=== PATIENT | male | born 1945 | race Caucasian/White ===

== ENCOUNTER → 2016-12-09 | Outpatient (CLI) | payer MEDICARE, OTHER ==
--- NOTE | 2016-12-09 13:25 | CT ---
EXAMINATION TYPE: CT chest w con DATE OF EXAM: 12/09/2016 12:51 PM COMPARISON: NONE HISTORY: Cough CT DLP: 1340.6 mGycm Automated exposure control for dose reduction was used. CONTRAST: CT scan of the chest is performed with IV Contrast, patient injected with 100 mL of Omnipaque 300. FINDINGS: There is a 2.2 cm bulla in the apical posterior segment of the left upper lobe. There is a 1.2 x 1.1 cm nodule along the major fissure in the right upper lobe, best seen on image 24. There is an 8 mm nodule in the lateral aspect of the left lung best seen on image 30. There is dependent atele ctasis at the lung bases. There is no significant axillary or mediastinal adenopathy. There are small hilar nodes. The lymph no de on the right measures 1.1 cm and the lymph node on the left measures 1.1 cm. There is no pleural o r pericardial fluid. The heart is not enlarged. There is coronary artery calcification. There are bilateral adrenal masses. The lumen the right measures 2.8 cm. On the left measures 1.9 cm. These were present on the previous CT scan of the abdomen and pelvis dated 06/05/2014 and has not camilo nged significantly. The remaining upper abdomen is unremarkable. There is mild hypertrophic spondylosis within the spine. IMPRESSION: 1. BILATERAL PULMONARY NODULES. 2. BILATERAL, STABLE ADRENAL MASSES. 3. NONSPECIFIC HILAR ADENOPATHY. 4. DEGENERATIVE CHANGES WITHIN THE SPINE.
== END ==
LOC: RADCTMAIN 12:13
PROVIDERS: ATTEND Family Medicine
DX: R91.8 Other nonspecific abnormal finding of lung field (principal)
CPT/HCPCS: 71260; Q9967

== ENCOUNTER → 2016-12-19 | Outpatient (CLI) | payer MEDICARE, OTHER ==
--- NOTE | 2016-12-20 08:29 | PE ---
EXAMINATION TYPE: PET CT fusion skull to thigh DATE OF EXAM: 12/19/2016 11:20 AM CLINICAL HISTORY: 71-year-old male solitary pulmonary nodule TECHNIQUE: Following the intravenous administration of 15.0 mCi of F-18 FDG, whole body images are performed from the skull base to the midthigh. Images are reviewed on the computer in the coronal, a xial, and sagittal planes. Reconstructed rotating images are created on independent workstation and reviewed on the computer. A localization and attenuation correction CT is performed in conjunction with the PET scan. Glucose level: 164 mg/dL COMPARISON: 12/09/2016 chest and 06/05/2014, 04/03/[address] FINDINGS: PET: Physiologic FDG uptake within the neck. 8mm pulmonary nodule posterior right midlung axial image 89. 5 mm pulmonary nodule posterior right lower lobe axial image 108. 5 mm pulmonary nodule peripheral left mid lung axial image 97. None of these show appreciable FDG uptake with the largest 8 mm nodule being just at the threshold fo r adequate PET characterization. Redemonstrated 2.5 cm right adrenal gland nodule and this is unchanged from 04/03/2014 with density ch aracteristics on prior exams compatible with lipid rich adrenal adenoma. There is mild FDG uptake, ma ximal SUV 2.7. 1.5 cm left adrenal gland nodule is also unchanged from 04/03/2014. No appreciable FDG uptake. Stabili ty for just about 3 years compatible with a benign etiology. Scattered variable mild to moderate bowel activity is demonstrated, likely physiologic muscular activ ity. Otherwise, physiologic FDG uptake seen within the abdomen and pelvis. Some degenerative tracer activity noted at the right shoulder. Variable mild to moderate degenerative tracer activity within the spine. ATTENUATION CORRECTION CT: Large patient body habitus causing extensive artifacts on the CT portion of the exam. Visualized intracranial structures, orbits and globes, and mastoid air cells are clear. There is comp lete opacification of the left maxillary sinus. Calcification in the region of the right palatine to nsil suggests sequela of prior infection. Retropharyngeal course of the ICAs. No cervical lymphadenop athy. Heart is upper limits of normal in size without pericardial effusion. Coronary vessel calcifications are present. Marker for coronary artery disease. Ascending aorta is ectatic at 3.7 cm. Borderline to mildly enlarged caliber to the main right and left pulmonary arteries and 2.5 and 2.8 cm, respective ly, suggesting underlying pulmonary arterial hypertension. No thoracic lymphadenopathy seen. Mild shara trilobular emphysema is noted. Some patchy bibasilar areas of atelectasis are present without ct consolidation or pleural effusion. Tiny hiatal hernia. There are extensive artifacts degrading the exam on the body portion. Prostate gland is enlarged measuring 5.5 cm wide. Circumferential bladder wall thickening probably re lates to bladder wall hypertrophy. There is a fat-containing right inguinal hernia. No abnormal fluid collection in the pelvis or pelvic lymphadenopathy seen. Bones: Degenerative changes at the hips, SI joints, mid and lower lumbar spine, endplate spondylosis mid to lower thoracic spine. Additional degenerative changes cervical spine. No osseous destructive p rocess. IMPRESSION: 1. Three pulmonary nodules, largest measuring 8 mm. These show no appreciable FDG uptake with the lar gest 8mm nodule being just at the threshold for adequate PET characterization. 6, 12, and 24 month fo llow-up exams recommended to ensure stability of these nodules. 2. Stable bilateral adrenal gland nodules measuring 2.5 cm on the right and 1.5 cm on the left compat ible with benign adrenal adenomas. 3. COPD with mild emphysema, CAD, suspected pulmonary arterial hypertension, suspected BPH, and a fat -containing right inguinal hernia.
== END | disposition home or self-care (01) ==
LOC: RADPETMAIN 07:30
PROVIDERS: ATTEND Family Medicine
DX: R91.8 Other nonspecific abnormal finding of lung field (principal); E27.8 Other specified disorders of adrenal gland; J44.9 Chronic obstructive pulmonary disease, unspecified; I25.10 Atherosclerotic heart disease of native coronary artery without angina pectoris; K40.90 Unilateral inguinal hernia, without obstruction or gangrene, not specified as recurrent
CPT/HCPCS: 78815; A9552

== ENCOUNTER → 2017-05-19 | Outpatient (CLI) | payer MEDICARE, OTHER ==
[~2017-05-19] MED LIST: SODIUM CHLORIDE 0.9% 500 ML in EMPTY BAG 1 BAG IV PRN
[2017-05-19 13:19] VITALS: BP 137/72; PULSE 81; RESP 16; TEMP 97.6
[2017-05-19 13:27] LABS: Anisocytosis Slight; CH 25.9; CHCM 28.9; HDW 2.92; HGB 13.3 gm/dL (13.0-17.5); Hypochromasia Marked; MCH 27.2 pg (25.0-35.0); MCHC 30.2 g/dL (31.0-37.0); Mean Platelet Volume 7.6; RBC 4.89 m/uL (4.30-5.90); RDW 16.3 % (11.5-15.5); WBC 7.7 k/uL (3.8-10.6)
== END ==
LOC: PROCWHC3 12:45 → EDSTATUS 13:00
PROVIDERS: ATTEND Family Medicine
DX: D75.0 Familial erythrocytosis (principal)
CPT/HCPCS: 36415; 85027

== ENCOUNTER → 2017-09-08 | Outpatient (CLI) | payer MEDICARE, OTHER ==
[2017-09-08 14:30] VITALS: BP 124/78; PULSE 78; RESP 26; TEMP 97.6
[2017-09-08 15:06] LABS: CH 27.9; CHCM 29.9; HCT 46.3 % (39.0-53.0); HDW 2.76; HGB 14.2 gm/dL (13.0-17.5); Hypochromasia Marked; MCH 28.6 pg (25.0-35.0); MCHC 30.6 g/dL (31.0-37.0); MCV 93.7 fL (80.0-100.0); RBC 4.95 m/uL (4.30-5.90); RDW 14.9 % (11.5-15.5)
== END | disposition home or self-care (01) ==
LOC: PROCWHC3 13:51
PROVIDERS: ATTEND Family Medicine
DX: D75.0 Familial erythrocytosis (principal)
CPT/HCPCS: 36415; 85027; 99195

== ENCOUNTER 2017-10-07 14:52 | Emergency (ER) | payer MEDICARE, OTHER ==
[2017-10-07 15:12] VITALS: BP 161/70; PULSE 94; RESP 18; TEMP 97.5
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
== END 2017-10-07 15:47 | disposition home or self-care (01) ==
LOC: EC 14:52
DX: H61.22 Impacted cerumen, left ear (principal); J44.9 Chronic obstructive pulmonary disease, unspecified; I48.91 Unspecified atrial fibrillation; E11.9 Type 2 diabetes mellitus without complications; K21.9 Gastro-esophageal reflux disease without esophagitis; G47.30 Sleep apnea, unspecified; F17.200 Nicotine dependence, unspecified, uncomplicated; Z99.89 Dependence on other enabling machines and devices; Z79.4 Long term (current) use of insulin; Z79.01 Long term (current) use of anticoagulants; Z79.899 Other long term (current) drug therapy; Z88.5 Allergy status to narcotic agent
CPT/HCPCS: 99282

== ENCOUNTER → 2017-12-08 | Outpatient (CLI) | payer MEDICARE, OTHER ==
[2017-12-08 15:01] VITALS: RESP 16; TEMP 97.8
[2017-12-08 15:09] LABS: HCT 48.9 % (39.0-53.0); HGB 15.1 gm/dL (13.0-17.5); Hypochromasia Moderate; MCH 28.4 pg (25.0-35.0); MCHC 30.9 g/dL (31.0-37.0); MCV 92.1 fL (80.0-100.0); Mean Platelet Volume 7.2; Platelet Count 275 k/uL (150-450); RBC 5.31 m/uL (4.30-5.90); RDW 14.9 % (11.5-15.5); WBC 8.2 k/uL (3.8-10.6)
[2017-12-08 15:33] VITALS: BP 137/68; PULSE 96
== END | disposition home or self-care (01) ==
LOC: PROCWHC3 14:41
PROVIDERS: ATTEND Family Medicine
DX: D75.0 Familial erythrocytosis (principal)
CPT/HCPCS: 36415; 85027; 99195

== ENCOUNTER → 2018-02-17 | Outpatient (CLI) | payer MEDICARE, OTHER ==
[2018-02-17 12:46] VITALS: TEMP 98.1
[2018-02-17 12:59] LABS: HCT 48.6 % (39.0-53.0); HGB 15.1 gm/dL (13.0-17.5); Hypochromasia Marked; MCH 28.5 pg (25.0-35.0); MCHC 31.1 g/dL (31.0-37.0); MCV 91.8 fL (80.0-100.0); Mean Platelet Volume 7.4; Platelet Count 293 k/uL (150-450); RDW 15.5 % (11.5-15.5); WBC 8.2 k/uL (3.8-10.6)
[2018-02-17 13:40] VITALS: BP 119/63; PULSE 92; RESP 16
== END | disposition home or self-care (01) ==
LOC: PROCWHC3 12:35
PROVIDERS: ATTEND Family Medicine
DX: D75.0 Familial erythrocytosis (principal)
CPT/HCPCS: 85027

== ENCOUNTER → 2018-04-21 | Outpatient (CLI) | payer MEDICARE, OTHER ==
[2018-04-21 13:00] VITALS: TEMP 98.4
[2018-04-21 13:13] LABS: HCT 47.4 % (39.0-53.0); HGB 14.5 gm/dL (13.0-17.5); Hypochromasia Marked; MCH 28.1 pg (25.0-35.0); MCHC 30.5 g/dL (31.0-37.0); MCV 92.4 fL (80.0-100.0); Platelet Count 311 k/uL (150-450); RBC 5.14 m/uL (4.30-5.90)
[2018-04-21 13:48] VITALS: BP 115/58; PULSE 98; RESP 18
== END | disposition home or self-care (01) ==
LOC: PROCWHC3 12:37
PROVIDERS: ATTEND Family Medicine
DX: D75.0 Familial erythrocytosis (principal)
CPT/HCPCS: 85027; 99195

== ENCOUNTER → 2018-06-16 | Outpatient (CLI) | payer MEDICARE, OTHER ==
[2018-06-16 13:30] VITALS: RESP 16; TEMP 98.1
[2018-06-16 13:42] LABS: HCT 48.7 % (39.0-53.0); HGB 14.4 gm/dL (13.0-17.5); Hypochromasia Marked; MCH 27.6 pg (25.0-35.0); MCHC 29.6 g/dL (31.0-37.0); MCV 93.4 fL (80.0-100.0); Mean Platelet Volume 7.2; Platelet Count 305 k/uL (150-450); RBC 5.21 m/uL (4.30-5.90); RDW 15.3 % (11.5-15.5); WBC 10.1 k/uL (3.8-10.6)
[2018-06-16 14:31] VITALS: BP 154/80; PULSE 93
== END ==
LOC: PROCWHC3 12:51
PROVIDERS: ATTEND Family Medicine
DX: D75.0 Familial erythrocytosis (principal)
CPT/HCPCS: 36415; 85027; 99195

== ENCOUNTER 2018-09-28 17:27 | Emergency (ER) | payer OTHER, MEDICARE ==
[2018-09-28 17:37] VITALS: TEMP 98.4
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
[2018-09-28 19:48] VITALS: BP 169/76; PULSE 97; RESP 24
== END 2018-09-28 19:52 | disposition home or self-care (01) ==
LOC: EC 17:27
DX: S01.81XA Laceration without foreign body of other part of head, initial encounter (principal); I48.91 Unspecified atrial fibrillation; J44.9 Chronic obstructive pulmonary disease, unspecified; E11.9 Type 2 diabetes mellitus without complications; F17.200 Nicotine dependence, unspecified, uncomplicated; G47.30 Sleep apnea, unspecified; Z99.89 Dependence on other enabling machines and devices; Z79.01 Long term (current) use of anticoagulants; Z79.4 Long term (current) use of insulin; Z79.899 Other long term (current) drug therapy; Z88.5 Allergy status to narcotic agent; V67.5XXA Driver of heavy transport vehicle injured in collision with fixed or stationary object in traffic accident, initial encounter; Y92.481 Parking lot as the place of occurrence of the external cause
CPT/HCPCS: 70450; 72125; 99284

== ENCOUNTER 2018-10-24 11:17 | Inpatient (IN) | payer MEDICARE, OTHER ==
[2018-10-24] MEDS ORDERED: IPRATROPIUM-ALBUTEROL 3 ML NEB INHALATION STA (11:38)
[2018-10-24] MEDS ORDERED: methylPREDNISolone SOD SUCCI 125 MG/2 ML VIAL IV STA (11:38)
--- NOTE | 2018-10-24 12:00 | ED ---
General Adult HPI - General Chief complaint: Shortness of Breath Stated complaint: SOB Time Seen by Provider: 10/24/18 11:25 Source: patient Mode of arrival: ambulatory Limitations: no limitations - History of Present Illness Initial comments: This 73-year-old white male presents with a complaint of shortness of breath. He states that this started last evening. He states that it is fairly severe. It is worse with exertion. 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 He still actively utilizes tobacco. He states that he has had a cough for the last several months with a greenish production. He denies any known fever but does state that he has had some chills. He does utilize home nebulized breathing treatments. He also utilizes oxygen at night only. He denies any chest pain. He states that he has chronic left leg swelling this is unchanged. He denies any leg pain or history of DVT or PE. He denies any known cardiac disease. No other complaints or modifying factors. 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 - Related Data Home Medications Medication Instructions Recorded Confirmed Ezetimibe [Zetia] 10 mg PO DAILY 01/22/14 10/24/18 Glimepiride [Amaryl] 4 mg PO BID 01/22/14 10/24/18 Metoprolol Tartrate [Lopressor] 50 mg PO BID 07/09/14 10/24/18 Albuterol Inhaler [Ventolin Hfa 1 - 2 puff INHALATION RT-Q4H 06/02/16 10/24/18 Inhaler] Atorvastatin [Lipitor] 80 mg PO DAILY 06/02/16 10/24/18 HYDROcodone/APAP 7.5-325MG [[place] 1 tab PO BID PRN 06/02/16 10/24/18 7.5-325] metFORMIN HCL 1,000 mg PO BID 06/02/16 10/24/18 Dutasteride 0.5 mg PO DAILY 10/24/18 10/24/18 Exenatide Microspheres [Bydureon 2 mg SQ Q7D 10/24/18 10/24/18 Pen] Insulin Degludec [Tresiba] 60 unit SQ DAILY 10/24/18 10/24/18 Lisinopril [Zestril] 5 mg PO BID 10/24/18 10/24/18 Tamsulosin [Flomax] 0.4 mg PO DAILY 10/24/18 10/24/18 Warfarin [Coumadin] 7.5 mg PO DAILY 10/24/18 10/24/18 Allergies Allergy/AdvReac Type Severity Reaction Status Date / Time morphine Allergy Rash/Hives Verified 10/24/18 11:55 Review of Systems ROS Statement: Those systems with pertinent positive or pertinent negative responses have been documented in the HPI. ROS Other: All systems not noted in ROS Statement are negative. Past Medical History Past Medical History: Atrial Fibrillation, Blood Disorder, COPD, Diabetes Mellitus, GERD/Reflux, Sleep Apnea/CPAP/BIPAP Additional Past Medical History / Comment(s): CELLULITIS RT LEG/FOOT, familial erythrocytosis History of Any Multi-Drug Resistant Organisms: None Reported Additional Past Surgical History / Comment(s): LT LEG SX D/T POOR CIRCULATION, LT CAOTID ENDARTRECTOMY, LASER EYE SX, Past Anesthesia/Blood Transfusion Reactions: No Reported Reaction Past Psychological History: No Psychological Hx Reported Smoking Status: Current every day smoker Past Alcohol Use History: None Reported Past Drug Use History: None Reported - Past Family History Father Additional Family Medical History / Comment(s): DAD AGE 55 OF BRAIN HEMORRAGE. HAD HX TB. Mother Additional Family Medical History / Comment(s): HEART TROUBLE IN HER 70'S General Exam - General Exam Comments Initial Comments: GENERAL: The patient is well nourished and well hydrated. VITAL SIGNS: Heart rate, blood pressure, respiratory rate reviewed as recorded in nurse's notes. EYES: Pupils are round and reactive. Extraocular movements are intact. No conjunctival / lid redness or swelling. ENT: No external evidence of injury, swelling, or ecchymosis. Airway is patent. Throat is clear. NECK: Nontender. No swelling or evidence of injury. No subcutaneous emphysema. Trachea is midline. No thyroid mass. HEART: Irregular tachycardic rhythm. Good peripheral pulses. LUNGS/CHEST: Diminished breath sounds bilaterally with slight wheezes. No ecchymosis, subcutaneous emphysema, or tenderness. ABDOMEN: Abdomen soft without tenderness. No palpable masses or organomegaly. No peritoneal signs. No abdominal wall swelling or ecchymosis. EXTREMITIES: No extremity tenderness. Normal muscle tone and function. No thoracolumbar tenderness. There is mild left lower extremity swelling which apparently is chronic. NEUROLOGIC: Sensation is grossly intact. Cranial nerve exam reveals face is symmetrical, tongue is midline, speech is clear. SKIN: No abrasions or ecchymosis is noted. No induration or masses noted. PSYCHIATRIC: Alert and oriented. Appropriate behavior and judgment. Limitations: no limitations Course Vital Signs 10/24/18 10/24/18 10/24/18 11:21 12:08 12:18 Temperature 98.4 F Pulse Rate 121 H 92 94 Respiratory 24 Rate Blood Pressure 147/63 O2 Sat by Pulse 82 L Oximetry 10/24/18 10/24/18 10/24/18 12:26 13:49 14:13 Temperature Pulse Rate 109 H 108 H 109 H Respiratory 24 24 Rate Blood Pressure 125/97 168/86 O2 Sat by Pulse 92 L 93 L Oximetry 10/24/18 14:26 Temperature Pulse Rate 110 H Respiratory Rate Blood Pressure O2 Sat by Pulse Oximetry Medical Decision Making - Medical Decision Making The patient is seen and examined. All diagnostics are reviewed. An IV is established and he is placed on a shelter monitor. This does show sinus tachycardia. The patient also was placed on oxygen as his initial pulse ox is 82%. He does receive 2 DuoNeb breathing treatments as well as IV Solu-Medrol. The EKG does show atrial fibrillation with rapid ventricular response at a heart rate of 124. The patient also does have an incomplete right bundle- branch block. There is some inferior T-wave inversions. The QRS duration is 118, QTC intervals 488. He receives an additional albuterol treatment. The laboratory does show some hyperglycemia and hypokalemia. The computed tomography scan of the thorax does not show any evidence of pulmonary embolism or pneumonia or acute processes. Is felt that he likely does have a degree of COPD exacerbation with significant hypoxia. He may have a bronchitis as well. He does have atrial fibrillation with mild rapid ventricular response. It is felt as though he would require admission to the hospital for further treatment. Case will be discussed with internal medicine shortly. - Lab Data Result diagrams: 10/24/18 11:59 10/24/18 11:59 Lab Results 10/24/18 10/24/18 10/24/18 Range/Units 11:59 11:59 11:59 WBC 10.4 (3.8-10.6) k/uL RBC 4.87 (4.30-5.90) m/uL Hgb 13.6 (13.0-17.5) gm/dL Hct 45.1 (39.0-53.0) % MCV 92.6 (80.0-100.0) fL MCH 28.0 (25.0-35.0) pg MCHC 30.2 L (31.0-37.0) g/dL RDW 15.5 (11.5-15.5) % Plt Count 276 (150-450) k/uL Neutrophils % 83 % Lymphocytes % 7 % Monocytes % 8 % Eosinophils % 1 % Basophils % 0 % Neutrophils # 8.6 H (1.3-7.7) k/uL Lymphocytes # 0.7 L (1.0-4.8) k/uL Monocytes # 0.8 (0-1.0) k/uL Eosinophils # 0.1 (0-0.7) k/uL Basophils # 0.0 (0-0.2) k/uL Hypochromasia Marked PT (9.0-12.0) sec INR (<1.2) APTT (22.0-30.0) sec D-Dimer (<0.60) mg/L FEU Sodium 139 (137-145) mmol/L Potassium 5.3 H (3.5-5.1) mmol/L Chloride 101 (98-107) mmol/L Carbon Dioxide 29 (22-30) mmol/L Anion Gap 9 mmol/L BUN 12 (9-20) mg/dL Creatinine 0.74 (0.66-1.25) mg/dL Est GFR (CKD-EPI)AfAm >90 (>60 ml/min/1.73 sqM) Est GFR (CKD-EPI)NonAf >90 (>60 ml/min/1.73 sqM) Glucose 283 H (74-99) mg/dL Calcium 9.0 (8.4-10.2) mg/dL Phosphorus 4.0 (2.5-4.5) mg/dL Magnesium 1.5 L (1.6-2.3) mg/dL Total Bilirubin 0.7 (0.2-1.3) mg/dL AST 15 L (17-59) U/L ALT 36 (21-72) U/L Alkaline Phosphatase 81 (38-126) U/L Total Creatine Kinase 59 (55-170) U/L CK-MB (CK-2) 0.9 (0.0-2.4) ng/mL CK-MB (CK-2) Rel Index 1.5 Troponin I 0.013 (0.000-0.034) ng/mL NT-Pro-B Natriuret Pep pg/mL Total Protein 7.2 (6.3-8.2) g/dL Albumin 3.5 (3.5-5.0) g/dL 10/24/18 10/24/18 Range/Units 11:59 11:59 WBC (3.8-10.6) k/uL RBC (4.30-5.90) m/uL Hgb (13.0-17.5) gm/dL Hct (39.0-53.0) % MCV (80.0-100.0) fL MCH (25.0-35.0) pg MCHC (31.0-37.0) g/dL RDW (11.5-15.5) % Plt Count (150-450) k/uL Neutrophils % % Lymphocytes % % Monocytes % % Eosinophils % % Basophils % % Neutrophils # (1.3-7.7) k/uL Lymphocytes # (1.0-4.8) k/uL Monocytes # (0-1.0) k/uL Eosinophils # (0-0.7) k/uL Basophils # (0-0.2) k/uL Hypochromasia PT 24.5 H (9.0-12.0) sec INR 2.5 H (<1.2) APTT 38.5 H (22.0-30.0) sec D-Dimer 0.25 (<0.60) mg/L FEU Sodium (137-145) mmol/L Potassium (3.5-5.1) mmol/L Chloride (98-107) mmol/L Carbon Dioxide (22-30) mmol/L Anion Gap mmol/L BUN (9-20) mg/dL Creatinine (0.66-1.25) mg/dL Est GFR (CKD-EPI)AfAm (>60 ml/min/1.73 sqM) Est GFR (CKD-EPI)NonAf (>60 ml/min/1.73 sqM) Glucose (74-99) mg/dL Calcium (8.4-10.2) mg/dL Phosphorus (2.5-4.5) mg/dL Magnesium (1.6-2.3) mg/dL Total Bilirubin (0.2-1.3) mg/dL AST (17-59) U/L ALT (21-72) U/L Alkaline Phosphatase (38-126) U/L Total Creatine Kinase (55-170) U/L CK-MB (CK-2) (0.0-2.4) ng/mL CK-MB (CK-2) Rel Index Troponin I (0.000-0.034) ng/mL NT-Pro-B Natriuret Pep 1010 pg/mL Total Protein (6.3-8.2) g/dL Albumin (3.5-5.0) g/dL Disposition Clinical Impression: Acute respiratory failure, COPD exacerbation, Dyspnea, Sinus tachycardia, Morbid obesity, Atrial fibrillation with rapid ventricular response, Hyperglycemia, Diabetes mellitus, Hyperkalemia Disposition: ADMITTED IP TO THIS HOSP Condition: Fair Is patient prescribed a controlled substance at d/c from ED?: No Referrals: Freddy Viveros MD [Primary Care Provider] - 1-2 days Time of Disposition: 14:52 Decision Date: 10/24/18 Decision Time: 14:52
[2018-10-24 12:28] LABS: Basophils % (A) 0 %; Eosinophils # (A) 0.1 k/uL (0-0.7); Eosinophils % (A) 1 %; HCT 45.1 % (39.0-53.0); HGB 13.6 gm/dL (13.0-17.5); Hypochromasia Marked; Lymphocytes # (A) 0.7 k/uL (1.0-4.8); Lymphocytes % (A) 7 %; MCHC 30.2 g/dL (31.0-37.0); MCV 92.6 fL (80.0-100.0); Mean Platelet Volume 7.1; Monocytes # (A) 0.8 k/uL (0-1.0); Monocytes % (A) 8 %; Neutrophils # (A) 8.6 k/uL (1.3-7.7); Neutrophils % (A) 83 %; Platelet Count 276 k/uL (150-450); RBC 4.87 m/uL (4.30-5.90); RDW 15.5 % (11.5-15.5); WBC 10.4 k/uL (3.8-10.6)
[2018-10-24 12:34] LABS: ALT 36 U/L (21-72); AST 15 U/L (17-59); Albumin 3.5 g/dL (3.5-5.0); Alkaline Phosphatase 81 U/L (38-126); Anion Gap 9 mmol/L; Blood Urea Nitrogen 12 mg/dL (9-20); Carbon Dioxide 29 mmol/L (22-30); Chloride 101 mmol/L (98-107); Glucose 283 mg/dL (74-99); Magnesium 1.5 mg/dL (1.6-2.3); Potassium 5.3 mmol/L (3.5-5.1); Sodium 139 mmol/L (137-145); Total Bilirubin 0.7 mg/dL (0.2-1.3); Total Protein 7.2 g/dL (6.3-8.2)
[2018-10-24 12:39] LABS: D-Dimer 0.25 mg/L FEU (<0.60); INR 2.5 (<1.2); Partial Thromboplastin Time 38.5 sec (22.0-30.0); Prothrombin Time 24.5 sec (9.0-12.0)
[2018-10-24] MEDS ORDERED: ALBUTEROL NEBULIZED 2.5 MG/3 ML INHALATION STA (12:43)
[2018-10-24 12:56] LABS: Creatine Kinase MB 0.9 ng/mL (0.0-2.4); Troponin I 0.013 ng/mL (0.000-0.034)
--- NOTE | 2018-10-24 13:55 | CT ---
EXAMINATION TYPE: CT angio chest DATE OF EXAM: 10/24/2018 COMPARISON: None HISTORY: SOB CT DLP: 1021.3 mGycm CONTRAST: CT chest with contrast and 3D reconstruction with MIP imaging is performed with IV Contrast, patient injected with 100 mL of Isovue 370. Contrast-enhanced CT of the chest was performed through the course of the pulmonary arteries with denise g and mediastinal window settings submitted. 3D reconstruction with MIP imaging was also performed. PULMONARY ARTERIES: The pulmonary arteries and their major tributaries are patent. I do not see christine dence for sizable filling defect to suggest pulmonary embolic process. LUNGS: Basilar pleural effusions right greater than left as well as associated compressive atelectasi s. MEDIASTINUM: Thoracic aorta is of normal caliber,however, evaluation is limited given timing of the contrast bolus. If there is concern for thoracic aortic pathology consider EMANUEL. Correlate clinicall y . The heart is not enlarged. No evidence for mediastinal mass. No mediastinal lymph nodes greater than 1cm. HILAR STRUCTURES: No evidence for mass. No hilar lymph nodes greater than 1 cm. UPPER ABDOMEN: Probable right adrenal adenoma. IMPRESSION: 1. No evidence for Pulmonary embolism at this time.
[2018-10-24] MEDS ORDERED: INSULIN REGULAR 100 UNIT/ML VIAL SQ STA (14:50)
[2018-10-24] MEDS ORDERED: LEVOFLOXACIN 750MG-D5W PMX 750 MG in DEXTROSE/WATER 1 150ML.BAG IVPB STA (14:53)
[2018-10-24] MEDS ORDERED: HYDROcodone/APAP 7.5-325MG 1 EACH TAB PO PRN (15:00)
[2018-10-24 15:52] LABS: Glucose,Whole Blood 285 mg/dL (75-99)
--- NOTE | 2018-10-24 16:45 | P.HPIM ---
History of Present Illness H&P Date: 10/24/18 Chief Complaint: shortness of breath This is a 73-year-old male who presented emergency department complaining of shortness of breath. He states it began last night suddenly. He denies fevers and chills. He states he does have a cough productive of wood phlegm. He does have a history of COPD and wears oxygen at home at 3 L nasal cannula. He has a Ventolin inhaler that he uses on occasion. He also has known obstructive sleep apnea and states he wears his CPAP nightly. He is complaining of wheezing and chest tightness. The patient does continue to smoke. The patient does have a history of atrial fibrillation. In the emergency department the patient was found to have an O2 saturation of 82%. He was also found to be in atrial fibrillation with rapid ventricular response at a rate of 124. The patient did undergo a CT angiogram. No evidence of pulmonary embolism, however the patient was found to have basilar pleural effusions right greater than left as well as associated compressive atelectasis. Review of Systems All systems: negative Past Medical History Past Medical History: Atrial Fibrillation, Blood Disorder, COPD, Diabetes Mellitus, GERD/Reflux, Sleep Apnea/CPAP/BIPAP Additional Past Medical History / Comment(s): CELLULITIS RT LEG/FOOT, familial erythrocytosis History of Any Multi-Drug Resistant Organisms: None Reported Additional Past Surgical History / Comment(s): LT LEG SX D/T POOR CIRCULATION, LT CAOTID ENDARTRECTOMY, LASER EYE SX, Past Anesthesia/Blood Transfusion Reactions: No Reported Reaction Past Psychological History: No Psychological Hx Reported Smoking Status: Current every day smoker Past Alcohol Use History: None Reported Past Drug Use History: None Reported - Past Family History Father Additional Family Medical History / Comment(s): DAD AGE 55 OF BRAIN HEMORRAGE. HAD HX TB. Mother Additional Family Medical History / Comment(s): HEART TROUBLE IN HER 70'S Medications and Allergies Home Medications Medication Instructions Recorded Confirmed Type Ezetimibe [Zetia] 10 mg PO DAILY 01/22/14 10/24/18 History Glimepiride [Amaryl] 4 mg PO BID 01/22/14 10/24/18 History Metoprolol Tartrate [Lopressor] 50 mg PO BID 07/09/14 10/24/18 History Albuterol Inhaler [Ventolin Hfa 1 - 2 puff INHALATION RT-Q4H 06/02/16 10/24/18 History Inhaler] Atorvastatin [Lipitor] 80 mg PO DAILY 06/02/16 10/24/18 History HYDROcodone/APAP 7.5-325MG [[place] 1 tab PO BID PRN 06/02/16 10/24/18 History 7.5-325] metFORMIN HCL 1,000 mg PO BID 06/02/16 10/24/18 History Dutasteride 0.5 mg PO DAILY 10/24/18 10/24/18 History Exenatide Microspheres [Bydureon 2 mg SQ Q7D 10/24/18 10/24/18 History Pen] Insulin Degludec [Tresiba] 60 unit SQ DAILY 10/24/18 10/24/18 History Lisinopril [Zestril] 5 mg PO BID 10/24/18 10/24/18 History Tamsulosin [Flomax] 0.4 mg PO DAILY 10/24/18 10/24/18 History Warfarin [Coumadin] 7.5 mg PO DAILY 10/24/18 10/24/18 History Allergies Allergy/AdvReac Type Severity Reaction Status Date / Time morphine Allergy Rash/Hives Verified 10/24/18 11:55 Physical Exam Osteopathic Statement: *. No significant issues noted on an osteopathic structural exam other than those noted in the History and Physical/Consult. Vitals: Vital Signs Temp Pulse Resp BP Pulse Ox 10/24/18 16:25 98.1 F 107 H 20 148/72 91 L 10/24/18 15:20 98.0 F 105 H 18 146/76 93 L 10/24/18 14:26 110 H 10/24/18 14:13 109 H 10/24/18 13:49 108 H 24 168/86 93 L 10/24/18 12:26 109 H 24 125/97 92 L 10/24/18 12:18 94 10/24/18 12:08 92 10/24/18 11:21 98.4 F 121 H 24 147/63 82 L Intake and Output 10/24/18 10/24/18 10/24/18 06:59 14:59 22:59 Other: Weight 136.078 kg Gen.: Patient is alert and oriented 3, no acute distress, morbidly obese Cardiovascular: Irregular rate and rhythm, S1/S2, tachycardia Lungs: Coarse breath sounds bilaterally, diminished at the bases Abdomen: Soft nontender nondistended positive bowel sounds Extremities: Trace edema Results CBC & Chem 7: 10/24/18 11:59 02 11:59 Labs: Abnormal Lab Results - Last 24 Hours (Table) 10/24/18 10/24/18 10/24/18 Range/Units 11:59 11:59 11:59 MCHC 30.2 L (31.0-37.0) g/dL Neutrophils # 8.6 H (1.3-7.7) k/uL Lymphocytes # 0.7 L (1.0-4.8) k/uL PT 24.5 H (9.0-12.0) sec INR 2.5 H (<1.2) APTT 38.5 H (22.0-30.0) sec Potassium 5.3 H (3.5-5.1) mmol/L Glucose 283 H (74-99) mg/dL POC Glucose (mg/dL) (75-99) mg/dL Magnesium 1.5 L (1.6-2.3) mg/dL AST 15 L (17-59) U/L 10/24/18 Range/Units 15:13 MCHC (31.0-37.0) g/dL Neutrophils # (1.3-7.7) k/uL Lymphocytes # (1.0-4.8) k/uL PT (9.0-12.0) sec INR (<1.2) APTT (22.0-30.0) sec Potassium (3.5-5.1) mmol/L Glucose (74-99) mg/dL POC Glucose (mg/dL) 285 H (75-99) mg/dL Magnesium (1.6-2.3) mg/dL AST (17-59) U/L CT scan - chest: report reviewed, image reviewed Thrombosis Risk Factor Assmnt - DVT/VTE Prophylaxis DVT/VTE Prophylaxis: Pharmacologic Prophylaxis ordered - Choose All That Apply Each Factor Represents 1 point: Serious lung disease incl. pneumonia (< 1month) Each Risk Factor Represents 2 Points: Age 61-74 years Each Risk Factor Represents 3 Points: History of DVT/PE Thrombosis Risk Factor Assessment Total Risk Factor Score: 6 Thrombosis Risk Factor Assessment Level: High Risk Assessment and Plan Assessment: Acute on chronic hypoxic respiratory failure Acute exacerbation of COPD Tracheobronchitis Bilateral pleural effusions Acute exacerbation of congestive heart failure, unknown type Atrial fibrillation with rapid ventricular response Active tobacco abuse Dyslipidemia Diabetes mellitus type 2 BPH Obstructive sleep apnea, compliant with CPAP Morbid obesity Coumadin coagulopathy Mild hyperkalemia Hypomagnesemia O2 to maintain saturation greater than equal to 90% Sputum culture Antibiotics: Levaquin Pulmicort Duo nebs Solu-Medrol Insulin sliding scale Smoking cessation is highly recommended Continue patient's home medications Coumadin dosing per INR 2-3 Replace magnesium Echocardiogram Nicotine TD GI and DVT prophylaxis Cardiology consult for atrial fibrillation Diuresis and monitor pleural effusions Patient seen and examined covering for Dr. Viveros
[2018-10-24] MEDS ORDERED: MAGNESIUM SULFATE-D5W PMX 1 GM in DEXTROSE/WATER 1 100ML.BAG IVPB ONE (17:00)
[2018-10-24 17:19] LABS: Glucose,Whole Blood 298 mg/dL (75-99)
[2018-10-24] MEDS: metFORMIN 500 MG TAB PO SCH (17:41)
[2018-10-24] MEDS: FUROSEMIDE 40 MG TAB PO SCH (17:41)
[2018-10-24] MEDS: methylPREDNISolone SOD SUCCI 125 MG/2 ML VIAL IV SCH ×2 (17:42→22:43)
[2018-10-24] MEDS: INSULIN ASPART (NovoLOG) 100 UNIT/ML VIAL SQ SCH ×2 (17:42→21:11)
[2018-10-24 20:55] LABS: Glucose,Whole Blood 327 mg/dL (75-99)
[2018-10-24] MEDS: LISINOPRIL 5 MG TAB PO SCH (20:56)
[2018-10-24] MEDS: METOPROLOL TARTRATE 50 MG TAB PO SCH (20:56)
[2018-10-24] MEDS: GLIMEPIRIDE 4 MG TAB PO SCH (20:56)
[2018-10-24] MEDS ORDERED: INSULIN ASPART (NovoLOG) 100 UNIT/ML VIAL SQ ONE (21:03)
[2018-10-24] MEDS: INSULIN DETEMIR (LEVEMIR) 100 UNIT/ML SYR SQ SCH (21:36)
[2018-10-24] MEDS: IPRATROPIUM-ALBUTEROL 3 ML NEB INHALATION PRN (21:41)
[2018-10-24] MEDS: BUDESONIDE 0.5 MG/2 ML NEBU INHALATION SCH (21:41)
[2018-10-25 01:55] LABS: Glucose,Whole Blood 210 mg/dL (75-99)
[2018-10-25 05:36] LABS: Glucose,Whole Blood 236 mg/dL (75-99)
[2018-10-25 05:59] LABS: Basophils % (A) 0 %; Eosinophils % (A) 0 %; HCT 46.4 % (39.0-53.0); HGB 13.6 gm/dL (13.0-17.5); Hypochromasia Marked; Lymphocytes # (A) 0.6 k/uL (1.0-4.8); Lymphocytes % (A) 8 %; MCH 27.1 pg (25.0-35.0); MCHC 29.2 g/dL (31.0-37.0); MCV 92.7 fL (80.0-100.0); Mean Platelet Volume 6.7; Monocytes # (A) 0.2 k/uL (0-1.0); Monocytes % (A) 3 %; Neutrophils # (A) 6.7 k/uL (1.3-7.7); Neutrophils % (A) 88 %; Platelet Count 319 k/uL (150-450); RDW 15.4 % (11.5-15.5); WBC 7.6 k/uL (3.8-10.6)
[2018-10-25 06:18] LABS: ALT 30 U/L (21-72); AST 15 U/L (17-59); Albumin 3.3 g/dL (3.5-5.0); Alkaline Phosphatase 79 U/L (38-126); Anion Gap 9 mmol/L; Blood Urea Nitrogen 21 mg/dL (9-20); Calcium 9.1 mg/dL (8.4-10.2); Carbon Dioxide 28 mmol/L (22-30); Chloride 98 mmol/L (98-107); Glucose 239 mg/dL (74-99); Magnesium 1.8 mg/dL (1.6-2.3); Potassium 5.2 mmol/L (3.5-5.1); Sodium 135 mmol/L (137-145); Total Bilirubin 0.6 mg/dL (0.2-1.3); Total Protein 6.9 g/dL (6.3-8.2)
[2018-10-25] MEDS: INSULIN ASPART (NovoLOG) 100 UNIT/ML VIAL SQ SCH ×4 (06:35→21:39)
[2018-10-25] MEDS: methylPREDNISolone SOD SUCCI 125 MG/2 ML VIAL IV SCH ×4 (06:35→22:33)
[2018-10-25] MEDS: PANTOPRAZOLE 40 MG TABLET PO SCH (06:36)
[2018-10-25] MEDS: metFORMIN 500 MG TAB PO SCH ×2 (06:36→17:06)
[2018-10-25 07:32] LABS: INR 2.2 (<1.2); Prothrombin Time 21.4 sec (9.0-12.0)
[2018-10-25] MEDS ORDERED: NON-FORMULARY DRUG (Exenatide Microspheres [Bydureon Pen] 2 MG) SQ SCH (09:00)
[2018-10-25] MEDS: NICOTINE 21MG/24HR PATCH TRANSDERM SCH (09:19)
[2018-10-25] MEDS: TAMSULOSIN 0.4 MG CAP.ER.24H PO SCH (09:19)
[2018-10-25] MEDS: METOPROLOL TARTRATE 50 MG TAB PO SCH ×4 (09:19→21:38)
[2018-10-25] MEDS: LISINOPRIL 5 MG TAB PO SCH ×2 (09:19→21:38)
[2018-10-25] MEDS: FINASTERIDE 5 MG TAB PO SCH (09:19)
[2018-10-25] MEDS: ATORVASTATIN 80 MG TAB PO SCH (09:19)
[2018-10-25] MEDS: FUROSEMIDE 40 MG TAB PO SCH ×2 (09:19→17:06)
[2018-10-25] MEDS: GLIMEPIRIDE 4 MG TAB PO SCH ×2 (09:20→21:38)
[2018-10-25] MEDS: INSULIN DETEMIR (LEVEMIR) 100 UNIT/ML SYR SQ SCH ×2 (09:20→22:05)
[2018-10-25] MEDS: EZETIMIBE 10 MG TAB PO SCH (09:20)
--- NOTE | 2018-10-25 10:02 | P.CRDCN ---
History of Present Illness Consult date: 10/25/18 Requesting physician: Cheri Yeung Consult reason: shortness of breath Chief complaint: Worsening shortness of breath and productive cough History of present illness: This is a 73-year-old gentleman with known history of COPD with home O2 use, nicotine dependence, PAD with prior carotid endarterectomy, obstructive sleep apnea for which he wears CPAP, chronic persistent atrial fibrillation on Coumadin for anticoagulation. Diabetes, GERD, hyperlipidemia, presents to the hospital on this occasion with symptoms of progressively worsening shortness of breath , or into the patient he is always somewhat short of breath about of over the past couple of days progressively worse. He states that he's been coughing up significant amount of wood sputum at home and also has been running intermittent fevers at home. A CTA of the chest was performed on arrival here which was negative for pulmonary embolism. It did also show basilar pleural effusions right greater than the left. No chest x-ray performed. EKG on arrival here showed atrial fibrillation with rapid ventricular response. Blood pressure 146/60, heart rate 120 on arrival, O2 saturation on arrival 82%. Blood pressure this morning 136/60 with a heart rate in the 110, 97% on 5 L of oxygen. White blood cell count 10.4 on admission, 7.6 this morning, hemoglobin 13.6, platelet count 319. INR 2.2, sodium 135, potassium 5.2, BUN 20 and creatinine 0.8. Magnesium 1.5 on admission, 1.8 this morning. Troponin 0.013. BNP level 1010. Past Medical History Past Medical History: Atrial Fibrillation, Blood Disorder, COPD, CVA/TIA, Diabetes Mellitus, GERD/Reflux, Sleep Apnea/CPAP/BIPAP Additional Past Medical History / Comment(s): CELLULITIS RT LEG/FOOT, familial erythrocytosis, tia History of Any Multi-Drug Resistant Organisms: None Reported Additional Past Surgical History / Comment(s): LT LEG SX D/T POOR CIRCULATION, LT CAOTID ENDARTRECTOMY, LASER EYE SX, Past Anesthesia/Blood Transfusion Reactions: No Reported Reaction Smoking Status: Current some day smoker - Past Family History Father Additional Family Medical History / Comment(s): DAD AGE 55 OF BRAIN HEMORRAGE. HAD HX TB. Mother Additional Family Medical History / Comment(s): HEART TROUBLE IN HER 70'S Medications and Allergies Home Medications Medication Instructions Recorded Confirmed Type Ezetimibe [Zetia] 10 mg PO DAILY 01/22/14 10/24/18 History Glimepiride [Amaryl] 4 mg PO BID 01/22/14 10/24/18 History Metoprolol Tartrate [Lopressor] 50 mg PO BID 07/09/14 10/24/18 History Albuterol Inhaler [Ventolin Hfa 1 - 2 puff INHALATION RT-Q4H 06/02/16 10/24/18 History Inhaler] Atorvastatin [Lipitor] 80 mg PO DAILY 06/02/16 10/24/18 History HYDROcodone/APAP 7.5-325MG [Edwall 1 tab PO BID PRN 06/02/16 10/24/18 History 7.5-325] metFORMIN HCL 1,000 mg PO BID 06/02/16 10/24/18 History Dutasteride 0.5 mg PO DAILY 10/24/18 10/24/18 History Exenatide Microspheres [Bydureon 2 mg SQ Q7D 10/24/18 10/24/18 History Pen] Insulin Degludec [Tresiba] 60 unit SQ DAILY 10/24/18 10/24/18 History Lisinopril [Zestril] 5 mg PO BID 10/24/18 10/24/18 History Tamsulosin [Flomax] 0.4 mg PO DAILY 10/24/18 10/24/18 History Warfarin [Coumadin] 7.5 mg PO DAILY 10/24/18 10/24/18 History Allergies Allergy/AdvReac Type Severity Reaction Status Date / Time morphine Allergy Rash/Hives Verified 10/24/18 11:55 Physical Exam Vitals: Vital Signs Temp Pulse Pulse Resp BP BP Pulse Ox 10/25/18 08:00 109 H 16 136/66 97 10/25/18 03:23 97.5 F L 97 20 161/74 91 L 10/25/18 00:00 98 F 92 18 154/69 96 10/24/18 21:55 104 H 10/24/18 21:41 112 H 97 10/24/18 20:00 97 F L 125 H 20 177/74 91 L 10/24/18 16:25 98.1 F 107 H 20 148/72 91 L 10/24/18 16:00 97.9 F 128 H 16 151/100 93 L 10/24/18 15:20 98.0 F 105 H 18 146/76 93 L 10/24/18 14:26 110 H 10/24/18 14:13 109 H 10/24/18 13:49 108 H 24 168/86 93 L 10/24/18 12:26 109 H 24 125/97 92 L 10/24/18 12:18 94 10/24/18 12:08 92 10/24/18 11:21 98.4 F 121 H 24 147/63 82 L Intake and Output 10/24/18 10/25/18 10/25/18 22:59 06:59 14:59 Intake Total 490 10 480 Balance 490 10 480 Intake: IV 10 10 0.9 10 10 Oral 480 480 Other: Weight 142.4 kg PHYSICAL EXAMINATION: GENERAL: 73-year-old gentleman in no acute distress at the time of my examination HEENT: Head is atraumatic, normocephalic. Pupils equal, round. Sclera anicteric. Conjunctiva are clear. Mucous membranes of the mouth are moist. Neck is supple. There is no elevated jugular venous pressure. No carotid bruit is heard. HEART EXAMINATION: Heart S1 and S2 irregularly irregular CHEST EXAMINATION: Lungs reveal scattered coarse rhonchi with diminished air entry to bilateral bases. ABDOMEN: Soft, nontender. Bowel sounds are heard. No organomegaly noted. EXTREMITIES: 2+ peripheral pulses with 1-2+ edema to the left lower extremity, 1 + edema to the right lower extremity. . NEUROLOGIC patient is awake, alert and oriented 3 . . Results 10/25/18 05:05 10/25/18 05:05 Cardiac Enzymes 10/24/18 10/24/18 10/25/18 Range/Units 11:59 11:59 05:05 AST 15 L 15 L (17-59) U/L CK-MB (CK-2) 0.9 (0.0-2.4) ng/mL Troponin I 0.013 (0.000-0.034) ng/mL Coagulation 10/24/18 10/25/18 Range/Units 11:59 05:05 PT 24.5 H 21.4 H (9.0-12.0) sec APTT 38.5 H (22.0-30.0) sec CBC 10/24/18 10/25/18 Range/Units 11:59 05:05 WBC 10.4 7.6 (3.8-10.6) k/uL RBC 4.87 5.00 (4.30-5.90) m/uL Hgb 13.6 13.6 (13.0-17.5) gm/dL Hct 45.1 46.4 (39.0-53.0) % Plt Count 276 319 (150-450) k/uL Comprehensive Metabolic Panel 10/24/18 10/25/18 Range/Units 11:59 05:05 Sodium 139 135 L (137-145) mmol/L Potassium 5.3 H 5.2 H (3.5-5.1) mmol/L Chloride 101 98 (98-107) mmol/L Carbon Dioxide 29 28 (22-30) mmol/L BUN 12 21 H (9-20) mg/dL Creatinine 0.74 0.80 (0.66-1.25) mg/dL Glucose 283 H 239 H (74-99) mg/dL Calcium 9.0 9.1 (8.4-10.2) mg/dL AST 15 L 15 L (17-59) U/L ALT 36 30 (21-72) U/L Alkaline Phosphatase 81 79 (38-126) U/L Total Protein 7.2 6.9 (6.3-8.2) g/dL Albumin 3.5 3.3 L (3.5-5.0) g/dL Current Medications Generic Name Dose Route Start Last Admin Trade Name Freq PRN Reason Stop Dose Admin Hydrocodone Bitart/Acetaminophen 1 each 10/24/18 15:00 Edwall 7.5-325 PO BID PRN Pain Albuterol/Ipratropium 3 ml 10/24/18 14:53 10/24/18 21:41 Duoneb 0.5 Mg-3 Mg/3 Ml Soln INHALATION 3 ml RT-Q4H PRN Administration Shortness Of Breath Or Wheezing Atorvastatin Calcium 80 mg 10/25/18 09:00 10/25/18 09:19 Lipitor PO 80 mg DAILY TERE Administration Budesonide 0.5 mg 10/24/18 20:00 10/24/18 21:41 Pulmicort INHALATION 0.5 mg RT-BID TERE Administration Ezetimibe 10 mg 10/25/18 09:00 10/25/18 09:20 Zetia PO 10 mg DAILY [facility] Administration Finasteride 5 mg 10/25/18 09:00 10/25/18 09:19 Proscar PO 5 mg DAILY [facility] Administration Furosemide 40 mg 10/24/18 16:45 10/25/18 09:19 Lasix PO 40 mg BID@0900,1600 [facility] Administration Glimepiride 4 mg 10/24/18 21:00 10/25/18 09:20 Amaryl PO 4 mg BID [facility] Administration Insulin Aspart 0 unit 10/24/18 17:30 10/25/18 06:35 Novolog SQ 8 unit ACHS [facility] Administration Protocol Insulin Detemir 60 unit 10/25/18 09:00 10/25/18 09:20 Levemir SQ 60 unit DAILY [facility] Administration Insulin Detemir 15 unit 10/24/18 21:30 10/24/18 21:36 Levemir SQ 15 unit HS [facility] Administration Lisinopril 5 mg 10/24/18 21:00 10/25/18 09:19 Zestril PO 5 mg BID [facility] Administration Metformin HCl 1,000 mg 10/24/18 17:30 10/25/18 06:36 Glucophage PO 1,000 mg BID-W/MEALS [facility] Administration Methylprednisolone Sodium Succinate 60 mg 10/24/18 18:00 10/25/18 06:35 Solu-Medrol IV 60 mg Q6HR [facility] Administration Metoprolol Tartrate 50 mg 10/24/18 21:00 10/25/18 09:19 Lopressor PO 50 mg BID [facility] Administration Nicotine 1 patch 10/25/18 09:00 10/25/18 09:19 Habitrol 21mg/24hr Patch TRANSDERM 1 patch DAILY [facility] Administration Non-Formulary Medication 2 mg 10/25/18 09:00 10/25/18 09:25 Exenatide Microspheres [Bydureon Pen] SQ Not Given Q7D [facility] Pantoprazole Sodium 40 mg 10/25/18 07:30 10/25/18 06:36 Protonix PO 40 mg AC-[id number] [facility] Administration Tamsulosin HCl 0.4 mg 10/25/18 09:00 10/25/18 09:19 Flomax PO 0.4 mg DAILY [facility] Administration Warfarin Sodium 7.5 mg 10/25/18 18:00 Coumadin PO DAILY@1800 [facility] Intake and Output 10/24/18 10/25/18 10/25/18 22:59 06:59 14:59 Intake Total 490 10 480 Balance 490 10 480 Intake: IV 10 10 0.9 10 10 Oral 480 480 Other: Weight 142.4 kg 10/25/18 05:05 10/25/18 05:05 EKG Interpretations (text) EKG shows atrial fibrillation with a rapid ventricular response. Assessment and Plan Plan: Assessment and plan #1 symptoms of moderate to severe shortness of breath again hypoxia and respiratory failure on admission. Likely secondary to acute exacerbation of COPD and possible tracheobronchitis. #2 atrial fibrillation with rapid ventricular response #3 nicotine dependence #4 COPD #5 hyperlipidemia #6 diabetes #7 obstructive sleep apnea #8 morbid obesity #9 hypomagnesemia Plan We will obtain an echocardiogram with Doppler study, we will also obtain the patient is in progress note. Replace magnesium. Obtain chest x-ray. CTA of the chest negative for pulmonary embolism, it did reveal evidence of bilateral effusions. BNP mildly elevated. Patient is currently on by mouth Lasix, we will give a one-time dose of IV Lasix. Continue Lipitor, Zetia, lisinopril, and increase metoprolol for more optimal heart rate and blood pressure control. DNP note has been reviewed, I agree with a documented findings and plan of care. Patient was seen and examined.
--- NOTE | 2018-10-25 10:20 | ECHOF ---
Referral Reason:sob MEASUREMENTS -------- HEIGHT: 172.7 cm WEIGHT: 140.6 kg BP: IVSd: 1.5 cm (0.6 - 1.1) LVIDd: 3.6 cm (3.9 - 5.3) LVPWd: 1.4 cm (0.6 - 1.1) IVSs: 1.9 cm LVIDs: 3.9 cm LVPWs: 1.2 cm Ao Diam: 2.9 cm (2.0 - 3.7) LA Diam: 3.7 cm (2.7 - 3.8) MV EXCURSION: 19.371 mm (> 18.000) MV EF SLOPE: 56 mm/s (70 - 150) EPSS: 0.4 cm RAP: 5.00 mmHg RVSP: 13.19 mmHg FINDINGS -------- Sinus rhythm. Morbid Obesity This was a techncally difficult study with suboptimal views, , Definity utilized for enhancement of images. The left ventricular size is normal. There is moderate concentric left ventricular hypertrophy. O verall left ventricular systolic function is low-normal with, an EF between 50 - 55 %. The right ventricle is normal in size. The left atrial size is normal. The right atrial size is normal. The aortic valve was not well visualized. Mild mitral regurgitation is present. The tricuspid valve was not well visualized. The pulmonic valve was not well visualized. The aortic root size is normal. Echo free space indicative of a pericardial fat pad. CONCLUSIONS -------- 1. Morbid Obesity 2. This was a techncally difficult study with suboptimal views, , Definity utilized for enhancement o f images. 3. The left ventricular size is normal. 4. There is moderate concentric left ventricular hypertrophy. 5. Overall left ventricular systolic function is low-normal with, an EF between 50 - 55 %. 6. The right ventricle is normal in size. 7. The left atrial size is normal. 8. The right atrial size is normal. 9. The aortic valve was not well visualized. 10. Mild mitral regurgitation is present. 11. The tricuspid valve was not well visualized. 12. The pulmonic valve was not well visualized. 13. The aortic root size is normal. 14. Echo free space indicative of a pericardial fat pad. FI[employer]PPRESSION CAPTAIN: Cecile Sloan RDCS
--- NOTE | 2018-10-25 11:08 | XR ---
EXAMINATION TYPE: XR chest 2V DATE OF EXAM: 10/25/2018 COMPARISON: CTA chest from yesterday and older CTs. PET CT December 19, 2016. Chest x-ray May 21. HISTORY: Shortness of breath. TECHNIQUE: Frontal and lateral views of the chest are obtained. FINDINGS: The osseous structures are intact. Cardiomegaly is redemonstrated. There is persistent bib asilar opacities. Central vascular congestion is identified. No pneumothorax is seen bilaterally. IMPRESSION: Possible CHF exacerbation as there is cardiomegaly with small right greater than left pl eural effusions and central vascular congestion redemonstrated. There is background chronic emphysema tous change noted. There is associated bibasilar compressive atelectasis redemonstrated. No significa nt change from one day earlier.
[2018-10-25 11:40] LABS: Glucose,Whole Blood 248 mg/dL (75-99)
--- NOTE | 2018-10-25 11:53 | P.PN ---
Subjective Progress Note Date: 10/25/18 This is a 73-year-old male who presented emergency department complaining of shortness of breath. He states it began last night suddenly. He denies fevers and chills. He states he does have a cough productive of wood phlegm. He does have a history of COPD and wears oxygen at home at 3 L nasal cannula. He has a Ventolin inhaler that he uses on occasion. He also has known obstructive sleep apnea and states he wears his CPAP nightly. He is complaining of wheezing and chest tightness. The patient does continue to smoke. The patient does have a history of atrial fibrillation. In the emergency department the patient was found to have an O2 saturation of 82%. He was also found to be in atrial fibrillation with rapid ventricular response at a rate of 124. The patient did undergo a CT angiogram. No evidence of pulmonary embolism, however the patient was found to have basilar pleural effusions right greater than left as well as associated compressive atelectasis. 10/25/2018: Patient seen and examined. Patient states his breathing might be slightly better today. He is complaining of cough. He did ambulate to the bathroom today and states that he did not get more short of breath than usual. He did have an echocardiogram which showed an ejection fraction of 50-55% Objective - Vital Signs Vital signs: Vital Signs Temp 97.5 F L 10/25/18 03:23 Pulse 109 H 10/25/18 08:00 Resp 16 10/25/18 11:17 BP 136/66 10/25/18 08:00 Pulse Ox 97 10/25/18 08:00 Intake & Output 10/24/18 10/25/18 10/25/18 18:59 06:59 18:59 Intake Total 480 20 480 Balance 480 20 480 Weight 136.078 kg 142.4 kg Intake: IV 20 0.9 20 Oral 480 480 - Exam Gen.: Patient is alert and oriented 3, no acute distress, morbidly obese Cardiovascular: Irregular rate and rhythm, S1/S2, tachycardia Lungs: Coarse breath sounds bilaterally, diminished at the bases Abdomen: Soft nontender nondistended positive bowel sounds Extremities: Trace edema - Labs CBC & Chem 7: 10/25/18 05:05 10/25/18 05:05 Labs: Abnormal Lab Results - Last 24 Hours (Table) 0210/24/18 10/24/18 Range/Units 11:59 11:59 11:59 MCHC 30.2 L (31.0-37.0) g/dL Neutrophils # 8.6 H (1.3-7.7) k/uL Lymphocytes # 0.7 L (1.0-4.8) k/uL PT 24.5 H (9.0-12.0) sec INR 2.5 H (<1.2) APTT 38.5 H (22.0-30.0) sec Sodium (137-145) mmol/L Potassium 5.3 H (3.5-5.1) mmol/L BUN (9-20) mg/dL Glucose 283 H (74-99) mg/dL POC Glucose (mg/dL) (75-99) mg/dL Magnesium 1.5 L (1.6-2.3) mg/dL AST 15 L (17-59) U/L Albumin (3.5-5.0) g/dL 10/24/18 10/24/18 10/24/18 Range/Units 15:13 17:11 20:52 MCHC (31.0-37.0) g/dL Neutrophils # (1.3-7.7) k/uL Lymphocytes # (1.0-4.8) k/uL PT (9.0-12.0) sec INR (<1.2) APTT (22.0-30.0) sec Sodium (137-145) mmol/L Potassium (3.5-5.1) mmol/L BUN (9-20) mg/dL Glucose (74-99) mg/dL POC Glucose (mg/dL) 285 H 298 H 327 H (75-99) mg/dL Magnesium (1.6-2.3) mg/dL AST (17-59) U/L Albumin (3.5-5.0) g/dL 10/25/18 10/25/18 10/25/18 Range/Units 01:54 05:05 05:05 MCHC 29.2 L (31.0-37.0) g/dL Neutrophils # (1.3-7.7) k/uL Lymphocytes # 0.6 L (1.0-4.8) k/uL PT 21.4 H (9.0-12.0) sec INR 2.2 H (<1.2) APTT (22.0-30.0) sec Sodium (137-145) mmol/L Potassium (3.5-5.1) mmol/L BUN (9-20) mg/dL Glucose (74-99) mg/dL POC Glucose (mg/dL) 210 H (75-99) mg/dL Magnesium (1.6-2.3) mg/dL AST (17-59) U/L Albumin (3.5-5.0) g/dL 10/25/18 10/25/18 10/25/18 Range/Units 05:05 05:35 11:33 MCHC (31.0-37.0) g/dL Neutrophils # (1.3-7.7) k/uL Lymphocytes # (1.0-4.8) k/uL PT (9.0-12.0) sec INR (<1.2) APTT (22.0-30.0) sec Sodium 135 L (137-145) mmol/L Potassium 5.2 H (3.5-5.1) mmol/L BUN 21 H (9-20) mg/dL Glucose 239 H (74-99) mg/dL POC Glucose (mg/dL) 236 H 248 H (75-99) mg/dL Magnesium (1.6-2.3) mg/dL AST 15 L (17-59) U/L Albumin 3.3 L (3.5-5.0) g/dL Assessment and Plan Assessment: Acute on chronic hypoxic respiratory failure Acute exacerbation of COPD Tracheobronchitis Bilateral pleural effusions Acute exacerbation of congestive heart failure, diastolic Atrial fibrillation with rapid ventricular response Active tobacco abuse Dyslipidemia Diabetes mellitus type 2 BPH Obstructive sleep apnea, compliant with CPAP Morbid obesity Coumadin coagulopathy Mild hyperkalemia Hypomagnesemia O2 to maintain saturation greater than equal to 90% Sputum culture Antibiotics: Levaquin Pulmicort Duo nebs Solu-Medrol Insulin sliding scale Smoking cessation is highly recommended Continue patient's home medications Coumadin dosing per INR 2-3 Replace magnesium Echocardiogram reviewed, appreciate cardiology recommendations Nicotine TD GI and DVT prophylaxis Cardiology consult for atrial fibrillation Diuresis and monitor pleural effusions, repeat CXR in AM Patient seen and examined covering for Dr. Viveros
[2018-10-25] MEDS: IPRATROPIUM-ALBUTEROL 3 ML NEB INHALATION PRN (12:50)
[2018-10-25] MEDS: BUDESONIDE 0.5 MG/2 ML NEBU INHALATION SCH ×2 (12:55→20:27)
[2018-10-25 16:40] LABS: Glucose,Whole Blood 284 mg/dL (75-99)
[2018-10-25] MEDS: WARFARIN 7.5 MG TAB PO SCH (17:06)
[2018-10-25 21:25] LABS: Glucose,Whole Blood 252 mg/dL (75-99)
[2018-10-26 02:04] LABS: Glucose,Whole Blood 140 mg/dL (75-99)
[2018-10-26 06:01] LABS: Basophils % (A) 0 %; Eosinophils % (A) 0 %; HCT 45.7 % (39.0-53.0); HGB 13.4 gm/dL (13.0-17.5); Hypochromasia Marked; Lymphocytes # (A) 0.8 k/uL (1.0-4.8); Lymphocytes % (A) 6 %; MCH 26.8 pg (25.0-35.0); MCHC 29.3 g/dL (31.0-37.0); MCV 91.6 fL (80.0-100.0); Mean Platelet Volume 6.6; Monocytes # (A) 0.8 k/uL (0-1.0); Monocytes % (A) 6 %; Neutrophils # (A) 11.5 k/uL (1.3-7.7); Neutrophils % (A) 87 %; Platelet Count 345 k/uL (150-450); RBC 4.99 m/uL (4.30-5.90); RDW 15.5 % (11.5-15.5); WBC 13.2 k/uL (3.8-10.6)
[2018-10-26 06:04] LABS: Prothrombin Time 19.6 sec (9.0-12.0)
[2018-10-26 06:08] LABS: Glucose,Whole Blood 119 mg/dL (75-99)
[2018-10-26] MEDS: INSULIN ASPART (NovoLOG) 100 UNIT/ML VIAL SQ SCH ×4 (06:09→21:46)
[2018-10-26] MEDS: PANTOPRAZOLE 40 MG TABLET PO SCH (06:15)
[2018-10-26] MEDS: metFORMIN 500 MG TAB PO SCH ×2 (06:15→17:58)
[2018-10-26] MEDS: methylPREDNISolone SOD SUCCI 125 MG/2 ML VIAL IV SCH ×4 (06:15→23:20)
[2018-10-26 06:22] LABS: ALT 35 U/L (21-72); AST 17 U/L (17-59); Albumin 3.1 g/dL (3.5-5.0); Alkaline Phosphatase 62 U/L (38-126); Anion Gap 6 mmol/L; Blood Urea Nitrogen 33 mg/dL (9-20); Calcium 9.2 mg/dL (8.4-10.2); Carbon Dioxide 31 mmol/L (22-30); Chloride 100 mmol/L (98-107); Glucose 111 mg/dL (74-99); Potassium 5.1 mmol/L (3.5-5.1); Sodium 137 mmol/L (137-145); Total Bilirubin 0.5 mg/dL (0.2-1.3); Total Protein 6.5 g/dL (6.3-8.2)
--- NOTE | 2018-10-26 07:43 | XR ---
EXAMINATION TYPE: XR chest 2V DATE OF EXAM: 10/26/2018 COMPARISON: Prior chest x-ray 10/25/2018 HISTORY: Pleural effusions, congestive heart failure TECHNIQUE: Frontal and lateral views of the chest are obtained. FINDINGS: The heart is enlarged. No evident pneumothorax. There is blunting the right costophrenic a ngle. Interstitium is increased. There are prominent lung volumes with flattening the hemidiaphragms. There are cardiac leads. IMPRESSION: Correlate to exclude pulmonary venous hypertension and interstitial edema in a patient w ith pre-existing COPD. Difficult to exclude small effusion.
[2018-10-26] MEDS: IPRATROPIUM-ALBUTEROL 3 ML NEB INHALATION PRN (07:50)
[2018-10-26] MEDS: BUDESONIDE 0.5 MG/2 ML NEBU INHALATION SCH ×2 (07:50→19:15)
[2018-10-26] MEDS: LISINOPRIL 5 MG TAB PO SCH ×2 (08:38→21:44)
[2018-10-26] MEDS: TAMSULOSIN 0.4 MG CAP.ER.24H PO SCH (08:38)
[2018-10-26] MEDS: FUROSEMIDE 40 MG TAB PO SCH ×2 (08:38→15:30)
[2018-10-26] MEDS: METOPROLOL TARTRATE 50 MG TAB PO SCH ×3 (08:38→21:44)
[2018-10-26] MEDS: FINASTERIDE 5 MG TAB PO SCH (08:38)
[2018-10-26] MEDS: EZETIMIBE 10 MG TAB PO SCH (08:38)
[2018-10-26] MEDS: ATORVASTATIN 80 MG TAB PO SCH (08:38)
[2018-10-26] MEDS: GLIMEPIRIDE 4 MG TAB PO SCH ×2 (08:38→21:44)
[2018-10-26] MEDS: NICOTINE 21MG/24HR PATCH TRANSDERM SCH (09:01)
[2018-10-26] MEDS ORDERED: METOPROLOL TARTRATE 25 MG TAB PO STA (09:18)
[2018-10-26] MEDS: INSULIN DETEMIR (LEVEMIR) 100 UNIT/ML SYR SQ SCH ×2 (09:51→21:44)
[2018-10-26 11:31] LABS: Glucose,Whole Blood 222 mg/dL (75-99)
--- NOTE | 2018-10-26 15:28 | P.PN ---
Subjective Progress Note Date: 10/26/18 his is a 73-year-old gentleman with known history of COPD with home O2 use, nicotine dependence, PAD with prior carotid endarterectomy, obstructive sleep apnea for which he wears CPAP, chronic persistent atrial fibrillation on Coumadin for anticoagulation. Diabetes, GERD, hyperlipidemia, presents to the hospital on this occasion with symptoms of progressively worsening shortness of breath , or into the patient he is always somewhat short of breath about of over the past couple of days progressively worse. He states that he's been coughing up significant amount of wood sputum at home and also has been running intermittent fevers at home. A CTA of the chest was performed on arrival here which was negative for pulmonary embolism. It did also show basilar pleural effusions right greater than the left. No chest x-ray performed. EKG on arrival here showed atrial fibrillation with rapid ventricular response. Blood pressure 146/60, heart rate 120 on arrival, O2 saturation on arrival 82%. Blood pressure this morning 136/60 with a heart rate in the 110, 97% on 5 L of oxygen. White blood cell count 10.4 on admission, 7.6 this morning, hemoglobin 13.6, platelet count 319. INR 2.2, sodium 135, potassium 5.2, BUN 20 and creatinine 0.8. Magnesium 1.5 on admission, 1.8 this morning. Troponin 0.013. BNP level 1010. 10/26/2018 was seen and examined this morning, continues to cough up significant amounts of tea and sputum, heart rate remaining in the 90s today. Echo cardiac gram with Doppler study was performed which revealed an ejection fraction of 50- 55%. Objective - Vital Signs Vital signs: Vital Signs Temp 97.9 F 10/26/18 11:50 Pulse 90 10/26/18 11:50 Resp 12 10/26/18 11:50 BP 105/70 10/26/18 11:50 Pulse Ox 95 10/26/18 11:50 Intake & Output 10/25/18 10/26/18 10/26/18 18:59 06:59 18:59 Intake Total 4804 493 7743 Balance 7390 180 6669 Weight 141.1 kg Intake: Oral 6817 024 2599 Other: # Voids 1 1 # Bowel Movements 1 - Exam GENERAL: 73-year-old gentleman in no acute distress at the time of my examination HEENT: Head is atraumatic, normocephalic. Pupils equal, round. Sclera anicteric. Conjunctiva are clear. Mucous membranes of the mouth are moist. Neck is supple. There is no elevated jugular venous pressure. No carotid bruit is heard. HEART EXAMINATION: Heart S1 and S2 irregularly irregular CHEST EXAMINATION: Lungs reveal scattered coarse rhonchi with diminished air entry to bilateral bases. ABDOMEN: Soft, nontender. Bowel sounds are heard. No organomegaly noted. EXTREMITIES: 2+ peripheral pulses with 1-2+ edema to the left lower extremity, 1 + edema to the right lower extremity. . NEUROLOGIC patient is awake, alert and oriented 3 . . - Labs CBC & Chem 7: 10/26/18 05:31 10/26/18 05:31 Labs: Abnormal Lab Results - Last 24 Hours (Table) 10/25/18 10/25/18 10/26/18 Range/Units 16:24 21:16 02:00 WBC (3.8-10.6) k/uL MCHC (31.0-37.0) g/dL Neutrophils # (1.3-7.7) k/uL Lymphocytes # (1.0-4.8) k/uL PT (9.0-12.0) sec INR (<1.2) Carbon Dioxide (22-30) mmol/L BUN (9-20) mg/dL Glucose (74-99) mg/dL POC Glucose (mg/dL) 284 H 252 H 140 H (75-99) mg/dL Albumin (3.5-5.0) g/dL 10/26/18 10/26/18 10/26/18 Range/Units 05:31 05:31 05:31 WBC 13.2 H (3.8-10.6) k/uL MCHC 29.3 L (31.0-37.0) g/dL Neutrophils # 11.5 H (1.3-7.7) k/uL Lymphocytes # 0.8 L (1.0-4.8) k/uL PT 19.6 H (9.0-12.0) sec INR 2.0 H (<1.2) Carbon Dioxide 31 H (22-30) mmol/L BUN 33 H (9-20) mg/dL Glucose 111 H (74-99) mg/dL POC Glucose (mg/dL) (75-99) mg/dL Albumin 3.1 L (3.5-5.0) g/dL 10/26/18 10/26/18 Range/Units 06:04 11:18 WBC (3.8-10.6) k/uL MCHC (31.0-37.0) g/dL Neutrophils # (1.3-7.7) k/uL Lymphocytes # (1.0-4.8) k/uL PT (9.0-12.0) sec INR (<1.2) Carbon Dioxide (22-30) mmol/L BUN (9-20) mg/dL Glucose (74-99) mg/dL POC Glucose (mg/dL) 119 H 222 H (75-99) mg/dL Albumin (3.5-5.0) g/dL Microbiology - Last 24 Hours (Table) 10/24/18 11:59 Blood Culture - Preliminary Blood No Growth after 48 hours Assessment and Plan Plan: Assessment and plan #1 symptoms of moderate to severe shortness of breath again hypoxia and respiratory failure on admission. Likely secondary to acute exacerbation of COPD and possible tracheobronchitis. #2 atrial fibrillation with rapid ventricular response #3 nicotine dependence #4 COPD #5 hyperlipidemia #6 diabetes #7 obstructive sleep apnea #8 morbid obesity #9 hypomagnesemia Plan From cardiology's perspective, we'll recommend to continue the patient on his current medications. DNP note has been reviewed, I agree with a documented findings and plan of care. Patient was seen and examined.
[2018-10-26 16:40] LABS: Glucose,Whole Blood 385 mg/dL (75-99)
[2018-10-26 17:41] LABS: Glucose,Whole Blood 355 mg/dL (75-99)
[2018-10-26] MEDS: WARFARIN 7.5 MG TAB PO SCH (17:58)
[2018-10-26] MEDS ORDERED: INSULIN ASPART (NovoLOG) 100 UNIT/ML VIAL SQ ONE (18:00)
[2018-10-26 20:44] LABS: Glucose,Whole Blood 437 mg/dL (75-99)
[2018-10-26 23:41] LABS: Hemoglobin A1C 11.1 % (4.0-6.0)
[2018-10-27 05:39] LABS: Glucose,Whole Blood 150 mg/dL (75-99)
[2018-10-27] MEDS: methylPREDNISolone SOD SUCCI 125 MG/2 ML VIAL IV SCH ×3 (05:51→17:44)
[2018-10-27] MEDS: PANTOPRAZOLE 40 MG TABLET PO SCH (05:51)
[2018-10-27] MEDS: INSULIN ASPART (NovoLOG) 100 UNIT/ML VIAL SQ SCH ×3 (05:58→17:44)
--- NOTE | 2018-10-27 06:38 | PN ---
PROGRESS NOTE SUBJECTIVE: A 73-year-old white male admitted with acute respiratory distress. Feels better since he has been admitted. Cardiology has seen him. CT of the chest showed no pulmonary embolism. He had bilateral pleural effusions. EKG showed atrial fibrillation with rapid ventricular response. He has chronic history of A fib. Hemoglobin is . BNP is a 1000. Ejection fraction is 55%, has probably right-sided heart failure. Lungs are clear. CARDIOVASCULAR: S1, S2. Temp 97.9, pulse 90, respiratory rate 12 to 18, blood pressure 105/70. White count 13.2. BUN 33, creatinine 0.93. ASSESSMENT: 1. Shortness of breath secondary to acute chronic obstructive pulmonary disease and tracheobronchitis. 2. Atrial fibrillation, rapid ventricular response. 3. Nicotine addiction. 4. Chronic obstructive pulmonary disease. 5. Hyperlipidemia. 6. Diabetes. 7. Sleep apnea. 8. Morbid obesity. 9. Hypomagnesemia. Continue current treatment. Follow up in the next 24 to 48 hours. Wean steroids. MMODL / IJN: [id number] /
[2018-10-27 06:45] LABS: Anion Gap 6 mmol/L; Blood Urea Nitrogen 36 mg/dL (9-20); Calcium 9.4 mg/dL (8.4-10.2); Carbon Dioxide 35 mmol/L (22-30); Chloride 97 mmol/L (98-107); Glucose 144 mg/dL (74-99); Potassium 5.1 mmol/L (3.5-5.1); Sodium 138 mmol/L (137-145)
[2018-10-27 06:52] LABS: INR 2.2 (<1.2); Prothrombin Time 21.7 sec (9.0-12.0)
[2018-10-27] MEDS: metFORMIN 500 MG TAB PO SCH ×2 (08:37→17:44)
[2018-10-27] MEDS: GLIMEPIRIDE 4 MG TAB PO SCH ×2 (08:37→21:53)
[2018-10-27] MEDS: TAMSULOSIN 0.4 MG CAP.ER.24H PO SCH (08:37)
[2018-10-27] MEDS: LISINOPRIL 5 MG TAB PO SCH ×2 (08:37→21:53)
[2018-10-27] MEDS: ATORVASTATIN 80 MG TAB PO SCH (08:37)
[2018-10-27] MEDS: EZETIMIBE 10 MG TAB PO SCH (08:37)
[2018-10-27] MEDS: FUROSEMIDE 40 MG TAB PO SCH ×2 (08:38→17:44)
[2018-10-27] MEDS: NICOTINE 21MG/24HR PATCH TRANSDERM SCH (08:38)
[2018-10-27] MEDS: METOPROLOL TARTRATE 50 MG TAB PO SCH ×3 (08:38→21:53)
[2018-10-27] MEDS: INSULIN DETEMIR (LEVEMIR) 100 UNIT/ML SYR SQ SCH ×2 (08:38→21:53)
[2018-10-27] MEDS: FINASTERIDE 5 MG TAB PO SCH (08:38)
[2018-10-27] MEDS: BUDESONIDE 0.5 MG/2 ML NEBU INHALATION SCH (08:56)
--- NOTE | 2018-10-27 10:35 | PN ---
PROGRESS NOTE Mr. Meza is a 73-year-old male with a known history of chronic persistent atrial fibrillation, history of chronic obstructive lung disease and chronic tobacco use, who presented with symptoms of progressive dyspnea. He is feeling better this morning. He is still coughing, but better overall. He is denying any symptoms of chest pain. He denies any dizziness or palpitation. He denies any nausea. He is ambulating in the room. His echocardiogram revealed a preserved systolic function with mild mitral regurgitation. He continues to be at this time on Lipitor 80 mg daily, Zetia 10 mg daily, furosemide 40 mg twice a day, glimepiride, insulin, lisinopril 5 mg twice a day, metoprolol tartrate 50 mg 3 times a day and Coumadin. PHYSICAL EXAMINATION: Blood pressure running in the 140s with the heart rate in 90s. LUNGS: With decreased air exchange, no wheezes. HEART: Irregular, irregular. S1, S2. No S3. No rub with a systolic murmur. ABDOMEN: Soft, obese, nontender. EXTREMITIES: Trace to 1+ edema. LAB DATA: Lab data revealed BUN and creatinine 36 and 0.96. Potassium 5.1. IMPRESSION: 1. Dyspnea with evidence of exacerbation of chronic obstructive pulmonary disease. 2. Atrial fibrillation, chronic and persistent, anticoagulated, rate controlled. 3. Hypertension. 4. Hyperlipidemia. 5. Diabetes mellitus. 6. Obesity. RECOMMENDATION: From the cardiac standpoint, we will continue present therapy. I would expect he should be able to be discharged home soon and followed as an outpatient. We will see him on as needed basis. Please feel free to call us for any question. MMODL / IJN: [id number] /
[2018-10-27 11:25] LABS: Glucose,Whole Blood 158 mg/dL (75-99)
[2018-10-27 13:42] VITALS: BMI 47.2
[2018-10-27 17:04] LABS: Glucose,Whole Blood 188 mg/dL (75-99)
[2018-10-27] MEDS: WARFARIN 7.5 MG TAB PO SCH (17:44)
[2018-10-27 20:28] LABS: Glucose,Whole Blood 262 mg/dL (75-99)
[2018-10-27] MEDS: IPRATROPIUM-ALBUTEROL 3 ML NEB INHALATION SCH (21:10)
[2018-10-27] MEDS: methylPREDNISolone SOD SUCCI 40 MG/ML 1 ML VIAL IV SCH (22:51)
[2018-10-28 05:52] LABS: Glucose,Whole Blood 208 mg/dL (75-99)
[2018-10-28] MEDS: INSULIN ASPART (NovoLOG) 100 UNIT/ML VIAL SQ SCH ×4 (06:13→21:12)
[2018-10-28] MEDS: metFORMIN 500 MG TAB PO SCH ×2 (06:13→17:31)
[2018-10-28] MEDS: PANTOPRAZOLE 40 MG TABLET PO SCH (06:13)
[2018-10-28 06:54] LABS: HCT 47.7 % (39.0-53.0); HGB 14.5 gm/dL (13.0-17.5); Hypochromasia Marked; MCH 27.9 pg (25.0-35.0); MCHC 30.3 g/dL (31.0-37.0); MCV 92.1 fL (80.0-100.0); Mean Platelet Volume 6.4; Platelet Count 338 k/uL (150-450); RBC 5.18 m/uL (4.30-5.90); RDW 15.2 % (11.5-15.5); WBC 9.8 k/uL (3.8-10.6)
[2018-10-28 07:02] LABS: Calcium 9.2 mg/dL (8.4-10.2); Potassium 5.2 mmol/L (3.5-5.1)
[2018-10-28] MEDS: IPRATROPIUM-ALBUTEROL 3 ML NEB INHALATION SCH ×4 (07:06→20:40)
[2018-10-28 07:12] LABS: INR 2.6 (<1.2); Prothrombin Time 25.3 sec (9.0-12.0)
--- NOTE | 2018-10-28 07:21 | PN ---
PROGRESS NOTE SUBJECTIVE: A 73-year-old white male with COPD exacerbation. Cardiology cleared him from cardiac standpoint. His steroids are being weaned down from 60 q.8 to 40 q.8. His IV is switched to oral prednisone. In the morning, he will be discharged. Vital signs stable. Afebrile. LUNGS: Scattered wheeze. ASSESSMENT: 1. Diastolic congestive heart failure. 2. Chronic obstructive pulmonary disease exacerbation. 3. Nicotine addiction. 4. Diabetes mellitus. 5. Morbid obesity. Continue current treatment. Follow up as an outpatient. Discharge home on steroid taper. MMODL / IJN: [id number] /
[2018-10-28] MEDS: METOPROLOL TARTRATE 50 MG TAB PO SCH ×3 (09:42→21:12)
[2018-10-28] MEDS: TAMSULOSIN 0.4 MG CAP.ER.24H PO SCH (09:42)
[2018-10-28] MEDS: LISINOPRIL 5 MG TAB PO SCH ×2 (09:42→21:12)
[2018-10-28] MEDS: FUROSEMIDE 40 MG TAB PO SCH ×2 (09:42→16:16)
[2018-10-28] MEDS: FINASTERIDE 5 MG TAB PO SCH (09:42)
[2018-10-28] MEDS: ATORVASTATIN 80 MG TAB PO SCH (09:42)
[2018-10-28] MEDS: GLIMEPIRIDE 4 MG TAB PO SCH ×2 (09:43→21:56)
[2018-10-28] MEDS: methylPREDNISolone SOD SUCCI 40 MG/ML 1 ML VIAL IV SCH ×2 (09:43→16:16)
[2018-10-28] MEDS: EZETIMIBE 10 MG TAB PO SCH (09:43)
[2018-10-28] MEDS: INSULIN DETEMIR (LEVEMIR) 100 UNIT/ML SYR SQ SCH ×2 (09:46→21:12)
[2018-10-28 11:09] LABS: Glucose,Whole Blood 217 mg/dL (75-99)
--- NOTE | 2018-10-28 14:39 | PN ---
PROGRESS NOTE Mr. Meza is a 73-year-old male who has a history of chronic obstructive lung disease, history of chronic atrial fibrillation, who presented with exacerbation of chronic obstructive pulmonary disease. He is feeling better overall. His breathing is better, but his atrial fibrillation is rapid ventricular response during the night. He feels that his cough is better and his wheezing has improved. He denies any dizziness or palpitation. He continues to be at this time on Zetia 10 mg daily, furosemide 40 mg twice a day, lisinopril 5 mg twice a day, metformin 1 gram twice a day, metoprolol tartrate 50 mg 3 times a day in addition to Coumadin. PHYSICAL EXAMINATION: Blood pressure 130/80 with a heart rate in the 130s to 140s. Lungs with decreased air exchange with a few scattered wheezes. Heart irregularly irregular S1, S2. No S3. No rub. ABDOMEN: Soft, obese, nontender. EXTREMITIES: +1 edema. LAB DATA: BUN and creatinine 45 and 1.03. INR of 2.6. Hemoglobin of 14.5. IMPRESSION: 1. Atrial fibrillation with rapid ventricular response. 2. Exacerbation of chronic obstructive pulmonary disease. 3. Hypertension. 4. Diabetes mellitus. 5. Chronic tobacco use. 6. Hyperlipidemia. RECOMMENDATION: I will add to his regimen Cardizem orally to optimize his ventricular response, increase his level of activity and depending on his rate, further recommendation will be made. MMODL / IJN: [id number] /
[2018-10-28] MEDS: DILTIAZEM ORAL 30 MG TAB PO SCH ×2 (16:16→21:12)
[2018-10-28 17:07] LABS: Glucose,Whole Blood 265 mg/dL (75-99)
[2018-10-28] MEDS: WARFARIN 7.5 MG TAB PO SCH (17:31)
[2018-10-28 20:35] LABS: Glucose,Whole Blood 307 mg/dL (75-99)
[2018-10-29 06:01] LABS: Glucose,Whole Blood 143 mg/dL (75-99)
[2018-10-29 06:28] LABS: INR 3.4 (<1.2); Prothrombin Time 32.4 sec (9.0-12.0)
[2018-10-29] MEDS: PANTOPRAZOLE 40 MG TABLET PO SCH (06:42)
[2018-10-29] MEDS: metFORMIN 500 MG TAB PO SCH ×2 (06:43→17:42)
[2018-10-29] MEDS: INSULIN ASPART (NovoLOG) 100 UNIT/ML VIAL SQ SCH ×4 (06:43→21:21)
[2018-10-29 06:47] LABS: Calcium 9.2 mg/dL (8.4-10.2)
[2018-10-29] MEDS: METOPROLOL TARTRATE 50 MG TAB PO SCH ×2 (07:53→17:42)
[2018-10-29] MEDS: TAMSULOSIN 0.4 MG CAP.ER.24H PO SCH (07:53)
[2018-10-29] MEDS: DILTIAZEM ORAL 30 MG TAB PO SCH (07:53)
[2018-10-29] MEDS: FUROSEMIDE 40 MG TAB PO SCH ×2 (07:53→17:43)
[2018-10-29] MEDS: ATORVASTATIN 80 MG TAB PO SCH (07:53)
[2018-10-29] MEDS: FINASTERIDE 5 MG TAB PO SCH (07:53)
[2018-10-29] MEDS: predniSONE 20 MG TAB PO SCH (07:53)
[2018-10-29] MEDS: LISINOPRIL 5 MG TAB PO SCH ×2 (07:53→20:51)
[2018-10-29] MEDS: GLIMEPIRIDE 4 MG TAB PO SCH ×2 (07:54→20:51)
[2018-10-29] MEDS: EZETIMIBE 10 MG TAB PO SCH (07:54)
[2018-10-29] MEDS: IPRATROPIUM-ALBUTEROL 3 ML NEB INHALATION SCH ×4 (08:46→19:52)
[2018-10-29] MEDS: INSULIN DETEMIR (LEVEMIR) 100 UNIT/ML SYR SQ SCH ×2 (08:50→20:51)
--- NOTE | 2018-10-29 08:52 | PN ---
PROGRESS NOTE He has been weaned down to Solu-Medrol 40 mg q.8 hours. His sugars still remain high. Extra insulin has been given. He has been started on Levemir 20 units at night. We will switch him to oral prednisone 60 mg a day. He was going to be discharged home then he developed sinus tachycardia/SVT to 140s 160s. He has been started on oral Cardizem. We will watch him for another 24 hours prior to discharge. Cardiovascular S1-S2. Lungs clear. GI is obese. Hematology 3+ pedal edema. ASSESSMENT: 1. Chronic obstructive pulmonary disease exacerbation. 2. Congestive heart failure, diastolic. 3. Supraventricular tachycardia. 4. Atrial fibrillation with rapid ventricular response. I will start oral Cardizem. Remain on anticoagulants. Possible discharge home in the morning. MMODL / IJN: [id number] /
[2018-10-29] MEDS: VERAPAMIL 80 MG TAB PO SCH ×2 (09:46→17:45)
[2018-10-29 12:29] LABS: Glucose,Whole Blood 192 mg/dL (75-99)
--- NOTE | 2018-10-29 13:33 | P.PN ---
Subjective Progress Note Date: 10/29/18 his is a 73-year-old gentleman with known history of COPD with home O2 use, nicotine dependence, PAD with prior carotid endarterectomy, obstructive sleep apnea for which he wears CPAP, chronic persistent atrial fibrillation on Coumadin for anticoagulation. Diabetes, GERD, hyperlipidemia, presents to the hospital on this occasion with symptoms of progressively worsening shortness of breath , or into the patient he is always somewhat short of breath about of over the past couple of days progressively worse. He states that he's been coughing up significant amount of wood sputum at home and also has been running intermittent fevers at home. A CTA of the chest was performed on arrival here which was negative for pulmonary embolism. It did also show basilar pleural effusions right greater than the left. No chest x-ray performed. EKG on arrival here showed atrial fibrillation with rapid ventricular response. Blood pressure 146/60, heart rate 120 on arrival, O2 saturation on arrival 82%. Blood pressure this morning 136/60 with a heart rate in the 110, 97% on 5 L of oxygen. White blood cell count 10.4 on admission, 7.6 this morning, hemoglobin 13.6, platelet count 319. INR 2.2, sodium 135, potassium 5.2, BUN 20 and creatinine 0.8. Magnesium 1.5 on admission, 1.8 this morning. Troponin 0.013. BNP level 1010. 10/26/2018 Patient was seen and examined this morning, continues to cough up significant amounts of everett sputum, heart rate remaining in the 90s today. Echocardiac gram with Doppler study was performed which revealed an ejection fraction of 50-55%. 10/29/2018 Patient seen and examined this morning, heart rate up in the 130 range earlier this morning. Isoptin increased to 80 mg 1 tablet by mouth 3 times a day. INR is 3.4 today, sodium 138, potassium 5.0, BUN 45 and creatinine 1.0. Objective - Vital Signs Vital signs: Vital Signs Temp 98.2 F 10/29/18 12:00 Pulse 130 H 10/29/18 12:00 Resp 17 10/29/18 12:00 BP 109/62 10/29/18 12:00 Pulse Ox 93 L 10/29/18 12:00 Intake & Output 10/28/18 10/29/18 10/29/18 18:59 06:59 18:59 Intake Total 1180 296 260 Output Total 1100 Balance 80 296 260 Weight 140.5 kg Intake: IV 60 Invasive Line 2 60 Oral 1120 296 260 Output: Urine 1100 Other: Voiding Method Toilet Toilet Toilet # Voids 2 1 - Exam GENERAL: 73-year-old gentleman in no acute distress at the time of my examination HEENT: Head is atraumatic, normocephalic. Pupils equal, round. Sclera anicteric. Conjunctiva are clear. Mucous membranes of the mouth are moist. Neck is supple. There is no elevated jugular venous pressure. No carotid bruit is heard. HEART EXAMINATION: Heart S1 and S2 irregularly irregular CHEST EXAMINATION: Lungs reveal scattered coarse rhonchi with diminished air entry to bilateral bases. ABDOMEN: Soft, nontender. Bowel sounds are heard. No organomegaly noted. EXTREMITIES: 2+ peripheral pulses with 1-2+ edema to the left lower extremity, 1 + edema to the right lower extremity. . NEUROLOGIC patient is awake, alert and oriented 3 . . - Labs CBC & Chem 7: 10/28/18 06:23 10/29/18 05:56 Labs: Abnormal Lab Results - Last 24 Hours (Table) 10/28/18 10/28/18 10/29/18 Range/Units 17:06 20:34 05:56 PT 32.4 H (9.0-12.0) sec INR 3.4 H (<1.2) Chloride (98-107) mmol/L Carbon Dioxide (22-30) mmol/L BUN (9-20) mg/dL Glucose (74-99) mg/dL POC Glucose (mg/dL) 265 H 307 H (75-99) mg/dL 10/29/18 10/29/18 10/29/18 Range/Units 05:56 06:00 12:27 PT (9.0-12.0) sec INR (<1.2) Chloride 96 L (98-107) mmol/L Carbon Dioxide 37 H (22-30) mmol/L BUN 45 H (9-20) mg/dL Glucose 155 H (74-99) mg/dL POC Glucose (mg/dL) 143 H 192 H (75-99) mg/dL Microbiology - Last 24 Hours (Table) 10/28/18 20:40 Gram Stain - Preliminary Sputum Sputum Culture - Preliminary 10/24/18 11:59 Blood Culture - Preliminary Blood No Growth after 96 hours Assessment and Plan Plan: Assessment and plan #1 symptoms of moderate to severe shortness of breath again hypoxia and respiratory failure on admission. Likely secondary to acute exacerbation of COPD and possible tracheobronchitis. #2 atrial fibrillation with rapid ventricular response #3 nicotine dependence #4 COPD #5 hyperlipidemia #6 diabetes #7 obstructive sleep apnea #8 morbid obesity #9 hypomagnesemia Plan From cardiology's perspective, we'll recommend to continue the patient on his current medications. Isoptin was increased today to 80 3 times a day. DNP note has been reviewed, I agree with a documented findings and plan of care. Patient was seen and examined.
[2018-10-29 16:49] LABS: Glucose,Whole Blood 301 mg/dL (75-99)
[2018-10-29] MEDS ORDERED: INSULIN ASPART (NovoLOG) 100 UNIT/ML VIAL SQ ONE (18:07)
[2018-10-29] MEDS ORDERED: WARFARIN 2 MG TAB PO ONE (18:15)
[2018-10-29] MEDS: WARFARIN 7.5 MG TAB PO SCH (18:27)
[2018-10-29 20:51] LABS: Glucose,Whole Blood 258 mg/dL (75-99)
[2018-10-30] MEDS: METOPROLOL TARTRATE 50 MG TAB PO SCH ×2 (00:02→09:16)
[2018-10-30] MEDS: VERAPAMIL 80 MG TAB PO SCH ×2 (00:03→09:16)
[2018-10-30] MEDS: INSULIN ASPART (NovoLOG) 100 UNIT/ML VIAL SQ SCH ×2 (05:58→11:56)
[2018-10-30] MEDS: metFORMIN 500 MG TAB PO SCH (06:01)
[2018-10-30] MEDS: PANTOPRAZOLE 40 MG TABLET PO SCH (06:01)
[2018-10-30 06:09] LABS: Glucose,Whole Blood 101 mg/dL (75-99)
[2018-10-30 06:55] LABS: Basophils % (A) 0 %; Eosinophils # (A) 0.1 k/uL (0-0.7); Eosinophils % (A) 1 %; HCT 49.2 % (39.0-53.0); HGB 14.8 gm/dL (13.0-17.5); Hypochromasia Marked; Lymphocytes # (A) 1.3 k/uL (1.0-4.8); Lymphocytes % (A) 12 %; MCH 27.5 pg (25.0-35.0); MCV 91.6 fL (80.0-100.0); Mean Platelet Volume 6.8; Monocytes # (A) 0.9 k/uL (0-1.0); Monocytes % (A) 8 %; Neutrophils # (A) 8.3 k/uL (1.3-7.7); Neutrophils % (A) 78 %; Platelet Count 343 k/uL (150-450); RBC 5.37 m/uL (4.30-5.90); RDW 15.2 % (11.5-15.5); WBC 10.6 k/uL (3.8-10.6)
[2018-10-30 06:57] LABS: INR 3.1 (<1.2)
[2018-10-30 07:07] LABS: Calcium 9.1 mg/dL (8.4-10.2); Potassium 4.9 mmol/L (3.5-5.1)
[2018-10-30] MEDS: IPRATROPIUM-ALBUTEROL 3 ML NEB INHALATION SCH ×2 (07:58→11:01)
--- NOTE | 2018-10-30 08:17 | PN ---
PROGRESS NOTE SUBJECTIVE: A 73-year-old white male with COPD exacerbation, atrial fibrillation, rapid ventricular response, tachycardia. Cardizem has been ordered 60 mg q.8h. Continue with current treatment. If his heart rate maintains low EF and is consistent with his oxygen, ambulating. We can send him home in the morning. Sugars have been remaining high. He is on Accu-Chek protocol. CARDIOVASCULAR: S1, S2. LUNGS: Transmitted wheeze x4. HEMATOLOGY: Negative Homans. PSYCH: Fair mood and affect. ASSESSMENT: 1. Atrial fibrillation, rapid ventricular response. 2. Chronic obstructive pulmonary disease exacerbation. 3. Tracheobronchitis. Please see further orders on Cardizem. Possible discharge home tomorrow on prednisone taper. MMODL / IJN: [id number] /
[2018-10-30] MEDS: ATORVASTATIN 80 MG TAB PO SCH (09:16)
[2018-10-30] MEDS: GLIMEPIRIDE 4 MG TAB PO SCH (09:17)
[2018-10-30] MEDS: EZETIMIBE 10 MG TAB PO SCH (09:17)
[2018-10-30] MEDS: LISINOPRIL 5 MG TAB PO SCH (09:17)
[2018-10-30] MEDS: FUROSEMIDE 40 MG TAB PO SCH (09:17)
[2018-10-30] MEDS: TAMSULOSIN 0.4 MG CAP.ER.24H PO SCH (09:17)
[2018-10-30] MEDS: FINASTERIDE 5 MG TAB PO SCH (09:17)
[2018-10-30] MEDS: predniSONE 20 MG TAB PO SCH (09:17)
[2018-10-30 10:44] VITALS: BP 127/65; PULSE 101; RESP 16; TEMP 96.8
[2018-10-30 11:51] LABS: Glucose,Whole Blood 82 mg/dL (75-99)
[2018-10-30] MEDS: INSULIN DETEMIR (LEVEMIR) 100 UNIT/ML SYR SQ SCH (11:57)
--- NOTE | 2018-10-30 15:06 | P.PN ---
Subjective Progress Note Date: 10/30/18 his is a 73-year-old gentleman with known history of COPD with home O2 use, nicotine dependence, PAD with prior carotid endarterectomy, obstructive sleep apnea for which he wears CPAP, chronic persistent atrial fibrillation on Coumadin for anticoagulation. Diabetes, GERD, hyperlipidemia, presents to the hospital on this occasion with symptoms of progressively worsening shortness of breath , or into the patient he is always somewhat short of breath about of over the past couple of days progressively worse. He states that he's been coughing up significant amount of wood sputum at home and also has been running intermittent fevers at home. A CTA of the chest was performed on arrival here which was negative for pulmonary embolism. It did also show basilar pleural effusions right greater than the left. No chest x-ray performed. EKG on arrival here showed atrial fibrillation with rapid ventricular response. Blood pressure 146/60, heart rate 120 on arrival, O2 saturation on arrival 82%. Blood pressure this morning 136/60 with a heart rate in the 110, 97% on 5 L of oxygen. White blood cell count 10.4 on admission, 7.6 this morning, hemoglobin 13.6, platelet count 319. INR 2.2, sodium 135, potassium 5.2, BUN 20 and creatinine 0.8. Magnesium 1.5 on admission, 1.8 this morning. Troponin 0.013. BNP level 1010. 10/26/2018 Patient was seen and examined this morning, continues to cough up significant amounts of everett sputum, heart rate remaining in the 90s today. Echocardiac gram with Doppler study was performed which revealed an ejection fraction of 50-55%. 10/29/2018 Patient seen and examined this morning, heart rate up in the 130 range earlier this morning. Isoptin increased to 80 mg 1 tablet by mouth 3 times a day. INR is 3.4 today, sodium 138, potassium 5.0, BUN 45 and creatinine 1.0. 10/30/2018 Patient seen and examined this morning, heart rate appears to be staying in the 90s, however according to the nurse at times when the patient is up and about the heart rate is noted to be up in the 120 range. If it is documented that the patient does go up every time he ambulates we will make adjustments as for now we will continue with current medications. Objective - Vital Signs Vital signs: Vital Signs Temp 96.8 F L 10/30/18 08:00 Pulse 92 10/30/18 08:12 Resp 16 10/30/18 10:59 BP 127/65 10/30/18 08:00 Pulse Ox 95 10/30/18 08:00 Intake & Output 10/29/18 10/30/18 10/30/18 18:59 06:59 18:59 Intake Total 910 460 620 Output Total 600 Balance 310 460 620 Weight 140.9 kg Intake: IV 10 10 Invasive Line 2 10 10 Oral 900 450 620 Output: Urine 600 Other: Voiding Method Toilet Toilet Toilet # Voids 0 2 2 - Exam GENERAL: 73-year-old gentleman in no acute distress at the time of my examination HEENT: Head is atraumatic, normocephalic. Pupils equal, round. Sclera anicteric. Conjunctiva are clear. Mucous membranes of the mouth are moist. Neck is supple. There is no elevated jugular venous pressure. No carotid bruit is heard. HEART EXAMINATION: Heart S1 and S2 irregularly irregular CHEST EXAMINATION: Lungs reveal scattered coarse rhonchi with diminished air entry to bilateral bases. ABDOMEN: Soft, nontender. Bowel sounds are heard. No organomegaly noted. EXTREMITIES: 2+ peripheral pulses with 1-2+ edema to the left lower extremity, 1 + edema to the right lower extremity. . NEUROLOGIC patient is awake, alert and oriented 3 . . - Labs CBC & Chem 7: 10/30/18 06:10 10/30/18 06:10 Labs: Abnormal Lab Results - Last 24 Hours (Table) 10/29/18 10/29/18 10/30/18 Range/Units 16:48 20:49 05:57 MCHC (31.0-37.0) g/dL Neutrophils # (1.3-7.7) k/uL PT (9.0-12.0) sec INR (<1.2) Chloride (98-107) mmol/L Carbon Dioxide (22-30) mmol/L BUN (9-20) mg/dL Glucose (74-99) mg/dL POC Glucose (mg/dL) 301 H 258 H 101 H (75-99) mg/dL 10/30/18 10/30/18 10/30/18 Range/Units 06:10 06:10 06:10 MCHC 30.0 L (31.0-37.0) g/dL Neutrophils # 8.3 H (1.3-7.7) k/uL PT 30.0 H (9.0-12.0) sec INR 3.1 H (<1.2) Chloride 95 L (98-107) mmol/L Carbon Dioxide 39 H (22-30) mmol/L BUN 41 H (9-20) mg/dL Glucose 103 H (74-99) mg/dL POC Glucose (mg/dL) (75-99) mg/dL Microbiology - Last 24 Hours (Table) 10/24/18 11:59 Blood Culture - Final Blood No Growth after 144 hours Assessment and Plan Plan: Assessment and plan #1 symptoms of moderate to severe shortness of breath again hypoxia and respiratory failure on admission. Likely secondary to acute exacerbation of COPD and possible tracheobronchitis. #2 atrial fibrillation with rapid ventricular response #3 nicotine dependence #4 COPD #5 hyperlipidemia #6 diabetes #7 obstructive sleep apnea #8 morbid obesity #9 hypomagnesemia Plan From cardiology's perspective, we'll recommend to continue the patient on his current medications. DNP note has been reviewed, I agree with a documented findings and plan of care. Patient was seen and examined.
== END 2018-10-30 14:38 | disposition home health service (06) | DRG 190 ==
LOC: EC 11:17 → 3SCARD 14:57
PROVIDERS: ADMIT Family Medicine; ATTEND Family Medicine
DX: J44.1 Chronic obstructive pulmonary disease with (acute) exacerbation (principal); I50.33 Acute on chronic diastolic (congestive) heart failure; J96.21 Acute and chronic respiratory failure with hypoxia; I47.1 Supraventricular tachycardia; I48.1 Persistent atrial fibrillation; J98.11 Atelectasis; Z68.42 Body mass index [BMI] 45.0-49.9, adult; E11.65 Type 2 diabetes mellitus with hyperglycemia; I11.0 Hypertensive heart disease with heart failure; E87.5 Hyperkalemia; E66.01 Morbid (severe) obesity due to excess calories; E83.42 Hypomagnesemia; E78.5 Hyperlipidemia, unspecified; F17.210 Nicotine dependence, cigarettes, uncomplicated; G47.33 Obstructive sleep apnea (adult) (pediatric); K21.9 Gastro-esophageal reflux disease without esophagitis; N40.0 Benign prostatic hyperplasia without lower urinary tract symptoms; R79.1 Abnormal coagulation profile; Z79.01 Long term (current) use of anticoagulants; Z79.4 Long term (current) use of insulin; Z79.899 Other long term (current) drug therapy; Z88.5 Allergy status to narcotic agent; Z99.81 Dependence on supplemental oxygen; Z86.73 Personal history of transient ischemic attack (TIA), and cerebral infarction without residual deficits
CPT/HCPCS: 36415; 71046; 71275; 80048; 80053; 82550; 82553; 83036; 83735; 83880; 84100; 84484; 85025; 85027; 85379; 85610; 85730; 87040; 87070; 87205; 93306; 94640; 94760; 96365; 96375; 99285

== ENCOUNTER 2018-11-29 17:42 | Emergency (ER) | payer MEDICARE, OTHER ==
--- NOTE | 2018-11-29 20:02 | ED ---
General Adult HPI - General Chief complaint: Recheck/Abnormal Lab/Rx Stated complaint: Legs are red Time Seen by Provider: 11/29/18 18:50 Source: patient, RN notes reviewed Mode of arrival: wheelchair Limitations: no limitations - History of Present Illness Initial comments: This is a 73-year-old male who presents emergency Department complaining that he was on his feet a lot today and his shins are little more red than normal. Patient states he's had chronic redness and edema but after being in his feet all day they were little more red. Patient denies any pain patient denies any calf pain. Patient denies any difficulty breathing shortness of breath. Patient denies any recent fever chills or cough. Patient denies any abdominal pain patient denies nausea vomiting diarrhea. Patient states he just wanted a doctor to look at the redness on his legs. Recent denies any drainage from the leg patient denies any warmth to the legs. - Related Data Home Medications Medication Instructions Recorded Confirmed Ezetimibe [Zetia] 10 mg PO DAILY 01/22/14 10/24/18 Glimepiride [Amaryl] 4 mg PO BID 01/22/14 10/24/18 Albuterol Inhaler [Ventolin Hfa 1 - 2 puff INHALATION RT-Q4H 06/02/16 10/24/18 Inhaler] Atorvastatin [Lipitor] 80 mg PO DAILY 06/02/16 10/24/18 HYDROcodone/APAP 7.5-325MG [[place] 1 tab PO BID PRN 06/02/16 10/24/18 7.5-325] metFORMIN HCL 1,000 mg PO BID 06/02/16 10/24/18 Dutasteride 0.5 mg PO DAILY 10/24/18 10/24/18 Exenatide Microspheres [Bydureon 2 mg SQ Q7D 10/24/18 10/24/18 Pen] Insulin Degludec [Tresiba] 60 unit SQ DAILY 10/24/18 10/24/18 Lisinopril [Zestril] 5 mg PO BID 10/24/18 10/24/18 Tamsulosin [Flomax] 0.4 mg PO DAILY 10/24/18 10/24/18 Warfarin [Coumadin] 7.5 mg PO DAILY 10/24/18 10/24/18 Previous Rx's Medication Instructions Recorded Furosemide [Lasix] 40 mg PO BID@0900,1600 tab 10/28/18 Insulin Detemir (Levemir) [Levemir] 15 unit SQ HS syr 10/28/18 Ipratropium-Albuterol Nebulize 3 ml INHALATION RT-QID ampul.neb 10/28/18 [Duoneb 0.5 mg-3 mg/3 ml Soln] Metoprolol Tartrate [Lopressor] 50 mg PO TID tab 10/28/18 Pantoprazole [Protonix] 40 mg PO AC-BRKFST tablet. 10/28/18 Furosemide [Lasix] 20 mg PO DAILY #5 tab 11/29/18 Allergies Allergy/AdvReac Type Severity Reaction Status Date / Time morphine Allergy Rash/Hives Verified 11/29/18 18:52 Review of Systems ROS Statement: Those systems with pertinent positive or pertinent negative responses have been documented in the HPI. ROS Other: All systems not noted in ROS Statement are negative. Past Medical History Past Medical History: Atrial Fibrillation, Blood Disorder, COPD, CVA/TIA, Diabetes Mellitus, GERD/Reflux, Sleep Apnea/CPAP/BIPAP Additional Past Medical History / Comment(s): CELLULITIS RT LEG/FOOT, familial erythrocytosis, tia History of Any Multi-Drug Resistant Organisms: None Reported Additional Past Surgical History / Comment(s): LT LEG SX D/T POOR CIRCULATION, LT CAOTID ENDARTRECTOMY, LASER EYE SX, Past Anesthesia/Blood Transfusion Reactions: No Reported Reaction Past Psychological History: No Psychological Hx Reported Smoking Status: Current some day smoker Past Alcohol Use History: None Reported Past Drug Use History: None Reported - Past Family History Father Additional Family Medical History / Comment(s): DAD AGE 55 OF BRAIN HEMORRAGE. HAD HX TB. Mother Additional Family Medical History / Comment(s): HEART TROUBLE IN HER 70'S General Exam - General Exam Comments Initial Comments: GENERAL: Patient is well-developed and well-nourished. Patient is nontoxic and well- hydrated and is in no acute distress. ENT: Neck is soft and supple. No significant lymphadenopathy is noted. Oropharynx is clear. Moist mucous membranes. Neck has full range of motion without eliciting any pain. EYES: The sclera were anicteric and conjunctiva were pink and moist. Extraocular movements were intact and pupils were equal round and reactive to light. Eyelids were unremarkable. PULMONARY: Unlabored respirations. Good breath sounds bilaterally. No audible rales rhonchi or wheezing was noted. CARDIOVASCULAR: There is a regular rate and rhythm without any murmurs gallops or rubs. ABDOMEN: Soft and nontender with normal bowel sounds. SKIN: Skin is clear with no lesions or rashes and otherwise unremarkable. NEUROLOGIC: Patient is alert and oriented x3. Cranial nerves II through XII are grossly intact. Motor and sensory are also intact. Normal speech, volume and content. Symmetrical smile. MUSCULOSKELETAL: Normal extremities with adequate strength and full range of motion. Patient has 2+ edema bilaterally with some chronic cellulitis. There is no warmth to the leg there is no signs of acute cellulitis. Legs look similar bilaterally LYMPHATICS: No significant lymphadenopathy is noted PSYCHIATRIC: Normal psychiatric evaluation. Limitations: no limitations Course Vital Signs 11/29/18 18:49 Temperature 98.4 F Pulse Rate 105 H Respiratory 20 Rate Blood Pressure 142/73 O2 Sat by Pulse 95 Oximetry Medical Decision Making - Medical Decision Making Patient did not want any workup he just wanted some 1 to take a peek at his legs. He was willing to take Lasix to keep decrease some of the edema. Disposition Clinical Impression: Edema extremities Disposition: HOME SELF-CARE Condition: Good Instructions (If sedation given, give patient instructions): Leg Edema (ED) Prescriptions: Furosemide [Lasix] 20 mg PO DAILY #5 tab Is patient prescribed a controlled substance at d/c from ED?: No Referrals: Freddy Viveros MD [Primary Care Provider] - 1-2 days Time of Disposition: 20:00
[2018-11-29 20:25] VITALS: BP 133/74; PULSE 102; RESP 19; TEMP 98.3
== END 2018-11-29 20:27 | disposition home or self-care (01) ==
LOC: EC 17:42
DX: R60.0 Localized edema (principal); I48.91 Unspecified atrial fibrillation; E11.9 Type 2 diabetes mellitus without complications; J44.9 Chronic obstructive pulmonary disease, unspecified; G47.30 Sleep apnea, unspecified; F17.200 Nicotine dependence, unspecified, uncomplicated; Z79.01 Long term (current) use of anticoagulants; Z79.4 Long term (current) use of insulin; Z79.899 Other long term (current) drug therapy; Z88.5 Allergy status to narcotic agent; Z86.73 Personal history of transient ischemic attack (TIA), and cerebral infarction without residual deficits
CPT/HCPCS: 99283

== ENCOUNTER 2018-12-15 14:33 | Inpatient (IN) | payer MEDICARE, OTHER ==
[2018-12-15 18:09] VITALS: BMI 46.2
[2018-12-15] MEDS ORDERED: HYDROcodone/APAP 7.5-325MG 1 EACH TAB PO PRN (20:16)
--- NOTE | 2018-12-15 21:12 | XR ---
EXAMINATION: XR chest 2V DATE AND TIME: 12/15/2018 8:43 PM CLINICAL INDICATION: PHH; shortness of breath TECHNIQUE: Frontal and lateral views COMPARISON: 10/26/2018 FINDINGS: There is moderate-marked silhouetting of the pulmonary vessels are bilaterally, by a fine reticular p attern of increased density bilaterally - associated with pulmonary congestion and septal lines bilat erally. There is associated moderate enlargement of the cardiac silhouette and a moderate right pleur al effusion, having increased since the prior study. There is at least partial airlessness within the right lower lobe, likely passive atelectasis from the right pleural effusion. There are no abnormal gas collections. No acute skeletal or soft tissue findings. IMPRESSION: MODERATE-MARKED PULMONARY EDEMA, PRESUMABLY CARDIOGENIC ETIOLOGY, WITH RIGHT PLEURAL EFFUSION.
[2018-12-15 21:15] LABS: D-Dimer 0.42 mg/L FEU (<0.60); INR 4.2 (<1.2); Prothrombin Time 40.6 sec (9.0-12.0)
[2018-12-15 21:19] LABS: ALT 22 U/L (21-72); AST 18 U/L (17-59); Albumin 3.2 g/dL (3.5-5.0); Alkaline Phosphatase 79 U/L (38-126); Anion Gap 7 mmol/L; Blood Urea Nitrogen 15 mg/dL (9-20); Calcium 9.1 mg/dL (8.4-10.2); Carbon Dioxide 29 mmol/L (22-30); Chloride 101 mmol/L (98-107); Glucose 94 mg/dL (74-99); Potassium 5.3 mmol/L (3.5-5.1); Sodium 137 mmol/L (137-145); Total Bilirubin 0.6 mg/dL (0.2-1.3); Total Protein 6.7 g/dL (6.3-8.2)
[2018-12-15 21:20] LABS: Glucose,Whole Blood 125 mg/dL (75-99)
[2018-12-15 21:31] LABS: Basophils # (A) 0.1 k/uL (0-0.2); Basophils % (A) 1 %; Eosinophils # (A) 0.1 k/uL (0-0.7); Eosinophils % (A) 1 %; HCT 45.9 % (39.0-53.0); HGB 13.4 gm/dL (13.0-17.5); Hypochromasia Marked; Lymphocytes % (A) 12 %; MCH 26.3 pg (25.0-35.0); MCHC 29.1 g/dL (31.0-37.0); MCV 90.4 fL (80.0-100.0); Mean Platelet Volume 8.1; Monocytes # (A) 0.7 k/uL (0-1.0); Monocytes % (A) 8 %; Neutrophils # (A) 6.9 k/uL (1.3-7.7); Neutrophils % (A) 77 %; Platelet Count 353 k/uL (150-450); RBC 5.08 m/uL (4.30-5.90); RDW 15.8 % (11.5-15.5); WBC 8.9 k/uL (3.8-10.6)
[2018-12-15] MEDS: INSULIN ASPART (NovoLOG) 100 UNIT/ML VIAL SQ SCH (22:37)
[2018-12-15] MEDS: IPRATROPIUM-ALBUTEROL 3 ML NEB INHALATION SCH (22:54)
[2018-12-15] MEDS: SODIUM CHLORIDE 0.9% 1,000 ML IV SCH (23:34)
[2018-12-15] MEDS: methylPREDNISolone SOD SUCCI 125 MG/2 ML VIAL IV SCH (23:35)
[2018-12-15] MEDS: GLIMEPIRIDE 4 MG TAB PO SCH (23:35)
[2018-12-15] MEDS: LISINOPRIL 5 MG TAB PO SCH (23:35)
[2018-12-15] MEDS: METOPROLOL TARTRATE 50 MG TAB PO SCH (23:35)
[2018-12-15] MEDS: VERAPAMIL 80 MG TAB PO SCH (23:35)
[2018-12-16] MEDS: IPRATROPIUM-ALBUTEROL 3 ML NEB INHALATION SCH ×6 (03:16→23:04)
[2018-12-16] MEDS: methylPREDNISolone SOD SUCCI 125 MG/2 ML VIAL IV SCH ×3 (05:54→17:31)
[2018-12-16] MEDS: BUDESONIDE 0.5 MG/2 ML NEBU INHALATION SCH ×2 (07:24→20:48)
[2018-12-16] MEDS ORDERED: metFORMIN 500 MG TAB PO SCH (07:30)
[2018-12-16 07:41] LABS: Glucose,Whole Blood 184 mg/dL (75-99)
[2018-12-16] MEDS: INSULIN ASPART (NovoLOG) 100 UNIT/ML VIAL SQ SCH ×4 (08:06→21:01)
[2018-12-16] MEDS: ATORVASTATIN 80 MG TAB PO SCH (08:06)
[2018-12-16] MEDS: EZETIMIBE 10 MG TAB PO SCH (08:07)
[2018-12-16] MEDS: FINASTERIDE 5 MG TAB PO SCH (08:07)
[2018-12-16] MEDS: REPAGLINIDE 1 MG TAB PO SCH ×3 (08:07→17:32)
[2018-12-16] MEDS: TAMSULOSIN 0.4 MG CAP.ER.24H PO SCH (08:07)
[2018-12-16] MEDS: GLIMEPIRIDE 4 MG TAB PO SCH ×2 (08:07→21:08)
[2018-12-16] MEDS: ASPIRIN 81 MG PO SCH (08:07)
[2018-12-16] MEDS: FUROSEMIDE 20 MG TAB PO SCH (08:07)
[2018-12-16] MEDS: VERAPAMIL 80 MG TAB PO SCH ×3 (08:07→21:08)
[2018-12-16] MEDS: METOPROLOL TARTRATE 50 MG TAB PO SCH ×2 (08:07→21:08)
[2018-12-16] MEDS: LISINOPRIL 5 MG TAB PO SCH ×2 (08:07→21:08)
[2018-12-16] MEDS ORDERED: AZITHROMYCIN 500 MG in SODIUM CHLORIDE 0.9% 250 ML IVPB SCH (09:00)
[2018-12-16] MEDS ORDERED: WARFARIN 7.5 MG TAB PO SCH (09:00)
[2018-12-16] MEDS: SODIUM CHLORIDE 0.9% 1,000 ML IV SCH (09:09)
[2018-12-16 09:18] LABS: INR 4.3 (<1.2); Prothrombin Time 41.4 sec (9.0-12.0)
[2018-12-16 11:52] LABS: Glucose,Whole Blood 246 mg/dL (75-99)
[2018-12-16] MEDS ORDERED: Exenatide Microspheres [Bydureon Pen] 2 MG SQ SCH (12:00)
[2018-12-16] MEDS ORDERED: RX INFO: IV CONTRAST WAS GIVEN 1 EACH MISC MISCELLANE PRN (12:49)
--- NOTE | 2018-12-16 13:34 | HP ---
HISTORY AND PHYSICAL CHIEF COMPLAINT: A 73-year-old white male with lightheaded, dizziness, shortness of breath, COPD exacerbation at rest or with any exertion. He is unable to lie down flat due to severe dyspnea. He is wearing 2 to 3 L of oxygen all day long. It has got severe weakness and shortness of breath. He has had cough, congestion and unable to ambulate without dizziness, lightheadedness. PAST MEDICAL HISTORY: Congestive heart failure, diastolic, COPD, BPH, diabetes mellitus. He is insulin- dependent diabetic, hypertension. MEDICATIONS: His medications at home includes: 1. Flomax for BPH. 2. Verapamil for atrial fibrillation. 3. Coumadin for atrial fibrillation, rapid ventricular response. 4. Metoprolol for hypertension. 5. Methylprednisolone IV for steroids at this time. 6. Metformin 500 b.i.d. 7. Zestril 5 mg b.i.d. 8. Amaryl 4 mg b.i.d. 9. Lasix 20 mg daily. 10.Proscar 5 mg daily. 11.Zetia 10 mg daily. 12.Rocephin 1 gram IV daily. 13.Azithromycin 500 mg daily. 14.Atorvastatin 80 mg daily. PHYSICAL EXAM: He is obese, white male, appears in respiratory distress on 2 L. Sitting in a chair. LUNGS: Wheezes and rhonchi x4, O2 sats are high 80s on 2 L. In my office, respiratory rate 25 to 35. CARDIOVASCULAR: S1, S2. LUNGS: Scattered rhonchi and wheeze x4. ENDOCRINE: BMI is over 40. HEMATOLOGIC: 2 to 3+ stasis changes with redness in the anterior tibia, bilateral legs. PSYCH: Poor mood and affect. NEUROLOGIC: Alert and orient x3. ASSESSMENT: 1. Acute chronic obstructive pulmonary disease exacerbation, tracheobronchitis, rule out pneumonia. 2. Obstructive sleep apnea. 3. Right-sided heart failure, diastolic heart failure. 4. Hypertension with . 5. Uncontrolled diabetes mellitus. Failed outpatient treatment due to severe COPD, obstructive sleep apnea, and heart failure. Please see further orders. MMODL / IJN: [id number] /
[2018-12-16] MEDS ORDERED: FUROSEMIDE 10 MG/ML 4 ML VIAL IV STA (13:58)
--- NOTE | 2018-12-16 15:40 | CONS ---
CONSULTATION DATE OF SERVICE: 12/16/2018 HISTORY OF PRESENT ILLNESS: Patient is a 73-year-old male who is a patient of Dr. Freddy Viveros. He said he saw Dr. Viveros in the office yesterday for a checkup and was told to go to the hospital. Patient states that he went home to get some clothes and then came to [facility]'s ER and was admitted. There are no ER notes so it is assumed that the patient came in through the ER as a direct admit for worsening shortness of breath. Patient does have a history of COPD and obstructive sleep apnea for which he does wear CPAP and we have been consulted for further pulmonary evaluation and treatment. PAST MEDICAL HISTORY: Significant for AFib, blood disorder, COPD, diabetes mellitus, GERD, sleep apnea, does wear CPAP and chronic cellulitis of the lower extremities. PAST SURGICAL HISTORY: Significant for surgery on his left leg due to poor circulation, left carotid endarterectomy, and laser eye surgery. ALLERGIES: Include MORPHINE. MEDICATIONS: Patient takes at home includes metformin 1000 mg p.o. b.i.d., Coumadin 7.5 mg p.o. daily, Verapamil 80 mg p.o. t.i.d., Flomax 0.4 mg p.o. daily. Prandin 0.5 mg p.o. a.c. breakfast, lunch and dinner, Lopressor 50 mg p.o. b.i.d., Zestril 5 mg p.o. b.i.d., DuoNeb via nebulizer q.i.d. p.r.n., Tresiba 60 units subcu daily, [place] 7.5 one tab p.o. b.i.d. p.r.n., Amaryl 4 mg p.o. b.i.d., Lasix 20 mg p.o. daily. Zetia 10 mg p.o. daily, Bydureon 2 mg subcu weekly, Avodart 0.5 mg p.o. daily. Keflex 500 mg p.o. t.i.d., Lipitor 80 mg p.o. daily, baby aspirin 81 mg p.o. daily, Ventolin HFA inhaler 1 to 2 puffs q.6 hours p.r.n. SOCIAL HISTORY: Patient is a smoker, smokes approximately a pack a week and has been smoking for over 50 years. Alcohol, patient drinks rarely. Drugs, denies any illicit drug use. 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 FAMILY HISTORY: Father at the age of 55 from a brain hemorrhage and had a history of TB. Mother in her 70s from heart trouble. REVIEW OF SYSTEMS: General is positive for patient feeling hot while at home, did not actually take his temperature or have any chills. HEENT is positive for intermittent headaches which are chronic in nature. Patient denies any acute visual changes. Denies difficulty hearing. Denies history of seasonal allergies. Denies any nosebleeds. Denies sore throat or difficulty swallowing. Respiratory is positive for shortness of breath. Denies any cough. Cardiovascular is negative for any chest pain. Denies any palpitations. GI is negative for abdominal pain, nausea, or vomiting. Patient does complain of loose stools this morning. is negative for any dysuria, hematuria. Endocrine is positive for diabetes mellitus. Negative for any thyroid disease. Musculoskeletal is positive for chronic back pain. Neurologic is negative for any history of seizures. Patient denies neuropathy. Psychiatric is negative for anxiety or depression. PHYSICAL EXAM: General is a pleasant, obese male who is seen sitting up in a chair, awake, alert, just getting ready to have lunch. VITAL SIGNS: Temp is 96.3, heart rate is 68, respiratory rate is 22, blood pressure is 125/75, O2 SATs 93% on 3 L, O2 via nasal cannula. HEENT: Head is normocephalic, atraumatic. Pupils equal, round, react to light. Ears and nose, no discharge is noted. Mouth with moist mucous membranes. Mallampati is class 4. Neck is short, thick, supple. Trachea is midline. Lungs with decreased breath sounds and prolonged expiratory phase. HEART: S1, S2 are heard. Irregular not tachycardic. ABDOMEN: Soft, obese. Bowel sounds are heard. EXTREMITIES: With isrrael discoloration from chronic venous insufficiency. Positive edema, 2+ on the left and 1+ on the right. NEUROLOGIC: Patient is awake and alert, oriented. LABS: Sodium is 137, potassium 5.3, chloride is 101, CO2 is 29, anion gap is 7, BUN is 15, creatinine 0.86, glucose is 94, calcium 9.1, total bilirubin 0.6, AST 18, ALT 22, alkaline phosphatase 79. Troponin less than 0.012. Total protein 6.7, albumin is 3.2. BNP is 528. White count 8.9, hemoglobin 13.4, hematocrit 45.9 with 353,000 platelets. IMAGING: Chest x-ray shows moderate marked pulmonary edema presumably cardiogenic etiology with right pleural effusion. IMPRESSION: 1. Acute on chronic hypoxic respiratory failure. 2. Acute exacerbation of congestive heart failure with right pleural effusion. 3. Chronic obstructive pulmonary disease with acute exacerbation. 4. Obstructive sleep apnea. 5. Hyperkalemia. 6. History of atrial fibrillation. 7. Active tobacco abuse. 8. Diabetes mellitus type 2. 9. Morbid obesity. 10.Coumadin coagulopathy. PLAN: Oxygen to maintain O2 saturations greater than or equal to 90%. Will give additional Lasix 40 mg IV x1 now. Bronchodilators to include DuoNeb, recommend p.r.n. only, Pulmicort 0.5 mg via nebulizer b.i.d., Solu-Medrol IV with quick steroid taper, insulin sliding scale. Smoking cessation is highly recommended. Hold Coumadin today. GI and DVT prophylaxis. Patient is going to request family bring CPAP in from home and will wear CPAP nightly. Repeat a BMP today. Thank you for the consultation. Will follow patient closely with you, making further changes if necessary. MMODL / IJN: [id number] /
[2018-12-16 15:54] LABS: Potassium 5.9 mmol/L (3.5-5.1)
--- NOTE | 2018-12-16 16:02 | CT ---
EXAMINATION TYPE: CT chest w con DATE OF EXAM: 12/16/2018 COMPARISON: 10/24/2018 HISTORY: COPD. CT DLP: 632.7 mGycm, Automated exposure control for dose reduction was used. CONTRAST: Performed injected with 100ml mL of Isovue 300. TECHNIQUE: Axial images were obtained at 5 mm thick sections. Reconstructed images are reviewed on [employer] computer in the coronal plane. FINDINGS: Portion of the thyroid visualized is normal. There is a small right pleural effusion. Some compressive atelectasis is adjacent. Within the left midlung there is a 0.5 cm nodule. This appears to been present in retrospect in stabl e. Follow-up exam in 6 months is recommended to confirm stability of this nodule. This should be conf irmed as stable over the course of 2 years. No enlarged mediastinal or hilar adenopathy is evident. There are scattered small lymph nodes in th e mediastinum. The ascending aorta diameter at the level of the main pulmonary artery is 3.8 cm. The main pulmonary artery diameter at the bifurcation is 3.[address] sections are obtained through the upper abdomen. There is thickening of the right adrenal gland measuring 2.2 cm. IMPRESSIONS: 1. Small right pleural effusion with adjacent compressive atelectasis. 2. Enlarged 2.2 cm right adrenal gland. 3. There is a 0.5 cm nodule within the left midlung. Follow-up CT chest in 6 months is recommended
[2018-12-16 17:03] LABS: Glucose,Whole Blood 253 mg/dL (75-99)
[2018-12-16 17:55] LABS: Hemoglobin A1C 9.4 % (4.0-6.0)
[2018-12-16] MEDS ORDERED: WARFARIN 0.5 MG TAB PO ONE (18:00)
[2018-12-16 20:56] LABS: Glucose,Whole Blood 368 mg/dL (75-99)
[2018-12-17] MEDS: methylPREDNISolone SOD SUCCI 125 MG/2 ML VIAL IV SCH ×3 (00:01→12:35)
[2018-12-17] MEDS: SODIUM CHLORIDE 0.9% 1,000 ML IV SCH ×2 (00:02→13:06)
[2018-12-17] MEDS: IPRATROPIUM-ALBUTEROL 3 ML NEB INHALATION SCH ×5 (03:06→21:31)
[2018-12-17 07:38] LABS: Glucose,Whole Blood 321 mg/dL (75-99)
[2018-12-17] MEDS: BUDESONIDE 0.5 MG/2 ML NEBU INHALATION SCH ×2 (07:43→21:30)
[2018-12-17] MEDS: TAMSULOSIN 0.4 MG CAP.ER.24H PO SCH (07:51)
[2018-12-17] MEDS: METOPROLOL TARTRATE 50 MG TAB PO SCH ×2 (07:51→20:21)
[2018-12-17] MEDS: FUROSEMIDE 20 MG TAB PO SCH (07:51)
[2018-12-17] MEDS: VERAPAMIL 80 MG TAB PO SCH ×3 (07:51→20:21)
[2018-12-17] MEDS: LISINOPRIL 5 MG TAB PO SCH ×2 (07:51→20:21)
[2018-12-17] MEDS: FINASTERIDE 5 MG TAB PO SCH (07:52)
[2018-12-17] MEDS: ATORVASTATIN 80 MG TAB PO SCH (07:52)
[2018-12-17] MEDS: AZITHROMYCIN 500 MG TAB PO SCH (07:52)
[2018-12-17] MEDS: ASPIRIN 81 MG PO SCH (07:52)
[2018-12-17] MEDS: PANTOPRAZOLE 40 MG TABLET PO SCH (07:52)
[2018-12-17] MEDS: REPAGLINIDE 1 MG TAB PO SCH ×3 (07:56→17:17)
[2018-12-17] MEDS: GLIMEPIRIDE 4 MG TAB PO SCH ×2 (07:57→20:21)
[2018-12-17] MEDS: EZETIMIBE 10 MG TAB PO SCH (07:57)
[2018-12-17] MEDS: INSULIN ASPART (NovoLOG) 100 UNIT/ML VIAL SQ SCH ×7 (07:57→20:22)
[2018-12-17 12:14] LABS: Glucose,Whole Blood 427 mg/dL (75-99)
[2018-12-17 12:19] LABS: INR 3.2 (<1.2); Prothrombin Time 30.7 sec (9.0-12.0)
[2018-12-17 17:05] LABS: Glucose,Whole Blood 309 mg/dL (75-99)
[2018-12-17] MEDS ORDERED: WARFARIN 2 MG TAB PO ONE (18:00)
[2018-12-17 20:15] LABS: Glucose,Whole Blood 472 mg/dL (75-99)
[2018-12-17] MEDS: methylPREDNISolone SOD SUCCI 40 MG/ML 1 ML VIAL IV SCH (20:21)
[2018-12-17 23:54] LABS: Glucose,Whole Blood 236 mg/dL (75-99)
[2018-12-18] MEDS: IPRATROPIUM-ALBUTEROL 3 ML NEB INHALATION SCH ×6 (00:05→20:05)
[2018-12-18] MEDS: SODIUM CHLORIDE 0.9% 1,000 ML IV SCH ×2 (04:44→16:08)
[2018-12-18] MEDS: BUDESONIDE 0.5 MG/2 ML NEBU INHALATION SCH ×2 (07:21→20:05)
[2018-12-18 07:29] LABS: Glucose,Whole Blood 264 mg/dL (75-99)
[2018-12-18] MEDS: METOPROLOL TARTRATE 50 MG TAB PO SCH ×2 (08:00→21:16)
[2018-12-18] MEDS: TAMSULOSIN 0.4 MG CAP.ER.24H PO SCH (08:00)
[2018-12-18] MEDS: AZITHROMYCIN 500 MG TAB PO SCH (08:00)
[2018-12-18] MEDS: FUROSEMIDE 20 MG TAB PO SCH (08:01)
[2018-12-18] MEDS: REPAGLINIDE 1 MG TAB PO SCH ×3 (08:01→18:18)
[2018-12-18] MEDS: PANTOPRAZOLE 40 MG TABLET PO SCH (08:01)
[2018-12-18] MEDS: ASPIRIN 81 MG PO SCH (08:01)
[2018-12-18] MEDS: LISINOPRIL 5 MG TAB PO SCH (08:01)
[2018-12-18] MEDS: GLIMEPIRIDE 4 MG TAB PO SCH ×2 (08:01→21:16)
[2018-12-18] MEDS: ATORVASTATIN 80 MG TAB PO SCH (08:01)
[2018-12-18] MEDS: VERAPAMIL 80 MG TAB PO SCH ×3 (08:01→21:16)
[2018-12-18] MEDS: FINASTERIDE 5 MG TAB PO SCH (08:01)
[2018-12-18] MEDS: INSULIN ASPART (NovoLOG) 100 UNIT/ML VIAL SQ SCH ×8 (08:02→21:17)
[2018-12-18] MEDS: methylPREDNISolone SOD SUCCI 40 MG/ML 1 ML VIAL IV SCH ×2 (08:02→21:16)
[2018-12-18] MEDS: EZETIMIBE 10 MG TAB PO SCH (08:03)
--- NOTE | 2018-12-18 08:27 | PN ---
PROGRESS NOTE DATE OF SERVICE: 12/17/2018. SUBJECTIVE: 73-year-old white male with COPD exacerbation, bilateral lower extremity cellulitis. This patient is slowly improving. His steroids will be weaned due to severe hyperglycemia and he is improving. His Solu Medrol will be decreased to 40 mg q.12 and his insulin will be increased. He has steroid induced hyperglycemia on top of his insulin-dependent diabetes mellitus. His breathing is slowly improving. Cardiovascular S1, S2. Lungs transmitted upper air sounds. Hematology negative Homans. 2+ stasis changes. ASSESSMENT: 1. Chronic obstructive pulmonary disease. 2. Asthma exacerbation. 3. Tracheobronchitis. 4. Chronic atrial fibrillation. 5. Obesity. 6. Insulin-dependent diabetes mellitus. 7. Obstructive sleep apnea. 8. Morbid obesity. Continue to wean steroids. Continue with IV antibiotics. Possible discharge home in the next 24 to 48 hours. MMSOBEIDAL / JAVI: [id number] /
[2018-12-18 11:38] LABS: Anion Gap 9 mmol/L; Blood Urea Nitrogen 30 mg/dL (9-20); Calcium 9.3 mg/dL (8.4-10.2); Carbon Dioxide 29 mmol/L (22-30); Chloride 97 mmol/L (98-107); Glucose 322 mg/dL (74-99); Potassium 5.4 mmol/L (3.5-5.1); Sodium 135 mmol/L (137-145)
[2018-12-18 11:42] LABS: INR 2.1 (<1.2); Prothrombin Time 20.2 sec (9.0-12.0)
[2018-12-18 12:16] LABS: Glucose,Whole Blood 339 mg/dL (75-99)
--- NOTE | 2018-12-18 12:21 | PN ---
PROGRESS NOTE DATE OF SERVICE: 12/18/2018 Patient is a 73-year-old male who is seen sitting up in a chair, eating breakfast, feeling a bit better today. No new complaints. Patient is hemodynamically stable. Afebrile, in no acute distress. PHYSICAL EXAM: Vital signs, temperature 98.0, heart rate 88, respiratory rate 20, blood pressure 147/71, O2 sats 92% documented on room air. HEENT: Head is normocephalic, atraumatic. Neck is supple. Trachea is midline. Lungs with decreased breath sounds. HEART: S1, S2 are heard. Irregular not tachycardic. ABDOMEN: Soft, obese. Bowel sounds are heard. EXTREMITIES: With 1+ edema on the left, trace edema on the right and moderate erythema bilaterally. Neurologic: Patient is awake and alert. LABS: No new labs to review. IMAGING: No new imaging to review. IMPRESSION: 1. Acute on chronic hypoxic respiratory failure. 2. Acute exacerbation of congestive heart failure with right pleural effusion. 3. Chronic obstructive pulmonary disease with acute exacerbation. 4. Obstructive sleep apnea. 5. History of atrial fibrillation. 6. Active tobacco abuse. 7. Diabetes mellitus type 2. 8. Morbid obesity. PLAN: Continue current medications which have been reviewed. Continue bronchodilators and aerosol steroids. Agree with weaning of the IV steroids. Continue insulin sliding scale. Continue GI and DVT prophylaxis. We will continue to follow patient closely with you making further changes as necessary. Patient was seen by Dr. Farhan Jefferson covering for Dr. Roberto Carlos Queen. I performed a History & Physical Examination of the patient and discussed their management with nurse practitioner. I reviewed the nurse practitioner's note and agree with the documented findings and plan of care. MMODL / IJN: [id number] / THAO
[2018-12-18 17:36] LABS: Glucose,Whole Blood 283 mg/dL (75-99)
[2018-12-18] MEDS ORDERED: WARFARIN 5 MG TAB PO ONE (18:00)
[2018-12-18] MEDS: metFORMIN 500 MG TAB PO SCH (18:18)
[2018-12-18 20:31] LABS: Glucose,Whole Blood 238 mg/dL (75-99)
[2018-12-18 21:31] VITALS: RESP 20; TEMP 97.9
--- NOTE | 2018-12-18 23:20 | PN ---
PROGRESS NOTE SUBJECTIVE: A 73-year-old white male with COPD, bilateral lower extremity cellulitis, diabetes mellitus and hyperglycemia secondary to steroids. Steroids have been reduced. He has got home oxygen. Will continue with PT/OT. Possibly discharge home next 24 to 48 hours as he is improving. His INR is 2.1. Sodium is 135, potassium is 5.4 little bit high. We cut his Zestril down from 5 mg b.i.d. to just daily. Sugars are improved with weaning steroids. Continue with 10 units regular insulin sale. Cardiovascular S1-S2. Lungs mild wheeze. Hematology negative Homans. Stasis changes 2 to 3+ pedal edema. Continue current antibiotics and steroids. Discharge home in the morning on potassium and . MMODL / IJN: [id number] /
[2018-12-19] MEDS: IPRATROPIUM-ALBUTEROL 3 ML NEB INHALATION SCH ×3 (00:32→07:10)
[2018-12-19 05:28] VITALS: BP 144/72; PULSE 86
[2018-12-19] MEDS: SODIUM CHLORIDE 0.9% 1,000 ML IV SCH (06:21)
[2018-12-19 07:07] LABS: Glucose,Whole Blood 306 mg/dL (75-99)
[2018-12-19] MEDS: BUDESONIDE 0.5 MG/2 ML NEBU INHALATION SCH (07:10)
[2018-12-19] MEDS: AZITHROMYCIN 500 MG TAB PO SCH (08:48)
[2018-12-19] MEDS: ASPIRIN 81 MG PO SCH (08:48)
[2018-12-19] MEDS: ATORVASTATIN 80 MG TAB PO SCH (08:48)
[2018-12-19] MEDS: PANTOPRAZOLE 40 MG TABLET PO SCH (08:48)
[2018-12-19] MEDS: VERAPAMIL 80 MG TAB PO SCH (08:48)
[2018-12-19] MEDS: metFORMIN 500 MG TAB PO SCH (08:48)
[2018-12-19] MEDS: METOPROLOL TARTRATE 50 MG TAB PO SCH (08:48)
[2018-12-19] MEDS: EZETIMIBE 10 MG TAB PO SCH (08:49)
[2018-12-19] MEDS: REPAGLINIDE 1 MG TAB PO SCH (08:49)
[2018-12-19] MEDS: TAMSULOSIN 0.4 MG CAP.ER.24H PO SCH (08:49)
[2018-12-19] MEDS: GLIMEPIRIDE 4 MG TAB PO SCH (08:49)
[2018-12-19] MEDS: INSULIN ASPART (NovoLOG) 100 UNIT/ML VIAL SQ SCH ×2 (08:50)
[2018-12-19] MEDS: FINASTERIDE 5 MG TAB PO SCH (08:50)
[2018-12-19] MEDS: methylPREDNISolone SOD SUCCI 40 MG/ML 1 ML VIAL IV SCH (08:51)
[2018-12-19] MEDS: FUROSEMIDE 20 MG TAB PO SCH (08:56)
[2018-12-19] MEDS ORDERED: LISINOPRIL 5 MG TAB PO SCH (09:00)
== END 2018-12-19 10:05 | disposition home or self-care (01) | DRG 190 ==
LOC: 4MS4W 16:55
PROVIDERS: ADMIT Family Medicine; ATTEND Family Medicine
DX: J44.0 Chronic obstructive pulmonary disease with (acute) lower respiratory infection (principal); J96.21 Acute and chronic respiratory failure with hypoxia; I50.33 Acute on chronic diastolic (congestive) heart failure; Z68.42 Body mass index [BMI] 45.0-49.9, adult; L03.115 Cellulitis of right lower limb; L03.116 Cellulitis of left lower limb; J45.901 Unspecified asthma with (acute) exacerbation; J44.1 Chronic obstructive pulmonary disease with (acute) exacerbation; E66.01 Morbid (severe) obesity due to excess calories; E87.5 Hyperkalemia; I11.0 Hypertensive heart disease with heart failure; I48.2 Chronic atrial fibrillation; J40 Bronchitis, not specified as acute or chronic; N40.0 Benign prostatic hyperplasia without lower urinary tract symptoms; G47.33 Obstructive sleep apnea (adult) (pediatric); R79.1 Abnormal coagulation profile; E11.65 Type 2 diabetes mellitus with hyperglycemia; T38.0X5A Adverse effect of glucocorticoids and synthetic analogues, initial encounter; T45.515A Adverse effect of anticoagulants, initial encounter; K21.9 Gastro-esophageal reflux disease without esophagitis; F17.210 Nicotine dependence, cigarettes, uncomplicated; Z71.6 Tobacco abuse counseling; Z79.4 Long term (current) use of insulin; Z79.01 Long term (current) use of anticoagulants; Z79.82 Long term (current) use of aspirin; Z79.899 Other long term (current) drug therapy; Z99.89 Dependence on other enabling machines and devices; Z86.79 Personal history of other diseases of the circulatory system; Z82.49 Family history of ischemic heart disease and other diseases of the circulatory system; Z83.1 Family history of other infectious and parasitic diseases
CPT/HCPCS: 71046; 71260; 80048; 80053; 83036; 83605; 83880; 84484; 85025; 85379; 85610; 87502; 93005; 94640

== ENCOUNTER 2019-02-05 14:55 | Inpatient (IN) | payer MEDICARE, OTHER ==
[2019-02-05] MEDS ORDERED: IPRATROPIUM 0.5 MG/2.5 ML NEBU INHALATION STA (15:15)
[2019-02-05] MEDS ORDERED: methylPREDNISolone SOD SUCCI 125 MG/2 ML VIAL IV STA (15:15)
[2019-02-05] MEDS ORDERED: ALBUTEROL NEBULIZED 2.5 MG/3 ML INHALATION STA (15:15)
[2019-02-05 15:35] LABS: Anisocytosis Slight; Basophils % (A) 0 %; Eosinophils # (A) 0.2 k/uL (0-0.7); Eosinophils % (A) 2 %; HGB 12.5 gm/dL (13.0-17.5); Hypochromasia Marked; Lymphocytes # (A) 0.7 k/uL (1.0-4.8); Lymphocytes % (A) 7 %; MCH 26.5 pg (25.0-35.0); MCHC 28.9 g/dL (31.0-37.0); MCV 91.4 fL (80.0-100.0); Mean Platelet Volume 7.4; Monocytes # (A) 0.6 k/uL (0-1.0); Monocytes % (A) 6 %; Neutrophils # (A) 7.7 k/uL (1.3-7.7); Neutrophils % (A) 83 %; Platelet Count 379 k/uL (150-450); RBC 4.71 m/uL (4.30-5.90); WBC 9.3 k/uL (3.8-10.6)
[2019-02-05 15:49] LABS: ALT 14 U/L (21-72); AST 18 U/L (17-59); Albumin 3.4 g/dL (3.5-5.0); Alkaline Phosphatase 72 U/L (38-126); Anion Gap 8 mmol/L; Blood Urea Nitrogen 13 mg/dL (9-20); Calcium 9.1 mg/dL (8.4-10.2); Carbon Dioxide 26 mmol/L (22-30); Chloride 102 mmol/L (98-107); Creatine Kinase 40 U/L (55-170); Glucose 219 mg/dL (74-99); Magnesium 1.6 mg/dL (1.6-2.3); Potassium 5.5 mmol/L (3.5-5.1); Sodium 136 mmol/L (137-145); Total Bilirubin 0.7 mg/dL (0.2-1.3); Total Protein 6.7 g/dL (6.3-8.2)
--- NOTE | 2019-02-05 15:52 | ED ---
SOB HPI - General Chief Complaint: Shortness of Breath Stated Complaint: SHAHEEN Time Seen by Provider: 02/05/19 15:14 Source: patient, RN notes reviewed, old records reviewed Mode of arrival: wheelchair Limitations: no limitations - History of Present Illness Initial Comments: This is a 73 male the ER for evaluation. Patient resents today for evaluation r egards to patient has significant shortness of breath history of significant COPD. Patient doing breathing she was at home with no help. Patient does continue to smoke. No fevers no chest pain. No recent travel history or sick contacts, hospitalization has been recent within the last month MD Complaint: shortness of breath, cough -: days(s) Severity: moderate Severity scale (1-10): 5 Consistency: constant Improves With: nothing, rest Worsens With: exertion, movement Known History Of: COPD Context: recent URI, recent illness Associated Symptoms: cough, sputum production Treatments Prior to Arrival: none - Related Data Home Medications Medication Instructions Recorded Confirmed Ezetimibe [Zetia] 10 mg PO DAILY 01/22/14 12/15/18 Glimepiride [Amaryl] 4 mg PO BID 01/22/14 12/15/18 Exenatide Microspheres [Bydureon 2 mg SQ Q7D 10/24/18 12/15/18 Pen] Warfarin [Coumadin] 7.5 mg PO DAILY 10/24/18 12/15/18 Aspirin [Adult Low Dose Aspirin EC] 81 mg PO DAILY 11/29/18 12/15/18 Insulin Degludec [Tresiba 60 units SQ DAILY 11/29/18 12/15/18 Flextouch U-200] Metoprolol Tartrate [Lopressor] 50 mg PO BID 11/29/18 12/15/18 Albuterol Inhaler [Ventolin Hfa 1 - 2 puff INHALATION RT-Q6H PRN 12/15/18 12/15/18 Inhaler] Atorvastatin [Lipitor] 80 mg PO DAILY 12/15/18 12/15/18 Cephalexin [Keflex] 500 mg PO TID 12/15/18 12/15/18 Dutasteride [Avodart] 0.5 mg PO DAILY 12/15/18 12/15/18 HYDROcodone/APAP 7.5-325MG [[place] 1 tab PO BID PRN 12/15/18 12/15/18 7.5-325] Ipratropium-Albuterol Nebulize 3 ml INHALATION RT-QID PRN 12/15/18 12/15/18 [Duoneb 0.5 mg-3 mg/3 ml Soln] Lisinopril [Zestril] 5 mg PO BID 12/15/18 12/15/18 Tamsulosin [Flomax] 0.4 mg PO DAILY 12/15/18 12/15/18 Verapamil [Isoptin] 80 mg PO TID 12/15/18 12/15/18 metFORMIN HCL 1,000 mg PO BID 12/15/18 12/15/18 Previous Rx's Medication Instructions Recorded Furosemide [Lasix] 20 mg PO DAILY #5 tab 11/29/18 Budesonide [Pulmicort] 0.5 mg INHALATION RT-BID nebu 12/19/18 INSULIN ASPART (NovoLOG) [NovoLOG 0 unit SQ ACHS vial 12/19/18 (formulary)] INSULIN ASPART (NovoLOG) [NovoLOG 10 unit SQ ACHS vial 12/19/18 (formulary)] Allergies Allergy/AdvReac Type Severity Reaction Status Date / Time morphine Allergy Rash/Hives Verified 02/05/19 15:07 Review of Systems ROS Statement: Those systems with pertinent positive or pertinent negative responses have been documented in the HPI. ROS Other: All systems not noted in ROS Statement are negative. Past Medical History Past Medical History: Atrial Fibrillation, Blood Disorder, COPD, CVA/TIA, Diabetes Mellitus, GERD/Reflux, Sleep Apnea/CPAP/BIPAP Additional Past Medical History / Comment(s): CELLULITIS RT LEG/FOOT, familial erythrocytosis, tia History of Any Multi-Drug Resistant Organisms: None Reported Additional Past Surgical History / Comment(s): LT LEG SX D/T POOR CIRCULATION, LT CArOTID ENDARTRECTOMY, LASER EYE SX, Past Anesthesia/Blood Transfusion Reactions: No Reported Reaction Past Psychological History: No Psychological Hx Reported Smoking Status: Current some day smoker Past Alcohol Use History: None Reported Past Drug Use History: None Reported - Past Family History Father Additional Family Medical History / Comment(s): DAD AGE 55 OF BRAIN HEMORRAGE. HAD HX TB. Mother Additional Family Medical History / Comment(s): HEART TROUBLE IN HER 70'S General Exam Limitations: no limitations General appearance: alert, in distress, obese Head exam: Present: atraumatic, normocephalic, normal inspection Eye exam: Present: normal appearance, PERRL, EOMI. Absent: scleral icterus, conjunctival injection, periorbital swelling ENT exam: Present: normal exam, mucous membranes moist Neck exam: Present: normal inspection. Absent: tenderness, meningismus, lymphad enopathy Respiratory exam: Present: respiratory distress, wheezes, accessory muscle use, decreased breath sounds, prolonged expiratory. Absent: rales, rhonchi, stridor Cardiovascular Exam: Present: regular rate, normal rhythm, normal heart sounds. Absent: systolic murmur, diastolic murmur, rubs, gallop, clicks GI/Abdominal exam: Present: soft, normal bowel sounds. Absent: distended, tenderness, guarding, rebound, rigid Extremities exam: Present: normal inspection, full ROM, normal capillary refill. Absent: tenderness, pedal edema, joint swelling, calf tenderness Back exam: Present: normal inspection Neurological exam: Present: alert, oriented X3, CN II-XII intact Psychiatric exam: Present: normal affect, normal mood Skin exam: Present: warm, dry, intact, normal color. Absent: rash Course Vital Signs 02/05/19 02/05/19 02/05/19 15:04 15:13 15:23 Temperature 98.2 F Pulse Rate 109 H 96 Respiratory 22 24 Rate Blood Pressure 116/67 O2 Sat by Pulse 75 L 78 L Oximetry 02/05/19 02/05/19 02/05/19 15:30 15:35 16:00 Temperature Pulse Rate 92 94 97 Respiratory 16 22 Rate Blood Pressure 102/74 O2 Sat by Pulse 92 L 94 L Oximetry 02/05/19 16:44 Temperature Pulse Rate 98 Respiratory Rate Blood Pressure O2 Sat by Pulse Oximetry - Reevaluation(s) Reevaluation #1: 02/05/19 17:04 Records reviewed Reevaluation #2: 02/05/19 17:04 Patient is improved on breathing treatment and oxygen Medical Decision Making - Medical Decision Making 1 male the ER for evaluation. Patient does say for evaluation regards to significant shortness of breath and hypoxia. Patient oxygen the 70s upon arrival. Patient be admitted for continued breathing treatments and monitoring of pulmonary status - Lab Data Result diagrams: 02/05/19 15:22 02/05/19 15:22 Lab Results 02/05/19 02/05/19 02/05/19 Range/Units 15:22 15:22 15:22 WBC 9.3 (3.8-10.6) k/uL RBC 4.71 (4.30-5.90) m/uL Hgb 12.5 L (13.0-17.5) gm/dL Hct 43.0 (39.0-53.0) % MCV 91.4 (80.0-100.0) fL MCH 26.5 (25.0-35.0) pg MCHC 28.9 L (31.0-37.0) g/dL RDW 16.0 H (11.5-15.5) % Plt Count 379 (150-450) k/uL Neutrophils % 83 % Lymphocytes % 7 % Monocytes % 6 % Eosinophils % 2 % Basophils % 0 % Neutrophils # 7.7 (1.3-7.7) k/uL Lymphocytes # 0.7 L (1.0-4.8) k/uL Monocytes # 0.6 (0-1.0) k/uL Eosinophils # 0.2 (0-0.7) k/uL Basophils # 0.0 (0-0.2) k/uL Hypochromasia Marked Anisocytosis Slight PT 29.9 H (9.0-12.0) sec INR 3.1 H (<1.2) APTT 43.5 H (22.0-30.0) sec D-Dimer 0.28 (<0.60) mg/L FEU Sodium 136 L (137-145) mmol/L Potassium 5.5 H (3.5-5.1) mmol/L Chloride 102 (98-107) mmol/L Carbon Dioxide 26 (22-30) mmol/L Anion Gap 8 mmol/L BUN 13 (9-20) mg/dL Creatinine 0.60 L (0.66-1.25) mg/dL Est GFR (CKD-EPI)AfAm >90 (>60 ml/min/1.73 sqM) Est GFR (CKD-EPI)NonAf >90 (>60 ml/min/1.73 sqM) Glucose 219 H (74-99) mg/dL Calcium 9.1 (8.4-10.2) mg/dL Magnesium 1.6 (1.6-2.3) mg/dL Total Bilirubin 0.7 (0.2-1.3) mg/dL AST 18 (17-59) U/L ALT 14 L (21-72) U/L Alkaline Phosphatase 72 (38-126) U/L Creatine Kinase 40 L (55-170) U/L Troponin I (0.000-0.034) ng/mL NT-Pro-B Natriuret Pep pg/mL Total Protein 6.7 (6.3-8.2) g/dL Albumin 3.4 L (3.5-5.0) g/dL 02/05/19 02/05/19 Range/Units 15:22 15:22 WBC (3.8-10.6) k/uL RBC (4.30-5.90) m/uL Hgb (13.0-17.5) gm/dL Hct (39.0-53.0) % MCV (80.0-100.0) fL MCH (25.0-35.0) pg MCHC (31.0-37.0) g/dL RDW (11.5-15.5) % Plt Count (150-450) k/uL Neutrophils % % Lymphocytes % % Monocytes % % Eosinophils % % Basophils % % Neutrophils # (1.3-7.7) k/uL Lymphocytes # (1.0-4.8) k/uL Monocytes # (0-1.0) k/uL Eosinophils # (0-0.7) k/uL Basophils # (0-0.2) k/uL Hypochromasia Anisocytosis PT (9.0-12.0) sec INR (<1.2) APTT (22.0-30.0) sec D-Dimer (<0.60) mg/L FEU Sodium (137-145) mmol/L Potassium (3.5-5.1) mmol/L Chloride (98-107) mmol/L Carbon Dioxide (22-30) mmol/L Anion Gap mmol/L BUN (9-20) mg/dL Creatinine (0.66-1.25) mg/dL Est GFR (CKD-EPI)AfAm (>60 ml/min/1.73 sqM) Est GFR (CKD-EPI)NonAf (>60 ml/min/1.73 sqM) Glucose (74-99) mg/dL Calcium (8.4-10.2) mg/dL Magnesium (1.6-2.3) mg/dL Total Bilirubin (0.2-1.3) mg/dL AST (17-59) U/L ALT (21-72) U/L Alkaline Phosphatase (38-126) U/L Creatine Kinase (55-170) U/L Troponin I <0.012 (0.000-0.034) ng/mL NT-Pro-B Natriuret Pep 1330 pg/mL Total Protein (6.3-8.2) g/dL Albumin (3.5-5.0) g/dL - EKG Data -: EKG Interpreted by Me (EKG shows A. fib rate of 97, QRS 90, QTc 462) - Radiology Data Radiology results: report reviewed (Chest x-rays negative for acute disease), image reviewed Critical Care Time Critical Care Time: Yes Total Critical Care Time: 31 Disposition Clinical Impression: COPD exacerbation, Dyspnea, Acute exacerbation of chronic obstructive airways disease, Hypoxia Disposition: ADMITTED IP TO THIS HOSP Condition: Fair Is patient prescribed a controlled substance at d/c from ED?: No Referrals: Freddy Viveros MD [Primary Care Provider] - 1-2 days
[2019-02-05 16:08] LABS: D-Dimer 0.28 mg/L FEU (<0.60); INR 3.1 (<1.2); Partial Thromboplastin Time 43.5 sec (22.0-30.0); Prothrombin Time 29.9 sec (9.0-12.0)
--- NOTE | 2019-02-05 17:23 | XR ---
EXAMINATION TYPE: XR chest 1V portable DATE OF EXAM: 02/05/2019 COMPARISON: 12/15/2018 INDICATION: Shortness of breath and cough TECHNIQUE: Single frontal view of the chest is obtained. FINDINGS: The heart size is mildly prominent. The pulmonary vasculature is normal. Bibasilar infiltrates are present. A small right pleural effusion is present. There is opacification over the right upper lung field. Underlying mass is not excluded. IMPRESSION: 1. Bibasilar infiltrates. 2. Small right pleural effusion, increasing. 3. Developing opacification at the right apex. Additional workup is recommended.
[2019-02-05] MEDS ORDERED: IPRATROPIUM-ALBUTEROL 3 ML NEB INHALATION PRN (18:49)
[2019-02-05] MEDS ORDERED: SODIUM CHLORIDE 0.9% 1,000 ML IV SCH (19:00)
[2019-02-05] MEDS: ALBUTEROL NEBULIZED 2.5 MG/3 ML INHALATION SCH (19:51)
[2019-02-05 20:54] LABS: Glucose,Whole Blood 410 mg/dL (75-99)
[2019-02-05] MEDS: AZITHROMYCIN 500 MG TAB PO SCH (21:35)
[2019-02-05] MEDS ORDERED: HYDROcodone/APAP 7.5-325MG 1 EACH TAB PO PRN (21:51)
[2019-02-05] MEDS: ATORVASTATIN 80 MG TAB PO SCH (22:46)
[2019-02-05] MEDS: metFORMIN 500 MG TAB PO SCH (22:46)
[2019-02-05] MEDS: METOPROLOL TARTRATE 50 MG TAB PO SCH (22:47)
[2019-02-05] MEDS: FUROSEMIDE 10 MG/ML 2 ML VIAL IV SCH (22:47)
[2019-02-05] MEDS: VERAPAMIL 80 MG TAB PO SCH (22:47)
[2019-02-05] MEDS: INSULIN ASPART (NovoLOG) 100 UNIT/ML VIAL SQ SCH (22:53)
[2019-02-05] MEDS: methylPREDNISolone SOD SUCCI 125 MG/2 ML VIAL IV SCH (23:18)
[2019-02-06 00:41] LABS: Glucose,Whole Blood 437 mg/dL (75-99)
--- NOTE | 2019-02-06 00:46 | HP ---
HISTORY AND PHYSICAL SUBJECTIVE: 69-year-old white male came to the hospital with shortness of breath with history of COPD. Does continue to smoke. No recent of travel history. Had a recent hospitalization due to COPD, asthma, history of atrial fibrillation, diastolic CHF, obstructive sleep apnea, right-sided heart failure. HOME MEDICINES: See list. ALLERGIES: See list. REVIEW OF SYMPTOMS: 14-point review of system: PND orthopnea and dyspnea with exertion, hypoxemia, wears 2- 3 L oxygen at home, worsening. PAST MEDICAL HISTORY: Atrial fibrillation, COPD, nicotine addiction, diabetes mellitus, CVA, TIA, GERD, BiPAP cellulitis. Extremities: Endarterectomy to the legs. SOCIAL HISTORY: Current day smoker. No alcohol. No illicit drugs. FAMILY HISTORY: Father brain hemorrhage. Mother heart trouble. PHYSICAL EXAMINATION: VITAL SIGNS :Vital signs reviewed. Oxygen mid 90s on 5 L. Respiratory rate 25 to 35, pulse 70 to 75, temp afebrile. Endocrine: BMI is over 40. LUNGS show scattered rhonchi and wheeze x4. No rales. CARDIOVASCULAR: S1, S2. Irregularly irregular rhythm. HEMATOLOGY 2 to 3+ pedal edema. Stasis changes in his legs. ABDOMEN is distended, obesity. Heart rate is 109 to 95 beats. ASSESSMENT: 1. Chronic obstructive pulmonary disease/asthma exacerbation. 2. Nicotine addiction. 3. Acute hypoxemic respiratory failure. 4. Hyperkalemia. 5. Chronic renal disease stage III. 6. Acute right-sided heart failure, diastolic dysfunction, atrial fibrillation, rapid ventricular response. Negative troponin. PLAN: IV steroids. Updrafts. Home medicines. Accu-Chek protocol. MMODL / IJN: [id number] /
[2019-02-06] MEDS: methylPREDNISolone SOD SUCCI 125 MG/2 ML VIAL IV SCH ×4 (05:46→23:48)
[2019-02-06] MEDS: LISINOPRIL 5 MG TAB PO SCH ×2 (07:24→19:55)
[2019-02-06] MEDS: metFORMIN 500 MG TAB PO SCH ×2 (07:24→19:55)
[2019-02-06] MEDS: METOPROLOL TARTRATE 50 MG TAB PO SCH ×2 (07:24→19:59)
[2019-02-06] MEDS: ASPIRIN 81 MG PO SCH ×2 (07:24→07:40)
[2019-02-06] MEDS: VERAPAMIL 80 MG TAB PO SCH ×3 (07:24→19:55)
[2019-02-06] MEDS: FUROSEMIDE 10 MG/ML 2 ML VIAL IV SCH ×2 (07:25→19:55)
[2019-02-06] MEDS: ATORVASTATIN 80 MG TAB PO SCH (07:25)
[2019-02-06] MEDS: INSULIN ASPART (NovoLOG) 100 UNIT/ML VIAL SQ SCH ×7 (07:31→20:00)
[2019-02-06] MEDS: GLIMEPIRIDE 4 MG TAB PO SCH ×2 (07:31→19:55)
[2019-02-06 07:43] LABS: Glucose,Whole Blood 334 mg/dL (75-99)
[2019-02-06] MEDS: BUDESONIDE 0.5 MG/2 ML NEBU INHALATION SCH ×2 (07:47→19:59)
[2019-02-06] MEDS: IPRATROPIUM-ALBUTEROL 3 ML NEB INHALATION SCH ×4 (07:47→19:59)
[2019-02-06] MEDS: ALBUTEROL NEBULIZED 2.5 MG/3 ML INHALATION SCH ×4 (07:47→20:00)
[2019-02-06 08:50] LABS: Prothrombin Time 29.2 sec (9.0-12.0)
[2019-02-06 08:57] LABS: ALT 19 U/L (21-72); AST 15 U/L (17-59); Albumin 3.7 g/dL (3.5-5.0); Alkaline Phosphatase 84 U/L (38-126); Anion Gap 8 mmol/L; Blood Urea Nitrogen 25 mg/dL (9-20); Calcium 9.5 mg/dL (8.4-10.2); Carbon Dioxide 31 mmol/L (22-30); Chloride 96 mmol/L (98-107); Glucose 316 mg/dL (74-99); Magnesium 1.8 mg/dL (1.6-2.3); Potassium 5.5 mmol/L (3.5-5.1); Sodium 135 mmol/L (137-145); Total Bilirubin 0.5 mg/dL (0.2-1.3); Total Protein 7.1 g/dL (6.3-8.2)
[2019-02-06 09:21] LABS: Anisocytosis Slight; Basophils % (A) 0 %; Eosinophils % (A) 1 %; HCT 43.8 % (39.0-53.0); HGB 12.7 gm/dL (13.0-17.5); Hypochromasia Marked; Lymphocytes # (A) 0.5 k/uL (1.0-4.8); Lymphocytes % (A) 8 %; MCH 26.9 pg (25.0-35.0); MCHC 28.9 g/dL (31.0-37.0); MCV 93.1 fL (80.0-100.0); Mean Platelet Volume 7.4; Monocytes # (A) 0.1 k/uL (0-1.0); Monocytes % (A) 2 %; Neutrophils # (A) 5.5 k/uL (1.3-7.7); Neutrophils % (A) 90 %; Platelet Count 392 k/uL (150-450); RDW 16.1 % (11.5-15.5); WBC 6.2 k/uL (3.8-10.6)
--- NOTE | 2019-02-06 10:11 | P.CNPUL ---
History of Present Illness Consult date: 02/06/19 Reason for consult: cough, COPD, hypoxemia, obstructive sleep apnea Chief complaint: Shortness of breath for last 1 week History of present illness: 73-year-old male who was seen evaluated examined on medical floor this patient had been admitted into the hospital with increased cough congestion or shortness of breath sputum is mucoid to light yellow, he has chronic respiratory failure has been on home oxygen, he is on chronic nebulization treatment as well uses oxygen at home he has obstructive sleep apnea his sleep Has been very old the polysomnogram were done in the remote past he has not been using very regularly she is bed machine is not giving him an of pressure, it looks like he needs a new machine and possibly a new study as well, he continued to smoke recently now would like to quit his smoking denies any hemoptysis denies any weight loss or sweats or chills Review of Systems All systems: negative Past Medical History Past Medical History: Atrial Fibrillation, Blood Disorder, COPD, CVA/TIA, Diabetes Mellitus, GERD/Reflux, Hyperlipidemia, Sleep Apnea/CPAP/BIPAP Additional Past Medical History / Comment(s): CELLULITIS RT LEG/FOOT, familial erythrocytosis, tia History of Any Multi-Drug Resistant Organisms: None Reported Additional Past Surgical History / Comment(s): LT LEG SX D/T POOR CIRCULATION, LT CArOTID ENDARTRECTOMY, LASER EYE SX, Past Anesthesia/Blood Transfusion Reactions: No Reported Reaction Past Psychological History: No Psychological Hx Reported Additional Psychological History / Comment(s): pt stated lives in senior housing on [address] [place] [address] in [place], uses walker/cane when up, has 02 3 liters n/c, nebulizer, w/c, shower chair Smoking Status: Current every day smoker Past Alcohol Use History: None Reported Additional Past Alcohol Use History / Comment(s): STARTED SMOKING AT AGE 89 YEARS OLD USED TO SMOKE 2 PPD DAY NOW 1 pack lasts 3 days, in past DRINKER of a 12 PACK OR MORE A DAY, QUIT heavy DRINKING IN HIS 30'S now an occ drink. Past Drug Use History: None Reported - Past Family History Father Additional Family Medical History / Comment(s): DAD AGE 55 OF BRAIN HEMORRAGE. HAD HX TB. Mother Additional Family Medical History / Comment(s): HEART TROUBLE IN HER 70'S Medications and Allergies Home Medications Medication Instructions Recorded Confirmed Type Ezetimibe [Zetia] 10 mg PO DAILY 01/22/14 12/15/18 History Glimepiride [Amaryl] 4 mg PO BID 01/22/14 12/15/18 History Exenatide Microspheres [Bydureon 2 mg SQ Q7D 10/24/18 12/15/18 History Pen] Warfarin [Coumadin] 7.5 mg PO DAILY 10/24/18 02/05/19 History Aspirin [Adult Low Dose Aspirin EC] 81 mg PO DAILY 11/29/18 12/15/18 History Furosemide [Lasix] 20 mg PO DAILY #5 tab 11/29/18 12/15/18 Rx Insulin Degludec [Tresiba 60 units SQ DAILY 11/29/18 12/15/18 History Flextouch U-200] Metoprolol Tartrate [Lopressor] 50 mg PO BID 11/29/18 12/15/18 History Albuterol Inhaler [Ventolin Hfa 1 - 2 puff INHALATION RT-Q6H PRN 12/15/18 12/15/18 History Inhaler] Atorvastatin [Lipitor] 80 mg PO DAILY 12/15/18 02/05/19 History Cephalexin [Keflex] 500 mg PO TID 12/15/18 12/15/18 History Dutasteride [Avodart] 0.5 mg PO DAILY 12/15/18 12/15/18 History HYDROcodone/APAP 7.5-325MG [[place] 1 tab PO BID PRN 12/15/18 02/05/19 History 7.5-325] Ipratropium-Albuterol Nebulize 3 ml INHALATION RT-QID PRN 12/15/18 12/15/18 History [Duoneb 0.5 mg-3 mg/3 ml Soln] Lisinopril [Zestril] 5 mg PO BID 12/15/18 12/15/18 History Tamsulosin [Flomax] 0.4 mg PO DAILY 12/15/18 12/15/18 History Verapamil [Isoptin] 80 mg PO TID 12/15/18 12/15/18 History metFORMIN HCL 1,000 mg PO BID 12/15/18 02/05/19 History Budesonide [Pulmicort] 0.5 mg INHALATION RT-BID nebu 12/19/18 Rx INSULIN ASPART (NovoLOG) [NovoLOG 0 unit SQ ACHS vial 12/19/18 Rx (formulary)] INSULIN ASPART (NovoLOG) [NovoLOG 10 unit SQ ACHS vial 12/19/18 Rx (formulary)] Allergies Allergy/AdvReac Type Severity Reaction Status Date / Time morphine Allergy Rash/Hives Verified 02/05/19 15:07 Physical Exam Vitals: Vital Signs Temp Pulse Pulse Resp BP BP BP 02/06/19 08:00 100 02/06/19 07:47 100 02/06/19 05:00 98 F 91 22 131/58 02/06/19 00:49 97.2 F L 74 24 109/66 02/05/19 20:15 98.1 F 120 H 24 122/77 02/05/19 19:30 98 20 02/05/19 19:00 112 H 20 02/05/19 18:30 98 24 130/73 02/05/19 18:00 22 131/76 02/05/19 17:30 112 H 24 140/70 02/05/19 17:12 99.4 F 105 H 17 140/70 02/05/19 16:44 98 02/05/19 16:30 105 H 15 85/62 02/05/19 16:00 97 22 102/74 02/05/19 15:35 94 02/05/19 15:30 92 16 02/05/19 15:23 96 02/05/19 15:13 24 02/05/19 15:04 98.2 F 109 H 22 116/67 Pulse Ox 02/06/19 08:00 02/06/19 07:47 02/06/19 05:00 92 L 02/06/19 00:49 95 02/05/19 20:15 89 L 02/05/19 19:30 94 L 02/05/19 19:00 02/05/19 18:30 91 L 02/05/19 18:00 91 L 02/05/19 17:30 91 L 02/05/19 17:12 94 L 02/05/19 16:44 02/05/19 16:30 89 L 02/05/19 16:00 94 L 02/05/19 15:35 02/05/19 15:30 92 L 02/05/19 15:23 02/05/19 15:13 78 L 02/05/19 15:04 75 L Intake and Output 02/05/19 02/06/19 02/06/19 22:59 06:59 14:59 Intake Total 300 300 Balance 300 300 Intake: Oral 300 300 Other: Voiding Method Toilet # Voids 3 Weight 136.078 kg 136.5 kg - Constitutional General appearance: disheveled, morbidly obese, no acute distress - EENT Eyes: anicteric sclerae, EOMI, PERRLA, dentition normal, normal appearance ENT: normal oropharynx Ears: bilateral: normal - Neck Neck: normal ROM Carotids: bilateral: upstroke normal, bruit absent Thyroid: bilateral: normal size - Respiratory Respiratory: bilateral: diminished, wheezing, prolonged expiration, negative: dullness, rales, rhonchi - Cardiovascular Rhythm: regular Heart sounds: normal: S1, S2 - Gastrointestinal General gastrointestinal: decreased bowel sounds, normal bowel sounds, soft - Integumentary Integumentary: normal turgor - Neurologic Neurologic: CNII-XII intact - Musculoskeletal Musculoskeletal: gait normal, generalized weakness, strength equal bilaterally - Psychiatric Psychiatric: A&O x's 3, appropriate affect, intact judgment & insight Results - Laboratory Findings CBC and BMP: 02/06/19 07:58 02/06/19 07:58 PT/INR, D-dimer PT 29.2 sec (9.0-12.0) H 02/06/19 07:58 INR 3.0 (<1.2) H 02/06/19 07:58 D-Dimer 0.28 mg/L FEU (<0.60) 02/05/19 15:22 Abnormal lab findings: Abnormal Labs 02/05/19 02/05/19 02/05/19 15:22 15:22 15:22 Hgb 12.5 L MCHC 28.9 L RDW 16.0 H Lymphocytes # 0.7 L PT 29.9 H INR 3.1 H APTT 43.5 H Sodium 136 L Potassium 5.5 H Chloride Carbon Dioxide BUN Creatinine 0.60 L Glucose 219 H POC Glucose (mg/dL) AST ALT 14 L Creatine Kinase 40 L Albumin 3.4 L 02/05/19 02/06/19 02/06/19 20:48 00:38 07:24 Hgb MCHC RDW Lymphocytes # PT INR APTT Sodium Potassium Chloride Carbon Dioxide BUN Creatinine Glucose POC Glucose (mg/dL) 410 H 437 H 334 H AST ALT Creatine Kinase Albumin 02/06/19 02/06/19 02/06/19 07:58 07:58 07:58 Hgb 12.7 L MCHC 28.9 L RDW 16.1 H Lymphocytes # 0.5 L PT 29.2 H INR 3.0 H APTT Sodium 135 L Potassium 5.5 H Chloride 96 L Carbon Dioxide 31 H BUN 25 H Creatinine Glucose 316 H POC Glucose (mg/dL) AST 15 L ALT 19 L Creatine Kinase Albumin - Diagnostic Findings Chest x-ray: report reviewed, image reviewed (Right lower lobe infiltrates and pneumonia with a small effusion with right upper lobe opacity) Assessment and Plan Assessment: Right lower lobe pneumonia likely community-acquired Right lower lobe parapneumonic effusion Right upper lobe opacity/mass Uncontrolled diabetes and hyperglycemia Hyponatremia Atrial fibrillation on anticoagulation with Coumadin Plan: Broad-spectrum antibiotics will add Rocephin as well Bronchodilators IV steroids Continue home medications We'll obtain a computed tomography scan of the chest with IV contrast Further recommendations pending plan of care as per clinical response of the patient Time with Patient: Greater than 30
[2019-02-06] MEDS ORDERED: ALBUTEROL INHALER 60 PUFF/8 GM INHALER INHALATION PRN (11:11)
[2019-02-06 11:34] LABS: Glucose,Whole Blood 238 mg/dL (75-99)
--- NOTE | 2019-02-06 12:12 | CT ---
EXAMINATION TYPE: CT chest w con DATE OF EXAM: 02/06/2019 COMPARISON: 12/16/2018 HISTORY: Patient poor historian CT DLP: 867 mGycm, Automated exposure control for dose reduction was used. CONTRAST: Performed injected with 100 mL of Isovue 300. TECHNIQUE: Axial images were obtained at 5 mm thick sections. Reconstructed images are reviewed on REMOTV computer in the coronal plane. FINDINGS: Portion of the thyroid visualized is normal. There is a 0.7 cm nodule on lung windows within the mid left lung. Series 4 image 34. This may be jessica ewhat larger than the 12/16/2018 exam. Evaluate patient history. Small primary or metastatic lesion is not excluded. Streak opacities within the right middle lobe. Some streak opacities in the posterior lingula near th e base. Findings could be related atelectasis. There is a small right pleural effusion. Minimal left pleural effusion is present. Compressive atelec tasis is likely adjacent to the right pleural effusion. Pneumonia is considered less likely. Minimal compressive atelectasis is likely present at the left base. There is a 1.1 cm left hilar lymph node which appears to been interval development. This can be furth er evaluated with PET/CT. The ascending aorta diameter at the level of the main pulmonary artery is 3.4 cm. The main pulmonary artery diameter at the bifurcation is 3.0 cm. Coronary artery calcification is present. Limited CT sections are obtained through the upper abdomen. Left adrenal gland is somewhat prominent measuring transverse dimension 1.6 cm. There is rounding of the right adrenal gland measuring 2.5 cm. The liver appears somewhat prominent but is incompletely visualized. IMPRESSIONS: 1. 0.7 cm enlarging nodule left midlung and a new left hilar lymph node measuring 1.1 cm. Neoplasm ca nnot be excluded. Consider PET CT if proper clinical setting. 2. Small right and left pleural effusions, increasing from comparison study. 3. Prominent adrenal glands present bilaterally.
--- NOTE | 2019-02-06 12:12 | P.CRDCN ---
History of Present Illness Consult reason: shortness of breath History of present illness: This is Dr. Hawley dictating a consult on this patient The patient was interviewed and examined by me IMPRESSION / ASSESSMENT: Patient presented with shortness of breath on exertion and chest discomfort Chest x-ray reveals bibasilar infiltrates right pleural effusion and opacification the right apical area of the lung Atrial fibrillation with resting heart rates of 100 beats a minute Diabetes type 2 Hypertension Dyslipidemia PLAN: 2-D echo and Doppler study to assess her ejection fraction function Continue IV Lasix and switch to by mouth Lasix tomorrow Pulmonary workup for opacification right upper lung, right-sided pleural effusion and bibasilar infiltrates For management of atrial fibrillation maximize dose of verapamil for rate control Anticoagulate with warfarin HPI Patient presented to the emergency room yesterday with significant shortness of breath denies any fever or chest pain but he told me that he was also having some chest pain He continues to smoke No upper respiratory infection recently He is been coughing yellowish white phlegm. He also has some chest discomfort He has a history of obstructive sleep apnea, COPD Denies any weight loss or night sweats History of atrial fibrillation History of COPD Diabetes, hypertension dyslipidemia sleep apnea ROS: No fever chills or rigors, no cough, phlegm or expectoration, no nausea, vomiting or diarrhea, no hematuria, dysuria, no musculoskeletal complaints, no strokes or seizures, no skin lesions. EXAMINATION: Blood pressure 131/50. His mercury, respirations 18-20 him a afebrile, pulse rate about 100 beats a minute REVIEW OF LABS, ECG & MEDICAL DATA Labs reviewed. Hemoglobin 12.7, white count 6.2, sodium 135 potassium 5.5 BUN 25 creatinine 0.7 Chest x-ray reveals bibasilar infiltrates, small right pleural effusion which is increasing and an opacification in the right upper lung, apical Twelve-lead ECG shows atrial fibrillation with heart rate of 97 beats a minute at rest incomplete right bundle branch block pattern Past Medical History Past Medical History: Atrial Fibrillation, Blood Disorder, COPD, CVA/TIA, Diabetes Mellitus, GERD/Reflux, Hyperlipidemia, Sleep Apnea/CPAP/BIPAP Additional Past Medical History / Comment(s): CELLULITIS RT LEG/FOOT, familial erythrocytosis, tia History of Any Multi-Drug Resistant Organisms: None Reported Additional Past Surgical History / Comment(s): LT LEG SX D/T POOR CIRCULATION, LT CArOTID ENDARTRECTOMY, LASER EYE SX, Past Anesthesia/Blood Transfusion Reactions: No Reported Reaction Past Psychological History: No Psychological Hx Reported Additional Psychological History / Comment(s): pt stated lives in senior housing on [facility] [address] [facility] in [place], uses walker/cane when up, has 02 3 liters n/c, nebulizer, w/c, shower chair Smoking Status: Current every day smoker Past Alcohol Use History: None Reported Additional Past Alcohol Use History / Comment(s): STARTED SMOKING AT AGE 89 YEARS OLD USED TO SMOKE 2 PPD DAY NOW 1 pack lasts 3 days, in past DRINKER of a 12 PACK OR MORE A DAY, QUIT heavy DRINKING IN HIS 30'S now an occ drink. Past Drug Use History: None Reported - Past Family History Father Additional Family Medical History / Comment(s): DAD AGE 55 OF BRAIN HEMORRAGE. HAD HX TB. Mother Additional Family Medical History / Comment(s): HEART TROUBLE IN HER 70'S Medications and Allergies Home Medications Medication Instructions Recorded Confirmed Type Ezetimibe [Zetia] 10 mg PO DAILY 01/22/14 02/06/19 History Glimepiride [Amaryl] 4 mg PO BID 01/22/14 12/15/18 History Exenatide Microspheres [Bydureon 2 mg SQ Q7D 10/24/18 12/15/18 History Pen] Warfarin [Coumadin] 7.5 mg PO DAILY 10/24/18 02/06/19 History Aspirin [Adult Low Dose Aspirin EC] 81 mg PO DAILY 11/29/18 12/15/18 History Furosemide [Lasix] 20 mg PO DAILY #5 tab 11/29/18 12/15/18 Rx Insulin Degludec [Tresiba 60 units SQ DAILY 11/29/18 02/06/19 History Flextouch U-200] Metoprolol Tartrate [Lopressor] 50 mg PO BID 11/29/18 02/06/19 History Albuterol Inhaler [Ventolin Hfa 1 - 2 puff INHALATION RT-Q6H PRN 12/15/18 02/06/19 History Inhaler] Atorvastatin [Lipitor] 80 mg PO DAILY 12/15/18 02/06/19 History Cephalexin [Keflex] 500 mg PO TID 12/15/18 12/15/18 History Dutasteride [Avodart] 0.5 mg PO DAILY 12/15/18 02/06/19 History HYDROcodone/APAP 7.5-325MG [[place] 1 tab PO BID PRN 12/15/18 02/06/19 History 7.5-325] Ipratropium-Albuterol Nebulize 3 ml INHALATION RT-QID PRN 12/15/18 12/15/18 Hi story [Duoneb 0.5 mg-3 mg/3 ml Soln] Lisinopril [Zestril] 5 mg PO BID 12/15/18 02/06/19 History Tamsulosin [Flomax] 0.4 mg PO DAILY 12/15/18 02/06/19 History Verapamil [Isoptin] 80 mg PO TID 12/15/18 12/15/18 History metFORMIN HCL 1,000 mg PO BID 12/15/18 02/06/19 History Budesonide [Pulmicort] 0.5 mg INHALATION RT-BID nebu 12/19/18 Rx INSULIN ASPART (NovoLOG) [NovoLOG 0 unit SQ ACHS vial 12/19/18 Rx (formulary)] INSULIN ASPART (NovoLOG) [NovoLOG 10 unit SQ ACHS vial 12/19/18 02/06/19 Rx (formulary)] Allergies Allergy/AdvReac Type Severity Reaction Status Date / Time morphine Allergy Rash/Hives Verified 02/05/19 15:07 Physical Exam Vitals: Vital Signs Temp Pulse Pulse Resp BP BP BP 02/06/19 12:02 92 02/06/19 08:00 100 02/06/19 07:47 100 02/06/19 05:00 98 F 91 22 131/58 02/06/19 00:49 97.2 F L 74 24 109/66 02/05/19 20:15 98.1 F 120 H 24 122/77 02/05/19 19:30 98 20 02/05/19 19:00 112 H 20 02/05/19 18:30 98 24 130/73 02/05/19 18:00 22 131/76 02/05/19 17:30 112 H 24 140/70 02/05/19 17:12 99.4 F 105 H 17 140/70 02/05/19 16:44 98 02/05/19 16:30 105 H 15 85/62 02/05/19 16:00 97 22 102/74 02/05/19 15:35 94 02/05/19 15:30 92 16 02/05/19 15:23 96 02/05/19 15:13 24 02/05/19 15:04 98.2 F 109 H 22 116/67 Pulse Ox 02/06/19 12:02 02/06/19 08:00 02/06/19 07:47 02/06/19 05:00 92 L 02/06/19 00:49 95 02/05/19 20:15 89 L 02/05/19 19:30 94 L 02/05/19 19:00 02/05/19 18:30 91 L 02/05/19 18:00 91 L 02/05/19 17:30 91 L 02/05/19 17:12 94 L 02/05/19 16:44 02/05/19 16:30 89 L 02/05/19 16:00 94 L 02/05/19 15:35 02/05/19 15:30 92 L 02/05/19 15:23 02/05/19 15:13 78 L 02/05/19 15:04 75 L Intake and Output 02/05/19 02/06/19 02/06/19 22:59 06:59 14:59 Intake Total 300 300 Balance 300 300 Intake: Oral 300 300 Other: Voiding Method Toilet # Voids 3 Weight 136.078 kg 136.5 kg Results 02/06/19 07:58 02/06/19 07:58 Cardiac Enzymes 02/05/19 02/05/19 02/06/19 Range/Units 15:22 15:22 07:58 AST 18 15 L (17-59) U/L Troponin I <0.012 (0.000-0.034) ng/mL Coagulation 02/05/19 02/06/19 Range/Units 15:22 07:58 PT 29.9 H 29.2 H (9.0-12.0) sec APTT 43.5 H (22.0-30.0) sec CBC 02/05/19 02/06/19 Range/Units 15:22 07:58 WBC 9.3 6.2 (3.8-10.6) k/uL RBC 4.71 4.70 (4.30-5.90) m/uL Hgb 12.5 L 12.7 L (13.0-17.5) gm/dL Hct 43.0 43.8 (39.0-53.0) % Plt Count 379 392 (150-450) k/uL Comprehensive Metabolic Panel 02/05/19 02/06/19 Range/Units 15:22 07:58 Sodium 136 L 135 L (137-145) mmol/L Potassium 5.5 H 5.5 H (3.5-5.1) mmol/L Chloride 102 96 L (98-107) mmol/L Carbon Dioxide 26 31 H (22-30) mmol/L BUN 13 25 H (9-20) mg/dL Creatinine 0.60 L 0.72 (0.66-1.25) mg/dL Glucose 219 H 316 H (74-99) mg/dL Calcium 9.1 9.5 (8.4-10.2) mg/dL AST 18 15 L (17-59) U/L ALT 14 L 19 L (21-72) U/L Alkaline Phosphatase 72 84 (38-126) U/L Total Protein 6.7 7.1 (6.3-8.2) g/dL Albumin 3.4 L 3.7 (3.5-5.0) g/dL Current Medications Generic Name Dose Route Start Last Admin Trade Name Freq PRN Reason Stop Dose Admin Hydrocodone Bitart/Acetaminophen 1 each 02/05/19 21:51 [place] 7.5-325 PO BID PRN Pain Albuterol Sulfate 2.5 mg 02/05/19 20:00 02/06/19 12:02 Ventolin Nebulized INHALATION Not Given RT-QID TERE Albuterol/Ipratropium 3 ml 02/05/19 18:49 Duoneb 0.5 Mg-3 Mg/3 Ml Soln INHALATION RT-Q4H PRN Shortness Of Breath Or Wheezing Albuterol/Ipratropium 3 ml 02/06/19 08:00 02/06/19 12:02 Duoneb 0.5 Mg-3 Mg/3 Ml Soln INHALATION 3 ml RT-QID TERE Administration Aspirin 81 mg 02/06/19 09:00 02/06/19 07:40 Aspirin PO Not Given DAILY [facility] Atorvastatin Calcium 80 mg 02/05/19 22:00 02/06/19 07:25 Lipitor PO 80 mg DAILY TERE Administration Azithromycin 500 mg 02/05/19 21:00 02/05/19 21:35 Zithromax PO 500 mg HS [facility] Administration Budesonide 0.5 mg 02/06/19 08:00 02/06/19 07:47 Pulmicort INHALATION 0.5 mg RT-BID TERE Administration Ezetimibe 10 mg 02/07/19 09:00 Zetia PO DAILY [facility] Furosemide 20 mg 02/05/19 22:00 02/06/19 07:25 Lasix IV 20 mg Q12HR [facility] Administration Glimepiride 4 mg 02/06/19 09:00 02/06/19 07:31 Amaryl PO 4 mg BID [facility] Administration Ceftriaxone Sodium 1 gm/ 50 mls @ 100 mls/hr 02/06/19 10:15 Sodium Chloride IVPB Q24HR [facility] Insulin Aspart 0 unit 02/05/19 22:39 02/06/19 07:31 Novolog SQ 14 unit [facility] Administration Protocol Insulin Aspart 10 unit 02/06/19 12:30 Novolog SQ ACHS [facility] Insulin Detemir 60 unit 02/06/19 21:00 Levemir SQ HS [facility] Lisinopril 5 mg 02/06/19 09:00 02/06/19 07:24 Zestril PO 5 mg BID [facility] Administration Metformin HCl 1,000 mg 02/05/19 22:00 02/06/19 07:24 Glucophage PO 1,000 mg BID [facility] Administration Methylprednisolone Sodium Succinate 60 mg 02/06/19 00:00 02/06/19 05:46 Solu-Medrol IV 60 mg Q6HR [facility] Administration Metoprolol Tartrate 50 mg 02/05/19 22:00 02/06/19 07:24 Lopressor PO 50 mg BID [facility] Administration Miscellaneous Information 1 each 02/06/19 11:56 Coumadin Per Pharmacy MISCELLANE DIRECTED PRN INR Tamsulosin HCl 0.4 mg 02/07/19 09:00 Flomax PO DAILY [facility] Verapamil HCl 80 mg 02/05/19 22:00 02/06/19 07:24 Isoptin PO 80 mg TID [facility] Administration Warfarin Sodium 7.5 mg 02/06/19 18:00 Coumadin PO 02/06/19 18:01 ONCE ONE Intake and Output 02/05/19 02/06/19 02/06/19 22:59 06:59 14:59 Intake Total 300 300 Balance 300 300 Intake: Oral 300 300 Other: Voiding Method Toilet # Voids 3 Weight 136.078 kg 136.5 kg 02/06/19 07:58 02/06/19 07:58
[2019-02-06 17:16] LABS: Glucose,Whole Blood 360 mg/dL (75-99)
[2019-02-06] MEDS ORDERED: WARFARIN 7.5 MG TAB PO ONE (18:00)
[2019-02-06] MEDS: AZITHROMYCIN 500 MG TAB PO SCH (19:55)
[2019-02-06] MEDS: INSULIN DETEMIR (LEVEMIR) 100 UNIT/ML SYR SQ SCH (19:59)
[2019-02-06] MEDS ORDERED: BUDESONIDE 0.5 MG/2 ML NEBU INHALATION SCH (20:00)
[2019-02-06 20:15] LABS: Glucose,Whole Blood 352 mg/dL (75-99)
[2019-02-06] MEDS ORDERED: INSULIN ASPART (NovoLOG) 100 UNIT/ML VIAL SQ SCH (21:51)
--- NOTE | 2019-02-07 00:47 | PN ---
PROGRESS NOTE SUBJECTIVE: 73-year-old white male with COPD, hypoxemia. CT scan of the chest was negative for any PE, but was positive for right lung mass with lymph node. Will need a PET scan outpatient. Treat for right lower lobe pneumonia with effusion and do outpatient PET scan. In the meantime, IV steroids, updrafts, DuoNeb, Pulmicort ordered. Follow up as an outpatient. Continue wean steroids. Cardiology recommendations. Pulmonary recommendations are intact. Lungs scattered wheeze x4. Endocrine BMI is over 40. Hematology negative Homans. Psych: Poor mood and affect. PLAN: Continue current weaning of steroids possible bronchoscopy versus PET scan as an outpatient to be done. MMODL / IJN: [id number] /
[2019-02-07] MEDS: methylPREDNISolone SOD SUCCI 125 MG/2 ML VIAL IV SCH ×4 (05:26→23:52)
[2019-02-07 07:12] LABS: Glucose,Whole Blood 196 mg/dL (75-99)
[2019-02-07] MEDS: metFORMIN 500 MG TAB PO SCH ×2 (07:14→20:34)
[2019-02-07] MEDS: ATORVASTATIN 80 MG TAB PO SCH (07:15)
[2019-02-07] MEDS: LISINOPRIL 5 MG TAB PO SCH (07:15)
[2019-02-07] MEDS: FUROSEMIDE 10 MG/ML 2 ML VIAL IV SCH ×2 (07:15→20:30)
[2019-02-07] MEDS: VERAPAMIL 80 MG TAB PO SCH (07:15)
[2019-02-07] MEDS: ASPIRIN 81 MG PO SCH (07:16)
[2019-02-07] MEDS: TAMSULOSIN 0.4 MG CAP.ER.24H PO SCH (07:16)
[2019-02-07] MEDS: EZETIMIBE 10 MG TAB PO SCH (07:16)
[2019-02-07] MEDS: METOPROLOL TARTRATE 50 MG TAB PO SCH ×2 (07:16→21:39)
[2019-02-07] MEDS: INSULIN ASPART (NovoLOG) 100 UNIT/ML VIAL SQ SCH ×8 (07:17→20:43)
[2019-02-07] MEDS: GLIMEPIRIDE 4 MG TAB PO SCH ×2 (07:17→21:39)
[2019-02-07] MEDS: IPRATROPIUM-ALBUTEROL 3 ML NEB INHALATION SCH ×4 (09:18→19:05)
[2019-02-07] MEDS: BUDESONIDE 0.5 MG/2 ML NEBU INHALATION SCH ×2 (09:19→19:05)
[2019-02-07] MEDS: ALBUTEROL NEBULIZED 2.5 MG/3 ML INHALATION SCH (09:19)
[2019-02-07 09:46] LABS: INR 3.2 (<1.2); Prothrombin Time 30.4 sec (9.0-12.0)
--- NOTE | 2019-02-07 11:09 | P.PN ---
Subjective This is a pleasant 73-year-old male past medical history significant for chronic persistent atrial fibrillation on long-term anticoagulation, COPD, chronic nicotine dependence, hypertension, diabetes mellitus, peripheral vascular disease s/p left carotid endartectomy, obstructive sleep apnea and morbid obesity. He follows in the office with Dr. Maxwell. Most recent echocardiogram obtained 01/30/2019 reveals preserved LV systolic function with ejection fraction 50-55%, moderate concentric LVH, mild mitral regurgitation. He presented to the hospital with shortness of breath and is being treated for exacerbation of COPD. CT chest reveals enlarging nodule in the left mid-lung, new left hilar lymph node, small right and left pleural effusions and prominent adrenal glands. PET scan suggested. He is seen and examined sitting up in bed in no acute distress. He is eating breakfast. He states overall his breathing is the same with no real improvement since admission. He denies chest pain, dizziness, palpitations, nausea, vomiting or diaphoresis. Blood pressure 107/46 heart rate 83 afebrile and maintaining oxygen saturation on nasal cannula. Currently maintained on Lasix 20 mg IV twice a day, aspirin 81 mg daily, atorvastatin 80 mg daily, Zetia 10 mg daily, lisinopril 5 mg twice a day, Lopressor 50 mg twice a day, verapamil 80 mg 3 times a day and Coumadin. Weight is down 5 kg from admission. GENERAL: Well-appearing, well-nourished and in no acute distress. NECK: Supple without JVD or thyromegaly. LUNGS: Breath sounds clear to auscultation bilaterally. Respiration equal and unlabored. No wheezes, rales or rhonchi. Significantly diminished bilaterally. HEART: Irregular rate and rhythm with systolic ejection murmur at the left sternal border, no rubs or gallops. S1 and S2 heard. EXTREMITIES: Normal range of motion, 1+ b/l lower extremity pitting edema with increased erythema and scaling of the ski. No clubbing or cyanosis. Peripheral pulses intact. ASSESSMENT Acute exacerbation of COPD Pneumonia Acute hypoxic respiratory failure on home oxygen Hyperkalemia Chronic persistent atrial fibrillation on snf anti-coagulation Hypertension Peripheral vascular disease s/p left endartectom Diabetes mellitus Sleep apnea Dyslipidemia Chronic nicotine dependence PLAN Continue IV diuresis for lower extremity edema. Obtain daily weights. Hold lisinopril for hyperkalemia. Repeat BMP in the morning. Ongoing medical management of lung nodules and COPD. We will continue to follow. Nurse Practitioner note has been reviewed, I agree with a documented findings and plan of care. Patient was seen and examined. Objective - Vital Signs Vital signs: Vital Signs Temp 97.4 F L 02/07/19 05:20 Pulse 88 02/07/19 09:33 Resp 22 02/07/19 05:20 BP 107/46 02/07/19 05:20 Pulse Ox 93 L 02/07/19 05:20 Intake & Output 02/06/19 02/07/19 02/07/19 18:59 06:59 18:59 Intake Total 540 800 Balance 540 800 Weight 131.5 kg Intake: Oral 540 800 Other: Voiding Method Toilet # Voids 4 2 1 # Bowel Movements 1 - Labs CBC & Chem 7: 02/06/19 07:58 02/06/19 07:58 Labs: Abnormal Lab Results - Last 24 Hours (Table) 02/06/19 02/06/19 02/06/19 Range/Units 11:31 17:03 19:59 PT (9.0-12.0) sec INR (<1.2) POC Glucose (mg/dL) 238 H 360 H 352 H (75-99) mg/dL 02/07/19 02/07/19 Range/Units 07:01 08:39 PT 30.4 H (9.0-12.0) sec INR 3.2 H (<1.2) POC Glucose (mg/dL) 196 H (75-99) mg/dL Microbiology - Last 24 Hours (Table) 02/05/19 15:22 Blood Culture - Preliminary Blood No Growth after 24 hours
[2019-02-07 12:37] LABS: Glucose,Whole Blood 137 mg/dL (75-99)
--- NOTE | 2019-02-07 14:16 | P.PN ---
Subjective Progress Note Date: 02/07/19 Principal diagnosis: Right lower lobe pneumonia likely community-acquired, right pleural effusion, left lung nodule, uncontrolled diabetes hyperglycemia, severe COPD acute exacerbation, hyponatremia, and atrial fibrillation and rapid ventricular response 02/07/2019, patient seen and evaluated examined during the rounds he has a asymptomatic episode of tachycardia likely related to A. fib with rapid ventricular response heart rate went up to 150 patient is transferred to telem [facility] cardiology on case he denies any cough or sputum production denies any chest pain tachycardia appears to be paroxysmal 73-year-old male who was seen evaluated examined on medical floor this patient had been admitted into the hospital with increased cough congestion or shortness of breath sputum is mucoid to light yellow, he has chronic respiratory failure has been on home oxygen, he is on chronic nebulization treatment as well uses oxygen at home he has obstructive sleep apnea his sleep Has been very old the polysomnogram were done in the remote past he has not been using very regularly she is bed machine is not giving him an of pressure, it looks like he needs a new machine and possibly a new study as well, he continued to smoke recently n Objective - Vital Signs Vital signs: Vital Signs Temp 97.4 F L 02/07/19 12:57 Pulse 144 H 02/07/19 13:57 Resp 20 02/07/19 12:57 BP 106/60 02/07/19 13:16 Pulse Ox 91 L 02/07/19 12:57 Intake & Output 02/06/19 02/07/19 02/07/19 18:59 06:59 18:59 Intake Total 540 800 Balance 540 800 Weight 131.5 kg 132 kg Intake: Oral 540 800 Other: Voiding Method Toilet # Voids 4 2 2 # Bowel Movements 1 1 - Exam - Constitutional General appearance: disheveled, morbidly obese, no acute distress - EENT Eyes: anicteric sclerae, EOMI, PERRLA, dentition normal, normal appearance ENT: normal oropharynx Ears: bilateral: normal - Neck Neck: normal ROM Carotids: bilateral: upstroke normal, bruit absent Thyroid: bilateral: normal size - Respiratory Respiratory: bilateral: diminished, wheezing, prolonged expiration, negative: dullness, rales, rhonchi - Cardiovascular Rhythm: regular Heart sounds: normal: S1, S2 - Gastrointestinal General gastrointestinal: decreased bowel sounds, normal bowel sounds, soft - Integumentary Integumentary: normal turgor - Neurologic Neurologic: CNII-XII intact - Musculoskeletal Musculoskeletal: gait normal, generalized weakness, strength equal bilaterally - Psychiatric Psychiatric: A&O x's 3, appropriate affect, intact judgment & insight - Labs CBC & Chem 7: 02/06/19 07:58 02/06/19 07:58 Labs: Abnormal Lab Results - Last 24 Hours (Table) 02/06/19 02/06/19 02/06/19 Range/Units 07:58 17:03 19:59 PT (9.0-12.0) sec INR (<1.2) POC Glucose (mg/dL) 360 H 352 H (75-99) mg/dL Hemoglobin A1c 10.0 H (4.0-6.0) % 02/07/19 02/07/19 02/07/19 Range/Units 07:01 08:39 12:21 PT 30.4 H (9.0-12.0) sec INR 3.2 H (<1.2) POC Glucose (mg/dL) 196 H 137 H (75-99) mg/dL Hemoglobin A1c (4.0-6.0) % Microbiology - Last 24 Hours (Table) 02/05/19 15:22 Blood Culture - Preliminary Blood No Growth after 24 hours Assessment and Plan Assessment: A. fib with rapid ventricular response Acute congestive heart failure likely acute diastolic heart failure Right lower lobe pneumonia likely community-acquired Right lower lobe parapneumonic effusion Left mid lung field 7 mm nodule Uncontrolled diabetes and hyperglycemia Hyponatremia Atrial fibrillation on anticoagulation with Coumadin Plan: Transfer patient to telemetry bed cardiology on board Broad-spectrum antibiotics will continue Rocephin as well Bronchodilators IV steroids, start tapering it slowly Continue home medications Reviewed computed tomography scan of the chest with IV contrast Further recommendations pending plan of care as per clinical response of the patient Time with Patient: Greater than 30
[2019-02-07] MEDS ORDERED: METOPROLOL TARTRATE 50 MG TAB PO STA (14:27)
[2019-02-07] MEDS ORDERED: VERAPAMIL 40 MG TAB PO STA (14:36)
[2019-02-07] MEDS: VERAPAMIL 40 MG TAB PO SCH ×2 (14:54→21:42)
[2019-02-07 16:27] VITALS: BMI 44.2
[2019-02-07 17:01] LABS: Glucose,Whole Blood 275 mg/dL (75-99)
[2019-02-07 17:55] LABS: Anisocytosis Slight; Basophils % (A) 0 %; Eosinophils # (A) 0.1 k/uL (0-0.7); Eosinophils % (A) 1 %; HGB 12.6 gm/dL (13.0-17.5); Hypochromasia Marked; Lymphocytes # (A) 0.5 k/uL (1.0-4.8); Lymphocytes % (A) 3 %; MCH 26.3 pg (25.0-35.0); MCHC 28.6 g/dL (31.0-37.0); MCV 91.9 fL (80.0-100.0); Mean Platelet Volume 7.4; Monocytes # (A) 0.5 k/uL (0-1.0); Monocytes % (A) 4 %; Neutrophils # (A) 14.2 k/uL (1.3-7.7); Neutrophils % (A) 93 %; Platelet Count 497 k/uL (150-450); RBC 4.79 m/uL (4.30-5.90); RDW 16.1 % (11.5-15.5); WBC 15.3 k/uL (3.8-10.6)
[2019-02-07] MEDS ORDERED: WARFARIN 0.5 MG TAB PO ONE (18:00)
[2019-02-07 18:07] LABS: Calcium 9.5 mg/dL (8.4-10.2); Magnesium 1.9 mg/dL (1.6-2.3)
[2019-02-07 18:17] LABS: Potassium 6.5 mmol/L (3.5-5.1)
[2019-02-07] MEDS ORDERED: SODIUM POLYSTYRENE SULFONATE 15 GM/60 ML BOTTLE PO STA (18:47)
[2019-02-07] MEDS ORDERED: INSULIN REGULAR 100 UNIT/ML VIAL IV ONE (19:32)
[2019-02-07] MEDS ORDERED: DEXTROSE 50% SYRINGE 50 ML IVP STA (19:33)
[2019-02-07] MEDS ORDERED: ALBUTEROL NEBULIZED (CONC) 20 MG, SODIUM CHLORIDE 0.9% NEBULIZ 3 ML INHALATION ONE ×4 (19:33→19:58)
[2019-02-07] MEDS ORDERED: ALBUTEROL NEBULIZED 2.5 MG/3 ML INHALATION ONE (19:53)
[2019-02-07 19:55] LABS: Glucose,Whole Blood 256 mg/dL (75-99)
[2019-02-07] MEDS: INSULIN DETEMIR (LEVEMIR) 100 UNIT/ML SYR SQ SCH (20:35)
[2019-02-07] MEDS: AZITHROMYCIN 500 MG TAB PO SCH (21:39)
[2019-02-07 22:23] LABS: Glucose,Whole Blood 329 mg/dL (75-99)
[2019-02-08] MEDS: methylPREDNISolone SOD SUCCI 125 MG/2 ML VIAL IV SCH ×3 (06:22→18:16)
[2019-02-08 07:12] LABS: Glucose,Whole Blood 138 mg/dL (75-99)
[2019-02-08] MEDS: METOPROLOL TARTRATE 50 MG TAB PO SCH ×3 (07:23→22:23)
[2019-02-08] MEDS: ATORVASTATIN 80 MG TAB PO SCH (07:24)
[2019-02-08] MEDS: metFORMIN 500 MG TAB PO SCH ×2 (07:24→22:23)
[2019-02-08] MEDS: FUROSEMIDE 10 MG/ML 2 ML VIAL IV SCH ×2 (07:25→22:24)
[2019-02-08] MEDS: INSULIN ASPART (NovoLOG) 100 UNIT/ML VIAL SQ SCH ×9 (07:25→22:24)
[2019-02-08] MEDS: ASPIRIN 81 MG PO SCH (07:25)
[2019-02-08] MEDS: TAMSULOSIN 0.4 MG CAP.ER.24H PO SCH (07:25)
[2019-02-08] MEDS: GLIMEPIRIDE 4 MG TAB PO SCH ×2 (07:26→22:23)
[2019-02-08] MEDS: VERAPAMIL 40 MG TAB PO SCH ×3 (07:27→22:23)
[2019-02-08 08:06] LABS: INR 2.5 (<1.2); Prothrombin Time 24.6 sec (9.0-12.0)
[2019-02-08 08:13] LABS: Calcium 9.8 mg/dL (8.4-10.2); Potassium 5.4 mmol/L (3.5-5.1)
[2019-02-08] MEDS: IPRATROPIUM-ALBUTEROL 3 ML NEB INHALATION SCH ×4 (08:39→19:38)
[2019-02-08] MEDS: BUDESONIDE 0.5 MG/2 ML NEBU INHALATION SCH ×2 (08:39→19:38)
--- NOTE | 2019-02-08 10:47 | P.NPCON ---
History of Present Illness - Reason for Consult hyperkalemia - History of Present Illness Reason for consultation: Hyperkalemia History of present illness: Patient is a 73-year-old male seen in renal consultation for hyperkalemia. Patient's potassium this admission was 5.5 and was up to 6.5 yesterday. This was medically treated with IV insulin/D50 as well as nebulized albuterol. Repeat potassium level was 5.0 and is 5.4 this morning. No evidence of urinary retention. Patient denies chest pain or shortness breath. He admits to good urine output. No hematuria or dysuria. No vomiting or diarrhea. No evidence of acidosis. His blood sugar today was 125. Patient was on lisinopril which was discontinued yesterday. Patient has long-standing history of diabetes mellitus. He is maintained on metformin as well as insulin. Patient denies any history of kidney disease. He denies any family history of renal disease. Patient initially presented to the hospital with dyspnea. He is currently being treated for COPD exacerbation. She has history of atrial fibrillation and is maintained on anticoagulation. Ejection fraction is preserved. Vital signs are stable. General: The patient appeared well nourished and normally developed. HEENT: Head exam is unremarkable. Neck is without jugular venous distension. LUNGS: Lungs are clear to auscultation and percussion. Breath sounds decreased. HEART: Rate and Rhythm are regular. First and second heart sounds normal. No murmurs, rubs or gallops. ABDOMEN: Abdominal exam reveals normal bowel sounds. Non-tender and non- distended. EXTREMITITES: Trace edema. Past Medical History Past Medical History: Atrial Fibrillation, Blood Disorder, COPD, CVA/TIA, Diabetes Mellitus, GERD/Reflux, Hyperlipidemia, Sleep Apnea/CPAP/BIPAP Additional Past Medical History / Comment(s): CELLULITIS RT LEG/FOOT, familial erythrocytosis, tia History of Any Multi-Drug Resistant Organisms: None Reported Additional Past Surgical History / Comment(s): LT LEG SX D/T POOR CIRCULATION, LT CArOTID ENDARTRECTOMY, LASER EYE SX, Past Anesthesia/Blood Transfusion Reactions: No Reported Reaction Past Psychological History: No Psychological Hx Reported Additional Psychological History / Comment(s): pt stated lives in senior housing on [address] [place] [address] in [place], uses walker/cane when up, has 02 3 liters n/c, nebulizer, w/c, shower chair Smoking Status: Current every day smoker Past Alcohol Use History: None Reported Additional Past Alcohol Use History / Comment(s): STARTED SMOKING AT AGE 89 YEARS OLD USED TO SMOKE 2 PPD DAY NOW 1 pack lasts 3 days, in past DRINKER of a 12 PACK OR MORE A DAY, QUIT heavy DRINKING IN HIS 30'S now an occ drink. Past Drug Use History: None Reported - Past Family History Father Additional Family Medical History / Comment(s): DAD AGE 55 OF BRAIN HEMORRAGE. HAD HX TB. Mother Additional Family Medical History / Comment(s): HEART TROUBLE IN HER 70'S Medications and Allergies Home Medications Medication Instructions Recorded Confirmed Type Ezetimibe [Zetia] 10 mg PO DAILY 01/22/14 02/06/19 History Glimepiride [Amaryl] 4 mg PO BID 01/22/14 02/07/19 History Warfarin [Coumadin] 7.5 mg PO DAILY 10/24/18 02/06/19 History Aspirin [Adult Low Dose Aspirin EC] 81 mg PO DAILY 11/29/18 02/07/19 History Furosemide [Lasix] 20 mg PO DAILY #5 tab 11/29/18 02/07/19 Rx Insulin Degludec [Tresiba 60 units SQ DAILY 11/29/18 02/06/19 History Flextouch U-200] Metoprolol Tartrate [Lopressor] 50 mg PO BID 11/29/18 02/06/19 History Albuterol Inhaler [Ventolin Hfa 1 - 2 puff INHALATION RT-Q6H PRN 12/15/18 02/06/19 History Inhaler] Atorvastatin [Lipitor] 80 mg PO DAILY 12/15/18 02/06/19 History Dutasteride [Avodart] 0.5 mg PO DAILY 12/15/18 02/06/19 History HYDROcodone/APAP 7.5-325MG [[place] 1 tab PO BID PRN 12/15/18 02/06/19 History 7.5-325] Lisinopril [Zestril] 5 mg PO BID 12/15/18 02/06/19 History Tamsulosin [Flomax] 0.4 mg PO DAILY 12/15/18 02/06/19 History Verapamil [Isoptin] 80 mg PO TID 12/15/18 02/07/19 History metFORMIN HCL 1,000 mg PO BID 12/15/18 02/06/19 History INSULIN ASPART (NovoLOG) [NovoLOG 10 unit SQ ACHS vial 12/19/18 02/06/19 Rx (formulary)] INSULIN ASPART (NovoLOG) [NovoLOG See Protocol SQ ACHS 02/07/19 02/07/19 History (formulary)] Allergies Allergy/AdvReac Type Severity Reaction Status Date / Time morphine Allergy Rash/Hives Verified 02/05/19 15:07 Physical Exam Vitals: Vital Signs Temp Pulse Pulse Resp BP BP Pulse Ox 02/08/19 08:50 96 02/08/19 08:40 92 02/08/19 08:26 20 02/08/19 05:10 97.7 F 90 18 124/61 93 L 02/08/19 03:08 109 H 02/07/19 23:13 113 H 02/07/19 21:29 138 H 02/07/19 20:31 96 02/07/19 20:29 97.6 F 97 18 117/61 92 L 02/07/19 20:01 90 02/07/19 19:21 88 02/07/19 19:07 88 02/07/19 18:43 98 F 78 18 113/54 93 L 02/07/19 16:33 90 02/07/19 16:21 90 02/07/19 16:11 18 02/07/19 13:57 144 H 02/07/19 13:36 141 H 02/07/19 13:16 153 H 106/60 150/60 02/07/19 12:57 97.4 F L 141 H 20 198/66 91 L Intake and Output 02/07/19 02/08/19 02/08/19 22:59 06:59 14:59 Intake Total 350 500 Balance 350 500 Intake: Oral 350 500 Other: Voiding Method Toilet Toilet # Voids 1 1 2 Weight 132 kg 133 kg Results - Lab Results Most recent lab results Calcium 9.8 mg/dL (8.4-10.2) 02/08/19 06:50 Magnesium 1.9 mg/dL (1.6-2.3) 02/07/19 17:42 02/07/19 17:42 02/08/19 06:50 Assessment and Plan Plan: Assessment: 1. Mild acute kidney injury mostly prerenal secondary to diuresis. Creatinine 1.09 today. 2. Hyperkalemia secondary to hyperglycemia as well as lisinopril. Better. No evidence of urinary retention. 3. Acute hypoxia respiratory failure secondary to COPD exacerbation. 4. Atrial fibrillation. Rate controlled. Maintained on anticoagulation. 5. Insulin-dependent diabetes mellitus. Plan: Maintain Lasix 20 mg twice daily. Renal diet. Tight blood sugar control. Check urinalysis. Avoid nephrotoxins. Continue to hold lisinopril. Repeat potassium level this evening. Thank you for the consultation. I will continue to follow the patient with you during his hospital stay.
[2019-02-08 11:36] LABS: Glucose,Whole Blood 246 mg/dL (75-99)
[2019-02-08] MEDS: EZETIMIBE 10 MG TAB PO SCH (12:17)
--- NOTE | 2019-02-08 13:07 | P.PN ---
Subjective This is a pleasant 73-year-old male past medical history significant for chronic persistent atrial fibrillation on long-term anticoagulation, COPD, chronic nicotine dependence, hypertension, diabetes mellitus, peripheral vascular disease s/p left carotid endartectomy, obstructive sleep apnea and morbid obesity. He follows in the office with Dr. Maxwell. Most recent echocardiogram obtained 01/30/2019 reveals preserved LV systolic function with ejection fraction 50-55%, moderate concentric LVH, mild mitral regurgitation. Pt seen and examined on telemetry medical unit. Yesterday afternoon he had an episode of rapid ventricular response with heart rates in the 140's. An additional dose of lorpessor was given and verapamil increased to 120 mg TID. This morning he has been running between 90-110. Blood pressure 124/61. Laboratory data reviewed, INR 2.5, sodium 138, potassium 5.4, creatinine 1.09. He is seen and examined sitting up eating breakfast. He continues to feel short of breath with mild improvement overall. He denies chest pain, dizziness or palpitations. There was an abnormal Lexiscan stress test in the office. He was initially scheduled for a heart catheterization in April but unfortunately cancelled and has not been back to the office since. He states he is concerned that he cannot lay flat for the procedure and for that reason he has not gone back. GENERAL: Well-appearing, well-nourished and in no acute distress. NECK: Supple without JVD or thyromegaly. LUNGS: Breath sounds clear to auscultation bilaterally. Respiration equal and unlabored. No wheezes, rales or rhonchi. Significantly diminished bilaterally. HEART: Irregular rate and rhythm with systolic ejection murmur at the left sternal border, no rubs or gallops. S1 and S2 heard. EXTREMITIES: Normal range of motion, 1+ b/l lower extremity pitting edema with increased erythema and scaling of the skin. No clubbing or cyanosis. Peripheral pulses intact. ASSESSMENT Acute exacerbation of COPD Pneumonia Acute hypoxic respiratory failure on home oxygen Hyperkalemia Chronic persistent atrial fibrillation on [employer] anti-coagulation with rapid ventricular response Hypertension Peripheral vascular disease s/p left endartectom Diabetes mellitus Sleep apnea Dyslipidemia Chronic nicotine dependence PLAN Continue IV diuresis. Add a long acting nitrate to his daily regimen to optimize his regimen. Increase lopressor to 50 mg TID for heart rate control. We will continue to follow and make recommendations accordingly. Nurse Practitioner note has been reviewed, I agree with a documented findings and plan of care. Patient was seen and examined. Objective - Vital Signs Vital signs: Vital Signs Temp 97.7 F 02/08/19 05:10 Pulse 96 02/08/19 08:50 Resp 20 02/08/19 08:26 BP 124/61 02/08/19 05:10 Pulse Ox 93 L 02/08/19 05:10 Intake & Output 02/07/19 02/08/19 02/08/19 18:59 06:59 18:59 Intake Total 850 Balance 850 Weight 132 kg 133 kg Intake: Oral 850 Other: Voiding Method Toilet Toilet # Voids 2 1 2 # Bowel Movements 1 - Labs CBC & Chem 7: 02/07/19 17:42 02/08/19 06:50 Labs: Abnormal Lab Results - Last 24 Hours (Table) 02/06/19 02/07/19 02/07/19 Range/Units 07:58 12:21 16:44 WBC (3.8-10.6) k/uL Hgb (13.0-17.5) gm/dL MCHC (31.0-37.0) g/dL RDW (11.5-15.5) % Plt Count (150-450) k/uL Neutrophils # (1.3-7.7) k/uL Lymphocytes # (1.0-4.8) k/uL PT (9.0-12.0) sec INR (<1.2) Sodium (137-145) mmol/L Potassium (3.5-5.1) mmol/L Chloride (98-107) mmol/L Carbon Dioxide (22-30) mmol/L BUN (9-20) mg/dL Glucose (74-99) mg/dL POC Glucose (mg/dL) 137 H 275 H (75-99) mg/dL Hemoglobin A1c 10.0 H (4.0-6.0) % 02/07/19 02/07/19 02/07/19 Range/Units 17:42 17:42 19:54 WBC 15.3 H (3.8-10.6) k/uL Hgb 12.6 L (13.0-17.5) gm/dL MCHC 28.6 L (31.0-37.0) g/dL RDW 16.1 H (11.5-15.5) % Plt Count 497 H (150-450) k/uL Neutrophils # 14.2 H (1.3-7.7) k/uL Lymphocytes # 0.5 L (1.0-4.8) k/uL PT (9.0-12.0) sec INR (<1.2) Sodium 132 L (137-145) mmol/L Potassium 6.5 H* (3.5-5.1) mmol/L Chloride 95 L (98-107) mmol/L Carbon Dioxide (22-30) mmol/L BUN 50 H (9-20) mg/dL Glucose 298 H (74-99) mg/dL POC Glucose (mg/dL) 256 H (75-99) mg/dL Hemoglobin A1c (4.0-6.0) % 02/07/19 02/08/19 02/08/19 Range/Units 22:21 06:50 06:50 WBC (3.8-10.6) k/uL Hgb (13.0-17.5) gm/dL MCHC (31.0-37.0) g/dL RDW (11.5-15.5) % Plt Count (150-450) k/uL Neutrophils # (1.3-7.7) k/uL Lymphocytes # (1.0-4.8) k/uL PT 24.6 H (9.0-12.0) sec INR 2.5 H (<1.2) Sodium (137-145) mmol/L Potassium 5.4 H (3.5-5.1) mmol/L Chloride 96 L (98-107) mmol/L Carbon Dioxide 33 H (22-30) mmol/L BUN 51 H (9-20) mg/dL Glucose 125 H (74-99) mg/dL POC Glucose (mg/dL) 329 H (75-99) mg/dL Hemoglobin A1c (4.0-6.0) % 02/08/19 Range/Units 07:08 WBC (3.8-10.6) k/uL Hgb (13.0-17.5) gm/dL MCHC (31.0-37.0) g/dL RDW (11.5-15.5) % Plt Count (150-450) k/uL Neutrophils # (1.3-7.7) k/uL Lymphocytes # (1.0-4.8) k/uL PT (9.0-12.0) sec INR (<1.2) Sodium (137-145) mmol/L Potassium (3.5-5.1) mmol/L Chloride (98-107) mmol/L Carbon Dioxide (22-30) mmol/L BUN (9-20) mg/dL Glucose (74-99) mg/dL POC Glucose (mg/dL) 138 H (75-99) mg/dL Hemoglobin A1c (4.0-6.0) % Microbiology - Last 24 Hours (Table) 02/05/19 15:22 Blood Culture - Preliminary Blood No Growth after 48 hours
[2019-02-08] MEDS: ISOSORBIDE MONONITRATE ER 30 MG TAB.ER.24H PO SCH (15:23)
[2019-02-08 17:19] LABS: Glucose,Whole Blood 211 mg/dL (75-99)
[2019-02-08] MEDS ORDERED: WARFARIN 7.5 MG TAB PO ONE (18:00)
--- NOTE | 2019-02-08 18:52 | P.PN ---
Subjective Progress Note Date: 02/07/19 This is a 73-year-old gentleman admitted with acute COPD/asthma exacerbation, acute right-sided CHF, acute hypoxic respiratory failure, nicotine dependence and multiple other medical issues. Chest CT reporting 0.7 cm enlarging nodule left mid lung and new left hilar lymph node measuring 1.1 cm, possible m alignancy, small bilateral pleural effusions increasing in size from prior study, compressive atelectasis, prominent bilateral adrenal glands, ascending aorta 3.4 cm. Maintained on nebulized bronchodilators, IV steroids and antibiotics. blood sugars elevated, steroid-induced. Diuresing on Lasix IV push. Exertional shortness of breath, occasional productive cough with milky sputum production. Developed atrial fibrillation with RVR, heart rates up to 150, transferring to telemetry. Objective - Vital Signs Vital signs: Vital Signs Temp 97.4 F L 02/07/19 12:57 Pulse 144 H 02/07/19 13:57 Resp 20 02/07/19 12:57 BP 106/60 02/07/19 13:16 Pulse Ox 91 L 02/07/19 12:57 Intake & Output 02/06/19 02/07/19 02/07/19 18:59 06:59 18:59 Intake Total 540 800 Balance 540 800 Weight 131.5 kg 132 kg Intake: Oral 540 800 Other: Voiding Method Toilet # Voids 4 2 2 # Bowel Movements 1 1 - Exam PHYSICAL EXAM: VITAL SIGNS: [As above] GENERAL: Sitting up in bed, no acute distress HEENT: Conjunctivae normal. eyes normal. NECK: No JVD. No thyroid enlargement. No LNs CARDIOVASCULAR: S1, S2 irregular. Systolic murmur, no rubs or gallops RESPIRATION: Breath sounds diminished in the bases. No rhonchi or crackles. Occasional mild expiratory wheezing. ABDOMEN: Soft, nontender . No guarding. no masses palpable. Bowel sounds heard. LEGS: Positive edema,erythema, dry scaly skin, positive pulses PSYCHIATRY: Alert and oriented -3, mood and affect normal. NERVOUS SYSTEM: Cranial N 2-12 grossly normal. Moves all 4 limbs. Diffuse weakness No focal deficits. Skin: Warm and dry, no rash - Labs CBC & Chem 7: 02/07/19 17:42 02/08/19 17:40 Labs: Abnormal Lab Results - Last 24 Hours (Table) 0502/06/19 02/06/19 Range/Units 07:58 17:03 19:59 PT (9.0-12.0) sec INR (<1.2) POC Glucose (mg/dL) 360 H 352 H (75-99) mg/dL Hemoglobin A1c 10.0 H (4.0-6.0) % 02/07/19 02/07/19 02/07/19 Range/Units 07:01 08:39 12:21 PT 30.4 H (9.0-12.0) sec INR 3.2 H (<1.2) POC Glucose (mg/dL) 196 H 137 H (75-99) mg/dL Hemoglobin A1c (4.0-6.0) % Microbiology - Last 24 Hours (Table) 02/05/19 15:22 Blood Culture - Preliminary Blood No Growth after 24 hours Assessment and Plan Assessment: -Chronic persistent atrial fibrillation with RVR -Acute CHF, diastolic dysfunction -Acute COPD and asthma exacerbation -Possible Acute Right lower lobe pneumonia, community-acquired -Acute on chronic hypoxic and hypercapnic respiratory failure, secondary to the above, wears O2 at home -Chronic nicotine dependence -Sleep apnea -Obesity, BMI 46.6 -Peripheral vascular disease -Chest CT reporting 0.7 cm enlarging nodule left mid lung and new left hilar lymph node measuring 1.1 cm, possible malignancy. Will need outpatient PET scan. -small bilateral pleural effusions increasing in size from prior study, compressive atelectasis - prominent bilateral adrenal glands - ascending aorta 3.4 cm -Diabetes mellitus, uncontrolled -hyperglycemia, steroid-induced -Suspect CAD, abnormal stress, did not follow through with scheduled cardiac catheterization Plan: Continue on current medication regime ,monitoring and symptomatic sergio tment. Labs ordered and pending. Diuresing as per cardiology. Maintain nebulized bronchodilators, steroids, antibiotics. Steroid tapering as per pulmonary. Close monitoring of Accu-Cheks, Anticoagulated on Coumadin per pharmacy dosing-currently on hold, INR 3.2. Daily PT and INR. The impression and plan of care has been dictated as directed. : I performed a history and examination of this patient, discussed the same with the dictator. I agree with the dictator's note ,documented as a scribe. Any additional findings or plans will be noted.
[2019-02-08 20:00] LABS: Glucose,Whole Blood 305 mg/dL (75-99)
[2019-02-08 22:10] LABS: Appearance,Urine Clear (Clear); Bilirubin,Urine Negative (Negative); Blood,Urine Negative (Negative); Color,Urine Yellow; Glucose,Urine (UA) 1+ (Negative); Ketones,Urine Negative (Negative); Leukocyte Esterase,Urine Negative (Negative); Mucus,Urine Rare /hpf; Nitrite,Urine Negative (Negative); PH, Urine 5.5 (5.0-8.0); Protein,Urine 1+ (Negative); RBC,Urine <1 /hpf (0-5); Urobilinogen,Urine <2.0 mg/dL (<2.0); WBC,Urine <1 /hpf (0-5)
[2019-02-08] MEDS: INSULIN DETEMIR (LEVEMIR) 100 UNIT/ML SYR SQ SCH (22:25)
[2019-02-08] MEDS: AZITHROMYCIN 500 MG TAB PO SCH (22:29)
[2019-02-09] MEDS: methylPREDNISolone SOD SUCCI 125 MG/2 ML VIAL IV SCH ×3 (00:31→12:08)
[2019-02-09 07:00] LABS: Glucose,Whole Blood 86 mg/dL (75-99)
[2019-02-09] MEDS: BUDESONIDE 0.5 MG/2 ML NEBU INHALATION SCH ×2 (08:47→21:41)
[2019-02-09] MEDS: IPRATROPIUM-ALBUTEROL 3 ML NEB INHALATION SCH ×4 (08:47→21:41)
[2019-02-09] MEDS: ATORVASTATIN 80 MG TAB PO SCH (09:03)
[2019-02-09] MEDS: METOPROLOL TARTRATE 50 MG TAB PO SCH ×3 (09:04→21:36)
[2019-02-09] MEDS: TAMSULOSIN 0.4 MG CAP.ER.24H PO SCH (09:04)
[2019-02-09] MEDS: ASPIRIN 81 MG PO SCH (09:04)
[2019-02-09] MEDS: metFORMIN 500 MG TAB PO SCH ×2 (09:04→21:36)
[2019-02-09] MEDS: FUROSEMIDE 10 MG/ML 2 ML VIAL IV SCH ×2 (09:04→21:37)
[2019-02-09] MEDS: ISOSORBIDE MONONITRATE ER 30 MG TAB.ER.24H PO SCH (09:04)
[2019-02-09] MEDS: INSULIN ASPART (NovoLOG) 100 UNIT/ML VIAL SQ SCH ×8 (09:05→21:37)
--- NOTE | 2019-02-09 09:06 | P.PN ---
Subjective Patient is seen in follow-up for hyperkalemia. Patient's potassium level was down to 5.4 as of yesterday. Patient's currently resting in bed. He is sleeping and has a BiPAP. He has been voiding. No active complaints. Vital signs are stable. General: The patient appeared well nourished and normally developed. HEENT: Head exam is unremarkable. Neck is without jugular venous distension. LUNGS: Lungs are clear to auscultation and percussion. Breath sounds decreased. HEART: Rate and Rhythm are regular. First and second heart sounds normal. No murmurs, rubs or gallops. ABDOMEN: Abdominal exam reveals normal bowel sounds. Non-tender and non- distended. No evidence of peritonitis. EXTREMITITES: Trace edema. Objective - Vital Signs Vital signs: Vital Signs Temp 97.5 F L 02/09/19 04:47 Pulse 88 02/09/19 08:50 Resp 20 02/09/19 04:47 BP 140/62 02/09/19 04:47 Pulse Ox 96 02/09/19 04:47 Intake & Output 02/08/19 02/09/19 02/09/19 18:59 06:59 18:59 Intake Total 350 Balance 350 Weight 138.913 kg Intake: Oral 350 Other: Voiding Method Toilet Toilet # Voids 2 1 - Labs CBC & Chem 7: 02/07/19 17:42 02/08/19 17:40 Labs: Abnormal Lab Results - Last 24 Hours (Table) 02/08/19 02/08/19 02/08/19 Range/Units 11:35 17:16 17:40 Potassium 5.4 H (3.5-5.1) mmol/L POC Glucose (mg/dL) 246 H 211 H (75-99) mg/dL Urine Protein (Negative) Urine Glucose (UA) (Negative) Urine Mucus (None) /hpf 02/08/19 02/08/19 Range/Units 19:59 20:00 Potassium (3.5-5.1) mmol/L POC Glucose (mg/dL) 305 H (75-99) mg/dL Urine Protein 1+ H (Negative) Urine Glucose (UA) 1+ H (Negative) Urine Mucus Rare H (None) /hpf Microbiology - Last 24 Hours (Table) 02/05/19 15:22 Blood Culture - Preliminary Blood No Growth after 72 hours Assessment and Plan Plan: Assessment: 1. Mild acute kidney injury mostly prerenal secondary to diuresis. Creatinine 1.09 as of yesterday. 2. Hyperkalemia secondary to hyperglycemia as well as lisinopril. Better. No evidence of urinary retention. 3. Acute hypoxic respiratory failure secondary to COPD exacerbation. 4. Atrial fibrillation. Rate controlled. Maintained on anticoagulation. 5. Insulin-dependent diabetes mellitus. 6. Proteinuria. This is most likely secondary to underlying diabetic kidney disease. We'll further workup outpatient. Plan: Maintain Lasix 20 mg twice daily. Renal diet. Tight blood sugar control. Avoid nephrotoxins. Continue to hold lisinopril. Morning labs pending.
[2019-02-09] MEDS: GLIMEPIRIDE 4 MG TAB PO SCH ×2 (09:08→21:45)
[2019-02-09] MEDS: EZETIMIBE 10 MG TAB PO SCH (09:08)
[2019-02-09] MEDS: VERAPAMIL 40 MG TAB PO SCH ×3 (09:08→21:36)
[2019-02-09 10:02] LABS: INR 2.3 (<1.2); Prothrombin Time 21.9 sec (9.0-12.0)
[2019-02-09 10:08] LABS: Anion Gap 5 mmol/L; Blood Urea Nitrogen 50 mg/dL (9-20); Calcium 9.6 mg/dL (8.4-10.2); Carbon Dioxide 36 mmol/L (22-30); Chloride 98 mmol/L (98-107); Glucose 86 mg/dL (74-99); Magnesium 1.9 mg/dL (1.6-2.3); Potassium 5.5 mmol/L (3.5-5.1); Sodium 139 mmol/L (137-145)
[2019-02-09 10:34] LABS: Basophils % (A) 0 %; Eosinophils % (A) 0 %; HGB 12.7 gm/dL (13.0-17.5); Hypochromasia Marked; Lymphocytes # (A) 0.4 k/uL (1.0-4.8); Lymphocytes % (A) 4 %; MCH 26.1 pg (25.0-35.0); MCHC 28.9 g/dL (31.0-37.0); MCV 90.3 fL (80.0-100.0); Mean Platelet Volume 7.4; Monocytes # (A) 0.4 k/uL (0-1.0); Monocytes % (A) 3 %; Neutrophils # (A) 10.2 k/uL (1.3-7.7); Neutrophils % (A) 92 %; Platelet Count 423 k/uL (150-450); RBC 4.87 m/uL (4.30-5.90); RDW 15.9 % (11.5-15.5); WBC 11.1 k/uL (3.8-10.6)
[2019-02-09 11:09] LABS: Glucose,Whole Blood 270 mg/dL (75-99)
[2019-02-09] MEDS ORDERED: DEXTROSE 50% SYRINGE 50 ML IVP STA (11:11)
[2019-02-09] MEDS ORDERED: INSULIN REGULAR 100 UNIT/ML VIAL IV ONE (11:11)
--- NOTE | 2019-02-09 11:17 | P.PN ---
Subjective This is a pleasant 73-year-old male past medical history significant for chronic persistent atrial fibrillation on long-term anticoagulation, COPD, chronic nicotine dependence, hypertension, diabetes mellitus, peripheral vascular disease s/p left carotid endartectomy, obstructive sleep apnea and morbid obesity. He follows in the office with Dr. Maxwell. Most recent echocardiogram obtained 01/30/2019 reveals preserved LV systolic function with ejection fraction 50-55%, moderate concentric LVH, mild mitral regurgitation. Patient is seen and examined sitting up in bed receiving a breathing treatment. He states overall his breathing is stable. He denies chest pain, dizziness or palpitations. Laboratory data reviewed, WBC 11.1, hemoglobin 12.7, platelets 423, INR 2.3, sodium 139, potassium 5.5, creatinine 0.98, magnesium 1.9. Blood pressure 140/62 heart rate 96 afebrile maintaining oxygen saturation on nasal cannula. Currently maintained on aspirin 81 mg daily, atorvastatin 80 mg daily, that he had 10 mg daily, Lasix 20 mg IV twice a day, Imdur 30 mg daily, Lopressor 50 mg 3 times a day, verapamil 120 mg 3 times a day and Coumadin. Lungs are clear, edema is ongoing with no real improvement. Nephrology ordered insulin and D50 for persistent hyperkalemia. GENERAL: Well-appearing, well-nourished and in no acute distress. NECK: Supple without JVD or thyromegaly. LUNGS: Breath sounds clear to auscultation bilaterally. Respiration equal and unlabored. No wheezes, rales or rhonchi. Significantly diminished bilaterally. HEART: Irregular rate and rhythm with systolic ejection murmur at the left sternal border, no rubs or gallops. S1 and S2 heard. EXTREMITIES: Normal range of motion, 1+ b/l lower extremity pitting edema with increased erythema and scaling of the skin. No clubbing or cyanosis. Peripheral pulses intact. ASSESSMENT Acute exacerbation of COPD Pneumonia Acute hypoxic respiratory failure on home oxygen Hyperkalemia Chronic persistent atrial fibrillation on senior care anti-coagulation with rapid ventricular response Hypertension Peripheral vascular disease s/p left endartectom Diabetes mellitus Sleep apnea Dyslipidemia Chronic nicotine dependence PLAN He is tolerating current medical regimen well. Heart rate is controlled and blood pressures are tolerating the increases. No symptoms of exertional dyspnea or chest discomfort to suggest angina. Continue current medical regimen. Nurse Practitioner note has been reviewed, I agree with a documented findings and plan of care. Patient was seen and examined. Objective - Vital Signs Vital signs: Vital Signs Temp 97.5 F L 02/09/19 04:47 Pulse 96 02/09/19 09:08 Resp 20 02/09/19 04:47 BP 140/62 02/09/19 04:47 Pulse Ox 96 02/09/19 04:47 Intake & Output 02/08/19 02/09/19 02/09/19 18:59 06:59 18:59 Intake Total 350 Balance 350 Weight 138.913 kg Intake: Oral 350 Other: Voiding Method Toilet Toilet # Voids 2 1 - Labs CBC & Chem 7: 02/09/19 09:16 02/09/19 09:16 Labs: Abnormal Lab Results - Last 24 Hours (Table) 02/08/19 02/08/19 02/08/19 Range/Units 11:35 17:16 17:40 WBC (3.8-10.6) k/uL Hgb (13.0-17.5) gm/dL MCHC (31.0-37.0) g/dL RDW (11.5-15.5) % Neutrophils # (1.3-7.7) k/uL Lymphocytes # (1.0-4.8) k/uL PT (9.0-12.0) sec INR (<1.2) Potassium 5.4 H (3.5-5.1) mmol/L Carbon Dioxide (22-30) mmol/L BUN (9-20) mg/dL POC Glucose (mg/dL) 246 H 211 H (75-99) mg/dL Urine Protein (Negative) Urine Glucose (UA) (Negative) Urine Mucus (None) /hpf 02/08/19 02/08/19 02/09/19 Range/Units 19:59 20:00 09:16 WBC (3.8-10.6) k/uL Hgb (13.0-17.5) gm/dL MCHC (31.0-37.0) g/dL RDW (11.5-15.5) % Neutrophils # (1.3-7.7) k/uL Lymphocytes # (1.0-4.8) k/uL PT 21.9 H (9.0-12.0) sec INR 2.3 H (<1.2) Potassium (3.5-5.1) mmol/L Carbon Dioxide (22-30) mmol/L BUN (9-20) mg/dL POC Glucose (mg/dL) 305 H (75-99) mg/dL Urine Protein 1+ H (Negative) Urine Glucose (UA) 1+ H (Negative) Urine Mucus Rare H (None) /hpf 02/09/19 02/09/19 Range/Units 09:16 09:16 WBC 11.1 H (3.8-10.6) k/uL Hgb 12.7 L (13.0-17.5) gm/dL MCHC 28.9 L (31.0-37.0) g/dL RDW 15.9 H (11.5-15.5) % Neutrophils # 10.2 H (1.3-7.7) k/uL Lymphocytes # 0.4 L (1.0-4.8) k/uL PT (9.0-12.0) sec INR (<1.2) Potassium 5.5 H (3.5-5.1) mmol/L Carbon Dioxide 36 H (22-30) mmol/L BUN 50 H (9-20) mg/dL POC Glucose (mg/dL) (75-99) mg/dL Urine Protein (Negative) Urine Glucose (UA) (Negative) Urine Mucus (None) /hpf Microbiology - Last 24 Hours (Table) 02/05/19 15:22 Blood Culture - Preliminary Blood No Growth after 72 hours
[2019-02-09 12:57] LABS: Glucose,Whole Blood 214 mg/dL (75-99)
--- NOTE | 2019-02-09 14:06 | P.PN ---
Subjective Progress Note Date: 02/09/19 Principal diagnosis: Right lower lobe pneumonia likely community-acquired, right pleural effusion, left lung nodule, uncontrolled diabetes hyperglycemia, severe COPD acute exacerbation, hyponatremia, and atrial fibrillation and rapid ventricular response 02/09/2019, patient seen eval reexamined during the rounds clinically she is doing better decreased cough and congestion continue to get breathing treatments cough is improved respiratory status improved noted that heart rate is well controlled 02/07/2019, patient seen and evaluated examined during the rounds he has a asym ptomatic episode of tachycardia likely related to A. fib with rapid ventricular response heart rate went up to 150 patient is transferred to telemetry cardiology on case he denies any cough or sputum production denies any chest pain tachycardia appears to be paroxysmal 73-year-old male who was seen evaluated examined on medical floor this patient had been admitted into the hospital with increased cough congestion or shortness of breath sputum is mucoid to light yellow, he has chronic respiratory failure has been on home oxygen, he is on chronic nebulization treatment as well uses oxygen at home he has obstructive sleep apnea his sleep Has been very old the polysomnogram were done in the remote past he has not been using very regularly she is bed machine is not giving him an of pressure, it looks like he needs a new machine and possibly a new study as well, he continued to smoke recently n Objective - Vital Signs Vital signs: Vital Signs Temp 97.6 F 02/09/19 11:24 Pulse 96 02/09/19 11:57 Resp 22 02/09/19 11:24 BP 130/57 02/09/19 11:24 Pulse Ox 95 02/09/19 11:24 Intake & Output 02/08/19 02/09/19 02/09/19 18:59 06:59 18:59 Intake Total 350 Balance 350 Weight 138.913 kg Intake: Oral 350 Other: Voiding Method Toilet Toilet Toilet # Voids 2 1 - Exam - Constitutional General appearance: disheveled, morbidly obese, no acute distress - EENT Eyes: anicteric sclerae, EOMI, PERRLA, dentition normal, normal appearance ENT: normal oropharynx Ears: bilateral: normal - Neck Neck: normal ROM Carotids: bilateral: upstroke normal, bruit absent Thyroid: bilateral: normal size - Respiratory Respiratory: bilateral: diminished, wheezing, prolonged expiration, negative: dullness, rales, rhonchi - Cardiovascular Rhythm: regular Heart sounds: normal: S1, S2 - Gastrointestinal General gastrointestinal: decreased bowel sounds, normal bowel sounds, soft - Integumentary Integumentary: normal turgor - Neurologic Neurologic: CNII-XII intact - Musculoskeletal Musculoskeletal: gait normal, generalized weakness, strength equal bilaterally - Psychiatric Psychiatric: A&O x's 3, appropriate affect, intact judgment & insight - Labs CBC & Chem 7: 02/09/19 09:16 02/09/19 09:16 Labs: Abnormal Lab Results - Last 24 Hours (Table) 02/08/19 02/08/19 02/08/19 Range/Units 17:16 17:40 19:59 WBC (3.8-10.6) k/uL Hgb (13.0-17.5) gm/dL MCHC (31.0-37.0) g/dL RDW (11.5-15.5) % Neutrophils # (1.3-7.7) k/uL Lymphocytes # (1.0-4.8) k/uL PT (9.0-12.0) sec INR (<1.2) Potassium 5.4 H (3.5-5.1) mmol/L Carbon Dioxide (22-30) mmol/L BUN (9-20) mg/dL POC Glucose (mg/dL) 211 H 305 H (75-99) mg/dL Urine Protein (Negative) Urine Glucose (UA) (Negative) Urine Mucus (None) /hpf 02/08/19 02/09/19 02/09/19 Range/Units 20:00 09:16 09:16 WBC (3.8-10.6) k/uL Hgb (13.0-17.5) gm/dL MCHC (31.0-37.0) g/dL RDW (11.5-15.5) % Neutrophils # (1.3-7.7) k/uL Lymphocytes # (1.0-4.8) k/uL PT 21.9 H (9.0-12.0) sec INR 2.3 H (<1.2) Potassium 5.5 H (3.5-5.1) mmol/L Carbon Dioxide 36 H (22-30) mmol/L BUN 50 H (9-20) mg/dL POC Glucose (mg/dL) (75-99) mg/dL Urine Protein 1+ H (Negative) Urine Glucose (UA) 1+ H (Negative) Urine Mucus Rare H (None) /hpf 02/09/19 02/09/19 02/09/19 Range/Units 09:16 11:08 12:55 WBC 11.1 H (3.8-10.6) k/uL Hgb 12.7 L (13.0-17.5) gm/dL MCHC 28.9 L (31.0-37.0) g/dL RDW 15.9 H (11.5-15.5) % Neutrophils # 10.2 H (1.3-7.7) k/uL Lymphocytes # 0.4 L (1.0-4.8) k/uL PT (9.0-12.0) sec INR (<1.2) Potassium (3.5-5.1) mmol/L Carbon Dioxide (22-30) mmol/L BUN (9-20) mg/dL POC Glucose (mg/dL) 270 H 214 H (75-99) mg/dL Urine Protein (Negative) Urine Glucose (UA) (Negative) Urine Mucus (None) /hpf Microbiology - Last 24 Hours (Table) 02/05/19 15:22 Blood Culture - Preliminary Blood No Growth after 72 hours Assessment and Plan Assessment: Acute COPD exacerbation Acute congestive heart failure likely acute diastolic heart failure Right lower lobe pneumonia likely community-acquired Episode of A. fib with rapid ventricular response Right lower lobe parapneumonic effusion Left mid lung field 7 mm nodule Uncontrolled diabetes and hyperglycemia Hyponatremia Atrial fibrillation on anticoagulation with Coumadin Plan: Continue breathing treatment observe clinical course closely Broad-spectrum antibiotics will continue Rocephin as well Bronchodilators IV steroids, start tapering it slowly Continue home medications Reviewed computed tomography scan of the chest with IV contrast Further recommendations pending plan of care as per clinical response of the patient Time with Patient: Greater than 30
--- NOTE | 2019-02-09 15:57 | P.PN ---
Subjective Progress Note Date: 02/08/19 This is a 73-year-old gentleman admitted with acute COPD/asthma exacerbation, acute right-sided CHF, acute hypoxic respiratory failure, nicotine dependence and multiple other medical issues. Chest CT reporting 0.7 cm enlarging nodule left mid lung and new left hilar lymph node measuring 1.1 cm, possible m alignancy, small bilateral pleural effusions increasing in size from prior study, compressive atelectasis, prominent bilateral adrenal glands, ascending aorta 3.4 cm. Maintained on nebulized bronchodilators, IV steroids and antibiotics. blood sugars elevated, steroid-induced. Diuresing on Lasix IV push. Exertional shortness of breath, occasional productive cough with milky sputum production. Developed atrial fibrillation with RVR, heart rates up to 150, transferring to telemetry. 02/08/19 atrial fibrillation with heart rates fluctuating up into the 150s. Verapamil and Lopressor increased. Imdur added to med regime as per cardiology. Potassium 6.5 yesterday, currently 5.4, creatinine 1.09. INR 2.5. Exertional shortness of breath. Diuresing on Lasix IV push, inaccurate I & O. denies chest pain, palpitations. Objective - Vital Signs Vital signs: Vital Signs Temp 97.7 F 02/08/19 12:15 Pulse 104 H 02/08/19 15:58 Resp 20 02/08/19 17:58 BP 136/64 02/08/19 12:15 Pulse Ox 94 L 02/08/19 15:51 Intake & Output 02/07/19 02/08/19 02/08/19 18:59 06:59 18:59 Intake Total 850 Balance 850 Weight 132 kg 133 kg 138.913 kg Intake: Oral 850 Other: Voiding Method Toilet Toilet # Voids 2 1 2 # Bowel Movements 1 - Exam PHYSICAL EXAM: VITAL SIGNS: [As above] GENERAL: Sitting up at side of bed, no acute distress HEENT: Conjunctivae normal. eyes normal. Oral mucosa moist NECK: No JVD. No thyroid enlargement. No LNs CARDIOVASCULAR: S1, S2 irregular. Tachycardic, Systolic murmur, no rubs or gallops RESPIRATION: Breath sounds diminished in the bases. No rhonchi or crackles. No wheezing ABDOMEN: Soft, nontender . No guarding. no masses palpable. Bowel sounds heard. LEGS: Positive edema,erythema, dry scaly skin, positive pulses PSYCHIATRY: Alert and oriented -3, mood and affect normal. NERVOUS SYSTEM: Cranial N 2-12 grossly normal. Moves all 4 limbs. Diffuse weakness No focal deficits. Strength and sensation grossly intact. Skin: Warm and dry, no rash - Labs CBC & Chem 7: 02/09/19 09:16 02/09/19 09:16 Labs: Abnormal Lab Results - Last 24 Hours (Table) 02/07/19 02/07/19 02/08/19 Range/Units 19:54 22:21 06:50 PT 24.6 H (9.0-12.0) sec INR 2.5 H (<1.2) Potassium (3.5-5.1) mmol/L Chloride (98-107) mmol/L Carbon Dioxide (22-30) mmol/L BUN (9-20) mg/dL Glucose (74-99) mg/dL POC Glucose (mg/dL) 256 H 329 H (75-99) mg/dL 02/08/19 02/08/19 02/08/19 Range/Units 06:50 07:08 11:35 PT (9.0-12.0) sec INR (<1.2) Potassium 5.4 H (3.5-5.1) mmol/L Chloride 96 L (98-107) mmol/L Carbon Dioxide 33 H (22-30) mmol/L BUN 51 H (9-20) mg/dL Glucose 125 H (74-99) mg/dL POC Glucose (mg/dL) 138 H 246 H (75-99) mg/dL 02/08/19 02/08/19 Range/Units 17:16 17:40 PT (9.0-12.0) sec INR (<1.2) Potassium 5.4 H (3.5-5.1) mmol/L Chloride (98-107) mmol/L Carbon Dioxide (22-30) mmol/L BUN (9-20) mg/dL Glucose (74-99) mg/dL POC Glucose (mg/dL) 211 H (75-99) mg/dL Microbiology - Last 24 Hours (Table) 02/05/19 15:22 Blood Culture - Preliminary Blood No Growth after 72 hours Assessment and Plan Assessment: -Chronic persistent atrial fibrillation with RVR -Acute CHF, diastolic dysfunction, EF 50-55% -Acute COPD and asthma exacerbation -Possible Acute Right lower lobe pneumonia, community-acquired -Acute on chronic hypoxic and hypercapnic respiratory failure, secondary to the above, wears O2 at home -Chronic nicotine dependence -Sleep apnea -Obesity, BMI 46.6 -Peripheral vascular disease -Chest CT reporting 0.7 cm enlarging nodule left mid lung and new left hilar lymph node measuring 1.1 cm, possible malignancy. Will need outpatient PET scan. -small bilateral pleural effusions increasing in size from prior study, compressive atelectasis - prominent bilateral adrenal glands - ascending aorta 3.4 cm -Diabetes mellitus, uncontrolled -hyperglycemia, steroid-induced -Suspect CAD, abnormal stress, did not follow through with scheduled cardiac catheterization Plan: Continue on current medication regime ,monitoring and symptomatic treatment. Diuresing as per cardiology. Maintain nebulized bronchodilators, steroids, antibiotics. Discussed cardiac catheterization with patient who is willing to proceed with, once pulmonary function improves- Discussed reschedulin g patient for cardiac cath. With cardiology. Close monitoring of Accu-Cheks. Daily PT and INR. Coumadin as per pharmacy dosing. The impression and plan of care has been dictated as directed. : I performed a history and examination of this patient, discussed the same with the dictator. I agree with the dictator's note ,documented as a scribe. Any additional findings or plans will be noted.
--- NOTE | 2019-02-09 16:07 | P.PN ---
Subjective Progress Note Date: 02/09/19 This is a 73-year-old gentleman admitted with acute COPD/asthma exacerbation, acute right-sided CHF, acute hypoxic respiratory failure, nicotine dependence and multiple other medical issues. Chest CT reporting 0.7 cm enlarging nodule left mid lung and new left hilar lymph node measuring 1.1 cm, possible m alignancy, small bilateral pleural effusions increasing in size from prior study, compressive atelectasis, prominent bilateral adrenal glands, ascending aorta 3.4 cm. Maintained on nebulized bronchodilators, IV steroids and antibiotics. blood sugars elevated, steroid-induced. Diuresing on Lasix IV push. Exertional shortness of breath, occasional productive cough with milky sputum production. Developed atrial fibrillation with RVR, heart rates up to 150, transferring to telemetry. 02/08/19 atrial fibrillation with heart rates fluctuating up into the 150s. Verapamil and Lopressor increased. Imdur added to med regime as per cardiology. Potassium 6.5 yesterday, currently 5.4, creatinine 1.09. INR 2.5. Exertional shortness of breath. Diuresing on Lasix IV push, inaccurate I & O. denies chest pain, palpitations. 02/09/2019 atrial fibrillation better controlled with heart rates up to 115. Anticoagulated on Coumadin as per pharmacy dosing, current INR 2.3. Renal function improving, 0.98. Potassium 5.5, receiving D50, regular insulin. Using BiPAP at night. Objective - Vital Signs Vital signs: Vital Signs Temp 97.6 F 02/09/19 11:24 Pulse 96 02/09/19 11:57 Resp 20 02/09/19 14:44 BP 130/57 02/09/19 11:24 Pulse Ox 95 02/09/19 11:24 Intake & Output 02/08/19 02/09/19 02/09/19 18:59 06:59 18:59 Intake Total 350 Balance 350 Weight 138.913 kg Intake: Oral 350 Other: Voiding Method Toilet Toilet Toilet # Voids 2 1 - Exam PHYSICAL EXAM: VITAL SIGNS: [As above] GENERAL: Sitting up at side of bed, no acute distress HEENT: Conjunctivae normal. eyes normal. Oral mucosa moist NECK: No JVD. No thyroid enlargement. No LNs CARDIOVASCULAR: S1, S2 irregular. Tachycardic, Systolic murmur, no rubs or gallops RESPIRATION: Breath sounds diminished in the bases. No rhonchi or crackles. Occasional fine expiratory wheezing ABDOMEN: Soft, nontender . No guarding. no masses palpable. Bowel sounds heard. LEGS: Positive edema,erythema, dry scaly skin, positive pulses PSYCHIATRY: Alert and oriented -3, mood and affect normal. NERVOUS SYSTEM: Cranial N 2-12 grossly normal. Moves all 4 limbs. Diffuse weakness No focal deficits. Strength and sensation grossly intact. Skin: Warm and dry, no rash - Labs CBC & Chem 7: 02/09/19 09:16 02/09/19 09:16 Labs: Abnormal Lab Results - Last 24 Hours (Table) 02/08/19 02/08/19 02/08/19 Range/Units 17:16 17:40 19:59 WBC (3.8-10.6) k/uL Hgb (13.0-17.5) gm/dL MCHC (31.0-37.0) g/dL RDW (11.5-15.5) % Neutrophils # (1.3-7.7) k/uL Lymphocytes # (1.0-4.8) k/uL PT (9.0-12.0) sec INR (<1.2) Potassium 5.4 H (3.5-5.1) mmol/L Carbon Dioxide (22-30) mmol/L BUN (9-20) mg/dL POC Glucose (mg/dL) 211 H 305 H (75-99) mg/dL Urine Protein (Negative) Urine Glucose (UA) (Negative) Urine Mucus (None) /hpf 02/08/19 02/09/19 02/09/19 Range/Units 20:00 09:16 09:16 WBC (3.8-10.6) k/uL Hgb (13.0-17.5) gm/dL MCHC (31.0-37.0) g/dL RDW (11.5-15.5) % Neutrophils # (1.3-7.7) k/uL Lymphocytes # (1.0-4.8) k/uL PT 21.9 H (9.0-12.0) sec INR 2.3 H (<1.2) Potassium 5.5 H (3.5-5.1) mmol/L Carbon Dioxide 36 H (22-30) mmol/L BUN 50 H (9-20) mg/dL POC Glucose (mg/dL) (75-99) mg/dL Urine Protein 1+ H (Negative) Urine Glucose (UA) 1+ H (Negative) Urine Mucus Rare H (None) /hpf 02/09/19 02/09/19 02/09/19 Range/Units 09:16 11:08 12:55 WBC 11.1 H (3.8-10.6) k/uL Hgb 12.7 L (13.0-17.5) gm/dL MCHC 28.9 L (31.0-37.0) g/dL RDW 15.9 H (11.5-15.5) % Neutrophils # 10.2 H (1.3-7.7) k/uL Lymphocytes # 0.4 L (1.0-4.8) k/uL PT (9.0-12.0) sec INR (<1.2) Potassium (3.5-5.1) mmol/L Carbon Dioxide (22-30) mmol/L BUN (9-20) mg/dL POC Glucose (mg/dL) 270 H 214 H (75-99) mg/dL Urine Protein (Negative) Urine Glucose (UA) (Negative) Urine Mucus (None) /hpf Microbiology - Last 24 Hours (Table) 02/05/19 15:22 Blood Culture - Preliminary Blood No Growth after 72 hours Assessment and Plan Assessment: -Chronic persistent atrial fibrillation with RVR -Acute CHF, diastolic dysfunction, EF 50-55% -Acute COPD and asthma exacerbation -Possible Acute Right lower lobe pneumonia, community-acquired -Acute on chronic hypoxic and hypercapnic respiratory failure, secondary to the above, wears O2 at home -Chronic nicotine dependence -Sleep apnea -Obesity, BMI 46.6 -Peripheral vascular disease -Chest CT reporting 0.7 cm enlarging nodule left mid lung and new left hilar lymph node measuring 1.1 cm, possible malignancy. Will need outpatient PET scan. -small bilateral pleural effusions increasing in size from prior study, compressive atelectasis - prominent bilateral adrenal glands - ascending aorta 3.4 cm -Diabetes mellitus, uncontrolled -hyperglycemia, steroid-induced -Suspect CAD, abnormal stress, did not follow through with scheduled cardiac catheterization -Hyperkalemia Plan: Continue on current medication regime ,monitoring and symptomatic treatment. Maintain nebulized bronchodilators, steroids, antibiotics. Diuretics as per nephrology. Discussed cardiac catheterization with patient who is willing to proceed with, - Discussed rescheduling patient for cardiac cath.once pulmonary function improves. with cardiology. Close monitoring of Accu-Cheks. Recheck potassium this afternoon. Coumadin dosing as per pharmacy. The impression and plan of care has been dictated as directed. : I performed a history and examination of this patient, discussed the same with the dictator. I agree with the dictator's note ,documented as a scribe. Any additional findings or plans will be noted.
[2019-02-09 16:57] LABS: Glucose,Whole Blood 149 mg/dL (75-99)
[2019-02-09] MEDS ORDERED: WARFARIN 3 MG TAB PO ONE (18:00)
[2019-02-09 21:27] LABS: Glucose,Whole Blood 259 mg/dL (75-99)
[2019-02-09] MEDS: AZITHROMYCIN 500 MG TAB PO SCH (21:35)
[2019-02-09] MEDS: methylPREDNISolone SOD SUCCI 40 MG/ML 1 ML VIAL IV SCH (21:36)
[2019-02-09] MEDS: INSULIN DETEMIR (LEVEMIR) 100 UNIT/ML SYR SQ SCH (21:37)
[2019-02-10 06:57] LABS: Glucose,Whole Blood 93 mg/dL (75-99)
[2019-02-10 08:29] LABS: INR 3.7 (<1.2); Prothrombin Time 35.3 sec (9.0-12.0)
[2019-02-10 08:37] LABS: Calcium 9.6 mg/dL (8.4-10.2); Magnesium 1.8 mg/dL (1.6-2.3); Potassium 5.6 mmol/L (3.5-5.1)
[2019-02-10] MEDS: BUDESONIDE 0.5 MG/2 ML NEBU INHALATION SCH ×2 (08:50→20:49)
[2019-02-10] MEDS: IPRATROPIUM-ALBUTEROL 3 ML NEB INHALATION SCH ×4 (08:50→20:49)
--- NOTE | 2019-02-10 09:10 | P.PN ---
Subjective Patient is seen in follow-up for hyperkalemia. Patient's potassium level is 5.6 today. Renal function is stable. Patient's currently resting in bed. He has been voiding. No active complaints. Vital signs are stable. General: The patient appeared well nourished and normally developed. HEENT: Head exam is unremarkable. Neck is without jugular venous distension. LUNGS: Lungs are clear to auscultation and percussion. Breath sounds decreased. HEART: Rate and Rhythm are regular. First and second heart sounds normal. No murmurs, rubs or gallops. ABDOMEN: Abdominal exam reveals normal bowel sounds. Non-tender and non- distended. No evidence of peritonitis. EXTREMITITES: Trace edema. Objective - Vital Signs Vital signs: Vital Signs Temp 98.0 F 02/10/19 05:00 Pulse 98 02/10/19 09:07 Resp 16 02/10/19 05:00 BP 128/65 02/10/19 05:00 Pulse Ox 95 02/10/19 08:53 Intake & Output 02/09/19 02/10/19 02/10/19 18:59 06:59 18:59 Weight 138.7 kg Other: Voiding Method Toilet Toilet # Voids 1 - Labs CBC & Chem 7: 02/09/19 09:16 02/10/19 06:51 Labs: Abnormal Lab Results - Last 24 Hours (Table) 02/09/19 02/09/19 02/09/19 Range/Units 09:16 09:16 09:16 WBC 11.1 H (3.8-10.6) k/uL Hgb 12.7 L (13.0-17.5) gm/dL MCHC 28.9 L (31.0-37.0) g/dL RDW 15.9 H (11.5-15.5) % Neutrophils # 10.2 H (1.3-7.7) k/uL Lymphocytes # 0.4 L (1.0-4.8) k/uL PT 21.9 H (9.0-12.0) sec INR 2.3 H (<1.2) Potassium 5.5 H (3.5-5.1) mmol/L Chloride (98-107) mmol/L Carbon Dioxide 36 H (22-30) mmol/L BUN 50 H (9-20) mg/dL POC Glucose (mg/dL) (75-99) mg/dL 02/09/19 02/09/19 02/09/19 Range/Units 11:08 12:55 16:55 WBC (3.8-10.6) k/uL Hgb (13.0-17.5) gm/dL MCHC (31.0-37.0) g/dL RDW (11.5-15.5) % Neutrophils # (1.3-7.7) k/uL Lymphocytes # (1.0-4.8) k/uL PT (9.0-12.0) sec INR (<1.2) Potassium (3.5-5.1) mmol/L Chloride (98-107) mmol/L Carbon Dioxide (22-30) mmol/L BUN (9-20) mg/dL POC Glucose (mg/dL) 270 H 214 H 149 H (75-99) mg/dL 02/09/19 02/09/19 02/10/19 Range/Units 17:24 21:25 06:51 WBC (3.8-10.6) k/uL Hgb (13.0-17.5) gm/dL MCHC (31.0-37.0) g/dL RDW (11.5-15.5) % Neutrophils # (1.3-7.7) k/uL Lymphocytes # (1.0-4.8) k/uL PT 35.3 H (9.0-12.0) sec INR 3.7 H (<1.2) Potassium 5.3 H (3.5-5.1) mmol/L Chloride (98-107) mmol/L Carbon Dioxide (22-30) mmol/L BUN (9-20) mg/dL POC Glucose (mg/dL) 259 H (75-99) mg/dL 02/10/19 Range/Units 06:51 WBC (3.8-10.6) k/uL Hgb (13.0-17.5) gm/dL MCHC (31.0-37.0) g/dL RDW (11.5-15.5) % Neutrophils # (1.3-7.7) k/uL Lymphocytes # (1.0-4.8) k/uL PT (9.0-12.0) sec INR (<1.2) Potassium 5.6 H (3.5-5.1) mmol/L Chloride 96 L (98-107) mmol/L Carbon Dioxide 35 H (22-30) mmol/L BUN 50 H (9-20) mg/dL POC Glucose (mg/dL) (75-99) mg/dL Microbiology - Last 24 Hours (Table) 02/05/19 15:22 Blood Culture - Preliminary Blood No Growth after 96 hours Assessment and Plan Plan: Assessment: 1. Mild acute kidney injury mostly prerenal secondary to diuresis. Stable. 2. Hyperkalemia secondary to hyperglycemia as well as lisinopril. Stable. 3. Acute hypoxic respiratory failure secondary to COPD exacerbation. 4. Atrial fibrillation. Rate controlled. Maintained on anticoagulation. 5. Insulin-dependent diabetes mellitus. 6. Proteinuria. This is most likely secondary to underlying diabetic kidney disease. Will further workup outpatient. 7. Volume overload.bmp Plan: Lasix has been increased to 40 mg orally twice daily by cardiology. This will help with hyperkalemia as well. Renal diet. Tight blood sugar control. Avoid nephrotoxins. Continue to hold lisinopril. Repeat potassium level this evening.
[2019-02-10] MEDS: ATORVASTATIN 80 MG TAB PO SCH (09:34)
[2019-02-10] MEDS: ASPIRIN 81 MG PO SCH (09:34)
[2019-02-10] MEDS: INSULIN ASPART (NovoLOG) 100 UNIT/ML VIAL SQ SCH ×7 (09:34→21:04)
[2019-02-10] MEDS: EZETIMIBE 10 MG TAB PO SCH (09:36)
[2019-02-10] MEDS: GLIMEPIRIDE 4 MG TAB PO SCH ×2 (09:36→21:03)
[2019-02-10] MEDS: FUROSEMIDE 40 MG TAB PO SCH ×2 (09:36→18:04)
[2019-02-10] MEDS: METOPROLOL TARTRATE 50 MG TAB PO SCH ×3 (09:37→21:03)
[2019-02-10] MEDS: TAMSULOSIN 0.4 MG CAP.ER.24H PO SCH (09:37)
[2019-02-10] MEDS: methylPREDNISolone SOD SUCCI 40 MG/ML 1 ML VIAL IV SCH ×2 (09:37→21:02)
[2019-02-10] MEDS: metFORMIN 500 MG TAB PO SCH ×2 (09:37→21:03)
[2019-02-10] MEDS: ISOSORBIDE MONONITRATE ER 30 MG TAB.ER.24H PO SCH (09:37)
[2019-02-10] MEDS: VERAPAMIL 40 MG TAB PO SCH ×3 (09:38→21:02)
[2019-02-10 11:03] LABS: Glucose,Whole Blood 148 mg/dL (75-99)
--- NOTE | 2019-02-10 13:19 | P.PN ---
Subjective Progress Note Date: 02/10/19 Principal diagnosis: Right lower lobe pneumonia likely community-acquired, right pleural effusion, left lung nodule, uncontrolled diabetes hyperglycemia, severe COPD acute exacerbation, hyponatremia, and atrial fibrillation and rapid ventricular response 02/10/2019, patient seen eval reexamined during the rounds cuff congestion shortness present improved he is doing better denies any chest pain, he is being observe for mild hyperkalemia steroids are being tapered down 02/09/2019, patient seen eval reexamined during the rounds clinically she is doing better decreased cough and congestion continue to get breathing treatments cough is improved respiratory status improved noted that heart rate is well controlled 02/07/2019, patient seen and evaluated examined during the rounds he has a asymptomatic episode of tachycardia likely related to A. fib with rapid ventricular response heart rate went up to 150 patient is transferred to telemetry cardiology on case he denies any cough or sputum production denies any chest pain tachycardia appears to be paroxysmal 73-year-old male who was seen evaluated examined on medical floor this patient had been admitted into the hospital with increased cough congestion or shortness of breath sputum is mucoid to light yellow, he has chronic respiratory failure has been on home oxygen, he is on chronic nebulization treatment as well uses oxygen at home he has obstructive sleep apnea his sleep Has been very old the polysomnogram were done in the remote past he has not been using very regularly she is bed machine is not giving him an of pressure, it looks like he needs a new machine and possibly a new study as well, he continued to smoke recently n Objective - Vital Signs Vital signs: Vital Signs Temp 97.5 F L 02/10/19 11:23 Pulse 94 02/10/19 12:26 Resp 16 02/10/19 11:23 BP 107/68 02/10/19 11:23 Pulse Ox 93 L 02/10/19 11:23 Intake & Output 02/09/19 02/10/19 02/10/19 18:59 06:59 18:59 Weight 138.7 kg Other: Voiding Method Toilet Toilet Toilet # Voids 1 - Exam - Constitutional General appearance: disheveled, morbidly obese, no acute distress - EENT Eyes: anicteric sclerae, EOMI, PERRLA, dentition normal, normal appearance ENT: normal oropharynx Ears: bilateral: normal - Neck Neck: normal ROM Carotids: bilateral: upstroke normal, bruit absent Thyroid: bilateral: normal size - Respiratory Respiratory: bilateral: diminished, wheezing, prolonged expiration, negative: dullness, rales, rhonchi - Cardiovascular Rhythm: regular Heart sounds: normal: S1, S2 - Gastrointestinal General gastrointestinal: decreased bowel sounds, normal bowel sounds, soft - Integumentary Integumentary: normal turgor - Neurologic Neurologic: CNII-XII intact - Musculoskeletal Musculoskeletal: gait normal, generalized weakness, strength equal bilaterally - Psychiatric Psychiatric: A&O x's 3, appropriate affect, intact judgment & insight - Labs CBC & Chem 7: 02/09/19 09:16 02/10/19 06:51 Labs: Abnormal Lab Results - Last 24 Hours (Table) 02/09/19 02/09/19 02/09/19 Range/Units 16:55 17:24 21:25 PT (9.0-12.0) sec INR (<1.2) Potassium 5.3 H (3.5-5.1) mmol/L Chloride (98-107) mmol/L Carbon Dioxide (22-30) mmol/L BUN (9-20) mg/dL POC Glucose (mg/dL) 149 H 259 H (75-99) mg/dL 02/10/19 02/10/19 02/10/19 Range/Units 06:51 06:51 11:01 PT 35.3 H (9.0-12.0) sec INR 3.7 H (<1.2) Potassium 5.6 H (3.5-5.1) mmol/L Chloride 96 L (98-107) mmol/L Carbon Dioxide 35 H (22-30) mmol/L BUN 50 H (9-20) mg/dL POC Glucose (mg/dL) 148 H (75-99) mg/dL Microbiology - Last 24 Hours (Table) 02/05/19 15:22 Blood Culture - Preliminary Blood No Growth after 96 hours Assessment and Plan Assessment: Acute COPD exacerbation Acute congestive heart failure likely acute diastolic heart failure Right lower lobe pneumonia likely community-acquired Episode of A. fib with rapid ventricular response Right lower lobe small parapneumonic effusion Left mid lung field 7 mm nodule Uncontrolled diabetes and hyperglycemia Hyponatremia Atrial fibrillation on anticoagulation with Coumadin Plan: Continue breathing treatment observe clinical course closely Broad-spectrum antibiotics will continue Rocephin as well Bronchodilators IV steroids, start tapering it slowly can change to oral Continue home medications Reviewed computed tomography scan of the chest with IV contrast Agree with discharge plan Further recommendations pending plan of care as per clinical response of the patient Time with Patient: Greater than 30
--- NOTE | 2019-02-10 13:29 | P.PN ---
Subjective This is a pleasant 73-year-old male past medical history significant for chronic persistent atrial fibrillation on long-term anticoagulation, COPD, chronic nicotine dependence, hypertension, diabetes mellitus, peripheral vascular disease s/p left carotid endartectomy, obstructive sleep apnea and morbid obesity. He follows in the office with Dr. Maxwell. Most recent echocardiogram obtained 01/30/2019 reveals preserved LV systolic function with ejection fraction 50-55%, moderate concentric LVH, mild mitral regurgitation. Patient is seen and examined sitting up in bed in no acute distress. He denies worsening shortness of breath. No chest pain, dizziness or palpitations. Currently maintained on aspirin 81 mg daily, atorvastatin 80 mg daily, Lasix 20 mg IV twice a day, Imdur 30 mg daily, Lopressor 50 mg 3 times a day and verapamil 120 mg 3 times a day. Laboratory data reviewed, INR 3.7, sodium 137, potassium 5.6, creatinine 1.04, magnesium 1.8. GENERAL: Well-appearing, well-nourished and in no acute distress. NECK: Supple without JVD or thyromegaly. LUNGS: Breath sounds clear to auscultation bilaterally. Respiration equal and unlabored. No wheezes, rales or rhonchi. Significantly diminished bilaterally. HEART: Irregular rate and rhythm with systolic ejection murmur at the left sternal border, no rubs or gallops. S1 and S2 heard. EXTREMITIES: Normal range of motion, 1+ b/l lower extremity pitting edema with increased erythema and scaling of the skin. No clubbing or cyanosis. Peripheral pulses intact. ASSESSMENT Acute exacerbation of COPD Supratherapeutic INR Pneumonia Acute hypoxic respiratory failure on home oxygen Hyperkalemia Chronic persistent atrial fibrillation on intermediate anti-coagulation with rapid ventricular response Hypertension Peripheral vascular disease s/p left endartectom Diabetes mellitus Sleep apnea Dyslipidemia Chronic nicotine dependence PLAN Transition to PO diuretics, 40 mg BID. Ongoing medical management. Follow up appointment with Dr. Maxwell February 28. Nurse Practitioner note has been reviewed, I agree with a documented findings and plan of care. Patient was seen and examined. Objective - Vital Signs Vital signs: Vital Signs Temp 98.0 F 02/10/19 05:00 Pulse 98 02/10/19 09:07 Resp 16 02/10/19 05:00 BP 128/65 02/10/19 05:00 Pulse Ox 95 02/10/19 08:53 Intake & Output 02/09/19 02/10/19 02/10/19 18:59 06:59 18:59 Weight 138.7 kg Other: Voiding Method Toilet Toilet Toilet # Voids 1 - Labs CBC & Chem 7: 02/09/19 09:16 02/10/19 06:51 Labs: Abnormal Lab Results - Last 24 Hours (Table) 02/09/19 02/09/19 02/09/19 Range/Units 12:55 16:55 17:24 PT (9.0-12.0) sec INR (<1.2) Potassium 5.3 H (3.5-5.1) mmol/L Chloride (98-107) mmol/L Carbon Dioxide (22-30) mmol/L BUN (9-20) mg/dL POC Glucose (mg/dL) 214 H 149 H (75-99) mg/dL 02/09/19 02/10/19 02/10/19 Range/Units 21:25 06:51 06:51 PT 35.3 H (9.0-12.0) sec INR 3.7 H (<1.2) Potassium 5.6 H (3.5-5.1) mmol/L Chloride 96 L (98-107) mmol/L Carbon Dioxide 35 H (22-30) mmol/L BUN 50 H (9-20) mg/dL POC Glucose (mg/dL) 259 H (75-99) mg/dL 02/10/19 Range/Units 11:01 PT (9.0-12.0) sec INR (<1.2) Potassium (3.5-5.1) mmol/L Chloride (98-107) mmol/L Carbon Dioxide (22-30) mmol/L BUN (9-20) mg/dL POC Glucose (mg/dL) 148 H (75-99) mg/dL Microbiology - Last 24 Hours (Table) 02/05/19 15:22 Blood Culture - Preliminary Blood No Growth after 96 hours
--- NOTE | 2019-02-10 16:18 | P.DS ---
Providers Date of admission: 02/05/19 18:49 Attending physician: [facility] Consults: 02/05/19 18:49 Consult Physician Routine Consulting Provider: Chaz Medina Consult Reason/Comments: copd Do you want consulting provider notified?: Yes 02/05/19 21:56 Consult Physician Routine Consulting Provider: Kapil Liu Consult Reason/Comments: chf Do you want consulting provider notified?: Yes, Notify in am 02/07/19 18:47 Consult Physician Routine Consulting Provider: Toby Pichardo Consult Reason/Comments: critical potassium, Do you want consulting provider notified?: Already Contacted Primary care physician: [facility] Course: This is a 73-year-old gentleman admitted with acute COPD/asthma exacerbation, acute right-sided CHF, acute hypoxic respiratory failure, nicotine dependence and multiple other medical issues. Chest CT reporting 0.7 cm enlarging nodule left mid lung and new left hilar lymph node measuring 1.1 cm, possible malignancy, small bilateral pleural effusions increasing in size from prior study, compressive atelectasis, prominent bilateral adrenal glands, ascending aorta 3.4 cm. Maintained on nebulized bronchodilators, IV steroids and antibiotics. blood sugars elevated, steroid-induced. Diuresing on Lasix IV push. Exertional shortness of breath, occasional productive cough with milky sputum production. Developed atrial fibrillation with RVR, heart rates up to 150, transferring to telemetry. 02/08/19 atrial fibrillation with heart rates fluctuating up into the 150s. Verapamil and Lopressor increased. Imdur added to med regime as per cardiology. Potassium 6.5 yesterday, currently 5.4, creatinine 1.09. INR 2.5. Exertional shortness of breath. Diuresing on Lasix IV push, inaccurate I & O. denies chest pain, palpitations. 02/09/2019 atrial fibrillation better controlled with heart rates up to 115. Anticoagulated on Coumadin as per pharmacy dosing, current INR 2.3. Renal function improving, 0.98. Potassium 5.5, receiving D50, regular insulin. Using BiPAP at night. 02/10/2018: Patient seen and examined covering for Dr. Fish. The patient states he wants to go home and was told he should go home early this morning. The patient is on Coumadin and INR today is 3.7. Nephrology is following the patient and his potassium was 5.6 this morning. Upon repeat is 5.4. Case is discussed with nephrology patient will be placed on torsemide with a repeat BMP in 3-4 days. The patient is using BiPAP at night. His renal function is stable. The patient will be continued on antibiotics and steroids for COPD exacerbation. Patient Condition at Discharge: Fair Plan - Discharge Summary New Discharge Prescriptions: New Ipratropium-Albuterol Nebulize [Duoneb 0.5 mg-3 mg/3 ml Soln] 3 ml INHALATION RT-QID 30 Days #120 ampul.neb Isosorbide Mononitrate ER [Imdur] 30 mg PO DAILY 30 Days #30 tab.er.24h Verapamil [Isoptin] 120 mg PO TID 30 Days #90 tab predniSONE 10 mg PO DIRECTED #42 tab Budesonide [Pulmicort] 0.5 mg INHALATION RT-BID 30 Days #60 nebu Torsemide 10 mg PO DAILY 30 Days #30 tablet Azithromycin [Zithromax] 500 mg PO HS 5 Days #5 tab Continue Glimepiride [Amaryl] 4 mg PO BID Ezetimibe [Zetia] 10 mg PO DAILY Warfarin [Coumadin] 7.5 mg PO DAILY Metoprolol Tartrate [Lopressor] 50 mg PO BID Aspirin [Adult Low Dose Aspirin EC] 81 mg PO DAILY Insulin Degludec [Tresiba Flextouch U-200] 60 units SQ DAILY Tamsulosin [Flomax] 0.4 mg PO DAILY Albuterol Inhaler [Ventolin Hfa Inhaler] 1 - 2 puff INHALATION RT-Q6H PRN PRN Reason: Shortness Of Breath metFORMIN HCL 1,000 mg PO BID HYDROcodone/APAP 7.5-325MG [Deridder 7.5-325] 1 tab PO BID PRN PRN Reason: Pain Dutasteride [Avodart] 0.5 mg PO DAILY Atorvastatin [Lipitor] 80 mg PO DAILY INSULIN ASPART (NovoLOG) [NovoLOG (formulary)] 10 unit SQ ACHS vial INSULIN ASPART (NovoLOG) [NovoLOG (formulary)] See Protocol SQ ACHS Discontinued Furosemide [Lasix] 20 mg PO DAILY #5 tab Verapamil [Isoptin] 80 mg PO TID Lisinopril [Zestril] 5 mg PO BID Discharge Medication List Ezetimibe [Zetia] 10 mg PO DAILY 01/22/14 [History] Glimepiride [Amaryl] 4 mg PO BID 01/22/14 [History] Warfarin [Coumadin] 7.5 mg PO DAILY 10/24/18 [History] Aspirin [Adult Low Dose Aspirin EC] 81 mg PO DAILY 11/29/18 [History] Insulin Degludec [Tresiba Flextouch U-200] 60 units SQ DAILY 11/29/18 [History] Metoprolol Tartrate [Lopressor] 50 mg PO BID 11/29/18 [History] Albuterol Inhaler [Ventolin Hfa Inhaler] 1 - 2 puff INHALATION RT-Q6H PRN 12/15/18 [History] Atorvastatin [Lipitor] 80 mg PO DAILY 12/15/18 [History] Dutasteride [Avodart] 0.5 mg PO DAILY 12/15/18 [History] HYDROcodone/APAP 7.5-325MG [Deridder 7.5-325] 1 tab PO BID PRN 12/15/18 [History] Tamsulosin [Flomax] 0.4 mg PO DAILY 12/15/18 [History] metFORMIN HCL 1,000 mg PO BID 12/15/18 [History] INSULIN ASPART (NovoLOG) [NovoLOG (formulary)] 10 unit SQ ACHS vial 12/19/18 [Rx] INSULIN ASPART (NovoLOG) [NovoLOG (formulary)] See Protocol SQ ACHS 02/07/19 [History] Azithromycin [Zithromax] 500 mg PO HS 5 Days #5 tab 02/10/19 [Rx] Budesonide [Pulmicort] 0.5 mg INHALATION RT-BID 30 Days #60 nebu 02/10/19 [Rx] Ipratropium-Albuterol Nebulize [Duoneb 0.5 mg-3 mg/3 ml Soln] 3 ml INHALATION RT-QID 30 Days #120 ampul.neb 02/10/19 [Rx] Isosorbide Mononitrate ER [Imdur] 30 mg PO DAILY 30 Days #30 tab.er.24h 02/10/19 [Rx] Torsemide 10 mg PO DAILY 30 Days #30 tablet 02/10/19 [Rx] Verapamil [Isoptin] 120 mg PO TID 30 Days #90 tab 02/10/19 [Rx] predniSONE 10 mg PO DIRECTED #42 tab 02/10/19 [Rx] Follow up Appointment(s)/Referral(s): Estiven Maxwell MD [STAFF PHYSICIAN] - 02/28/19 1:30 pm Freddy Viveros MD [Primary Care Provider] - 1-2 days [facility], [NON-STAFF] - 1 Week Chaz Medina MD [STAFF PHYSICIAN] - 1 Week Toby Pichardo DO [STAFF PHYSICIAN] - 1 Week Ambulatory/Diagnostic Orders: Basic Metabolic Panel [LAB.AMB] Time Frame: 3 Days, Location: None Selected Activity/Diet/Wound Care/Special Instructions: Outpatient PET scan as per pulmonary related to abnormal CT Discharge Disposition: HOME SELF-CARE
[2019-02-10 17:22] LABS: Glucose,Whole Blood 121 mg/dL (75-99)
[2019-02-10] MEDS ORDERED: WARFARIN 0.5 MG TAB PO ONE (18:00)
[2019-02-10 20:41] LABS: Glucose,Whole Blood 224 mg/dL (75-99)
[2019-02-10] MEDS: AZITHROMYCIN 500 MG TAB PO SCH (21:03)
[2019-02-10] MEDS: INSULIN DETEMIR (LEVEMIR) 100 UNIT/ML SYR SQ SCH (21:04)
[2019-02-11 05:06] VITALS: BP 142/68
[2019-02-11 06:57] LABS: Glucose,Whole Blood 226 mg/dL (75-99)
[2019-02-11] MEDS: TAMSULOSIN 0.4 MG CAP.ER.24H PO SCH (08:20)
[2019-02-11] MEDS: ISOSORBIDE MONONITRATE ER 30 MG TAB.ER.24H PO SCH (08:20)
[2019-02-11] MEDS: metFORMIN 500 MG TAB PO SCH (08:20)
[2019-02-11] MEDS: ATORVASTATIN 80 MG TAB PO SCH (08:20)
[2019-02-11] MEDS: FUROSEMIDE 40 MG TAB PO SCH (08:20)
[2019-02-11] MEDS: ASPIRIN 81 MG PO SCH (08:20)
[2019-02-11] MEDS: METOPROLOL TARTRATE 50 MG TAB PO SCH (08:21)
[2019-02-11] MEDS: GLIMEPIRIDE 4 MG TAB PO SCH (08:21)
[2019-02-11] MEDS: EZETIMIBE 10 MG TAB PO SCH (08:21)
[2019-02-11] MEDS: methylPREDNISolone SOD SUCCI 40 MG/ML 1 ML VIAL IV SCH (08:22)
[2019-02-11] MEDS: INSULIN ASPART (NovoLOG) 100 UNIT/ML VIAL SQ SCH ×4 (08:22→13:54)
[2019-02-11] MEDS: IPRATROPIUM-ALBUTEROL 3 ML NEB INHALATION SCH ×2 (09:33→12:50)
[2019-02-11] MEDS: BUDESONIDE 0.5 MG/2 ML NEBU INHALATION SCH (09:33)
[2019-02-11 09:55] LABS: Magnesium 1.6 mg/dL (1.6-2.3); Potassium 5.6 mmol/L (3.5-5.1)
[2019-02-11 09:59] LABS: INR 2.8 (<1.2); Prothrombin Time 27.2 sec (9.0-12.0)
[2019-02-11] MEDS: VERAPAMIL 40 MG TAB PO SCH (10:31)
[2019-02-11 11:16] LABS: Glucose,Whole Blood 338 mg/dL (75-99)
[2019-02-11 12:18] VITALS: RESP 22; TEMP 98
[2019-02-11 12:50] VITALS: PULSE 96
--- NOTE | 2019-02-11 13:58 | P.PN ---
Subjective Progress Note Date: 02/11/19 Principal diagnosis: Right lower lobe pneumonia likely community-acquired, right pleural effusion, left lung nodule, uncontrolled diabetes hyperglycemia, severe COPD acute exacerbation, hyponatremia, and atrial fibrillation and rapid ventricular response 02/11/2019 patient seen eval reexamined during the rounds he is back to baseline is still feeling cough congestion His labs were done today INR is 2.8 potassium remains as same as before renal function remains stable he has borderline hyperglycemia he still required about 4-5 L oxygen 02/10/2019, patient seen eval reexamined during the rounds cuff congestion shortness present improved he is doing better denies any chest pain, he is being observe for mild hyperkalemia steroids are being tapered down 02/09/2019, patient seen eval reexamined during the rounds clinically she is doing better decreased cough and congestion continue to get breathing treatments cough is improved respiratory status improved noted that heart rate is well controlled 02/07/2019, patient seen and evaluated examined during the rounds he has a asymptomatic episode of tachycardia likely related to A. fib with rapid ventricular response heart rate went up to 150 patient is transferred to telemetry cardiology on case he denies any cough or sputum production denies any chest pain tachycardia appears to be paroxysmal 73-year-old male who was seen evaluated examined on medical floor this patient had been admitted into the hospital with increased cough congestion or shortness of breath sputum is mucoid to light yellow, he has chronic respiratory failure has been on home oxygen, he is on chronic nebulization treatment as well uses oxygen at home he has obstructive sleep apnea his sleep Has been very old the polysomnogram were done in the remote past he has not been using very regularly she is bed machine is not giving him an of pressure, it looks like he needs a new machine and possibly a new study as well, he continued to smoke recently n Objective - Vital Signs Vital signs: Vital Signs Temp 98 F 02/11/19 12:08 Pulse 96 02/11/19 13:02 Resp 22 02/11/19 12:08 BP 142/68 02/11/19 05:00 Pulse Ox 95 02/11/19 12:08 Intake & Output 02/10/19 02/11/19 02/11/19 18:59 06:59 18:59 Weight 138.4 kg Other: Voiding Method Toilet Toilet Toilet - Exam - Constitutional General appearance: disheveled, morbidly obese, no acute distress - EENT Eyes: anicteric sclerae, EOMI, PERRLA, dentition normal, normal appearance ENT: normal oropharynx Ears: bilateral: normal - Neck Neck: normal ROM Carotids: bilateral: upstroke normal, bruit absent Thyroid: bilateral: normal size - Respiratory Respiratory: bilateral: diminished, wheezing, prolonged expiration, negative: dullness, rales, rhonchi - Cardiovascular Rhythm: regular Heart sounds: normal: S1, S2 - Gastrointestinal General gastrointestinal: decreased bowel sounds, normal bowel sounds, soft - Integumentary Integumentary: normal turgor - Neurologic Neurologic: CNII-XII intact - Musculoskeletal Musculoskeletal: gait normal, generalized weakness, strength equal bilaterally - Psychiatric Psychiatric: A&O x's 3, appropriate affect, intact judgment & insight - Labs CBC & Chem 7: 02/09/19 09:16 02/11/19 08:53 Labs: Abnormal Lab Results - Last 24 Hours (Table) 02/10/19 02/10/19 02/10/19 Range/Units 14:56 16:54 20:40 PT (9.0-12.0) sec INR (<1.2) Sodium (137-145) mmol/L Potassium 5.4 H (3.5-5.1) mmol/L Chloride (98-107) mmol/L Carbon Dioxide (22-30) mmol/L BUN (9-20) mg/dL Glucose (74-99) mg/dL POC Glucose (mg/dL) 121 H 224 H (75-99) mg/dL 02/11/19 02/11/19 02/11/19 Range/Units 06:56 08:53 08:53 PT 27.2 H (9.0-12.0) sec INR 2.8 H (<1.2) Sodium 135 L (137-145) mmol/L Potassium 5.6 H (3.5-5.1) mmol/L Chloride 95 L (98-107) mmol/L Carbon Dioxide 32 H (22-30) mmol/L BUN 51 H (9-20) mg/dL Glucose 364 H (74-99) mg/dL POC Glucose (mg/dL) 226 H (75-99) mg/dL 02/11/19 Range/Units 11:15 PT (9.0-12.0) sec INR (<1.2) Sodium (137-145) mmol/L Potassium (3.5-5.1) mmol/L Chloride (98-107) mmol/L Carbon Dioxide (22-30) mmol/L BUN (9-20) mg/dL Glucose (74-99) mg/dL POC Glucose (mg/dL) 338 H (75-99) mg/dL Microbiology - Last 24 Hours (Table) 02/05/19 15:22 Blood Culture - Preliminary Blood No Growth after 120 hours Assessment and Plan Assessment: Acute on chronic hypoxic respiratory failure Acute COPD exacerbation Acute congestive heart failure likely acute diastolic heart failure Right lower lobe pneumonia likely community-acquired Episode of A. fib with rapid ventricular response Right lower lobe small parapneumonic effusion Left mid lung field 7 mm nodule Uncontrolled diabetes and hyperglycemia Hyponatremia Atrial fibrillation on anticoagulation with Coumadin Plan: Continue home oxygen 4-5 L nasal cannula Continue breathing treatment observe clinical course closely Broad-spectrum antibiotics l Bronchodilators Oral prednisone Continue home medications Reviewed computed tomography scan of the chest with IV contrast Agree with discharge plan Further recommendations pending plan of care as per clinical response of the patient Time with Patient: Greater than 30
[2019-02-11 14:50] LABS: Glucose,Whole Blood 273 mg/dL (75-99)
--- NOTE | 2019-02-11 15:10 | PN ---
PROGRESS NOTE SUBJECTIVE: 73-year-old white male was admitted with COPD exacerbation, tracheobronchitis, CHF. He remains on updraft treatments. Steroids will be stopping. We will switch to oral steroids at this time. Remains on DuoNeb q.i.d. and Pulmicort b.i.d. He has had tachycardia up to 140s with atrial fibrillation with ambulation. Metoprolol will be switched to 100 b.i.d. from 50 t.i.d. Continue with his Isoptin 120 t.i.d. Condition stable. Prognosis guarded. CARDIOVASCULAR: S1, S2, irregular irregularly rhythm. LUNGS scattered wheeze and rhonchi on 2 L oxygen. ASSESSMENT: 1. Atrial fibrillation with rapid ventricle response. 2. Chronic obstructive pulmonary disease exacerbation. 3. Community-acquired pneumonia. 4. Benign prostatic hypertrophy. 5. Diabetes mellitus. 6. Obstructive sleep apnea. 7. Right-sided heart failure. Continue with current treatments. Possible discharge home. He has hyperkalemia today. Possibly try to correct high potassium levels prior to being discharged home. Wait for Cardiology and renal doctor's opinion. MMODL / IJN: [id number] /
--- NOTE | 2019-02-11 15:19 | PN ---
PROGRESS NOTE Patient is seen for followup for hyperkalemia. His potassium remains elevated. The patient's blood sugars are running high. This morning it was as high as 364. His potassium is again up at 5.6 mEq/L. The patient is not maintained on any OPAL inhibitors currently and there are no nonsteroidal anti-inflammatory agents noted. The patient has been voiding. PHYSICAL EXAMINATION: On examination, blood pressure this morning was 142/68, heart rate 90 per minute. He is afebrile. Examination of the heart S1, S2. Examination of the lungs, bilateral breath sounds are heard. Abdomen is soft, morbidly obese. Examination of the lower extremities shows chronic skin changes. Edema 1+ bilaterally. LEATHER STAKER exam is grossly intact. LAB: Show sodium 135, potassium 5.6, chloride of 95, BUN 51, serum creatinine 1.01. ASSESSMENT: 1. Hyperkalemia associated with hyperglycemia and some degree of renal insufficiency. There is evidence of acute kidney injury as serum creatinine has increased from 0.6- 1.0 mg/dL. Currently, patient is nonoliguric. The ultrasound of the kidneys was not performed. I will check post-void residual to make sure that he does not have any underlying urine retention. We need to control the blood sugars to help decrease the potassium levels. 2. Atrial fibrillation with controlled ventricular response, maintained on anticoagulation. 3. Chronic kidney disease, most likely underlying diabetic kidney disease with preserved GFR. Serum creatinine was as low as 0.6 mg/dL. PLAN: Continue to hold off on OPAL inhibitors, avoid constipation, control blood sugars and check post-void residual. Rule out urine retention. MMODL / IJN: [id number] /
[2019-02-11] MEDS ORDERED: WARFARIN 5 MG TAB PO ONE (18:00)
[2019-02-11] MEDS ORDERED: METOPROLOL TARTRATE 50 MG TAB PO SCH (21:00)
[2019-02-12] MEDS ORDERED: CEFDINIR 300 MG CAP PO SCH (09:00)
== END 2019-02-11 15:00 | disposition home or self-care (01) | DRG 193 ==
LOC: EC 14:55 → 4MS4W 18:49 → 3NMEDONC 02-07 17:53
PROVIDERS: ADMIT Family Medicine; ATTEND Family Medicine
DX: J18.1 Lobar pneumonia, unspecified organism (principal); I50.33 Acute on chronic diastolic (congestive) heart failure; J96.21 Acute and chronic respiratory failure with hypoxia; J96.22 Acute and chronic respiratory failure with hypercapnia; J44.1 Chronic obstructive pulmonary disease with (acute) exacerbation; Z68.42 Body mass index [BMI] 45.0-49.9, adult; E87.1 Hypo-osmolality and hyponatremia; I13.0 Hypertensive heart and chronic kidney disease with heart failure and stage 1 through stage 4 chronic kidney disease, or unspecified chronic kidney disease; N17.9 Acute kidney failure, unspecified; J44.0 Chronic obstructive pulmonary disease with (acute) lower respiratory infection; I48.2 Chronic atrial fibrillation; E11.22 Type 2 diabetes mellitus with diabetic chronic kidney disease; E11.51 Type 2 diabetes mellitus with diabetic peripheral angiopathy without gangrene; E11.65 Type 2 diabetes mellitus with hyperglycemia; E66.01 Morbid (severe) obesity due to excess calories; E78.5 Hyperlipidemia, unspecified; E87.5 Hyperkalemia; F17.210 Nicotine dependence, cigarettes, uncomplicated; K21.9 Gastro-esophageal reflux disease without esophagitis; I50.811 Acute right heart failure; G47.33 Obstructive sleep apnea (adult) (pediatric); N18.3 Chronic kidney disease, stage 3 (moderate); N40.0 Benign prostatic hyperplasia without lower urinary tract symptoms; I45.10 Unspecified right bundle-branch block; R79.1 Abnormal coagulation profile; T38.0X5A Adverse effect of glucocorticoids and synthetic analogues, initial encounter; T50.2X5A Adverse effect of carbonic-anhydrase inhibitors, benzothiadiazides and other diuretics, initial encounter; Z79.01 Long term (current) use of anticoagulants; Z79.4 Long term (current) use of insulin; Z79.52 Long term (current) use of systemic steroids; Z79.82 Long term (current) use of aspirin; Z79.899 Other long term (current) drug therapy; Z86.73 Personal history of transient ischemic attack (TIA), and cerebral infarction without residual deficits; Z99.81 Dependence on supplemental oxygen; Z98.890 Other specified postprocedural states; Z88.5 Allergy status to narcotic agent
CPT/HCPCS: 36415; 71045; 71260; 80048; 80053; 81001; 82550; 83036; 83735; 83880; 84132; 84484; 85025; 85379; 85610; 85730; 87040; 93005; 94640; 94644; 94660; 94760; 96374; 99291

== ENCOUNTER 2019-02-27 12:56 | Inpatient (IN) | payer MEDICARE, OTHER ==
--- NOTE | 2019-02-27 13:22 | ED ---
SOB HPI - General Chief Complaint: Shortness of Breath Stated Complaint: SOB Time Seen by Provider: 02/27/19 13:05 Source: patient, RN notes reviewed, old records reviewed Mode of arrival: wheelchair Limitations: no limitations - History of Present Illness Initial Comments: This is a 73-year-old male the ER for evaluation of shortness of breath difficul ty catching his breath. History of heart failure feels like this same. He'll he cannot catch his breath difficulty breathing leg down a especially with exertion. Patient denies chest pain no cough or congestion no history of asthma nonsmoker. No fevers. No chest pain again. No recent travel history or sick contacts, multiple recent hospital admissions MD Complaint: shortness of breath -: days(s) Severity: moderate Severity scale (1-10): 4 Consistency: constant Improves With: rest Worsens With: exertion, movement Known History Of: congestive heart failure Associated Symptoms: orthopnea Treatments Prior to Arrival: none - Related Data Home Medications Medication Instructions Recorded Confirmed Ezetimibe [Zetia] 10 mg PO DAILY 01/22/14 02/06/19 Glimepiride [Amaryl] 4 mg PO BID 01/22/14 02/07/19 Warfarin [Coumadin] 7.5 mg PO DAILY 10/24/18 02/06/19 Aspirin [Adult Low Dose Aspirin EC] 81 mg PO DAILY 11/29/18 02/07/19 Insulin Degludec [Tresiba 60 units SQ DAILY 11/29/18 02/06/19 Flextouch U-200] Metoprolol Tartrate [Lopressor] 50 mg PO BID 11/29/18 02/06/19 Albuterol Inhaler [Ventolin Hfa 1 - 2 puff INHALATION RT-Q6H PRN 12/15/18 02/06/19 Inhaler] Atorvastatin [Lipitor] 80 mg PO DAILY 12/15/18 02/06/19 Dutasteride [Avodart] 0.5 mg PO DAILY 12/15/18 02/06/19 HYDROcodone/APAP 7.5-325MG [[employer] 1 tab PO BID PRN 12/15/18 02/06/19 7.5-325] Tamsulosin [Flomax] 0.4 mg PO DAILY 12/15/18 02/06/19 metFORMIN HCL 1,000 mg PO BID 12/15/18 02/06/19 INSULIN ASPART (NovoLOG) [NovoLOG See Protocol SQ ACHS 02/07/19 02/07/19 (formulary)] Previous Rx's Medication Instructions Recorded INSULIN ASPART (NovoLOG) [NovoLOG 10 unit SQ ACHS vial 12/19/18 (formulary)] Azithromycin [Zithromax] 500 mg PO HS 5 Days #5 tab 02/10/19 Budesonide [Pulmicort] 0.5 mg INHALATION RT-BID 30 Days 02/10/19 #60 nebu Ipratropium-Albuterol Nebulize 3 ml INHALATION RT-QID 30 Days 02/10/19 [Duoneb 0.5 mg-3 mg/3 ml Soln] #120 ampul.neb Isosorbide Mononitrate ER [Imdur] 30 mg PO DAILY 30 Days #30 02/10/19 tab.er.24h Torsemide 10 mg PO DAILY 30 Days #30 tablet 02/10/19 Verapamil [Isoptin] 120 mg PO TID 30 Days #90 tab 02/10/19 predniSONE 10 mg PO DIRECTED #42 tab 02/10/19 Allergies Allergy/AdvReac Type Severity Reaction Status Date / Time morphine Allergy Rash/Hives Verified 02/27/19 13:01 Review of Systems ROS Statement: Those systems with pertinent positive or pertinent negative responses have been documented in the HPI. ROS Other: All systems not noted in ROS Statement are negative. Past Medical History Past Medical History: Atrial Fibrillation, Blood Disorder, COPD, CVA/TIA, Diabetes Mellitus, GERD/Reflux, Hyperlipidemia, Sleep Apnea/CPAP/BIPAP Additional Past Medical History / Comment(s): CELLULITIS RT LEG/FOOT, familial erythrocytosis, tia History of Any Multi-Drug Resistant Organisms: None Reported Additional Past Surgical History / Comment(s): LT LEG SX D/T POOR CIRCULATION, LT CArOTID ENDARTRECTOMY, LASER EYE SX, Past Anesthesia/Blood Transfusion Reactions: No Reported Reaction Past Psychological History: No Psychological Hx Reported Smoking Status: Former smoker Past Alcohol Use History: None Reported Past Drug Use History: None Reported - Past Family History Father Additional Family Medical History / Comment(s): DAD AGE 55 OF BRAIN HEMORRAGE. HAD HX TB. Mother Additional Family Medical History / Comment(s): HEART TROUBLE IN HER 70'S General Exam Limitations: no limitations General appearance: alert, in no apparent distress Head exam: Present: atraumatic, normocephalic, normal inspection Eye exam: Present: normal appearance, PERRL, EOMI. Absent: scleral icterus, conjunctival injection, periorbital swelling ENT exam: Present: normal exam, mucous membranes moist Neck exam: Present: normal inspection. Absent: tenderness, meningismus, lymphadenopathy Respiratory exam: Present: rales, decreased breath sounds, prolonged expiratory. Absent: respiratory distress, wheezes, rhonchi, stridor Cardiovascular Exam: Present: regular rate, normal rhythm, normal heart sounds. Absent: systolic murmur, diastolic murmur, rubs, gallop, clicks GI/Abdominal exam: Present: soft, normal bowel sounds. Absent: distended, tenderness, guarding, rebound, rigid Extremities exam: Present: normal inspection, full ROM, normal capillary refill. Absent: tenderness, pedal edema, joint swelling, calf tenderness Back exam: Present: normal inspection Neurological exam: Present: alert, oriented X3, CN II-XII intact Psychiatric exam: Present: normal affect, normal mood Skin exam: Present: warm, dry, intact, normal color. Absent: rash Course Vital Signs 02/27/19 12:58 Temperature 97.6 F Pulse Rate 86 Respiratory 24 Rate Blood Pressure 99/53 O2 Sat by Pulse 95 Oximetry - Reevaluation(s) Reevaluation #1: 02/27/19 14:16 Medical records reviewed Reevaluation #2: 02/27/19 14:16 She does have improvement after breathing treatment, given diuresis here in the ER Medical Decision Making - Medical Decision Making 73 male the ER for CHF exacerbation will admit for diuresis and monitoring of cardiopulmonary status - Lab Data Result diagrams: 02/27/19 13:20 02/27/19 13:20 Lab Results 02/27/19 02/27/19 02/27/19 Range/Units 13:20 13:20 13:20 WBC 8.2 (3.8-10.6) k/uL RBC 4.57 (4.30-5.90) m/uL Hgb 12.3 L (13.0-17.5) gm/dL Hct 42.0 (39.0-53.0) % MCV 92.0 (80.0-100.0) fL MCH 27.0 (25.0-35.0) pg MCHC 29.3 L (31.0-37.0) g/dL RDW 16.7 H (11.5-15.5) % Plt Count 213 (150-450) k/uL Neutrophils % 81 % Lymphocytes % 10 % Monocytes % 5 % Eosinophils % 2 % Basophils % 0 % Neutrophils # 6.7 (1.3-7.7) k/uL Lymphocytes # 0.8 L (1.0-4.8) k/uL Monocytes # 0.5 (0-1.0) k/uL Eosinophils # 0.2 (0-0.7) k/uL Basophils # 0.0 (0-0.2) k/uL Hypochromasia Marked Anisocytosis Slight PT 28.9 H (9.0-12.0) sec INR 3.0 H (<1.2) APTT 33.9 H (22.0-30.0) sec D-Dimer 0.23 (<0.60) mg/L FEU Sodium 138 (137-145) mmol/L Potassium 5.2 H (3.5-5.1) mmol/L Chloride 104 (98-107) mmol/L Carbon Dioxide 28 (22-30) mmol/L Anion Gap 6 mmol/L BUN 18 (9-20) mg/dL Creatinine 0.75 (0.66-1.25) mg/dL Est GFR (CKD-EPI)AfAm >90 (>60 ml/min/1.73 sqM) Est GFR (CKD-EPI)NonAf >90 (>60 ml/min/1.73 sqM) Glucose 176 H (74-99) mg/dL Calcium 8.6 (8.4-10.2) mg/dL Magnesium 1.8 (1.6-2.3) mg/dL Total Bilirubin 0.7 (0.2-1.3) mg/dL AST 23 (17-59) U/L ALT 40 (21-72) U/L Alkaline Phosphatase 55 (38-126) U/L Creatine Kinase 31 L (55-170) U/L Troponin I (0.000-0.034) ng/mL NT-Pro-B Natriuret Pep pg/mL Total Protein 6.0 L (6.3-8.2) g/dL Albumin 3.2 L (3.5-5.0) g/dL 02/27/19 02/27/19 Range/Units 13:20 13:20 WBC (3.8-10.6) k/uL RBC (4.30-5.90) m/uL Hgb (13.0-17.5) gm/dL Hct (39.0-53.0) % MCV (80.0-100.0) fL MCH (25.0-35.0) pg MCHC (31.0-37.0) g/dL RDW (11.5-15.5) % Plt Count (150-450) k/uL Neutrophils % % Lymphocytes % % Monocytes % % Eosinophils % % Basophils % % Neutrophils # (1.3-7.7) k/uL Lymphocytes # (1.0-4.8) k/uL Monocytes # (0-1.0) k/uL Eosinophils # (0-0.7) k/uL Basophils # (0-0.2) k/uL Hypochromasia Anisocytosis PT (9.0-12.0) sec INR (<1.2) APTT (22.0-30.0) sec D-Dimer (<0.60) mg/L FEU Sodium (137-145) mmol/L Potassium (3.5-5.1) mmol/L Chloride (98-107) mmol/L Carbon Dioxide (22-30) mmol/L Anion Gap mmol/L BUN (9-20) mg/dL Creatinine (0.66-1.25) mg/dL Est GFR (CKD-EPI)AfAm (>60 ml/min/1.73 sqM) Est GFR (CKD-EPI)NonAf (>60 ml/min/1.73 sqM) Glucose (74-99) mg/dL Calcium (8.4-10.2) mg/dL Magnesium (1.6-2.3) mg/dL Total Bilirubin (0.2-1.3) mg/dL AST (17-59) U/L ALT (21-72) U/L Alkaline Phosphatase (38-126) U/L Creatine Kinase (55-170) U/L Troponin I 0.025 (0.000-0.034) ng/mL NT-Pro-B Natriuret Pep 1280 pg/mL Total Protein (6.3-8.2) g/dL Albumin (3.5-5.0) g/dL - EKG Data -: EKG Interpreted by Me (EKG shows atrial fibrillation rate of 99, QRS 160, QTc 426) - Radiology Data Radiology results: report reviewed (Chest x-rays positive for CHF), image reviewed Disposition Clinical Impression: Dyspnea, Acute exacerbation of chronic obstructive airways disease Disposition: ADMITTED IP TO THIS HOSP Condition: Fair Is patient prescribed a controlled substance at d/c from ED?: No Referrals: Freddy Viveros MD [Primary Care Provider] - 1-2 days
[2019-02-27 13:31] LABS: Anisocytosis Slight; Basophils % (A) 0 %; Eosinophils # (A) 0.2 k/uL (0-0.7); Eosinophils % (A) 2 %; HGB 12.3 gm/dL (13.0-17.5); Hypochromasia Marked; Lymphocytes # (A) 0.8 k/uL (1.0-4.8); Lymphocytes % (A) 10 %; MCHC 29.3 g/dL (31.0-37.0); Mean Platelet Volume 7.6; Monocytes # (A) 0.5 k/uL (0-1.0); Monocytes % (A) 5 %; Neutrophils # (A) 6.7 k/uL (1.3-7.7); Neutrophils % (A) 81 %; Platelet Count 213 k/uL (150-450); RBC 4.57 m/uL (4.30-5.90); RDW 16.7 % (11.5-15.5); WBC 8.2 k/uL (3.8-10.6)
--- NOTE | 2019-02-27 13:34 | XR ---
EXAMINATION TYPE: XR chest 2V DATE OF EXAM: 02/27/2019 COMPARISON: Chest CT February 06, 2019. Chest x-ray February 05, 2019 HISTORY: Difficulty breathing. TECHNIQUE: Frontal and lateral views of the chest are obtained. FINDINGS: Exam suboptimal due to patient's large body habitus. The cardiac silhouette size remains en larged. There is central vascular congestion and interstitial edema redemonstrated. There is suspecte d persistent small right greater than left pleural effusions and associated bibasilar atelectasis and /or infiltrate. Overlying EKG leads are present. The osseous structures are intact. IMPRESSION: Suspect recurrent CHF exacerbation as there is cardiomegaly with central vascular conges tion and small right greater than left pleural effusions as well as mild interstitial edema all redem onstrated.
[2019-02-27 13:46] LABS: ALT 40 U/L (21-72); AST 23 U/L (17-59); African American GFR (CKD) >90 (>60 ml/min/1.73 sqM); Albumin 3.2 g/dL (3.5-5.0); Alkaline Phosphatase 55 U/L (38-126); Anion Gap 6 mmol/L; Blood Urea Nitrogen 18 mg/dL (9-20); Calcium 8.6 mg/dL (8.4-10.2); Carbon Dioxide 28 mmol/L (22-30); Chloride 104 mmol/L (98-107); Creatine Kinase 31 U/L (55-170); Glucose 176 mg/dL (74-99); Magnesium 1.8 mg/dL (1.6-2.3); Potassium 5.2 mmol/L (3.5-5.1); Sodium 138 mmol/L (137-145); Total Bilirubin 0.7 mg/dL (0.2-1.3)
[2019-02-27 13:51] LABS: D-Dimer 0.23 mg/L FEU (<0.60); Partial Thromboplastin Time 33.9 sec (22.0-30.0); Prothrombin Time 28.9 sec (9.0-12.0)
[2019-02-27] MEDS ORDERED: IPRATROPIUM-ALBUTEROL 3 ML NEB INHALATION STA (14:17)
[2019-02-27] MEDS: FUROSEMIDE 10 MG/ML 4 ML VIAL IV SCH ×2 (14:30→20:18)
[2019-02-27] MEDS ORDERED: HYDROcodone/APAP 7.5-325MG 1 EACH TAB PO PRN (18:47)
[2019-02-27] MEDS ORDERED: ALBUTEROL INHALER 60 PUFF/8 GM INHALER INHALATION SCH (19:00)
[2019-02-27 19:53] LABS: Glucose,Whole Blood 325 mg/dL (75-99)
[2019-02-27] MEDS: IPRATROPIUM-ALBUTEROL 3 ML NEB INHALATION PRN (19:55)
[2019-02-27] MEDS: BUDESONIDE 0.5 MG/2 ML NEBU INHALATION SCH (19:55)
[2019-02-27] MEDS: INSULIN ASPART (NovoLOG) 100 UNIT/ML VIAL SQ SCH ×2 (20:17)
[2019-02-27] MEDS: METOPROLOL TARTRATE 50 MG TAB PO SCH (20:18)
[2019-02-27] MEDS: REPAGLINIDE 1 MG TAB PO SCH (20:18)
[2019-02-27] MEDS: VERAPAMIL 40 MG TAB PO SCH (20:18)
[2019-02-27] MEDS: metFORMIN 500 MG TAB PO SCH (20:18)
[2019-02-27] MEDS: ATORVASTATIN 80 MG TAB PO SCH (20:18)
[2019-02-27] MEDS: GLIMEPIRIDE 4 MG TAB PO SCH (20:18)
[2019-02-28] MEDS: FUROSEMIDE 10 MG/ML 4 ML VIAL IV SCH ×3 (05:31→21:49)
[2019-02-28 06:42] LABS: Glucose,Whole Blood 59 mg/dL (75-99)
[2019-02-28 07:03] LABS: Glucose,Whole Blood 70 mg/dL (75-99)
[2019-02-28] MEDS: IPRATROPIUM-ALBUTEROL 3 ML NEB INHALATION PRN ×2 (07:07→15:40)
[2019-02-28] MEDS: BUDESONIDE 0.5 MG/2 ML NEBU INHALATION SCH ×2 (07:07→18:40)
[2019-02-28] MEDS: INSULIN ASPART (NovoLOG) 100 UNIT/ML VIAL SQ SCH ×8 (07:56→20:15)
[2019-02-28] MEDS: ISOSORBIDE MONONITRATE ER 30 MG TAB.ER.24H PO SCH (08:06)
[2019-02-28] MEDS: metFORMIN 500 MG TAB PO SCH ×2 (08:06→20:14)
[2019-02-28] MEDS: REPAGLINIDE 1 MG TAB PO SCH ×3 (08:06→21:48)
[2019-02-28] MEDS: FINASTERIDE 5 MG TAB PO SCH (08:06)
[2019-02-28] MEDS: TAMSULOSIN 0.4 MG CAP.ER.24H PO SCH (08:06)
[2019-02-28] MEDS: VERAPAMIL 40 MG TAB PO SCH ×3 (08:06→21:48)
[2019-02-28] MEDS: EZETIMIBE 10 MG TAB PO SCH (08:06)
[2019-02-28] MEDS: METOPROLOL TARTRATE 50 MG TAB PO SCH ×2 (08:07→20:14)
[2019-02-28] MEDS: INSULIN DETEMIR (LEVEMIR) 100 UNIT/ML SYR SQ SCH (08:08)
[2019-02-28] MEDS: GLIMEPIRIDE 4 MG TAB PO SCH ×2 (08:08→20:14)
[2019-02-28] MEDS: ATORVASTATIN 80 MG TAB PO SCH (08:14)
--- NOTE | 2019-02-28 08:28 | CONS ---
CONSULTATION Mr. Meza is a 73-year-old male with known history of chronic persistent atrial fibrillation, history of severe chronic obstructive lung disease with prior history of chronic tobacco use, who presented to the emergency room with symptoms of progressive dyspnea. He had prior admission to the hospital with similar symptoms. After his discharge, he became more short of breath over the last couple days with coughing and came into the emergency room and subsequently admitted. He has been coughing, but no fever. He has no discomfort in the chest. No dizziness. No palpitation. He has chronic peripheral edema, episode of PND. The patient is limited in his physical activity and used oxygen at home. His left ventricular systolic function in the past was preserved. His risk factors are remarkable for the history of smoking. He is hypertensive and diabetic as well as hyperlipidemic. MEDICATIONS: His medications at home include metformin, Coumadin, verapamil 120 mg 3 times a day, torsemide 10 mg daily, repaglinide, metoprolol tartrate 50 mg twice a day, isosorbide mononitrate 30 mg daily, insulin, glimepiride, furosemide 20 mg daily, Zetia 10 mg daily, budesonide, Lipitor 80 mg daily, aspirin once a day, and Ventolin. REVIEW OF SYSTEMS: RESPIRATORY SYSTEM: He has history of chronic obstructive lung disease, cough, but no recent fever. He uses oxygen at home and is limited in physical activity. GI SYSTEM: No recent GI bleed. No peptic ulcer disease. SYSTEM: No dysuria or hematuria. NERVOUS SYSTEM: No stroke or seizure. PHYSICAL EXAMINATION: This is a 73-year-old male, alert, oriented, in no apparent distress. Blood pressure 156/80 with the heart rate in the 60s. HEAD: Normocephalic. EYES: Sclerae nonicteric. NECK: Good upstroke, no bruit. LUNGS: With decreased air exchange. No wheezes. HEART: Irregular, irregular. S1, S2. No S3 with systolic ejection murmur heard at the base. No diastolic murmur. No rub. ABDOMEN: Soft, obese, nontender. EXTREMITIES: +1 edema bilaterally. LAB DATA: Lab data revealed troponin of 0.025. NT proBNP of 1280. BUN and creatinine of 18 and 0.75. INR of 3.0. Hemoglobin 12.3, white blood cell of 8.2. EKG revealed atrial fibrillation with an incomplete right bundle branch block and nonspecific ST-T wave changes. Chest x-ray raised the question of congestion. IMPRESSION: 1. Exacerbation of chronic obstructive pulmonary disease with symptoms of dyspnea could have an element of fluid overload with preserved systolic function. 2. History of chronic persistent atrial fibrillation. 3. History of severe chronic obstructive lung disease. 4. Prior history of smoking. 5. Hypertension. 6. Hyperlipidemia. 7. Diabetes mellitus. RECOMMENDATION: From the cardiac standpoint, the patient received IV Lasix. I do not believe that we are dealing with a significant amount of fluid overload at this time. We will continue anticoagulation. He will be evaluated by the pulmonary service and depending on his progress, further recommendation will be made. Thank you for this consult. We will follow with you. IRON / JAVI: [id number] /
[2019-02-28] MEDS ORDERED: ENOXAPARIN 40 MG/0.4 ML SYRINGE SQ SCH (09:00)
[2019-02-28] MEDS ORDERED: ASPIRIN 81 MG PO SCH (09:00)
[2019-02-28] MEDS ORDERED: TORSEMIDE 20 MG TAB PO SCH (09:00)
[2019-02-28 09:14] LABS: INR 3.4 (<1.2); Prothrombin Time 32.3 sec (9.0-12.0)
[2019-02-28 11:50] LABS: Glucose,Whole Blood 199 mg/dL (75-99)
--- NOTE | 2019-02-28 12:00 | P.HPIM ---
History of Present Illness H&P Date: 02/28/19 Chief Complaint: Worsening shortness of breath This is a 73-year-old gentleman, history of atrial fibrillation, cardiac ablation, asthma, COPD, diabetes mellitus, CVA/TIA, DVT,PVD with chronic peripheral edema, hypertension, hyperlipidemia, history of nicotine abuse ,chronic respiratory failure, wears 3 L NC, and multiple other medical issues presented to the ER with worsening shortness of breath. Patient reports having trouble with incontinence and wasn't taking his Lasix. Denies chest pain, palpitations, positive cough. Denies fever or chills. Denies smoking. Denies lightheadedness dizziness or focal deficits. On admission maintaining O2 sats of 95% on 3 L nasal cannula, respiratory rate 24, pulse 86, systolic blood pressures in the high 90s. Afebrile, normal WBC. INR 3, mildly elevated potassium 5.2, creatinine 0.75. Blood sugars ranging from 59 to 325. Chest x- ray reporting CHF exacerbation, small bilateral pleural effusions, right greater than left. Received nebulized bronchodilator treatment, Lasix IVP. EKG reporting atrial fibrillation, right bundle branch block, T-wave abnormality of inferior leads. Troponin 0.025.BNP 1280. Cardiology consulted. Review of Systems ROS Statement: Those systems with pertinent positive or pertinent negative responses have been documented in the HPI. ROS Other: All systems not noted in ROS Statement are negative. Past Medical History Past Medical History: Atrial Fibrillation, Asthma, Blood Disorder, COPD, CVA/TIA, Diabetes Mellitus, Deep Vein Thrombosis (DVT), Eye Disorder, GERD/Reflux, Hyperlipidemia, Respiratory Disorder, Sleep Apnea/CPAP/BIPAP, Vascular Disorder Additional Past Medical History / Comment(s): Pt recently admitted to [facility] on 02/05/19 with r lower lobe pneumonia, R pleural effusion, L lung nodule, uncontrolled diabetes, severe COPD acute exacerbation, hyponatremia, Afib with RVR. Other Hx: Chronic hypoxic respiratory failure with home oxygen at 3L/NC ATC, ANUP with Cpap use, IDDM type II, TIA, familial erythrocytosis, PVD, DVT L leg, bilateral lower leg cellulitis, chronic back pain, glaucoma bilaterally, bilateral retinal bleeds with surgery. History of Any Multi-Drug Resistant Organisms: None Reported Past Surgical History: Cardiac Ablation, EPS, Heart Catheterization Additional Past Surgical History / Comment(s): L femoral bypass, L caratid endartectomy, EP study with aflutter ablation, colonoscopy, bilateral eye laser surgery for retinal bleeds. Past Anesthesia/Blood Transfusion Reactions: No Reported Reaction Additional Past Anesthesia/Blood Transfusion Reaction / Comment(s): Pt states he has received blood in past without reaction. Smoking Status: Former smoker - Past Family History Father Additional Family Medical History / Comment(s): DAD AGE 55 OF BRAIN HEMORRAGE. HAD HX TB. Mother Additional Family Medical History / Comment(s): HEART TROUBLE IN HER 70'S Medications and Allergies Home Medications Medication Instructions Recorded Confirmed Type Ezetimibe [Zetia] 10 mg PO DAILY 01/22/14 02/27/19 History Glimepiride [Amaryl] 4 mg PO BID 01/22/14 02/27/19 History Warfarin [Coumadin] 7.5 mg PO DAILY 10/24/18 02/27/19 History Aspirin [Adult Low Dose Aspirin EC] 81 mg PO DAILY 11/29/18 02/27/19 History Insulin Degludec [Tresiba 60 units SQ DAILY 11/29/18 02/27/19 History Flextouch U-200] Metoprolol Tartrate [Lopressor] 50 mg PO BID 11/29/18 02/27/19 History Albuterol Inhaler [Ventolin Hfa 1 - 2 puff INHALATION RT-Q6H PRN 12/15/18 02/27/19 History Inhaler] Atorvastatin [Lipitor] 80 mg PO DAILY 12/15/18 02/27/19 History Dutasteride [Avodart] 0.5 mg PO DAILY 12/15/18 02/27/19 History HYDROcodone/APAP 7.5-325MG [[place] 1 tab PO BID PRN 12/15/18 02/27/19 History 7.5-325] Tamsulosin [Flomax] 0.4 mg PO DAILY 12/15/18 02/27/19 History metFORMIN HCL 1,000 mg PO BID 12/15/18 02/27/19 History INSULIN ASPART (NovoLOG) [NovoLOG 10 unit SQ ACHS vial 12/19/18 02/27/19 Rx (formulary)] INSULIN ASPART (NovoLOG) [NovoLOG See Protocol SQ ACHS 02/07/19 02/27/19 History (formulary)] Budesonide [Pulmicort] 0.5 mg INHALATION RT-BID 30 Days 02/10/19 02/27/19 Rx #60 nebu Ipratropium-Albuterol Nebulize 3 ml INHALATION RT-QID 30 Days 02/10/19 02/27/19 Rx [Duoneb 0.5 mg-3 mg/3 ml Soln] #120 ampul.neb Isosorbide Mononitrate ER [Imdur] 30 mg PO DAILY 30 Days #30 02/10/19 02/27/19 Rx tab.er.24h Torsemide 10 mg PO DAILY 30 Days #30 tablet 02/10/19 02/27/19 Rx Verapamil [Isoptin] 120 mg PO TID 30 Days #90 tab 02/10/19 02/27/19 Rx Furosemide [Lasix] 20 mg PO DAILY 02/27/19 02/27/19 History Repaglinide 0.5 mg PO TID 02/27/19 02/27/19 History Allergies Allergy/AdvReac Type Severity Reaction Status Date / Time morphine Allergy Rash/Hives Verified 02/27/19 14:18 Physical Exam Vitals: Vital Signs Temp Pulse Pulse Resp BP BP Pulse Ox 02/28/19 08:00 97.7 F 97 18 119/73 96 02/28/19 07:19 72 02/28/19 07:09 68 94 L 02/28/19 04:00 97.5 F L 61 18 156/80 94 L 02/28/19 03:37 18 02/28/19 00:00 97.7 F 99 18 104/64 94 L 02/27/19 23:37 18 02/27/19 20:09 99 02/27/19 20:00 18 02/27/19 19:56 98 02/27/19 19:18 98.4 F 99 18 117/69 97 02/27/19 15:52 100 02/27/19 15:46 98 02/27/19 15:21 98.2 F 100 22 116/68 02/27/19 15:09 24 02/27/19 12:58 97.6 F 86 24 99/53 95 Intake and Output 02/27/19 02/28/19 02/28/19 22:59 06:59 14:59 Intake Total 240 Balance 240 Intake: Oral 240 Other: # Voids 1 3 Weight 137.6 kg PHYSICAL EXAM: VITAL SIGNS: As above GENERAL: Sitting up at side of bed, respiratory effort mildly increased HEENT: Conjunctivae normal. eyes normal. NECK: positive JVD. No thyroid enlargement. No LNs CARDIOVASCULAR: S1, S2 irregular, systolic murmur RESPIRATION: Breath sounds diminished in the bases. No rhonchi, positive crackles. Prolonged Expirations without wheezing. ABDOMEN: Soft, obese, nontender . No guarding. no masses palpable. No ascites, No hepatosplenomegaly.Bowel sounds heard. LEGS: +1+ edema. Lower extremity discoloration secondary to PAD. PSYCHIATRY: Alert and oriented X3, mood and affect normal. NERVOUS SYSTEM: Cranial N 2-12 grossly normal. Moves all 4 limbs. Diffuse weakness No focal deficits. Strength and sensation grossly intact.. Skin: no lesions, no rash Joints: No active swelling. No inflammation. Lymphatic system. No LN neck axilla or groin. Results CBC & Chem 7: 02/27/19 13:20 02/27/19 13:20 Labs: Abnormal Lab Results - Last 24 Hours (Table) 02/27/19 02/27/19 02/27/19 Range/Units 13:20 13:20 13:20 Hgb 12.3 L (13.0-17.5) gm/dL MCHC 29.3 L (31.0-37.0) g/dL RDW 16.7 H (11.5-15.5) % Lymphocytes # 0.8 L (1.0-4.8) k/uL PT 28.9 H (9.0-12.0) sec INR 3.0 H (<1.2) APTT 33.9 H (22.0-30.0) sec Potassium 5.2 H (3.5-5.1) mmol/L Glucose 176 H (74-99) mg/dL POC Glucose (mg/dL) (75-99) mg/dL Creatine Kinase 31 L (55-170) U/L Total Protein 6.0 L (6.3-8.2) g/dL Albumin 3.2 L (3.5-5.0) g/dL 02/27/19 02/28/19 02/28/19 Range/Units 19:52 06:40 06:57 Hgb (13.0-17.5) gm/dL MCHC (31.0-37.0) g/dL RDW (11.5-15.5) % Lymphocytes # (1.0-4.8) k/uL PT (9.0-12.0) sec INR (<1.2) APTT (22.0-30.0) sec Potassium (3.5-5.1) mmol/L Glucose (74-99) mg/dL POC Glucose (mg/dL) 325 H 59 L 70 L (75-99) mg/dL Creatine Kinase (55-170) U/L Total Protein (6.3-8.2) g/dL Albumin (3.5-5.0) g/dL Thrombosis Risk Factor Assmnt - Choose All That Apply Any of the Below Risk Factors Present?: Yes Each Factor Represents 1 point: Abnormal pulmonary function (COPD), Obesity (BMI >25), Serious lung disease incl. pneumonia (< 1month), Swollen legs (current) Other Risk Factors: Yes Each Risk Factor Represents 2 Points: Age 61-74 years Other congenital or acquired thrombophilia - If yes, enter type in comment: No Thrombosis Risk Factor Assessment Total Risk Factor Score: 6 Thrombosis Risk Factor Assessment Level: High Risk Assessment and Plan Assessment: -Acute on chronic CHF exacerbation, diastolic dysfunction -Acute COPD exacerbation -Chronic hypoxic respiratory failure -Small Bilateral pleural effusions -Chronic persistent Atrial fibrillation , on Coumadin -History of nicotine dependence -Dyslipidemia -Diabetes mellitus type 2 -BPH -Obstructive sleep apnea, compliant with CPAP -Morbid obesity, BMI 46 -Mild hyperkalemia Plan: Continue on current medication regime ,monitoring and symptomatic treatment. Diuresing with Lasix IV push. Close monitoring of renal function and electrolytes with repeat labs ordered for a.m. Maintain nebulized bronchodilators, steroids. Home meds have been reviewed and resumed. Re- educated on the necessity/rationale of Lasix. Further recommendations to follow. The impression and plan of care has been dictated as directed. : I performed a history and examination of this patient, discussed the same with the dictator. I agree with the dictator's note ,documented as a scribe. Any additional findings or plans will be noted. Time taken 35 minutes.
[2019-02-28] MEDS: predniSONE 20 MG TAB PO SCH (12:10)
[2019-02-28 16:06] VITALS: BMI 46.1
[2019-02-28 16:36] LABS: Glucose,Whole Blood 261 mg/dL (75-99)
[2019-02-28] MEDS ORDERED: WARFARIN 7.5 MG TAB PO SCH (18:00)
[2019-02-28 19:33] LABS: Glucose,Whole Blood 388 mg/dL (75-99)
[2019-02-28 20:05] LABS: Hemoglobin A1C 10.4 % (4.0-6.0)
[2019-03-01] MEDS: FUROSEMIDE 10 MG/ML 4 ML VIAL IV SCH ×3 (05:52→20:49)
[2019-03-01 06:39] LABS: Glucose,Whole Blood 96 mg/dL (75-99)
[2019-03-01] MEDS: BUDESONIDE 0.5 MG/2 ML NEBU INHALATION SCH ×2 (07:31→18:27)
[2019-03-01] MEDS: IPRATROPIUM-ALBUTEROL 3 ML NEB INHALATION PRN (07:31)
[2019-03-01] MEDS: INSULIN ASPART (NovoLOG) 100 UNIT/ML VIAL SQ SCH ×8 (08:16→20:48)
[2019-03-01] MEDS: ISOSORBIDE MONONITRATE ER 30 MG TAB.ER.24H PO SCH (08:23)
[2019-03-01] MEDS: METOPROLOL TARTRATE 50 MG TAB PO SCH ×2 (08:23→20:49)
[2019-03-01] MEDS: metFORMIN 500 MG TAB PO SCH ×2 (08:23→20:49)
[2019-03-01] MEDS: ATORVASTATIN 80 MG TAB PO SCH (08:23)
[2019-03-01] MEDS: TAMSULOSIN 0.4 MG CAP.ER.24H PO SCH (08:24)
[2019-03-01] MEDS: predniSONE 20 MG TAB PO SCH (08:24)
[2019-03-01] MEDS: VERAPAMIL 40 MG TAB PO SCH ×3 (08:24→20:49)
[2019-03-01] MEDS: GLIMEPIRIDE 4 MG TAB PO SCH ×2 (08:24→20:49)
[2019-03-01] MEDS: FINASTERIDE 5 MG TAB PO SCH (08:25)
[2019-03-01] MEDS: EZETIMIBE 10 MG TAB PO SCH (08:25)
[2019-03-01] MEDS: REPAGLINIDE 1 MG TAB PO SCH ×3 (08:25→20:49)
[2019-03-01] MEDS: INSULIN DETEMIR (LEVEMIR) 100 UNIT/ML SYR SQ SCH (08:25)
--- NOTE | 2019-03-01 09:51 | XR ---
EXAMINATION TYPE: XR chest 2V DATE OF EXAM: 03/01/2019 COMPARISON: Prior chest x-ray 02/27/2019 HISTORY: Abnormal chest x-ray, difficulty breathing, follow-up TECHNIQUE: Frontal and lateral views of the chest are obtained. FINDINGS: There are overlying cardiac leads. The heart is enlarged. Basilar density obscures the rig ht hemidiaphragm, there is right costophrenic angle blunting. No evident pneumothorax. Interstitium i s increased. Prominent lung lines suggest underlying COPD. IMPRESSION: Correlate for possible pulmonary venous hypertension and interstitial edema, there may b e right basilar atelectasis versus pneumonia and associated effusion.
[2019-03-01 10:14] LABS: Anisocytosis Slight; Basophils % (A) 0 %; Eosinophils # (A) 0.1 k/uL (0-0.7); Eosinophils % (A) 1 %; HCT 41.2 % (39.0-53.0); HGB 12.1 gm/dL (13.0-17.5); Hypochromasia Marked; Lymphocytes % (A) 12 %; MCH 27.3 pg (25.0-35.0); MCHC 29.3 g/dL (31.0-37.0); MCV 92.9 fL (80.0-100.0); Mean Platelet Volume 7.5; Monocytes # (A) 0.5 k/uL (0-1.0); Monocytes % (A) 6 %; Neutrophils % (A) 80 %; Platelet Count 258 k/uL (150-450); RBC 4.43 m/uL (4.30-5.90); RDW 17.2 % (11.5-15.5); WBC 8.7 k/uL (3.8-10.6)
[2019-03-01 10:25] LABS: Calcium 8.8 mg/dL (8.4-10.2); Potassium 4.7 mmol/L (3.5-5.1)
[2019-03-01 11:32] LABS: Glucose,Whole Blood 160 mg/dL (75-99)
--- NOTE | 2019-03-01 11:35 | P.PN ---
Subjective This is a pleasant 73-year-old male past medical history significant for chronic persistent atrial fibrillation, severe COPD, chronic nicotine dependence, hypertension, chronic diastolic heart failure, dyslipidemia and diabetes mellitus. He is seen and examined sitting up in the chair in no acute distress. He states overall he is starting to feel somewhat better since admission. He states he has been up to the restroom frequently and is urinating quite a bit. Blood pressure 151/72 heart rate 68 afebrile maintaining oxygen saturation on nasal cannula. Laboratory data reviewed, WBC 8.7, hemoglobin 12.1, platelets 258, sodium 136, potassium 4.7, creatinine 0.99 with a GFR of 76. Currently maintained on atorvastatin 80 mg daily, that he had 10 mg daily, Lasix 40 mg IV 3 times a day, Imdur 30 mg daily, Lopressor 50 mg twice a day and verapamil 120 mg 3 times a day. Repeat chest x-ray this morning reveals evidence of pulmonary venous hypertension and interstitial edema with right basilar atelectasis and associated effusion. GENERAL: Well-appearing, well-nourished and in no acute distress. NECK: Supple without JVD or thyromegaly. LUNGS: Breath sounds clear to auscultation bilaterally. Respiration equal and unlabored. No wheezes, rales or rhonchi. Significantly diminished at the bases bilaterally. HEART: Irregular rate and rhythm with systolic ejection murmur at the base, no rubs or gallops. S1 and S2 heard. EXTREMITIES: Normal range of motion, 1+ bilateral lower extremity pitting edema. No clubbing or cyanosis. Peripheral pulses intact. ASSESSMENT Acute on chronic exacerbation of COPD Acute on chronic diastolic heart failure, mild Chronic persistent atrial fibrillation on long-term anticoagulation with C oumadin Supratherapeutic INR Hypertension Dyslipidemia Diabetes mellitus Former nicotine dependence PLAN Ongoing IV diuresis to improve lower extremity edema. Documented accurate intake and output along with daily weights. Follow kidney function and electrolytes daily. Nurse Practitioner note has been reviewed, I agree with a documented findings and plan of care. Patient was seen and examined. Objective - Vital Signs Vital signs: Vital Signs Temp 98.2 F 03/01/19 08:00 Pulse 68 03/01/19 08:00 Resp 20 03/01/19 08:00 BP 151/72 03/01/19 08:00 Pulse Ox 93 L 03/01/19 08:00 Intake & Output 02/28/19 03/01/19 03/01/19 18:59 06:59 18:59 Intake Total 450 Output Total 650 Balance -200 Weight 137.6 kg Intake: Oral 450 Output: Urine 650 Other: Voiding Method Urinal Urinal - Labs CBC & Chem 7: 03/01/19 09:35 03/01/19 09:35 Labs: Abnormal Lab Results - Last 24 Hours (Table) 02/28/19 02/28/19 02/28/19 Range/Units 08:51 11:28 16:34 Hgb (13.0-17.5) gm/dL MCHC (31.0-37.0) g/dL RDW (11.5-15.5) % Sodium (137-145) mmol/L Chloride (98-107) mmol/L Carbon Dioxide (22-30) mmol/L BUN (9-20) mg/dL Glucose (74-99) mg/dL POC Glucose (mg/dL) 199 H 261 H (75-99) mg/dL Hemoglobin A1c 10.4 H (4.0-6.0) % 02/28/19 03/01/19 03/01/19 Range/Units 19:30 09:35 09:35 Hgb 12.1 L (13.0-17.5) gm/dL MCHC 29.3 L (31.0-37.0) g/dL RDW 17.2 H (11.5-15.5) % Sodium 136 L (137-145) mmol/L Chloride 97 L (98-107) mmol/L Carbon Dioxide 32 H (22-30) mmol/L BUN 35 H (9-20) mg/dL Glucose 219 H (74-99) mg/dL POC Glucose (mg/dL) 388 H (75-99) mg/dL Hemoglobin A1c (4.0-6.0) %
[2019-03-01 11:47] LABS: INR 1.8 (<1.2); Prothrombin Time 17.5 sec (9.0-12.0)
[2019-03-01 13:05] LABS: ABG Base Excess 8.6 mmol/L; ABG HCO3 33 mmol/L (21-25); ABG Oxygen Saturation 88.9 % (94-97); ABG PCO2 54 mmHg (35-45); ABG TCO2 35 mmol/L (19-24); Allen Test Performed? Yes
[2019-03-01 13:12] LABS: ABG PO2 59 mmHg (83-108)
[2019-03-01] MEDS ORDERED: IPRATROPIUM-ALBUTEROL 3 ML NEB INHALATION PRN (14:36)
[2019-03-01] MEDS: IPRATROPIUM-ALBUTEROL 3 ML NEB INHALATION SCH ×3 (15:00→18:27)
--- NOTE | 2019-03-01 15:55 | P.PN ---
Subjective Progress Note Date: 03/01/19 This is a 73-year-old gentleman, history of atrial fibrillation, cardiac ablation, asthma, COPD, diabetes mellitus, CVA/TIA, DVT,PVD with chronic peripheral edema, hypertension, hyperlipidemia, history of nicotine abuse ,chronic respiratory failure, wears 3 L NC, and multiple other medical issues presented to the ER with worsening shortness of breath. Patient reports having trouble with incontinence and wasn't taking his Lasix. Denies chest pain, palpitations, positive cough. Denies fever or chills. Denies smoking. Denies lightheadedness dizziness or focal deficits. On admission maintaining O2 sats of 95% on 3 L nasal cannula, respiratory rate 24, pulse 86, systolic blood pressures in the high 90s. Afebrile, normal WBC. INR 3, mildly elevated potassium 5.2, creatinine 0.75. Blood sugars ranging from 59 to 325. Chest x- ray reporting CHF exacerbation, small bilateral pleural effusions, right greater than left. Received nebulized bronchodilator treatment, Lasix IVP. EKG reporting atrial fibrillation, right bundle branch block, T-wave abnormality of inferior leads. Troponin 0.025.BNP 1280. Cardiology consulted. 03/01/2019 diuresing well on Lasix IV push, decreasing edema, less shortness of breath. Reports nonproductive cough, maintaining O2 sats in the low 90s on room air-higher yesterday. Chest x-ray ordered. Telemetry A. fib with bundle branch block, heart rates up to 150 with activity. INR 1.8. Objective - Vital Signs Vital signs: Vital Signs Temp 98.0 F 03/01/19 03:49 Pulse 93 03/01/19 07:46 Resp 15 03/01/19 03:49 BP 118/70 03/01/19 03:49 Pulse Ox 98 03/01/19 03:49 Intake & Output 02/28/19 03/01/19 03/01/19 18:59 06:59 18:59 Intake Total 450 Output Total 650 Balance -200 Weight 137.6 kg Intake: Oral 450 Output: Urine 650 Other: Voiding Method Urinal - Exam VITAL SIGNS: As above GENERAL: Sitting up at side of bed, respiratory effort mildly increased HEENT: Conjunctivae normal. eyes normal. Oral mucosa moist. NECK: positive JVD. No thyroid enlargement. No LNs CARDIOVASCULAR: S1, S2 irregular, systolic murmur RESPIRATION: Breath sounds diminished in the bases. No rhonchi, positive crackles. No wheezing ABDOMEN: Soft, obese, nontender . No guarding. no masses palpable.Bowel sounds heard. LEGS: Improving edema. Lower extremity discoloration secondary to PAD. PSYCHIATRY: Alert and oriented X3, mood and affect normal. NERVOUS SYSTEM: Cranial N 2-12 grossly normal. Moves all 4 limbs. Diffuse weakness No focal deficits. Strength and sensation grossly intact.. Skin: no lesions, no rash - Labs CBC & Chem 7: 03/01/19 09:35 03/01/19 09:35 Labs: Abnormal Lab Results - Last 24 Hours (Table) 02/28/19 02/28/19 02/28/19 Range/Units 08:51 08:51 11:28 PT 32.3 H (9.0-12.0) sec INR 3.4 H (<1.2) POC Glucose (mg/dL) 199 H (75-99) mg/dL Hemoglobin A1c 10.4 H (4.0-6.0) % 02/28/19 02/28/19 Range/Units 16:34 19:30 PT (9.0-12.0) sec INR (<1.2) POC Glucose (mg/dL) 261 H 388 H (75-99) mg/dL Hemoglobin A1c (4.0-6.0) % Assessment and Plan Assessment: -Acute on chronic CHF exacerbation, diastolic dysfunction -Acute COPD exacerbation -Chronic hypoxic respiratory failure -Small Bilateral pleural effusions -Chronic persistent Atrial fibrillation , on Coumadin-subtherapeutic on admission. -History of nicotine dependence -Dyslipidemia -Diabetes mellitus type 2 -BPH -Obstructive sleep apnea, compliant with CPAP -Morbid obesity, BMI 46 -Mild hyperkalemia, resolved -Hypertension Plan: Continue on current medication regime ,monitoring and symptomatic treatment. Maintain nebulized bronchodilators, steroids. Continue diuresing with Lasix IV push. Close monitoring of renal function and electrolytes.Repeat labs ordered for a.m. Reinforced the necessity/rationale of Lasix. Educate on pullups with additional soak pads. Coumadin 5 mg tonight. Further recommendations to follow. The impression and plan of care has been dictated as directed. : I performed a history and examination of this patient, discussed the same with the dictator. I agree with the dictator's note ,documented as a scribe. Any additional findings or plans will be noted. Time taken 35 minutes.
[2019-03-01] MEDS: AZITHROMYCIN 500 MG TAB PO SCH (16:22)
[2019-03-01 16:41] LABS: Glucose,Whole Blood 329 mg/dL (75-99)
[2019-03-01] MEDS ORDERED: WARFARIN 5 MG TAB PO SCH (18:00)
[2019-03-01 20:05] LABS: Glucose,Whole Blood 414 mg/dL (75-99)
--- NOTE | 2019-03-01 20:16 | CONS ---
CONSULTATION Adam Meza is a 73-year-old male who presented to the ED at [facility] on February2018. He came in with increasing shortness of breath for about 1-2 weeks duration. He had no fever or chills. Had an occasional cough and subsequently was admitted for further evaluation and management. PAST MEDICAL HISTORY: Positive for atrial fibrillation, congestive heart failure, cor pulmonale. Obstructive sleep apnea for which he is on CPAP. Gastroesophageal reflux disease. Diabetes mellitus type 2. Cellulitis, left carotid endarterectomy, left leg surgery. He has a history of cardiac ablation. FAMILY HISTORY: Positive for his father having history of TB and had brain hemorrhage at age 55 and from that. His mother had a history of heart trouble and in her 70s. SOCIAL HISTORY: The patient has a history of smoking and quit a few years ago. MEDICATIONS: Prior to admission were ipratropium with albuterol, insulin, Avodart, Pulmicort, Lipitor, aspirin, Imdur, NovoLog, Isoptin, torsemide, metformin, Flomax, Lasix, Bowie, Amaryl, Ventolin HFA, Coumadin, Repaglinide, Tarceva, Flexitouch, Zetia and Lopressor. PHYSICAL EXAMINATION: Respiratory rate is 18, pulse rate is 76, temperature 97.5, blood pressure 112/70, O2 saturation on 3 L by nasal cannula is 94%. HEENT reveals pupils equal. Chest reveals decreased BS in the bases, prolonged expiration. No wheeze. Cardiovascular system reveals S1, S2. Abdomen is soft. There is 1+ to 2+ pedal edema. LABORATORY DATA: ABG showed a pH of 7.4, pCO2 of 54, PO2 of 59, bicarb of 33, O2 saturation of 88.9% on 32% FiO2. White count is 8.7, hemoglobin of 12.1, PT/INR 1.8. Sodium 136, potassium 4.7, chloride 97, bicarb 32. Chest x-ray, a shows pulmonary venous hypertension and interstitial edema with right basilar atelectasis and associated effusion. IMPRESSION: At this time: 1. Acute respiratory failure with hypoxemia and hypercarbia due to chronic obstructive pulmonary disease as well as congestive heart failure. 2. Cardiomyopathy with cor pulmonale is likely. 3. Obstructive sleep apnea, unclear whether the patient is appropriately and adequately treated. 4. Obesity. 5. Metabolic encephalopathy. At this point in time, would keep the patient on BiPAP while asleep and during the night. Control his blood sugars. Keep him on bronchodilators. Optimize his fluid status. His prognosis at this time is fair. IRON / JAVI: [id number] /
[2019-03-02] MEDS: FUROSEMIDE 10 MG/ML 4 ML VIAL IV SCH (06:09)
[2019-03-02 06:41] LABS: Glucose,Whole Blood 53 mg/dL (75-99)
[2019-03-02] MEDS: VERAPAMIL 40 MG TAB PO SCH (06:58)
[2019-03-02] MEDS: METOPROLOL TARTRATE 50 MG TAB PO SCH (06:58)
[2019-03-02 07:15] LABS: Glucose,Whole Blood 57 mg/dL (75-99)
[2019-03-02] MEDS ORDERED: INSULIN ASPART (NovoLOG) 100 UNIT/ML VIAL SQ SCH (07:30)
[2019-03-02] MEDS: BUDESONIDE 0.5 MG/2 ML NEBU INHALATION SCH (07:31)
[2019-03-02] MEDS: IPRATROPIUM-ALBUTEROL 3 ML NEB INHALATION SCH ×2 (07:31→11:42)
[2019-03-02] MEDS ORDERED: METOPROLOL TARTRATE 50 MG TAB PO ONE (07:40)
[2019-03-02 07:43] LABS: Glucose,Whole Blood 143 mg/dL (75-99)
[2019-03-02] MEDS: INSULIN DETEMIR (LEVEMIR) 100 UNIT/ML SYR SQ SCH (07:49)
[2019-03-02] MEDS: AZITHROMYCIN 500 MG TAB PO SCH (07:49)
[2019-03-02] MEDS: predniSONE 20 MG TAB PO SCH (07:50)
[2019-03-02] MEDS: INSULIN ASPART (NovoLOG) 100 UNIT/ML VIAL SQ SCH (07:50)
[2019-03-02] MEDS: ISOSORBIDE MONONITRATE ER 30 MG TAB.ER.24H PO SCH (07:50)
[2019-03-02] MEDS: TAMSULOSIN 0.4 MG CAP.ER.24H PO SCH (07:50)
[2019-03-02] MEDS: ATORVASTATIN 80 MG TAB PO SCH (07:50)
[2019-03-02] MEDS: metFORMIN 500 MG TAB PO SCH (07:50)
[2019-03-02] MEDS: EZETIMIBE 10 MG TAB PO SCH (07:51)
[2019-03-02] MEDS: FINASTERIDE 5 MG TAB PO SCH (07:51)
[2019-03-02] MEDS: REPAGLINIDE 1 MG TAB PO SCH (07:51)
[2019-03-02] MEDS: GLIMEPIRIDE 4 MG TAB PO SCH (07:51)
[2019-03-02 07:52] VITALS: RESP 18; TEMP 97.5
[2019-03-02 08:10] LABS: Anisocytosis Slight; Basophils % (A) 0 %; Eosinophils # (A) 0.1 k/uL (0-0.7); Eosinophils % (A) 1 %; HCT 42.5 % (39.0-53.0); HGB 12.9 gm/dL (13.0-17.5); Hypochromasia Marked; Lymphocytes # (A) 1.3 k/uL (1.0-4.8); Lymphocytes % (A) 12 %; MCH 27.4 pg (25.0-35.0); MCHC 30.2 g/dL (31.0-37.0); MCV 90.7 fL (80.0-100.0); Mean Platelet Volume 7.6; Monocytes # (A) 0.7 k/uL (0-1.0); Monocytes % (A) 6 %; Neutrophils # (A) 8.6 k/uL (1.3-7.7); Neutrophils % (A) 79 %; Platelet Count 274 k/uL (150-450); RBC 4.69 m/uL (4.30-5.90); RDW 16.9 % (11.5-15.5); WBC 10.8 k/uL (3.8-10.6)
[2019-03-02 08:17] LABS: INR 1.4 (<1.2); Prothrombin Time 13.8 sec (9.0-12.0)
[2019-03-02 08:41] LABS: African American GFR (CKD) >90 (>60 ml/min/1.73 sqM); Anion Gap 10 mmol/L; Blood Urea Nitrogen 34 mg/dL (9-20); Calcium 9.3 mg/dL (8.4-10.2); Carbon Dioxide 35 mmol/L (22-30); Chloride 94 mmol/L (98-107); Glucose 181 mg/dL (74-99); Potassium 4.6 mmol/L (3.5-5.1); Sodium 139 mmol/L (137-145)
[2019-03-02] MEDS ORDERED: PANTOPRAZOLE 40 MG TABLET PO SCH (09:15)
--- NOTE | 2019-03-02 09:42 | P.PN ---
Subjective This is a pleasant 73-year-old male past medical history significant for chronic persistent atrial fibrillation, severe COPD, chronic nicotine dependence, hypertension, chronic diastolic heart failure, dyslipidemia and diabetes mellitus. He is seen and examined sitting up in the chair in no acute distress receiving a breathing treatment. He states he has been up using the restroom and urinating a significant amount. His breathing has improved since admission. Ongoing lower extremity swelling with some mild improvement noted. Blood pressure 145/81 heart rate 90. He has been having some episodes of rapid ventricular response, seems to be related to breathing treatment. Laboratory data reviewed, WBC 10.8, hemoglobin 12.9, platelets 274, INR 1.4, sodium 139, potassium 4.6, creatinine 0.91. ABG revealed pCO2 54, pO2 59. Currently maintained on Lasix 40 mg IV 3 times a day. He has been seen in consultation by pulmonary services and they are recommending bipap at night, however he declined this last night. GENERAL: Well-appearing, well-nourished and in no acute distress. NECK: Supple without JVD or thyromegaly. LUNGS: Breath sounds clear to auscultation bilaterally. Respiration equal and unlabored. No wheezes, rales or rhonchi. Significantly diminished at the bases bilaterally. HEART: Irregular rate and rhythm with systolic ejection murmur at the base, no rubs or gallops. S1 and S2 heard. EXTREMITIES: Normal range of motion, 1+ bilateral lower extremity pitting edema with mild improvement from yesterday. No clubbing or cyanosis. Peripheral pulses intact. ASSESSMENT Acute on chronic exacerbation of COPD Acute on chronic diastolic heart failure, mild Chronic persistent atrial fibrillation on long-term anticoagulation with Coumadin Chronic lower extremity edema Supratherapeutic INR Hypertension Dyslipidemia Diabetes mellitus Former nicotine dependence PLAN Transition to oral diuretics. Follow up with Dr. Maxwell in 2 weeks, appointment has been made in the office. We will follow as needed. Nurse Practitioner note has been reviewed, I agree with a documented findings and plan of care. Patient was seen and examined. Objective - Vital Signs Vital signs: Vital Signs Temp 97.5 F L 03/02/19 07:00 Pulse 90 03/02/19 07:48 Resp 18 03/02/19 07:00 BP 145/81 03/02/19 07:00 Pulse Ox 95 03/02/19 07:00 Intake & Output 03/01/19 03/02/19 03/02/19 18:59 06:59 18:59 Intake Total 800 236 Output Total 1000 300 Balance -200 -64 Intake: Oral 800 236 Output: Urine 1000 300 Other: Voiding Method Urinal Urinal - Labs CBC & Chem 7: 03/02/19 07:43 03/02/19 07:43 Labs: Abnormal Lab Results - Last 24 Hours (Table) 03/01/19 03/01/19 03/01/19 Range/Units 09:35 09:35 09:35 WBC (3.8-10.6) k/uL Hgb 12.1 L (13.0-17.5) gm/dL MCHC 29.3 L (31.0-37.0) g/dL RDW 17.2 H (11.5-15.5) % Neutrophils # (1.3-7.7) k/uL PT 17.5 H (9.0-12.0) sec INR 1.8 H (<1.2) ABG pCO2 (35-45) mmHg ABG pO2 (83-108) mmHg ABG HCO3 (21-25) mmol/L ABG Total CO2 (19-24) mmol/L ABG O2 Saturation (94-97) % Sodium 136 L (137-145) mmol/L Chloride 97 L (98-107) mmol/L Carbon Dioxide 32 H (22-30) mmol/L BUN 35 H (9-20) mg/dL Glucose 219 H (74-99) mg/dL POC Glucose (mg/dL) (75-99) mg/dL 03/01/19 03/01/19 03/01/19 Range/Units 11:30 12:45 16:34 WBC (3.8-10.6) k/uL Hgb (13.0-17.5) gm/dL MCHC (31.0-37.0) g/dL RDW (11.5-15.5) % Neutrophils # (1.3-7.7) k/uL PT (9.0-12.0) sec INR (<1.2) ABG pCO2 54 H (35-45) mmHg ABG pO2 59 L* (83-108) mmHg ABG HCO3 33 H (21-25) mmol/L ABG Total CO2 35 H (19-24) mmol/L ABG O2 Saturation 88.9 L (94-97) % Sodium (137-145) mmol/L Chloride (98-107) mmol/L Carbon Dioxide (22-30) mmol/L BUN (9-20) mg/dL Glucose (74-99) mg/dL POC Glucose (mg/dL) 160 H 329 H (75-99) mg/dL 03/01/19 03/02/19 03/02/19 Range/Units 20:03 06:38 06:55 WBC (3.8-10.6) k/uL Hgb (13.0-17.5) gm/dL MCHC (31.0-37.0) g/dL RDW (11.5-15.5) % Neutrophils # (1.3-7.7) k/uL PT (9.0-12.0) sec INR (<1.2) ABG pCO2 (35-45) mmHg ABG pO2 (83-108) mmHg ABG HCO3 (21-25) mmol/L ABG Total CO2 (19-24) mmol/L ABG O2 Saturation (94-97) % Sodium (137-145) mmol/L Chloride (98-107) mmol/L Carbon Dioxide (22-30) mmol/L BUN (9-20) mg/dL Glucose (74-99) mg/dL POC Glucose (mg/dL) 414 H 53 L 57 L (75-99) mg/dL 03/02/19 03/02/19 03/02/19 Range/Units 07:30 07:43 07:43 WBC 10.8 H (3.8-10.6) k/uL Hgb 12.9 L (13.0-17.5) gm/dL MCHC 30.2 L (31.0-37.0) g/dL RDW 16.9 H (11.5-15.5) % Neutrophils # 8.6 H (1.3-7.7) k/uL PT 13.8 H (9.0-12.0) sec INR 1.4 H (<1.2) ABG pCO2 (35-45) mmHg ABG pO2 (83-108) mmHg ABG HCO3 (21-25) mmol/L ABG Total CO2 (19-24) mmol/L ABG O2 Saturation (94-97) % Sodium (137-145) mmol/L Chloride (98-107) mmol/L Carbon Dioxide (22-30) mmol/L BUN (9-20) mg/dL Glucose (74-99) mg/dL POC Glucose (mg/dL) 143 H (75-99) mg/dL 03/02/19 Range/Units 07:43 WBC (3.8-10.6) k/uL Hgb (13.0-17.5) gm/dL MCHC (31.0-37.0) g/dL RDW (11.5-15.5) % Neutrophils # (1.3-7.7) k/uL PT (9.0-12.0) sec INR (<1.2) ABG pCO2 (35-45) mmHg ABG pO2 (83-108) mmHg ABG HCO3 (21-25) mmol/L ABG Total CO2 (19-24) mmol/L ABG O2 Saturation (94-97) % Sodium (137-145) mmol/L Chloride 94 L (98-107) mmol/L Carbon Dioxide 35 H (22-30) mmol/L BUN 34 H (9-20) mg/dL Glucose 181 H (74-99) mg/dL POC Glucose (mg/dL) (75-99) mg/dL
--- NOTE | 2019-03-02 10:29 | PN ---
PROGRESS NOTE DATE OF SERVICE: 03/02/2019 The patient is a 73-year-old male who is seen sitting up at the bedside, awake and alert. He is complaining of heartburn this morning. Otherwise patient is denying worsening shortness of breath or any other complaints. The patient is afebrile, intermittently tachycardic at times, in no acute distress. PHYSICAL EXAMINATION: VITAL SIGNS: Temperature 97.5, heart rate ranging 90 to 138, respiratory rate is 18, blood pressure is 145/81, O2 saturation 95% on 3 L O2 via nasal cannula. HEENT: Head is normocephalic, atraumatic. Neck is supple. Trachea is midline. LUNGS: With decreased breath sounds with faint expiratory wheeze. HEART: S1, S2 are heard, irregular, intermittently tachycardic. ABDOMEN: Soft. Bowel sounds are heard. EXTREMITIES: With 2+ edema bilaterally. NEUROLOGIC: Patient is awake and alert. LABS: White count 10.8, hemoglobin 12.9, hematocrit 42.5 and 274,000 platelets. PT is 13.8, INR is 1.4. Sodium is 139, potassium is 4.6, chloride 94, CO2 is 35, anion gap is 10, BUN is 34, creatinine 0.91. Glucose is 181. Calcium is 9.3. No new imaging to review. IMPRESSION: 1. Acute respiratory failure with hypoxemia and hypercarbia due to acute exacerbation of chronic obstructive pulmonary disease and congestive heart failure. 2. Cardiomyopathy with cor pulmonale is likely. 3. Obstructive sleep apnea. The patient states CPAP machine is 8 to 10 years old and he is not sure that it even works correctly. 4. Obesity. 5. Metabolic encephalopathy, which is resolving. PLAN: Continue current medications, which have been reviewed. Continue the BiPAP while asleep and during naps. Will follow patient closely with you making further changes as necessary. Patient was counseled on the need to follow up on an outpatient basis for further evaluation of the obstructive sleep apnea and possibly obtain a new CPAP machine. MMODL / IJN: [id number] /
[2019-03-02 11:30] VITALS: BP 116/72
--- NOTE | 2019-03-02 11:52 | P.DS ---
Providers Date of admission: 03/01/19 15:20 Attending physician: Freddy Viveros Consults: 02/27/19 13:48 Consult Physician Routine Consulting Provider: Estiven Maxwell Consult Reason/Comments: chf Do you want consulting provider notified?: Yes 02/28/19 16:44 Consult Physician Routine Consulting Provider: Cheri Yeung Consult Reason/Comments: copd Do you want consulting provider notified?: Yes Primary care physician: Freddy Viveros Patient Condition at Discharge: Fair Plan - Discharge Summary Discharge Rx Participant: No New Discharge Prescriptions: No Action Glimepiride [Amaryl] 4 mg PO BID Ezetimibe [Zetia] 10 mg PO DAILY Warfarin [Coumadin] 7.5 mg PO DAILY Metoprolol Tartrate [Lopressor] 50 mg PO BID Aspirin [Adult Low Dose Aspirin EC] 81 mg PO DAILY Insulin Degludec [Tresiba Flextouch U-200] 60 units SQ DAILY Tamsulosin [Flomax] 0.4 mg PO DAILY Albuterol Inhaler [Ventolin Hfa Inhaler] 1 - 2 puff INHALATION RT-Q6H PRN PRN Reason: Shortness Of Breath metFORMIN HCL 1,000 mg PO BID HYDROcodone/APAP 7.5-325MG [[place] 7.5-325] 1 tab PO BID PRN PRN Reason: Pain Dutasteride [Avodart] 0.5 mg PO DAILY Atorvastatin [Lipitor] 80 mg PO DAILY INSULIN ASPART (NovoLOG) [NovoLOG (formulary)] 10 unit SQ ACHS vial INSULIN ASPART (NovoLOG) [NovoLOG (formulary)] See Protocol SQ ACHS Ipratropium-Albuterol Nebulize [Duoneb 0.5 mg-3 mg/3 ml Soln] 3 ml INHALATION RT-QID 30 Days #120 ampul.neb Isosorbide Mononitrate ER [Imdur] 30 mg PO DAILY 30 Days #30 tab.er.24h Verapamil [Isoptin] 120 mg PO TID 30 Days #90 tab Budesonide [Pulmicort] 0.5 mg INHALATION RT-BID 30 Days #60 nebu Torsemide 10 mg PO DAILY 30 Days #30 tablet Furosemide [Lasix] 20 mg PO DAILY Repaglinide 0.5 mg PO TID Discharge Medication List Ezetimibe [Zetia] 10 mg PO DAILY 01/22/14 [History] Glimepiride [Amaryl] 4 mg PO BID 01/22/14 [History] Warfarin [Coumadin] 7.5 mg PO DAILY 10/24/18 [History] Aspirin [Adult Low Dose Aspirin EC] 81 mg PO DAILY 11/29/18 [History] Insulin Degludec [Tresiba Flextouch U-200] 60 units SQ DAILY 11/29/18 [History] Metoprolol Tartrate [Lopressor] 50 mg PO BID 11/29/18 [History] Albuterol Inhaler [Ventolin Hfa Inhaler] 1 - 2 puff INHALATION RT-Q6H PRN 12/15/18 [History] Atorvastatin [Lipitor] 80 mg PO DAILY 12/15/18 [History] Dutasteride [Avodart] 0.5 mg PO DAILY 12/15/18 [History] HYDROcodone/APAP 7.5-325MG [[place] 7.5-325] 1 tab PO BID PRN 12/15/18 [History] Tamsulosin [Flomax] 0.4 mg PO DAILY 12/15/18 [History] metFORMIN HCL 1,000 mg PO BID 12/15/18 [History] INSULIN ASPART (NovoLOG) [NovoLOG (formulary)] 10 unit SQ ACHS vial 12/19/18 [Rx] INSULIN ASPART (NovoLOG) [NovoLOG (formulary)] See Protocol SQ ACHS 02/07/19 [H istory] Budesonide [Pulmicort] 0.5 mg INHALATION RT-BID 30 Days #60 nebu 02/10/19 [Rx] Ipratropium-Albuterol Nebulize [Duoneb 0.5 mg-3 mg/3 ml Soln] 3 ml INHALATION RT-QID 30 Days #120 ampul.neb 02/10/19 [Rx] Isosorbide Mononitrate ER [Imdur] 30 mg PO DAILY 30 Days #30 tab.er.24h 02/10/19 [Rx] Torsemide 10 mg PO DAILY 30 Days #30 tablet 02/10/19 [Rx] Verapamil [Isoptin] 120 mg PO TID 30 Days #90 tab 02/10/19 [Rx] Furosemide [Lasix] 20 mg PO DAILY 02/27/19 [History] Repaglinide 0.5 mg PO TID 02/27/19 [History] Follow up Appointment(s)/Referral(s): Estiven Maxwell MD [STAFF PHYSICIAN] - 03/14/19 9:30 am Freddy Viveros MD [Primary Care Provider] - 3 Days Activity/Diet/Wound Care/Special Instructions: Confirm cardiology follow-up appointment prior to discharge. Outpatient diabetic/nutrition educational classes at Dr. Viveros's office Diet: Consistent carb Activity: Limited till follow-up
[2019-03-02 11:55] VITALS: PULSE 92
[2019-03-02] MEDS ORDERED: FUROSEMIDE 20 MG TAB PO SCH (16:00)
== END 2019-03-02 12:30 | disposition home health service (06) | DRG 291 ==
LOC: EC 12:56 → 1SOBS 13:48 → OBSVTOIN 03-01 15:20
PROVIDERS: ADMIT Family Medicine; ATTEND Family Medicine
PROC: 5A09357 Assistance with Respiratory Ventilation, Less than 24 Consecutive Hours, Continuous Positive Airway Pressure (ICD-10-PCS; principal; 2019-03-01)
DX: I11.0 Hypertensive heart disease with heart failure (principal); J96.21 Acute and chronic respiratory failure with hypoxia; J96.22 Acute and chronic respiratory failure with hypercapnia; G93.41 Metabolic encephalopathy; J44.1 Chronic obstructive pulmonary disease with (acute) exacerbation; I48.1 Persistent atrial fibrillation; Z68.42 Body mass index [BMI] 45.0-49.9, adult; J98.11 Atelectasis; I50.33 Acute on chronic diastolic (congestive) heart failure; I42.9 Cardiomyopathy, unspecified; E66.01 Morbid (severe) obesity due to excess calories; E11.51 Type 2 diabetes mellitus with diabetic peripheral angiopathy without gangrene; E87.5 Hyperkalemia; I27.81 Cor pulmonale (chronic); I45.10 Unspecified right bundle-branch block; D75.0 Familial erythrocytosis; G47.33 Obstructive sleep apnea (adult) (pediatric); E78.5 Hyperlipidemia, unspecified; K21.9 Gastro-esophageal reflux disease without esophagitis; N40.1 Benign prostatic hyperplasia with lower urinary tract symptoms; N39.498 Other specified urinary incontinence; G89.29 Other chronic pain; M54.9 Dorsalgia, unspecified; H40.9 Unspecified glaucoma; R91.1 Solitary pulmonary nodule; Z99.81 Dependence on supplemental oxygen; Z79.4 Long term (current) use of insulin; Z79.82 Long term (current) use of aspirin; Z79.01 Long term (current) use of anticoagulants; Z79.51 Long term (current) use of inhaled steroids; Z79.899 Other long term (current) drug therapy; Z71.3 Dietary counseling and surveillance; Z87.891 Personal history of nicotine dependence; Z86.73 Personal history of transient ischemic attack (TIA), and cerebral infarction without residual deficits; Z99.89 Dependence on other enabling machines and devices; Z86.718 Personal history of other venous thrombosis and embolism; Z86.79 Personal history of other diseases of the circulatory system; Z87.01 Personal history of pneumonia (recurrent); Z88.5 Allergy status to narcotic agent; Z82.49 Family history of ischemic heart disease and other diseases of the circulatory system
CPT/HCPCS: 36415; 36600; 71046; 80048; 80053; 82550; 82805; 83036; 83735; 83880; 84484; 85025; 85379; 85610; 85730; 93005; 94640; 94760; 96374; 99285

== ENCOUNTER 2019-03-21 11:34 | Emergency (ER) | payer MEDICARE, OTHER ==
[2019-03-21 11:51] VITALS: RESP 20; TEMP 98.2
[2019-03-21] MEDS ORDERED: methylPREDNISolone SOD SUCCI 125 MG/2 ML VIAL IV STA (12:14)
[2019-03-21] MEDS ORDERED: IPRATROPIUM-ALBUTEROL 3 ML NEB INHALATION STA (12:14)
--- NOTE | 2019-03-21 12:17 | ED ---
Fall HPI - General Chief Complaint: Fall Stated Complaint: Syncope Time Seen by Provider: 03/21/19 11:35 Source: patient, RN notes reviewed, old records reviewed Mode of arrival: wheelchair - History of Present Illness Initial Comments: This is a 73-year-old male the ER for evaluation. Patient does say for evaluation regards to weakness. Near syncopal event. Patient states chest pain headache or shortness of breath. No history of similar. Patient did have a hypoglycemic episode yesterday and did drink or use which did help. Patient symptoms are currently improved. And is without complaint. He does mildly complain of shortness of breath MD Complaint: fall, other (weakness, hypoglycemia) -: minutes(s) Fall From: chair When Fall Occurred: unsure Fall Witnessed: no Place Fall Occurred: home Loss of Consciousness: none Prolonged Down Time?: no Symptoms Prior to Fall: none Severity: mild Associated Symptoms: denies - Related Data Home Medications Medication Instructions Recorded Confirmed Ezetimibe [Zetia] 10 mg PO DAILY 01/22/14 03/21/19 Glimepiride [Amaryl] 4 mg PO BID 01/22/14 03/21/19 Warfarin [Coumadin] 7.5 mg PO DAILY 10/24/18 03/21/19 Aspirin [Adult Low Dose Aspirin EC] 81 mg PO DAILY 11/29/18 03/21/19 Insulin Degludec [Tresiba 60 units SQ DAILY 11/29/18 03/21/19 Flextouch U-200] Metoprolol Tartrate [Lopressor] 50 mg PO BID 11/29/18 03/21/19 Albuterol Inhaler [Ventolin Hfa 1 - 2 puff INHALATION RT-Q6H PRN 12/15/18 Inhaler] Atorvastatin [Lipitor] 80 mg PO DAILY 12/15/18 03/21/19 Dutasteride [Avodart] 0.5 mg PO DAILY 12/15/18 03/21/19 HYDROcodone/APAP 7.5-325MG [[place] 1 tab PO BID PRN 12/15/18 03/21/19 7.5-325] Tamsulosin [Flomax] 0.4 mg PO DAILY 12/15/18 03/21/19 metFORMIN HCL 1,000 mg PO BID 12/15/18 03/21/19 INSULIN ASPART (NovoLOG) [NovoLOG See Protocol SQ ACHS 02/07/19 03/21/19 (formulary)] Repaglinide 0.5 mg PO TID 02/27/19 03/21/19 Previous Rx's Medication Instructions Recorded INSULIN ASPART (NovoLOG) [NovoLOG 10 unit SQ ACHS vial 12/19/18 (formulary)] Budesonide [Pulmicort] 0.5 mg INHALATION RT-BID 30 Days 02/10/19 #60 nebu Ipratropium-Albuterol Nebulize 3 ml INHALATION RT-QID 30 Days 02/10/19 [Duoneb 0.5 mg-3 mg/3 ml Soln] #120 ampul.neb Isosorbide Mononitrate ER [Imdur] 30 mg PO DAILY 30 Days #30 02/10/19 tab.er.24h Verapamil [Isoptin] 120 mg PO TID 30 Days #90 tab 02/10/19 Furosemide [Lasix] 60 mg PO BID@0900,1600 #180 tab 03/02/19 Omeprazole [PriLOSEC] 20 mg PO AC-BID #60 cap 03/02/19 Albuterol Nebulized (Conc) 2.5 mg INHALATION Q4HR #25 neb 03/21/19 [Ventolin Nebulized (Conc)] Amoxic-Pot Clav 875-125Mg 1 tab PO Q12HR #20 tablet 03/21/19 [Augmentin 875-125] Levofloxacin [Levaquin] 750 mg PO DAILY #7 tab 03/21/19 predniSONE 50 mg PO DAILY #5 tab 03/21/19 Allergies Allergy/AdvReac Type Severity Reaction Status Date / Time morphine Allergy Rash/Hives Verified 03/21/19 12:10 Review of Systems ROS Statement: Those systems with pertinent positive or pertinent negative responses have been documented in the HPI. ROS Other: All systems not noted in ROS Statement are negative. Past Medical History Past Medical History: Atrial Fibrillation, Asthma, Blood Disorder, COPD, CVA/TIA, Diabetes Mellitus, Deep Vein Thrombosis (DVT), Eye Disorder, GERD/Reflux, Hyperlipidemia, Respiratory Disorder, Sleep Apnea/CPAP/BIPAP, Vascular Disorder Additional Past Medical History / Comment(s): Pt recently admitted to [facility] on 02/05/19 with r lower lobe pneumonia, R pleural effusion, L lung nodule, uncontrolled diabetes, severe COPD acute exacerbation, hyponatremia, Afib with RVR. Other Hx: Chronic hypoxic respiratory failure with home oxygen at 3L/NC ATC, ANUP with Cpap use, IDDM type II, TIA, familial erythrocytosis, PVD, DVT L leg, bilateral lower leg cellulitis, chronic back pain, glaucoma bilaterally, bilateral retinal bleeds with surgery. History of Any Multi-Drug Resistant Organisms: None Reported Past Surgical History: Cardiac Ablation, EPS, Heart Catheterization Additional Past Surgical History / Comment(s): L femoral bypass, L caratid endartectomy, EP study with aflutter ablation, colonoscopy, bilateral eye laser surgery for retinal bleeds. Past Anesthesia/Blood Transfusion Reactions: No Reported Reaction Additional Past Anesthesia/Blood Transfusion Reaction / Comment(s): Pt states he has received blood in past without reaction. Smoking Status: Former smoker - Past Family History Father Additional Family Medical History / Comment(s): DAD AGE 55 OF BRAIN HEMORRAGE. HAD HX TB. Mother Additional Family Medical History / Comment(s): HEART TROUBLE IN HER 70'S General Exam Limitations: physical limitation General appearance: alert, in no apparent distress Head exam: Present: atraumatic, normocephalic, normal inspection Eye exam: Present: normal appearance, PERRL, EOMI. Absent: scleral icterus, conjunctival injection, periorbital swelling ENT exam: Present: normal exam, mucous membranes moist Neck exam: Present: normal inspection. Absent: tenderness, meningismus, lymphadenopathy Respiratory exam: Present: normal lung sounds bilaterally. Absent: respiratory distress, wheezes, rales, rhonchi, stridor Cardiovascular Exam: Present: regular rate, normal rhythm, normal heart sounds. Absent: systolic murmur, diastolic murmur, rubs, gallop, clicks GI/Abdominal exam: Present: soft, normal bowel sounds. Absent: distended, tenderness, guarding, rebound, rigid Extremities exam: Present: normal inspection, full ROM, normal capillary refill. Absent: tenderness, pedal edema, joint swelling, calf tenderness Back exam: Present: normal inspection Neurological exam: Present: alert, oriented X3, CN II-XII intact Psychiatric exam: Present: normal affect, normal mood Skin exam: Present: warm, dry, intact, normal color. Absent: rash Course Vital Signs 03/21/19 03/21/19 03/21/19 11:38 12:31 12:50 Temperature 98.2 F Pulse Rate 71 66 70 Respiratory 20 Rate Blood Pressure 145/120 O2 Sat by Pulse 95 Oximetry - Reevaluation(s) Reevaluation #1: 03/21/19 12:17 Medical records reviewed Reevaluation #2: 03/21/19 14:45 feeling better sitting up in chair asking for food Medical Decision Making - Medical Decision Making 73 male the ER for evaluation. Patient presents today for evaluation regarding weakness near syncopal event shortness of breath. Patient hyperesthetic episode yesterday, patient was eating and drinking appropriately found of pneumonia today will discharge on appropriate antibiotics - Lab Data Result diagrams: 03/21/19 11:35 03/21/19 11:35 Lab Results 03/21/19 03/21/19 03/21/19 Range/Units 11:35 11:35 11:35 WBC 9.9 (3.8-10.6) k/uL RBC 4.30 (4.30-5.90) m/uL Hgb 11.8 L (13.0-17.5) gm/dL Hct 40.1 (39.0-53.0) % MCV 93.4 (80.0-100.0) fL MCH 27.4 (25.0-35.0) pg MCHC 29.3 L (31.0-37.0) g/dL RDW 16.9 H (11.5-15.5) % Plt Count 242 (150-450) k/uL Neutrophils % 76 % Lymphocytes % 13 % Monocytes % 8 % Eosinophils % 1 % Basophils % 0 % Neutrophils # 7.6 (1.3-7.7) k/uL Lymphocytes # 1.3 (1.0-4.8) k/uL Monocytes # 0.8 (0-1.0) k/uL Eosinophils # 0.1 (0-0.7) k/uL Basophils # 0.0 (0-0.2) k/uL Hypochromasia Marked Anisocytosis Slight PT (9.0-12.0) sec INR (<1.2) APTT (22.0-30.0) sec Sodium 135 L (137-145) mmol/L Potassium 5.3 H (3.5-5.1) mmol/L Chloride 99 (98-107) mmol/L Carbon Dioxide 26 (22-30) mmol/L Anion Gap 10 mmol/L BUN 24 H (9-20) mg/dL Creatinine 1.11 (0.66-1.25) mg/dL Est GFR (CKD-EPI)AfAm 77 (>60 ml/min/1.73 sqM) Est GFR (CKD-EPI)NonAf 67 (>60 ml/min/1.73 sqM) Glucose 244 H (74-99) mg/dL Calcium 8.8 (8.4-10.2) mg/dL Phosphorus 4.3 (2.5-4.5) mg/dL Magnesium 1.9 (1.6-2.3) mg/dL Total Bilirubin 0.4 (0.2-1.3) mg/dL AST 30 (17-59) U/L ALT 38 (21-72) U/L Alkaline Phosphatase 71 (38-126) U/L Creatine Kinase 41 L (55-170) U/L Troponin I (0.000-0.034) ng/mL NT-Pro-B Natriuret Pep 395 pg/mL Total Protein 6.1 L (6.3-8.2) g/dL Albumin 3.3 L (3.5-5.0) g/dL TSH 5.010 H (0.465-4.680) mIU/L 03/21/19 03/21/19 Range/Units 11:35 11:35 WBC (3.8-10.6) k/uL RBC (4.30-5.90) m/uL Hgb (13.0-17.5) gm/dL Hct (39.0-53.0) % MCV (80.0-100.0) fL MCH (25.0-35.0) pg MCHC (31.0-37.0) g/dL RDW (11.5-15.5) % Plt Count (150-450) k/uL Neutrophils % % Lymphocytes % % Monocytes % % Eosinophils % % Basophils % % Neutrophils # (1.3-7.7) k/uL Lymphocytes # (1.0-4.8) k/uL Monocytes # (0-1.0) k/uL Eosinophils # (0-0.7) k/uL Basophils # (0-0.2) k/uL Hypochromasia Anisocytosis PT 32.3 H (9.0-12.0) sec INR 3.4 H (<1.2) APTT 36.6 H (22.0-30.0) sec Sodium (137-145) mmol/L Potassium (3.5-5.1) mmol/L Chloride (98-107) mmol/L Carbon Dioxide (22-30) mmol/L Anion Gap mmol/L BUN (9-20) mg/dL Creatinine (0.66-1.25) mg/dL Est GFR (CKD-EPI)AfAm (>60 ml/min/1.73 sqM) Est GFR (CKD-EPI)NonAf (>60 ml/min/1.73 sqM) Glucose (74-99) mg/dL Calcium (8.4-10.2) mg/dL Phosphorus (2.5-4.5) mg/dL Magnesium (1.6-2.3) mg/dL Total Bilirubin (0.2-1.3) mg/dL AST (17-59) U/L ALT (21-72) U/L Alkaline Phosphatase (38-126) U/L Creatine Kinase (55-170) U/L Troponin I <0.012 (0.000-0.034) ng/mL NT-Pro-B Natriuret Pep pg/mL Total Protein (6.3-8.2) g/dL Albumin (3.5-5.0) g/dL TSH (0.465-4.680) mIU/L - EKG Data -: EKG Interpreted by Me (EKG shows A. fib rate of 71, QRS 90, QTc 430) - Radiology Data Radiology results: report reviewed (Chest x-rays positive for pneumonia), image reviewed Disposition Clinical Impression: Fall, Pre-syncope, Morbid obesity, Acute exacerbation of chronic obstructive airways disease, Community acquired pneumonia Disposition: HOME SELF-CARE Condition: Good Instructions (If sedation given, give patient instructions): Community Acquired Pneumonia (ED) Prescriptions: Amoxic-Pot Clav 875-125Mg [Augmentin 875-125] 1 tab PO Q12HR #20 tablet Levofloxacin [Levaquin] 750 mg PO DAILY #7 tab predniSONE 50 mg PO DAILY #5 tab Albuterol Nebulized (Conc) [Ventolin Nebulized (Conc)] 2.5 mg INHALATION Q4HR #25 neb Is patient prescribed a controlled substance at d/c from ED?: No Referrals: Freddy Viveros MD [Primary Care Provider] - 1-2 days
[2019-03-21 12:25] LABS: Anisocytosis Slight; Basophils % (A) 0 %; Eosinophils # (A) 0.1 k/uL (0-0.7); Eosinophils % (A) 1 %; HCT 40.1 % (39.0-53.0); HGB 11.8 gm/dL (13.0-17.5); Hypochromasia Marked; Lymphocytes # (A) 1.3 k/uL (1.0-4.8); Lymphocytes % (A) 13 %; MCH 27.4 pg (25.0-35.0); MCHC 29.3 g/dL (31.0-37.0); MCV 93.4 fL (80.0-100.0); Mean Platelet Volume 7.3; Monocytes # (A) 0.8 k/uL (0-1.0); Monocytes % (A) 8 %; Neutrophils # (A) 7.6 k/uL (1.3-7.7); Neutrophils % (A) 76 %; Platelet Count 242 k/uL (150-450); RDW 16.9 % (11.5-15.5); WBC 9.9 k/uL (3.8-10.6)
[2019-03-21 12:36] LABS: Albumin 3.3 g/dL (3.5-5.0); Calcium 8.8 mg/dL (8.4-10.2); Magnesium 1.9 mg/dL (1.6-2.3); Phosphorus 4.3 mg/dL (2.5-4.5); Potassium 5.3 mmol/L (3.5-5.1); Total Bilirubin 0.4 mg/dL (0.2-1.3); Total Protein 6.1 g/dL (6.3-8.2)
[2019-03-21 12:40] LABS: INR 3.4 (<1.2); Partial Thromboplastin Time 36.6 sec (22.0-30.0); Prothrombin Time 32.3 sec (9.0-12.0)
--- NOTE | 2019-03-21 13:26 | XR ---
EXAMINATION TYPE: XR chest 2V DATE OF EXAM: 03/21/2019 COMPARISON: 03/01/2019 TECHNIQUE: PA and lateral views submitted. HISTORY: Weakness FINDINGS: Bilateral lower lobe consolidation and small effusion. No pneumothorax. Heart is enlarged and there i s interstitial prominence. Underlying COPD noted. IMPRESSION: 1. COPD, cardiomegaly and bilateral consolidation with small effusion correlate for pneumonia.
--- NOTE | 2019-03-21 13:35 | CT ---
EXAMINATION TYPE: CT brain lam wo con DATE OF EXAM: 03/21/2019 COMPARISON: 09/28/2018 HISTORY: 73-year-old male with syncope and fall CT DLP: 1510.9 mGycm Automated exposure control for dose reduction was used. Technique: Examination of the head was done in axial plane without intravenous contrast. Coronal and sagittal reconstructions performed. CT of the cervical spine was obtained in axial plane without intravenous injection of contrast mater ial. Coronal and sagittal reformatted images were obtained from the axial views for evaluation of f ractures, spinal alignment and canal. FINDINGS: Head: There is no evidence of acute intracranial hemorrhage, acute ischemic changes, mass, mass-effect, or extra-axial fluid collection. There is no effacement of cerebral sulci or basal subarachnoid cister ns. There is no hydrocephalus. There is no midline shift. Castellon-white matter distinction is preserv ed. Redemonstrated focal encephalomalacia left frontal lobe extending posteriorly into the frontoparietal junction. Mild generalized supratentorial volume loss along with central cerebral atrophy. Partially empty sella. Moderate to severe mucosal thickening redemonstrated within the maxillary sinuses and mild mucosal th ickening scattered in the ethmoid air cells. Mastoid air cells appear pneumatized. Cerumen left exter nal auditory canal. Cervical spine: No craniocervical junction abnormality, predental space widening, or prevertebral soft tissue swellin g. Moderate to advanced disc/endplate degenerative change mid to lower cervical spine. Hypertrophic facet and uncovertebral joint arthropathy throughout. Grade 1 anterolisthesis at C3-C4 and C4-C5, unchanged from prior. Assessment of the spinal canal from C3-C4 and below is limited due to artifact from the patient's francesco ulders. No acute fracture of the cervical spine. Sagittal and coronal reformatted images confirm above findings. COMBINED IMPRESSION: 1. Stable mild generalized atrophy and old encephalomalacia/infarct left frontal lobe. No acute intra cranial abnormality seen. 2. No acute fracture of the cervical spine. Moderate to advanced spondylotic change mid to lower cerv ical spine with stable grade 1 anterolisthesis C3-C4 and C4-C5. 3. Continued moderate to severe chronic maxillary sinus disease.
[2019-03-21] MEDS ORDERED: AMOXIC-POT CLAV 875-125MG 1 EACH TAB PO STA (14:43)
[2019-03-21] MEDS ORDERED: LEVOFLOXACIN 750 MG TAB PO STA (14:43)
[2019-03-21 15:07] VITALS: BP 124/66; PULSE 72
== END 2019-03-21 15:32 | disposition home or self-care (01) ==
LOC: EC 11:34
DX: J44.1 Chronic obstructive pulmonary disease with (acute) exacerbation (principal); J44.0 Chronic obstructive pulmonary disease with (acute) lower respiratory infection; J18.9 Pneumonia, unspecified organism; E66.01 Morbid (severe) obesity due to excess calories; Z68.33 Body mass index [BMI] 33.0-33.9, adult; I48.91 Unspecified atrial fibrillation; E11.51 Type 2 diabetes mellitus with diabetic peripheral angiopathy without gangrene; E78.5 Hyperlipidemia, unspecified; G47.33 Obstructive sleep apnea (adult) (pediatric); Z79.01 Long term (current) use of anticoagulants; Z79.82 Long term (current) use of aspirin; Z79.4 Long term (current) use of insulin; Z79.899 Other long term (current) drug therapy; Z88.5 Allergy status to narcotic agent; Z95.5 Presence of coronary angioplasty implant and graft; Z95.1 Presence of aortocoronary bypass graft; Z86.73 Personal history of transient ischemic attack (TIA), and cerebral infarction without residual deficits; Z86.718 Personal history of other venous thrombosis and embolism; Z87.891 Personal history of nicotine dependence; W07.XXXA Fall from chair, initial encounter; Y93.01 Activity, walking, marching and hiking; Y92.009 Unspecified place in unspecified non-institutional (private) residence as the place of occurrence of the external cause
CPT/HCPCS: 36415; 94640; 93005; 83880; 80053; 82550; 83735; 84100; 84443; 84484; 85025; 85610; 85730; 71046; 72125; 70450; 99285; 96374; J2930

== ENCOUNTER 2019-03-30 16:22 | Emergency (ER) | payer MEDICARE, OTHER ==
[2019-03-30] MEDS ORDERED: IPRATROPIUM 0.5 MG/2.5 ML NEBU INHALATION STA (16:32)
[2019-03-30] MEDS ORDERED: ALBUTEROL NEBULIZED 2.5 MG/3 ML INHALATION STA (16:32)
[2019-03-30] MEDS ORDERED: SODIUM CHLORIDE 0.9% 1,000 ML IV STA (16:32)
[2019-03-30] MEDS ORDERED: methylPREDNISolone SOD SUCCI 125 MG/2 ML VIAL IV STA (16:32)
--- NOTE | 2019-03-30 16:33 | ED ---
SOB HPI - General Stated Complaint: SHAHEEN Time Seen by Provider: 03/30/19 16:25 Source: RN notes reviewed, old records reviewed Limitations: no limitations - History of Present Illness Initial Comments: This is a 73-year-old male will is ER for evaluation of shortness of breath. Patient presents today with increasing shortness or throughout the day, patient has been noncompliant with home. Patient states that he has no chest pain no fevers no cough or congestion. Has history of again COPD and CHF with multiple recent hospital admissions for same. Patient states he does not want stay in the hospital today MD Complaint: shortness of breath, cough -: days(s) Severity: mild Severity scale (1-10): 2 Consistency: constant Improves With: oxygen, bronchodilators, upright position Worsens With: exertion Known History Of: COPD, congestive heart failure Context: recent URI Associated Symptoms: denies other symptoms Treatments Prior to Arrival: none - Related Data Home Medications Medication Instructions Recorded Confirmed Ezetimibe [Zetia] 10 mg PO DAILY 01/22/14 03/30/19 Glimepiride [Amaryl] 4 mg PO BID 01/22/14 03/30/19 Warfarin [Coumadin] 7.5 mg PO DAILY 10/24/18 03/30/19 Aspirin [Adult Low Dose Aspirin EC] 81 mg PO DAILY 11/29/18 03/30/19 Insulin Degludec [Tresiba 60 units SQ DAILY 11/29/18 03/30/19 Flextouch U-200] Metoprolol Tartrate [Lopressor] 50 mg PO BID 11/29/18 03/30/19 Albuterol Inhaler [Ventolin Hfa 1 - 2 puff INHALATION RT-Q6H PRN 12/15/18 03/30/19 Inhaler] Atorvastatin [Lipitor] 80 mg PO DAILY 12/15/18 03/30/19 Dutasteride [Avodart] 0.5 mg PO DAILY 12/15/18 03/30/19 HYDROcodone/APAP 7.5-325MG [[place] 1 tab PO BID PRN 12/15/18 03/30/19 7.5-325] Tamsulosin [Flomax] 0.4 mg PO DAILY 12/15/18 03/30/19 metFORMIN HCL 1,000 mg PO BID 12/15/18 03/30/19 INSULIN ASPART (NovoLOG) [NovoLOG See Protocol SQ ACHS 02/07/19 03/30/19 (formulary)] Repaglinide 0.5 mg PO TID 02/27/19 03/30/19 Albuterol Nebulized (Conc) 2.5 mg INHALATION RT-Q4H 03/30/19 03/30/19 [Ventolin Nebulized (Conc)] Previous Rx's Medication Instructions Recorded INSULIN ASPART (NovoLOG) [NovoLOG 10 unit SQ ACHS vial 12/19/18 (formulary)] Budesonide [Pulmicort] 0.5 mg INHALATION RT-BID 30 Days 02/10/19 #60 nebu Ipratropium-Albuterol Nebulize 3 ml INHALATION RT-QID 30 Days 02/10/19 [Duoneb 0.5 mg-3 mg/3 ml Soln] #120 ampul.neb Isosorbide Mononitrate ER [Imdur] 30 mg PO DAILY 30 Days #30 02/10/19 tab.er.24h Verapamil [Isoptin] 120 mg PO TID 30 Days #90 tab 02/10/19 Furosemide [Lasix] 60 mg PO BID@0900,1600 #180 tab 03/02/19 Omeprazole [PriLOSEC] 20 mg PO AC-BID #60 cap 03/02/19 Amoxic-Pot Clav 875-125Mg 1 tab PO Q12HR #20 tablet 03/21/19 [Augmentin 875-125] predniSONE 50 mg PO DAILY #5 tab 03/21/19 Allergies Allergy/AdvReac Type Severity Reaction Status Date / Time morphine Allergy Rash/Hives Verified 03/30/19 17:34 Review of Systems ROS Statement: Those systems with pertinent positive or pertinent negative responses have been documented in the HPI. ROS Other: All systems not noted in ROS Statement are negative. Past Medical History Past Medical History: Atrial Fibrillation, Asthma, Blood Disorder, COPD, CVA/TIA, Diabetes Mellitus, Deep Vein Thrombosis (DVT), Eye Disorder, GERD/Reflux, Hyperlipidemia, Respiratory Disorder, Sleep Apnea/CPAP/BIPAP, Vascular Disorder Additional Past Medical History / Comment(s): Pt recently admitted to [facility] on 02/05/19 with r lower lobe pneumonia, R pleural effusion, L lung nodule, uncontrolled diabetes, severe COPD acute exacerbation, hyponatremia, Afib with RVR. Other Hx: Chronic hypoxic respiratory failure with home oxygen at 3L/NC ATC, ANUP with Cpap use, IDDM type II, TIA, familial erythrocytosis, PVD, DVT L leg, bilateral lower leg cellulitis, chronic back pain, glaucoma bilaterally, bilateral retinal bleeds with surgery. History of Any Multi-Drug Resistant Organisms: None Reported Past Surgical History: Cardiac Ablation, EPS, Heart Catheterization Additional Past Surgical History / Comment(s): L femoral bypass, L caratid endartectomy, EP study with aflutter ablation, colonoscopy, bilateral eye laser surgery for retinal bleeds. Past Anesthesia/Blood Transfusion Reactions: No Reported Reaction Additional Past Anesthesia/Blood Transfusion Reaction / Comment(s): Pt states he has received blood in past without reaction. Smoking Status: Former smoker - Past Family History Father Additional Family Medical History / Comment(s): DAD AGE 55 OF BRAIN HEMORRAGE. HAD HX TB. Mother Additional Family Medical History / Comment(s): HEART TROUBLE IN HER 70'S General Exam General appearance: alert, in no apparent distress Head exam: Present: atraumatic, normocephalic, normal inspection Eye exam: Present: normal appearance, PERRL, EOMI. Absent: scleral icterus, conjunctival injection, periorbital swelling ENT exam: Present: normal exam, mucous membranes moist Neck exam: Present: normal inspection. Absent: tenderness, meningismus, lymphadenopathy Respiratory exam: Present: wheezes, accessory muscle use, decreased breath sounds, prolonged expiratory. Absent: respiratory distress, rales, rhonchi, stridor Cardiovascular Exam: Present: regular rate, normal rhythm, normal heart sounds. Absent: systolic murmur, diastolic murmur, rubs, gallop, clicks GI/Abdominal exam: Present: soft, normal bowel sounds. Absent: distended, tenderness, guarding, rebound, rigid Extremities exam: Present: normal inspection, full ROM, normal capillary refill. Absent: tenderness, pedal edema, joint swelling, calf tenderness Back exam: Present: normal inspection Neurological exam: Present: alert, oriented X3, CN II-XII intact Psychiatric exam: Present: normal affect, normal mood Skin exam: Present: warm, dry, intact, normal color. Absent: rash Course Vital Signs 03/30/19 03/30/19 03/30/19 16:30 17:18 17:39 Temperature 98.5 F Pulse Rate 75 76 Respiratory 24 24 Rate Blood Pressure 102/63 O2 Sat by Pulse 94 L Oximetry 03/30/19 03/30/19 03/30/19 18:41 18:48 18:52 Temperature Pulse Rate 72 78 82 Respiratory 24 Rate Blood Pressure 111/65 O2 Sat by Pulse 97 Oximetry - Reevaluation(s) Reevaluation #1: Medical records reviewed Symptoms improved and patient prefer discharged Medical Decision Making - Medical Decision Making 73 male the ER for evaluation of COPD. Patient feeling better here in the area. Patient does not want hospital admission. Patient can be discharged home - Lab Data Result diagrams: 03/30/19 16:20 03/30/19 16:20 Lab Results 03/30/19 03/30/19 03/30/19 Range/Units 16:20 16:20 16:20 WBC 10.9 H (3.8-10.6) k/uL RBC 4.58 (4.30-5.90) m/uL Hgb 12.4 L (13.0-17.5) gm/dL Hct 42.2 (39.0-53.0) % MCV 92.0 (80.0-100.0) fL MCH 27.1 (25.0-35.0) pg MCHC 29.5 L (31.0-37.0) g/dL RDW 17.1 H (11.5-15.5) % Plt Count 276 (150-450) k/uL Neutrophils % 84 % Lymphocytes % 8 % Monocytes % 6 % Eosinophils % 1 % Basophils % 0 % Neutrophils # 9.2 H (1.3-7.7) k/uL Lymphocytes # 0.8 L (1.0-4.8) k/uL Monocytes # 0.6 (0-1.0) k/uL Eosinophils # 0.1 (0-0.7) k/uL Basophils # 0.0 (0-0.2) k/uL Hypochromasia Marked Anisocytosis Slight PT (9.0-12.0) sec INR (<1.2) APTT (22.0-30.0) sec Sodium 138 (137-145) mmol/L Potassium 5.9 H (3.5-5.1) mmol/L Chloride 97 L (98-107) mmol/L Carbon Dioxide 32 H (22-30) mmol/L Anion Gap 9 mmol/L BUN 42 H (9-20) mg/dL Creatinine 1.06 (0.66-1.25) mg/dL Est GFR (CKD-EPI)AfAm 82 (>60 ml/min/1.73 sqM) Est GFR (CKD-EPI)NonAf 71 (>60 ml/min/1.73 sqM) Glucose 293 H (74-99) mg/dL Calcium 9.1 (8.4-10.2) mg/dL Magnesium 1.7 (1.6-2.3) mg/dL Total Bilirubin 0.3 (0.2-1.3) mg/dL AST 28 (17-59) U/L ALT 40 (21-72) U/L Alkaline Phosphatase 72 (38-126) U/L Troponin I (0.000-0.034) ng/mL NT-Pro-B Natriuret Pep 552 pg/mL Total Protein 6.2 L (6.3-8.2) g/dL Albumin 3.5 (3.5-5.0) g/dL 03/30/19 03/30/19 Range/Units 16:20 16:20 WBC (3.8-10.6) k/uL RBC (4.30-5.90) m/uL Hgb (13.0-17.5) gm/dL Hct (39.0-53.0) % MCV (80.0-100.0) fL MCH (25.0-35.0) pg MCHC (31.0-37.0) g/dL RDW (11.5-15.5) % Plt Count (150-450) k/uL Neutrophils % % Lymphocytes % % Monocytes % % Eosinophils % % Basophils % % Neutrophils # (1.3-7.7) k/uL Lymphocytes # (1.0-4.8) k/uL Monocytes # (0-1.0) k/uL Eosinophils # (0-0.7) k/uL Basophils # (0-0.2) k/uL Hypochromasia Anisocytosis PT 41.6 H (9.0-12.0) sec INR 4.3 H (<1.2) APTT 39.9 H (22.0-30.0) sec Sodium (137-145) mmol/L Potassium (3.5-5.1) mmol/L Chloride (98-107) mmol/L Carbon Dioxide (22-30) mmol/L Anion Gap mmol/L BUN (9-20) mg/dL Creatinine (0.66-1.25) mg/dL Est GFR (CKD-EPI)AfAm (>60 ml/min/1.73 sqM) Est GFR (CKD-EPI)NonAf (>60 ml/min/1.73 sqM) Glucose (74-99) mg/dL Calcium (8.4-10.2) mg/dL Magnesium (1.6-2.3) mg/dL Total Bilirubin (0.2-1.3) mg/dL AST (17-59) U/L ALT (21-72) U/L Alkaline Phosphatase (38-126) U/L Troponin I <0.012 (0.000-0.034) ng/mL NT-Pro-B Natriuret Pep pg/mL Total Protein (6.3-8.2) g/dL Albumin (3.5-5.0) g/dL - EKG Data -: EKG Interpreted by Me (EKG shows A. fib rate of 80, QRS 118, QTC 419) - Radiology Data Radiology results: report reviewed (Chest x-rays negative for acute disease), image reviewed Disposition Clinical Impression: COPD exacerbation Disposition: HOME SELF-CARE Condition: Fair Instructions (If sedation given, give patient instructions): Acute Bronchitis (ED) Is patient prescribed a controlled substance at d/c from ED?: No Referrals: Freddy Viveros MD [Primary Care Provider] - 1-2 days
[2019-03-30 16:35] VITALS: RESP 24; TEMP 98.5
[2019-03-30 17:04] LABS: Anisocytosis Slight; Basophils % (A) 0 %; Eosinophils # (A) 0.1 k/uL (0-0.7); Eosinophils % (A) 1 %; HCT 42.2 % (39.0-53.0); HGB 12.4 gm/dL (13.0-17.5); Hypochromasia Marked; Lymphocytes # (A) 0.8 k/uL (1.0-4.8); Lymphocytes % (A) 8 %; MCH 27.1 pg (25.0-35.0); MCHC 29.5 g/dL (31.0-37.0); Mean Platelet Volume 7.6; Monocytes # (A) 0.6 k/uL (0-1.0); Monocytes % (A) 6 %; Neutrophils # (A) 9.2 k/uL (1.3-7.7); Neutrophils % (A) 84 %; Platelet Count 276 k/uL (150-450); RBC 4.58 m/uL (4.30-5.90); RDW 17.1 % (11.5-15.5); WBC 10.9 k/uL (3.8-10.6)
[2019-03-30 17:05] LABS: INR 4.3 (<1.2); Partial Thromboplastin Time 39.9 sec (22.0-30.0); Prothrombin Time 41.6 sec (9.0-12.0)
--- NOTE | 2019-03-30 17:07 | XR ---
EXAMINATION TYPE: XR chest 2V DATE OF EXAM: 03/30/2019 COMPARISON: NONE HISTORY: Difficulty breathing TECHNIQUE: Frontal and lateral views of the chest are obtained. FINDINGS: There is blunting of the right costophrenic angle. Heart is enlarged. There is no gross he art failure. Thoracic aorta is atheromatous. Bony thorax is intact. There are chest leads. IMPRESSION: Right pleural effusion and right lower lobe infiltrate and atelectasis is improved sligh tly compared to last exam. No gross heart failure seen.
[2019-03-30 17:32] LABS: Albumin 3.5 g/dL (3.5-5.0); Calcium 9.1 mg/dL (8.4-10.2); Magnesium 1.7 mg/dL (1.6-2.3); Potassium 5.9 mmol/L (3.5-5.1); Total Bilirubin 0.3 mg/dL (0.2-1.3); Total Protein 6.2 g/dL (6.3-8.2)
[2019-03-30] MEDS ORDERED: IPRATROPIUM-ALBUTEROL 3 ML NEB INHALATION STA (18:40)
[2019-03-30 19:01] VITALS: BP 111/65; PULSE 82
== END 2019-03-30 19:00 | disposition home or self-care (01) ==
LOC: EC 16:22
DX: J44.1 Chronic obstructive pulmonary disease with (acute) exacerbation (principal); J96.11 Chronic respiratory failure with hypoxia; I48.91 Unspecified atrial fibrillation; E11.51 Type 2 diabetes mellitus with diabetic peripheral angiopathy without gangrene; E78.5 Hyperlipidemia, unspecified; G47.33 Obstructive sleep apnea (adult) (pediatric); I50.9 Heart failure, unspecified; Z87.891 Personal history of nicotine dependence; Z88.5 Allergy status to narcotic agent; Z79.01 Long term (current) use of anticoagulants; Z79.4 Long term (current) use of insulin; Z79.82 Long term (current) use of aspirin; Z79.899 Other long term (current) drug therapy; Z86.73 Personal history of transient ischemic attack (TIA), and cerebral infarction without residual deficits; Z99.81 Dependence on supplemental oxygen; Z99.89 Dependence on other enabling machines and devices; Z86.718 Personal history of other venous thrombosis and embolism; Z98.890 Other specified postprocedural states; Z87.01 Personal history of pneumonia (recurrent); Z95.818 Presence of other cardiac implants and grafts
CPT/HCPCS: 36415; 94640 ×2; 93005; 83880; 80053; 83735; 84484; 85025; 85610; 85730; 71046; 99285; 96374; 96361; J2930

== ENCOUNTER 2019-05-05 23:38 | Inpatient (IN) | payer MEDICARE, OTHER ==
[2019-05-05] MEDS ORDERED: ALBUTEROL NEBULIZED 2.5 MG/3 ML INHALATION STA (23:46)
[2019-05-05] MEDS ORDERED: methylPREDNISolone SOD SUCCI 125 MG/2 ML VIAL IV STA (23:46)
[2019-05-05] MEDS ORDERED: IPRATROPIUM-ALBUTEROL 3 ML NEB INHALATION STA (23:46)
[2019-05-05] MEDS ORDERED: MAGNESIUM SULFATE-D5W PMX 1 GM in DEXTROSE/WATER 1 100ML.BAG IVPB STA (23:46)
[2019-05-06] MEDS ORDERED: NALOXONE 0.4 MG/ML 1 ML VIAL IV PRN (00:23)
[2019-05-06] MEDS ORDERED: ONDANSETRON 4 MG/2 ML VIAL IVP PRN (00:23)
--- NOTE | 2019-05-06 00:23 | ED ---
General Adult HPI - General Chief complaint: Fall Stated complaint: Fall Time Seen by Provider: 05/05/19 23:41 Source: EMS Mode of arrival: EMS Limitations: no limitations - History of Present Illness Initial comments: Patient presents with difficulty in breathing. He has generalized weakness as well. He had a fall this evening while walking to the bathroom. he sustained some skin abrasions. He denies injury to the head. He has no headache. He had no loss of conscious. He has no neck pain or stiffness. He is not having any chest pain or pressure. He has no focal weakness. He has no nausea or vomiting or diaphoresis. - Related Data Home Medications Medication Instructions Recorded Confirmed Ezetimibe [Zetia] 10 mg PO DAILY 01/22/14 03/30/19 Glimepiride [Amaryl] 4 mg PO BID 01/22/14 03/30/19 Warfarin [Coumadin] 7.5 mg PO DAILY 10/24/18 03/30/19 Aspirin [Adult Low Dose Aspirin EC] 81 mg PO DAILY 11/29/18 03/30/19 Insulin Degludec [Tresiba 60 units SQ DAILY 11/29/18 03/30/19 Flextouch U-200] Metoprolol Tartrate [Lopressor] 50 mg PO BID 11/29/18 03/30/19 Albuterol Inhaler [Ventolin Hfa 1 - 2 puff INHALATION RT-Q6H PRN 12/15/18 03/30/19 Inhaler] Atorvastatin [Lipitor] 80 mg PO DAILY 12/15/18 03/30/19 Dutasteride [Avodart] 0.5 mg PO DAILY 12/15/18 03/30/19 HYDROcodone/APAP 7.5-325MG [[place] 1 tab PO BID PRN 12/15/18 03/30/19 7.5-325] Tamsulosin [Flomax] 0.4 mg PO DAILY 12/15/18 03/30/19 metFORMIN HCL 1,000 mg PO BID 12/15/18 03/30/19 INSULIN ASPART (NovoLOG) [NovoLOG See Protocol SQ ACHS 02/07/19 03/30/19 (formulary)] Repaglinide 0.5 mg PO TID 02/27/19 03/30/19 Albuterol Nebulized (Conc) 2.5 mg INHALATION RT-Q4H 03/30/19 03/30/19 [Ventolin Nebulized (Conc)] Previous Rx's Medication Instructions Recorded INSULIN ASPART (NovoLOG) [NovoLOG 10 unit SQ ACHS vial 12/19/18 (formulary)] Budesonide [Pulmicort] 0.5 mg INHALATION RT-BID 30 Days 02/10/19 #60 nebu Ipratropium-Albuterol Nebulize 3 ml INHALATION RT-QID 30 Days 02/10/19 [Duoneb 0.5 mg-3 mg/3 ml Soln] #120 ampul.neb Isosorbide Mononitrate ER [Imdur] 30 mg PO DAILY 30 Days #30 02/10/19 tab.er.24h Verapamil [Isoptin] 120 mg PO TID 30 Days #90 tab 02/10/19 Furosemide [Lasix] 60 mg PO BID@0900,1600 #180 tab 03/02/19 Omeprazole [PriLOSEC] 20 mg PO AC-BID #60 cap 03/02/19 Amoxic-Pot Clav 875-125Mg 1 tab PO Q12HR #20 tablet 03/21/19 [Augmentin 875-125] predniSONE 50 mg PO DAILY #5 tab 03/21/19 Allergies Allergy/AdvReac Type Severity Reaction Status Date / Time morphine Allergy Rash/Hives Verified 05/06/19 00:02 Review of Systems ROS Statement: Those systems with pertinent positive or pertinent negative responses have been documented in the HPI. ROS Other: All systems not noted in ROS Statement are negative. Past Medical History Past Medical History: Atrial Fibrillation, Asthma, Blood Disorder, COPD, CVA/TIA, Diabetes Mellitus, Deep Vein Thrombosis (DVT), Eye Disorder, GERD/Reflux, Hyperlipidemia, Respiratory Disorder, Sleep Apnea/CPAP/BIPAP, Vascular Disorder Additional Past Medical History / Comment(s): Pt recently admitted to [facility] on 02/05/19 with r lower lobe pneumonia, R pleural effusion, L lung nodule, uncontrolled diabetes, severe COPD acute exacerbation, hyponatremia, Afib with RVR. Other Hx: Chronic hypoxic respiratory failure with home oxygen at 3L/NC ATC, ANUP with Cpap use, IDDM type II, TIA, familial erythrocytosis, PVD, DVT L leg, bilateral lower leg cellulitis, chronic back pain, glaucoma bilaterally, bilateral retinal bleeds with surgery. History of Any Multi-Drug Resistant Organisms: None Reported Past Surgical History: Cardiac Ablation, EPS, Heart Catheterization Additional Past Surgical History / Comment(s): L femoral bypass, L caratid endartectomy, EP study with aflutter ablation, colonoscopy, bilateral eye laser surgery for retinal bleeds. Past Anesthesia/Blood Transfusion Reactions: No Reported Reaction Additional Past Anesthesia/Blood Transfusion Reaction / Comment(s): Pt states he has received blood in past without reaction. Past Psychological History: No Psychological Hx Reported Smoking Status: Former smoker Past Alcohol Use History: None Reported Past Drug Use History: None Reported - Past Family History Father Additional Family Medical History / Comment(s): DAD AGE 55 OF BRAIN HEMORRAGE. HAD HX TB. Mother Additional Family Medical History / Comment(s): HEART TROUBLE IN HER 70'S General Exam Limitations: no limitations General appearance: alert, in no apparent distress Head exam: Present: atraumatic, normocephalic, normal inspection Eye exam: Present: normal appearance, PERRL, EOMI. Absent: scleral icterus, conjunctival injection, periorbital swelling ENT exam: Present: normal exam, mucous membranes moist Neck exam: Present: normal inspection. Absent: tenderness, meningismus, lymphadenopathy Respiratory exam: Present: respiratory distress, wheezes. Absent: rales, rhonchi, stridor Cardiovascular Exam: Present: regular rate, normal rhythm, normal heart sounds. Absent: systolic murmur, diastolic murmur, rubs, gallop, clicks GI/Abdominal exam: Present: soft, normal bowel sounds. Absent: distended, tenderness, guarding, rebound, rigid Extremities exam: Present: normal inspection, full ROM, normal capillary refill. Absent: tenderness, pedal edema, joint swelling, calf tenderness Back exam: Present: normal inspection Neurological exam: Present: alert, oriented X3, CN II-XII intact Psychiatric exam: Present: normal affect, normal mood Skin exam: Present: warm, dry, normal color, other (Multiple skin tears). Absent: rash Course Vital Signs 05/05/19 23:41 Temperature 98.8 F Pulse Rate 62 Respiratory 18 Rate Blood Pressure 86/54 O2 Sat by Pulse 91 L Oximetry EKG Findings - EKG Comments: EKG Findings:: Twelve-lead EKG shows ventricular rate 63 bpm, normal AK interval and Josiah complex is, no ST elevation or depression, interpreted by me as normal sinus rhythm. Medical Decision Making - Medical Decision Making Patient presents with shortness of breath. He is given breathing treatments, IV magnesium and steroids. He is not feeling much better. He has weakness. He is unable to go home. He will be admitted to his doctor. Disposition Clinical Impression: COPD exacerbation Disposition: ADMITTED IP TO THIS HOSP Condition: Fair Referrals: Freddy Viveros MD [Primary Care Provider] - 1-2 days
[2019-05-06 00:27] LABS: Glucose,Whole Blood 439 mg/dL (75-99)
[2019-05-06 00:38] LABS: Anisocytosis Slight; Basophils % (A) 0 %; Eosinophils # (A) 0.1 k/uL (0-0.7); Eosinophils % (A) 1 %; HCT 42.8 % (39.0-53.0); HGB 12.8 gm/dL (13.0-17.5); Hypochromasia Marked; Lymphocytes # (A) 0.5 k/uL (1.0-4.8); Lymphocytes % (A) 4 %; MCH 29.7 pg (25.0-35.0); MCV 98.9 fL (80.0-100.0); Macrocytosis Slight; Mean Platelet Volume 7.6; Monocytes # (A) 0.7 k/uL (0-1.0); Monocytes % (A) 5 %; Neutrophils # (A) 11.3 k/uL (1.3-7.7); Neutrophils % (A) 90 %; Platelet Count 425 k/uL (150-450); RBC 4.33 m/uL (4.30-5.90); RDW 18.9 % (11.5-15.5); WBC 12.6 k/uL (3.8-10.6)
[2019-05-06 00:45] LABS: Albumin 3.5 g/dL (3.5-5.0); Calcium 9.6 mg/dL (8.4-10.2); INR 1.1 (<1.2); Magnesium 1.6 mg/dL (1.6-2.3); Partial Thromboplastin Time 23.8 sec (22.0-30.0); Prothrombin Time 11.6 sec (9.0-12.0); Total Bilirubin 0.5 mg/dL (0.2-1.3); Total Protein 6.7 g/dL (6.3-8.2)
[2019-05-06] MEDS ORDERED: SODIUM CHLORIDE 0.9% 1,000 ML IV ONE ×2 (01:06→02:33)
[2019-05-06] MEDS: INSULIN ASPART (NovoLOG) 100 UNIT/ML VIAL SQ SCH ×7 (01:36→21:15)
--- NOTE | 2019-05-06 01:45 | XR ---
EXAM: XR Chest, 2 Views CLINICAL HISTORY: ITS.REASON XR Reason: difficulty breathing TECHNIQUE: Frontal and lateral views of the chest. COMPARISON: 03/30/19 IMPRESSION: Cardiomegaly. Trace bilateral pleural effusions. Bibasilar atelectasis versus aspiration.
[2019-05-06 03:20] LABS: Appearance,Urine Clear (Clear); Bilirubin,Urine Negative (Negative); Blood,Urine Small (Negative); Color,Urine Yellow; Glucose,Urine (UA) 4+ (Negative); Hyaline Casts,Urine 6 /lpf (0-2); Ketones,Urine Negative (Negative); Leukocyte Esterase,Urine Negative (Negative); Mucus,Urine Rare /hpf; Nitrite,Urine Negative (Negative); PH, Urine 5.5 (5.0-8.0); Protein,Urine 2+ (Negative); RBC,Urine 1 /hpf (0-5); Specific Gravity,Urine 1.016 (1.001-1.035); Urobilinogen,Urine <2.0 mg/dL (<2.0); WBC,Urine 1 /hpf (0-5)
[2019-05-06 03:35] LABS: Glucose,Whole Blood 332 mg/dL (75-99)
[2019-05-06 06:37] LABS: Glucose,Whole Blood 307 mg/dL (75-99)
[2019-05-06] MEDS ORDERED: HYDROcodone/APAP 7.5-325MG 1 EACH TAB PO PRN (10:36)
[2019-05-06 11:55] LABS: Glucose,Whole Blood 395 mg/dL (75-99)
[2019-05-06] MEDS: ALBUTEROL NEBULIZED 2.5 MG/3 ML INHALATION SCH ×3 (11:56→19:56)
[2019-05-06] MEDS: APIXABAN 5 MG TAB PO SCH ×2 (12:21→21:12)
--- NOTE | 2019-05-06 15:01 | HP ---
HISTORY AND PHYSICAL CHIEF COMPLAINT: A 74-year-old white male presents to the hospital with shortness of breath, cough, congestion. He fell going to his bathroom only. He is not sure how but he has multiple skin abrasions on his left arm. Denies hitting his head or loss of consciousness. He has no focal weakness or nausea, vomiting, but he came in with shortness of breath. PAST MEDICAL HISTORY: Right-sided heart failure, severe COPD, oxygen dependent, right-sided heart failure, obstructive sleep apnea, significant nature, morbid obesity. HOME MEDICATIONS: Zetia 10 mg, Amaryl 4 mg b.i.d., Coumadin 7.5 mg daily, aspirin 81 mg daily, Tarceva 60 units daily. I think he is really taking 30 units daily, Lopressor 50 b.i.d. DuoNeb q.i.d., [place] 7.5 b.i.d., metformin 1000 b.i.d., Flomax 0.4 mg daily. REVIEW OF SYSTEMS: Fourteen point review of systems negative except for mentioned in HPI. PAST MEDICAL HISTORY: Past medical history of atrial fibrillation, asthma, COPD, CVA, TIA, diabetes mellitus, DVT, GERD, dyslipidemia, sleep apnea, vascular disorder, pleural effusions, lung nodule, uncontrolled diabetes mellitus, COPD, hyponatremia, atrial fibrillation, rapid ventricular response, chronic respiratory failure on 3 L oxygen at night and CPAP at night, insulin-dependent diabetes mellitus, bilateral cataracts, chronic lumbar disc disease, morbid obesity, cardiac ablation and EPS, heart catheterization, bilateral eye surgery, colonoscopies, carotid endarterectomy, left femoral bypass. SOCIAL HISTORY: Long-standing history of smoking for multiple years. He lives by himself in his own house. No alcohol. Noncompliant with CPAP and Lasix. FAMILY HISTORY: Father with brain hemorrhage age 55, mother heart trouble in her 70s. PHYSICAL EXAM: Vital signs reviewed. Cardiovascular: Irregular irregularly rhythm. Lungs scattered wheeze. Decreased breath sounds x4. He is on 3 L of oxygen. He is lying on his side. Integument: His left arm is wrapped in a bandage. He has multiple excoriations with some Steri-Strips in the left elbow with large hematomas on the left arm. GI: Obesity. Hematology: 2+ pedal edema. ASSESSMENT: 1. Chronic obstructive pulmonary disease exacerbation. 2. Right-sided heart failure. 3. Hypomagnesemia. 4. Falls with contusions to his arms. Restart home medicines. Consult pulmonology and Cardiology, Dr. Alvarez for wound care. Please see further orders. MMODL / IJN: [id number] /
[2019-05-06] MEDS: VERAPAMIL 40 MG TAB PO SCH ×2 (16:17→21:13)
[2019-05-06] MEDS: methylPREDNISolone SOD SUCCI 40 MG/ML 1 ML VIAL IV SCH (16:17)
[2019-05-06] MEDS: FUROSEMIDE 20 MG TAB PO SCH (16:17)
[2019-05-06 17:24] LABS: Glucose,Whole Blood 397 mg/dL (75-99)
[2019-05-06] MEDS ORDERED: WARFARIN 7.5 MG TAB PO SCH (18:00)
--- NOTE | 2019-05-06 18:07 | CONS ---
CONSULTATION Mr. Meza is a 74-year-old male with a known history of chronic obstructive lung disease, history of atrial fibrillation, peripheral vascular disease, hypertension, diabetes and hyperlipidemia who presented with symptoms of progressive weakness, dyspnea. He has fallen and has some skin abrasion. He denies any symptoms of chest pain. Patient is awake, somnolent at times, but answering questions. He denies any chest discomfort. He denies any dizziness or palpitations. He is in sinus mechanism, although in the past he was in atrial fibrillation. In the past, he had no documented history of myocardial infarction. He has history of significant chronic obstructive lung disease and his activity is limited. He has no recent PND, orthopnea. He has some peripheral edema that is chronic. His coronary risk factors are remarkable for the history of hyperlipidemia, diabetes, hypertension. He has a history of peripheral vascular disease. MEDICATION: Medications at home included: Metformin, Coumadin, verapamil, Flomax, Prilosec, metoprolol tartrate 50 mg twice a day, isosorbide mononitrate 30 mg daily, Lasix 60 mg twice a day, Zetia 10 mg daily, Avodart, Lipitor 80 mg daily, Albuterol, insulin, Amaryl, albuterol, and aspirin. REVIEW OF SYSTEMS: RESPIRATORY system: He has history of chronic dyspnea on exertion and chronic obstructive lung disease with cough. GI system: No recent GI bleed. No peptic ulcer disease. system: No dysuria or hematuria. Nervous system: No history of seizure. PHYSICAL EXAMINATION: He is a 74-year-old male, alert, somnolent, answering questions appropriately. Blood pressure 129/50 with a heart rate in the 60s. HEAD: Normocephalic. Eyes: Sclerae anicteric. Neck: No bruit. Lungs with decreased air exchange. No wheezes. HEART: Regular rate and rhythm S1, S2. No S3 with systolic murmur at the base. No diastolic murmur. ABDOMEN: Soft, nontender, obese. Positive bowel sounds. No organomegaly. Extremities +1 edema bilaterally with chronic stasis and dressing noted. LAB DATA: Lab data revealed a hemoglobin of 12.8, white blood cell count 12.6, BUN and creatinine of 28 and 1.1. Plasma lactic acid of 6.4, 4.7 and 1.5 subsequently. His troponin is 0.038 and 0.040. NT proBNP 2430. Blood sugar 473. His EKG shows a sinus mechanism, rate of 63, right bundle branch block with nonspecific ST-T wave changes. Chest x-ray shows bibasilar atelectasis. IMPRESSION: 1. Symptoms of progressive dyspnea and fatigue, could be exacerbation of chronic obstructive pulmonary disease. 2. Mild troponin elevation most likely representing a type 2 event. I do not see any evidence to suggest an acute myocardial infarction. 3. Atrial fibrillation. Patient back in sinus mechanism. In the past he was in persistent atrial fibrillation. 4. History of carotid disease status post carotid endarterectomy. 5. Hypertension. 6. Hyperlipidemia. 7. Diabetes mellitus. 8. Prior history of smoking. 9. Obesity. RECOMMENDATIONS: From the cardiac standpoint, I do not believe that we are dealing with a primary ischemic event at this time. I will continue on his medical regimen. He has been treated for his lung status. The patient appears to be noncompliant. His INR on presentation is 1.1, and he was on Coumadin at home. I will stop the Coumadin and see if he qualifies for 1 of the novel anticoagulants for possible noncompliance. He had an an echocardiogram done in October of this year that showed an ejection fraction of 50% to 55% with mild mitral regurgitation. Depending on his progress, further recommendations will be made. Thank you for this consult. We will follow with you. IRON / JAVI: [id number] /
[2019-05-06] MEDS: BUDESONIDE 0.5 MG/2 ML NEBU INHALATION SCH (19:56)
[2019-05-06 20:49] LABS: Glucose,Whole Blood 330 mg/dL (75-99)
[2019-05-06] MEDS: GLIMEPIRIDE 4 MG TAB PO SCH (21:12)
[2019-05-06] MEDS: METOPROLOL TARTRATE 50 MG TAB PO SCH (21:12)
[2019-05-06] MEDS: metFORMIN 500 MG TAB PO SCH (21:14)
[2019-05-07] MEDS: ALBUTEROL NEBULIZED 2.5 MG/3 ML INHALATION SCH ×6 (00:01→19:49)
[2019-05-07 00:51] LABS: Glucose,Whole Blood 135 mg/dL (75-99)
[2019-05-07] MEDS: methylPREDNISolone SOD SUCCI 40 MG/ML 1 ML VIAL IV SCH ×4 (00:51→23:40)
[2019-05-07 06:26] LABS: Glucose,Whole Blood 259 mg/dL (75-99)
[2019-05-07 07:03] LABS: Prothrombin Time 10.8 sec (9.0-12.0)
[2019-05-07 07:12] LABS: Albumin 3.2 g/dL (3.5-5.0); Calcium 9.1 mg/dL (8.4-10.2); Potassium 4.8 mmol/L (3.5-5.1); Total Bilirubin 0.6 mg/dL (0.2-1.3); Total Protein 6.4 g/dL (6.3-8.2)
[2019-05-07] MEDS: metFORMIN 500 MG TAB PO SCH ×2 (07:14→17:31)
[2019-05-07] MEDS: INSULIN DETEMIR (LEVEMIR) 100 UNIT/ML SYR SQ SCH (07:14)
[2019-05-07] MEDS: INSULIN ASPART (NovoLOG) 100 UNIT/ML VIAL SQ SCH ×8 (07:15→21:34)
[2019-05-07] MEDS: PANTOPRAZOLE 40 MG TABLET PO SCH (07:18)
[2019-05-07 07:19] LABS: Anisocytosis Slight; Basophils % (A) 0 %; Eosinophils # (A) 0.1 k/uL (0-0.7); Eosinophils % (A) 0 %; HCT 39.2 % (39.0-53.0); HGB 11.9 gm/dL (13.0-17.5); Hypochromasia Marked; Lymphocytes # (A) 0.4 k/uL (1.0-4.8); Lymphocytes % (A) 3 %; MCH 29.6 pg (25.0-35.0); MCHC 30.4 g/dL (31.0-37.0); MCV 97.6 fL (80.0-100.0); Macrocytosis Slight; Monocytes # (A) 0.4 k/uL (0-1.0); Monocytes % (A) 3 %; Neutrophils % (A) 92 %; Platelet Count 428 k/uL (150-450); RBC 4.01 m/uL (4.30-5.90); RDW 19.4 % (11.5-15.5)
[2019-05-07] MEDS: APIXABAN 5 MG TAB PO SCH ×2 (08:29→21:33)
[2019-05-07] MEDS: GLIMEPIRIDE 4 MG TAB PO SCH ×2 (08:30→21:33)
[2019-05-07] MEDS: VERAPAMIL 40 MG TAB PO SCH ×3 (08:30→21:32)
[2019-05-07] MEDS: FUROSEMIDE 20 MG TAB PO SCH ×2 (08:30→15:14)
[2019-05-07] MEDS: ATORVASTATIN 80 MG TAB PO SCH (08:31)
[2019-05-07] MEDS: ISOSORBIDE MONONITRATE ER 30 MG TAB.ER.24H PO SCH (08:31)
[2019-05-07] MEDS: ASPIRIN 81 MG PO SCH (08:31)
[2019-05-07] MEDS: TAMSULOSIN 0.4 MG CAP.ER.24H PO SCH (08:31)
[2019-05-07] MEDS: METOPROLOL TARTRATE 50 MG TAB PO SCH ×2 (08:31→21:33)
[2019-05-07] MEDS: EZETIMIBE 10 MG TAB PO SCH (08:31)
[2019-05-07] MEDS: FINASTERIDE 5 MG TAB PO SCH (08:31)
[2019-05-07] MEDS: BUDESONIDE 0.5 MG/2 ML NEBU INHALATION SCH ×2 (08:32→19:49)
[2019-05-07] MEDS ORDERED: INSULIN DEGLUDEC 60 UNIT SQ SCH (09:00)
[2019-05-07 12:09] LABS: Glucose,Whole Blood 362 mg/dL (75-99)
--- NOTE | 2019-05-07 12:18 | PN ---
PROGRESS NOTE Mr. Meza is a 74-year-old male known history of atrial fibrillation, history of chronic obstructive lung disease, peripheral vascular disease, hypertension, diabetes who presented with symptoms of progressive lower extremities weakness. He continues to have weakness in the leg that is his main complaint but he denies any chest pain. His breathing has been stable. He denies any dizziness or palpitation. He continues to be in sinus mechanism. He denies any nausea or vomiting. He continues to be at this time on Eliquis 5 mg twice a day, aspirin 81 mg daily, Lipitor 80 mg daily, Zetia 10 mg daily, furosemide 60 mg twice a day, glimepiride 4 mg twice a day, isosorbide mononitrate 30 mg daily, metformin 1 gram twice a day, metoprolol tartrate 50 mg twice a day and verapamil SR 120 mg 3 times a day. PHYSICAL EXAMINATION: Blood pressure 118/60 with a heart rate in the 60s. LUNGS: Clear. HEART: Regular rate and rhythm S1, S2. No S3 with a systolic ejection murmur. No diastolic murmur. ABDOMEN: Soft, obese, nontender. EXTREMITIES are 1+ edema with chronic stasis and ulceration noted. LAB DATA: Lab data revealed BUN and creatinine 24 and 1, potassium 4.8. Hemoglobin of 11.9, white blood cell of 13,000. IMPRESSION: 1. Atrial fibrillation, back in sinus mechanism. The patient is started on Eliquis. It does not appear that he was compliant with his Coumadin. 2. Chronic obstructive lung disease. 3. Peripheral vascular disease with ulceration of lower extremities. 4. Weakness. 5. History of hypertension. 6. Hyperlipidemia. RECOMMENDATION: From the cardiac standpoint, we will continue present therapy. Patient is scheduled to be seen by Dr. Alvarez. We will follow his renal function. Increase his level of activity gradually. He will benefit from physical therapy and depending on his progress, further recommendations will be made. MMODL / IJN: [id number] /
[2019-05-07 17:16] LABS: Glucose,Whole Blood 324 mg/dL (75-99)
[2019-05-07] MEDS: SILVER sulfADIAZINE Cream 400 GM 1 APPLIC APPLIC TOPICAL SCH (17:30)
[2019-05-07 20:02] LABS: Glucose,Whole Blood 302 mg/dL (75-99)
[2019-05-07] MEDS: MONTELUKAST 10 MG TAB PO SCH (21:33)
--- NOTE | 2019-05-07 22:53 | P.CONS ---
History of Present Illness - Reason for Consult Consult date: 05/07/19 - Chief Complaint Falls - History of Present Illness 74-year-old male presents to Hospital status post fall, evaluation emergency center on the left arm presented to the large skin tear with some necrosis to the tissue. There is attempt to put it back into place with some Steri-Strips. Emergency room note is evidence of the multiple abrasions to the left arm, as well as the bilateral lower extremities. The patient apparently lives in a senior housing where there is a visiting nurse it appears there is also a to help. The patient is awake and alert and attempts to communicate. However the content of his speech routinely has no meaning, occasionally a short phrase is under that is comprehensible. Upon direct questioning he does not relate if he is having any pain or discomfort. He asked if I can get him a woman. Review of Systems ROS unobtainable: due to mental status Past Medical History Past Medical History: Atrial Fibrillation, Asthma, Blood Disorder, COPD, CVA/TIA, Diabetes Mellitus, Deep Vein Thrombosis (DVT), Eye Disorder, GERD/Reflux, Hyperlipidemia, Respiratory Disorder, Sleep Apnea/CPAP/BIPAP, Vascular Disorder Additional Past Medical History / Comment(s): Pt recently admitted to [facility] on 02/05/19 with r lower lobe pneumonia, R pleural effusion, L lung nodule, uncontrolled diabetes, severe COPD acute exacerbation, hyponatremia, Afib with RVR. Other Hx: Chronic hypoxic respiratory failure with home oxygen at 3L/NC ATC, ANUP with Cpap use, IDDM type II, TIA, familial erythrocytosis, PVD, DVT L leg, bilateral lower leg cellulitis, chronic back pain, glaucoma bilaterally, bilateral retinal bleeds with surgery. History of Any Multi-Drug Resistant Organisms: None Reported Past Surgical History: Cardiac Ablation, EPS, Heart Catheterization Additional Past Surgical History / Comment(s): L femoral bypass, L caratid endartectomy, EP study with aflutter ablation, colonoscopy, bilateral eye laser surgery for retinal bleeds. Past Anesthesia/Blood Transfusion Reactions: No Reported Reaction Additional Past Anesthesia/Blood Transfusion Reaction / Comm: Pt states he has received blood in past without reaction. Smoking Status: Former smoker - Past Family History Father Additional Family Medical History / Comment(s): DAD AGE 55 OF BRAIN HEMORRAGE. HAD HX TB. Mother Additional Family Medical History / Comment(s): HEART TROUBLE IN HER 70'S Medications and Allergies Home Medications and Allergies Comment(s): Current Medications Hydrocodone Bitart/Acetaminophen ([place] 7.5-325) 1 each PO BID PRN PRN Reason: MODERATE Pain Albuterol Sulfate (Ventolin Nebulized) 2.5 mg INHALATION RT-Q4H [facility] Last Admin: 05/07/19 19:49 Dose: 2.5 mg Documented by: Apixaban (Eliquis) 5 mg PO BID [facility] Last Admin: 05/07/19 21:33 Dose: 5 mg Documented by: Aspirin (Aspirin) 81 mg PO DAILY [facility] Last Admin: 05/07/19 08:31 Dose: 81 mg Documented by: Atorvastatin Calcium (Lipitor) 80 mg PO DAILY [facility] Last Admin: 05/07/19 08:31 Dose: 80 mg Documented by: Budesonide (Pulmicort) 0.5 mg INHALATION RT-BID [facility] Last Admin: 05/07/19 19:49 Dose: 0.5 mg Documented by: Ezetimibe (Zetia) 10 mg PO DAILY [facility] Last Admin: 05/07/19 08:31 Dose: 10 mg Documented by: Finasteride (Proscar) 5 mg PO DAILY [facility] Last Admin: 05/07/19 08:31 Dose: 5 mg Documented by: Furosemide (Lasix) 60 mg PO BID@0900,1600 [facility] Last Admin: 05/07/19 15:14 Dose: 60 mg Documented by: Glimepiride (Amaryl) 4 mg PO BID [facility] Last Admin: 05/07/19 21:33 Dose: 4 mg Documented by: Cefazolin Sodium 1,000 mg/ (Sodium Chloride) 50 mls @ 100 mls/hr IVPB Q8HR [facility] Last Admin: 05/07/19 15:14 Dose: 100 mls/hr Documented by: Insulin Aspart (Novolog) 0 unit SQ ACHS [facility]; Protocol Last Admin: 05/07/19 21:33 Dose: 8 unit Documented by: Insulin Aspart (Novolog) 10 unit SQ ACHS [facility] Last Admin: 05/07/19 21:34 Dose: 10 unit Documented by: Insulin Detemir (Levemir) 30 unit SQ DAILY@0700 [facility] Last Admin: 05/07/19 07:14 Dose: 30 unit Documented by: Isosorbide Mononitrate (Imdur) 30 mg PO DAILY [facility] Last Admin: 05/07/19 08:31 Dose: 30 mg Documented by: Metformin HCl (Glucophage) 1,000 mg PO BID-W/MEALS [facility] Last Admin: 05/07/19 17:31 Dose: 1,000 mg Documented by: Methylprednisolone Sodium Succinate (Solu-Medrol) 40 mg IV Q8HR [facility] Last Admin: 05/07/19 15:14 Dose: 40 mg Documented by: Metoprolol Tartrate (Lopressor) 50 mg PO BID [facility] Last Admin: 05/07/19 21:33 Dose: 50 mg Documented by: Montelukast Sodium (Singulair) 10 mg PO HS [facility] Last Admin: 05/07/19 21:33 Dose: 10 mg Documented by: Naloxone HCl (Narcan) 0.2 mg IV Q2M PRN PRN Reason: Opioid Reversal Ondansetron HCl (Zofran) 4 mg IVP Q8HR PRN PRN Reason: Nausea And Vomiting Pantoprazole Sodium (Protonix) 40 mg PO AC-BRKFST [facility] Last Admin: 05/07/19 07:18 Dose: 40 mg Documented by: Silver Sulfadiazine (Silvadene Cream) 1 applic TOPICAL DAILY [facility] Last Admin: 05/07/19 17:30 Dose: 1 applic Documented by: Tamsulosin HCl (Flomax) 0.4 mg PO DAILY [facility] Last Admin: 05/07/19 08:31 Dose: 0.4 mg Documented by: Verapamil HCl (Isoptin) 120 mg PO TID [facility] Last Admin: 05/07/19 21:32 Dose: 120 mg Documented by: Home Medications Medication Instructions Recorded Confirmed Type Ezetimibe [Zetia] 10 mg PO DAILY 01/22/14 05/06/19 History Glimepiride [Amaryl] 4 mg PO BID 01/22/14 05/06/19 History Warfarin [Coumadin] 7.5 mg PO DAILY 10/24/18 05/06/19 History Aspirin [Adult Low Dose Aspirin EC] 81 mg PO DAILY 11/29/18 05/06/19 History Insulin Degludec [Tresiba 60 units SQ DAILY 11/29/18 05/06/19 History Flextouch U-200] Metoprolol Tartrate [Lopressor] 50 mg PO BID 11/29/18 05/06/19 History Albuterol Inhaler [Ventolin Hfa 1 - 2 puff INHALATION RT-Q6H PRN 12/15/18 05/06/19 History Inhaler] Atorvastatin [Lipitor] 80 mg PO DAILY 12/15/18 05/06/19 History Dutasteride [Avodart] 0.5 mg PO DAILY 12/15/18 05/06/19 History HYDROcodone/APAP 7.5-325MG [[place] 1 tab PO BID PRN 12/15/18 05/06/19 History 7.5-325] Tamsulosin [Flomax] 0.4 mg PO DAILY 12/15/18 05/06/19 History metFORMIN HCL 1,000 mg PO BID 12/15/18 05/06/19 History INSULIN ASPART (NovoLOG) [NovoLOG 10 unit SQ ACHS vial 12/19/18 05/06/19 Rx (formulary)] INSULIN ASPART (NovoLOG) [NovoLOG See Protocol SQ ACHS 02/07/19 05/06/19 History (formulary)] Budesonide [Pulmicort] 0.5 mg INHALATION RT-BID 30 Days 02/10/19 05/06/19 Rx #60 nebu Ipratropium-Albuterol Nebulize 3 ml INHALATION RT-QID 30 Days 02/10/19 05/06/19 Rx [Duoneb 0.5 mg-3 mg/3 ml Soln] #120 ampul.neb Isosorbide Mononitrate ER [Imdur] 30 mg PO DAILY 30 Days #30 02/10/19 05/06/19 Rx tab.er.24h Verapamil [Isoptin] 120 mg PO TID 30 Days #90 tab 02/10/19 05/06/19 Rx Repaglinide 0.5 mg PO TID 02/27/19 05/06/19 History Furosemide [Lasix] 60 mg PO BID@0900,1600 #180 tab 03/02/19 05/06/19 Rx Omeprazole [PriLOSEC] 20 mg PO AC-BID #60 cap 03/02/19 05/06/19 Rx Amoxic-Pot Clav 875-125Mg 1 tab PO Q12HR #20 tablet 03/21/19 05/06/19 Rx [Augmentin 875-125] predniSONE 50 mg PO DAILY #5 tab 03/21/19 05/06/19 Rx Albuterol Nebulized (Conc) 2.5 mg INHALATION RT-Q4H 03/30/19 05/06/19 History [Ventolin Nebulized (Conc)] Allergies Allergy/AdvReac Type Severity Reaction Status Date / Time morphine Allergy Rash/Hives Verified 05/06/19 00:02 Physical Exam Vitals: Vital Signs Temp Pulse Pulse Resp BP Pulse Ox 05/07/19 21:23 98.6 F 76 20 124/80 94 L 05/07/19 20:05 65 05/07/19 19:51 65 05/07/19 15:50 64 05/07/19 15:40 64 05/07/19 15:30 97.1 F L 66 20 110/64 94 L 05/07/19 12:01 64 05/07/19 12:00 20 103/62 92 L 05/07/19 11:50 65 05/07/19 11:45 97.6 F 64 20 98/40 86 L 05/07/19 09:00 20 93 L 05/07/19 08:50 79 05/07/19 08:48 97.8 F 78 20 138/92 88 L 05/07/19 08:33 80 05/07/19 04:52 76 05/07/19 04:43 72 05/07/19 04:00 98.4 F 67 17 118/67 92 L 05/07/19 00:13 76 05/07/19 00:03 76 05/07/19 00:00 98.3 F 64 18 107/58 94 L Intake and Output 05/07/19 05/07/19 05/07/19 06:59 14:59 22:59 Intake Total 240 240 Output Total 300 Balance -300 240 240 Intake: Oral 240 240 Output: Urine 300 Other: Voiding Method Toilet Toilet Toilet Urinal Urinal Urinal Diaper Diaper Diaper # Voids 1 2 5 Weight 122.8 kg 80-year-old male who looks older than his stated age, partly due to his superobesity HEENT: Anicteric conjunctiva are pink and moist nasal mucosa grossly intact without significant lesions, there is no thrush. Has dentures but they are not in place Neck: The neck is supple without significant lymphadenopathy or thyromegaly. Lungs: There is symmetrical entry there is evidence of expiratory wheeze but no ct bronchial sounds no dullness or egophony Heart: Irregularly positive S4 no distinct murmur click or rub Abdomen: Obese, Positive bowel sounds soft and nontender without palpable masses or organomegaly. There was no guarding or rebound. Extremities: The right upper extremity has evidence of a few ecchymosis but there are no open ulcerations that are seen. The left upper extremity has evidence of the recent fall and trauma. There are some Steri-Strips in place near the elbow with evidence of the skin tear. There is extensive ecchymosis and healing lesions of different stages on to the left arm. On the dorsum of the left hand is an injury that has evidence of some drainage, this is cultured. The bilateral lower extremities in the pretibial area have evidence of a scattered ulcerations also, minimal erythema not very tender. Neuro: Awake alert and does respond to his name, however the content of his speech is noted is generally unintelligible but only occasionally has a short phrase that does seem to be in context. He does move upper and lower extremi ties, but does not follow commands very well. Since he asks to go back home it seems that he is aware that he has not in his home setting, he does ask if I can find him a woman. Results CBC & Chem 7: 05/07/19 05:34 05/07/19 05:34 Labs: Abnormal Lab Results - Last 24 Hours (Table) 05/07/19 05/07/19 05/07/19 Range/Units 00:49 05:34 05:34 WBC 13.0 H (3.8-10.6) k/uL RBC 4.01 L (4.30-5.90) m/uL Hgb 11.9 L (13.0-17.5) gm/dL MCHC 30.4 L (31.0-37.0) g/dL RDW 19.4 H (11.5-15.5) % Neutrophils # 12.0 H (1.3-7.7) k/uL Lymphocytes # 0.4 L (1.0-4.8) k/uL Carbon Dioxide 32 H (22-30) mmol/L BUN 24 H (9-20) mg/dL Glucose 208 H (74-99) mg/dL POC Glucose (mg/dL) 135 H (75-99) mg/dL Albumin 3.2 L (3.5-5.0) g/dL 05/07/19 05/07/19 05/07/19 Range/Units 06:25 12:08 17:15 WBC (3.8-10.6) k/uL RBC (4.30-5.90) m/uL Hgb (13.0-17.5) gm/dL MCHC (31.0-37.0) g/dL RDW (11.5-15.5) % Neutrophils # (1.3-7.7) k/uL Lymphocytes # (1.0-4.8) k/uL Carbon Dioxide (22-30) mmol/L BUN (9-20) mg/dL Glucose (74-99) mg/dL POC Glucose (mg/dL) 259 H 362 H 324 H (75-99) mg/dL Albumin (3.5-5.0) g/dL 05/07/19 Range/Units 20:01 WBC (3.8-10.6) k/uL RBC (4.30-5.90) m/uL Hgb (13.0-17.5) gm/dL MCHC (31.0-37.0) g/dL RDW (11.5-15.5) % Neutrophils # (1.3-7.7) k/uL Lymphocytes # (1.0-4.8) k/uL Carbon Dioxide (22-30) mmol/L BUN (9-20) mg/dL Glucose (74-99) mg/dL POC Glucose (mg/dL) 302 H (75-99) mg/dL Albumin (3.5-5.0) g/dL Microbiology - Last 24 Hours (Table) 05/07/19 15:41 Wound Culture - Preliminary Hand - Left Laboratory Results WBC 13.0 k/uL (3.8-10.6) H 05/07/19 05:34 RBC 4.01 m/uL (4.30-5.90) L 05/07/19 05:34 Hgb 11.9 gm/dL (13.0-17.5) L 05/07/19 05:34 Hct 39.2 % (39.0-53.0) 05/07/19 05:34 MCV 97.6 fL (80.0-100.0) 05/07/19 05:34 MCH 29.6 pg (25.0-35.0) 05/07/19 05:34 MCHC 30.4 g/dL (31.0-37.0) L 05/07/19 05:34 RDW 19.4 % (11.5-15.5) H 05/07/19 05:34 Plt Count 428 k/uL (150-450) 05/07/19 05:34 Neutrophils % 92 % 05/07/19 05:34 Lymphocytes % 3 % 05/07/19 05:34 Monocytes % 3 % 05/07/19 05:34 Eosinophils % 0 % 05/07/19 05:34 Basophils % 0 % 05/07/19 05:34 Neutrophils # 12.0 k/uL (1.3-7.7) H 05/07/19 05:34 Lymphocytes # 0.4 k/uL (1.0-4.8) L 05/07/19 05:34 Monocytes # 0.4 k/uL (0-1.0) 05/07/19 05:34 Eosinophils # 0.1 k/uL (0-0.7) 05/07/19 05:34 Basophils # 0.0 k/uL (0-0.2) 05/07/19 05:34 Hypochromasia Marked 05/07/19 05:34 Anisocytosis Slight 05/07/19 05:34 Macrocytosis Slight 05/07/19 05:34 PT 10.8 sec (9.0-12.0) 05/07/19 05:34 INR 1.0 (<1.2) 05/07/19 05:34 APTT 23.8 sec (22.0-30.0) 05/06/19 00:12 D-Dimer 0.43 mg/L FEU (<0.60) 05/06/19 14:38 Sodium 139 mmol/L (137-145) 05/07/19 05:34 Potassium 4.8 mmol/L (3.5-5.1) 05/07/19 05:34 Chloride 98 mmol/L (98-107) 05/07/19 05:34 Carbon Dioxide 32 mmol/L (22-30) H 05/07/19 05:34 Anion Gap 9 mmol/L 05/07/19 05:34 BUN 24 mg/dL (9-20) H 05/07/19 05:34 Creatinine 1.00 mg/dL (0.66-1.25) 05/07/19 05:34 Est GFR (CKD-EPI)AfAm 87 (>60 ml/min/1.73 sqM) 05/07/19 05:34 Est GFR (CKD-EPI)NonAf 75 (>60 ml/min/1.73 sqM) 05/07/19 05:34 Glucose 208 mg/dL (74-99) H 05/07/19 05:34 POC Glucose (mg/dL) 302 mg/dL (75-99) H 05/07/19 20:01 POC Glu [place] Stitcher ID Alethea Herrera 05/07/19 20:01 Lactic Ac Sepsis Rflx Y 05/06/19 04:50 Plasma Lactic Acid [place] 1.1 mmol/L (0.7-2.0) 05/06/19 09:07 Calcium 9.1 mg/dL (8.4-10.2) 05/07/19 05:34 Magnesium 1.6 mg/dL (1.6-2.3) 05/06/19 00:12 Total Bilirubin 0.6 mg/dL (0.2-1.3) 05/07/19 05:34 AST 25 U/L (17-59) 05/07/19 05:34 ALT 50 U/L (21-72) 05/07/19 05:34 Alkaline Phosphatase 83 U/L (38-126) 05/07/19 05:34 Creatine Kinase 131 U/L (55-170) 05/06/19 00:12 Troponin I 0.035 ng/mL (0.000-0.034) H* 05/06/19 11:50 NT-Pro-B Natriuret Pep 2350 pg/mL 05/06/19 14:38 Total Protein 6.4 g/dL (6.3-8.2) 05/07/19 05:34 Albumin 3.2 g/dL (3.5-5.0) L 05/07/19 05:34 Urine Color Yellow 05/06/19 03:09 Urine Appearance Clear (Clear) 05/06/19 03:09 Urine pH 5.5 (5.0-8.0) 05/06/19 03:09 Ur Specific [place] 1.016 (1.001-1.035) 05/06/19 03:09 Urine Protein 2+ (Negative) H 05/06/19 03:09 Urine Glucose (UA) 4+ (Negative) H 05/06/19 03:09 Urine Ketones Negative (Negative) 05/06/19 03:09 Urine Blood Small (Negative) H 05/06/19 03:09 Urine Nitrite Negative (Negative) 05/06/19 03:09 Urine Bilirubin Negative (Negative) 05/06/19 03:09 Urine Urobilinogen <2.0 mg/dL (<2.0) 05/06/19 03:09 Ur Leukocyte Esterase Negative (Negative) 05/06/19 03:09 Urine RBC 1 /hpf (0-5) 05/06/19 03:09 Urine WBC 1 /hpf (0-5) 05/06/19 03:09 Hyaline Casts 6 /lpf (0-2) H 05/06/19 03:09 Urine Mucus Rare /hpf (None) H 05/06/19 03:09 Microbiology Entire Visit 05/07/19 15:41 Hand - Left Wound Culture - Preliminary Assessment and Plan (1) Fall with injury Current Visit: Yes Status: Acute Code(s): W19.XXXA - UNSPECIFIED FALL, INITIAL ENCOUNTER SNOMED Code(s): 077703923 (2) Injury of left lower arm Current Visit: Yes Status: Acute Code(s): S59.912A - UNSPECIFIED INJURY OF LEFT FOREARM, INITIAL ENCOUNTER SNOMED Code(s): 904014568 (3) Injury of left upper extremity Narrative/Plan: 74-year-old male with history of obesity appears that he has having some failing of his health and has been having falls. It this admission apparently there was the fall resulting in injury to his left arm resulted in him coming to the emergency center and being admitted. Local wound care to the arm with nonstick dressings is applied personally, wound care to left arm and bilateral lower extremity facility and has been requested since he can be wrapped and place. Elevation of the limbs well at rest is helpful. Antibiotic therapy with Ancef was started in this is an adequate choice minimal cellulitic changes that are occurring in these regions. Clear information from the attending physician as to the patient's functional status prior to admission will be very helpful in making a discharge plan. Wound cultures obtained which may further direct antibiotic therapy. Patient has uncontrolled diabetes which may be part of his poor healing due to his many injuries. Also seems to have some chronic edema that may respond to diuretic therapy while he is here. Leukocytosis appears record related to the injuries and secondary cellulitis of the limbs. Current Visit: Yes Status: Acute Code(s): S49.92XA - UNSP INJURY OF LEFT SHOULDER AND UPPER ARM, INIT ENCNTR SNOMED Code(s): 337600343 (4) Dementia Current Visit: Yes Status: Acute Code(s): F03.90 - UNSPECIFIED DEMENTIA WITHOUT BEHAVIORAL DISTURBANCE SNOMED Code(s): 38215507
[2019-05-08] MEDS: ALBUTEROL NEBULIZED 2.5 MG/3 ML INHALATION SCH ×7 (00:07→19:48)
--- NOTE | 2019-05-08 01:03 | CONS ---
CONSULTATION Adam Meza is a 74-year-old male who presented to the ER when he fell down. He also had been having increasing shortness of breath. He denied any discrete fever or chills. He subsequently was admitted for further evaluation and management. PAST MEDICAL HISTORY: His past medical history is positive for atrial fibrillation, obstructive sleep apnea for which he is on CPAP, gastroesophageal reflux disease, diabetes mellitus type 2, cellulitis, previous left carotid endarterectomy, left leg surgery, history of cardiac ablation. FAMILY HISTORY: Family history is positive for TB in his father who also had brain hemorrhage at age 55. Mother had a history of heart trouble, in her 70s. SOCIAL HISTORY: Patient used to smoke cigarettes, but quit smoking a few years ago. REVIEW OF SYSTEMS: Noncontributory. MEDICATIONS: Prior to admission were: Augmentin, Ventolin, prednisone, Repaglinide, DuoNeb, Tarceva, NovoLog, hydrocodone with acetaminophen, Amaryl, Lasix, Zetia, Avodart, Pulmicort, Lipitor, low-dose aspirin, Ventolin nebulizers, metformin, warfarin, verapamil, Flomax, Prilosec, metoprolol, Lopressor and Imdur. ALLERGIES: THE PATIENT IS ALLERGIC TO MORPHINE. X-RAY: Chest x-ray showed cardiomegaly with trace pleural effusions and bibasilar atelectatic changes. IMPRESSION: At this time: 1. Recent fall. The etiology which is unclear. 2. Congestive heart failure. 3. Chronic obstructive pulmonary disease with exacerbation. 4. Obstructive sleep apnea. 5. Obesity. 6. Medical debility. At this point in time, continue him on albuterol, IV steroids. Add montelukast. Continue aerosolized steroids in the form of budesonide. Though we will add montelukast to his regimen in the hope of decreasing systemic steroids. Depending on how he does, we should make further changes to his care. Continue anticoagulation regarding his atrial fibrillation and rate control measures. MMODL / IJN: [id number] /
[2019-05-08 02:03] LABS: Glucose,Whole Blood 60 mg/dL (75-99)
[2019-05-08 02:17] LABS: Glucose,Whole Blood 69 mg/dL (75-99)
[2019-05-08 02:39] LABS: Glucose,Whole Blood 127 mg/dL (75-99)
[2019-05-08 06:06] LABS: Glucose,Whole Blood 303 mg/dL (75-99)
[2019-05-08 06:49] LABS: Glucose,Whole Blood 323 mg/dL (75-99)
[2019-05-08] MEDS: INSULIN ASPART (NovoLOG) 100 UNIT/ML VIAL SQ SCH ×8 (07:11→22:40)
[2019-05-08] MEDS: INSULIN DETEMIR (LEVEMIR) 100 UNIT/ML SYR SQ SCH (07:11)
[2019-05-08] MEDS: metFORMIN 500 MG TAB PO SCH ×2 (07:11→17:44)
[2019-05-08] MEDS: PANTOPRAZOLE 40 MG TABLET PO SCH (07:11)
[2019-05-08 07:51] LABS: Prothrombin Time 10.7 sec (9.0-12.0)
[2019-05-08 07:53] LABS: Calcium 9.2 mg/dL (8.4-10.2); Potassium 5.1 mmol/L (3.5-5.1)
[2019-05-08] MEDS: BUDESONIDE 0.5 MG/2 ML NEBU INHALATION SCH ×2 (08:43→19:10)
[2019-05-08] MEDS: VERAPAMIL 40 MG TAB PO SCH ×3 (09:03→22:41)
[2019-05-08] MEDS: FUROSEMIDE 20 MG TAB PO SCH ×2 (09:04→17:44)
[2019-05-08] MEDS: FINASTERIDE 5 MG TAB PO SCH (09:04)
[2019-05-08] MEDS: methylPREDNISolone SOD SUCCI 40 MG/ML 1 ML VIAL IV SCH ×3 (09:05→22:41)
[2019-05-08] MEDS: APIXABAN 5 MG TAB PO SCH ×2 (09:05→22:40)
[2019-05-08] MEDS: ATORVASTATIN 80 MG TAB PO SCH (09:05)
[2019-05-08] MEDS: ASPIRIN 81 MG PO SCH (09:05)
[2019-05-08] MEDS: TAMSULOSIN 0.4 MG CAP.ER.24H PO SCH (09:05)
[2019-05-08] MEDS: EZETIMIBE 10 MG TAB PO SCH (09:05)
[2019-05-08] MEDS: GLIMEPIRIDE 4 MG TAB PO SCH ×2 (09:05→22:40)
[2019-05-08] MEDS: ISOSORBIDE MONONITRATE ER 30 MG TAB.ER.24H PO SCH (09:05)
[2019-05-08] MEDS: METOPROLOL TARTRATE 50 MG TAB PO SCH ×2 (09:05→22:39)
[2019-05-08] MEDS: SILVER sulfADIAZINE Cream 400 GM 1 APPLIC APPLIC TOPICAL SCH (09:19)
--- NOTE | 2019-05-08 09:58 | PN ---
PROGRESS NOTE Mr. Meza is a 74-year-old male with history of atrial fibrillation in sinus mechanism at this time who presented with symptoms of progressive fatigue, lack of energy. He has a history of obstructive lung disease and peripheral vascular disease as well as history of diabetes. He feels stronger this morning. He denies any dizziness or palpitation. He denies any nausea. He has been evaluated for possible inpatient rehab. He continues to be at this time on Eliquis 5 mg twice a day, aspirin 81 mg daily, Lipitor 80 mg daily, Zetia 10 mg daily, furosemide 60 mg twice a day, insulin, isosorbide mononitrate 30 mg daily, metformin 1 gram twice a day, metoprolol tartrate 50 mg twice a day, Protonix, Flomax 0.4 mg daily, and verapamil 120 mg 3 times a day. PHYSICAL EXAMINATION: Blood pressure running in the one teens to 120s with the heart rate in the 80s. LUNGS: No wheezes with decreased air exchange. HEART: Regular rate and rhythm. S1, S2. No S3. No rub with a systolic murmur. ABDOMEN: Soft, nontender. EXTREMITIES: +1 edema bilaterally with chronic ecchymosis. LAB DATA: Lab data revealed BUN and creatinine 33 and 1.1, potassium 5.1. IMPRESSION: 1. Atrial fibrillation, maintaining sinus mechanism. 2. Progressive weakness, improving. Patient feels stronger. 3. History of chronic obstructive lung disease. 4. Peripheral vascular disease. 5. Hypertension. 6. Diabetes. RECOMMENDATION: We will continue present therapy, increase his level of activity gradually. We will follow his renal function. I am hopeful that he will be able to tolerate inpatient rehab. MMODL / IJN: [id number] /
[2019-05-08 11:34] LABS: Glucose,Whole Blood 435 mg/dL (75-99)
[2019-05-08 16:48] LABS: Glucose,Whole Blood 280 mg/dL (75-99)
--- NOTE | 2019-05-08 17:58 | CT ---
EXAMINATION TYPE: CT brain wo con DATE OF EXAM: 05/08/2019 COMPARISON: 03/21/2019 HISTORY: Patient poor historian. Weakness CT DLP: 1172.4 mGycm Automated exposure control for dose reduction was used. FINDINGS: There is 6.5 x 3.5 cm area of white matter edema left parietal lobe. There is no significant cortical hypodensity. There is no mass effect. There is no midline shift. There is mucosal thickening in significant opacification of the maxillary sinuses. There is no eviden ce of intracranial hemorrhage. There is cerebral cortical atrophy. Calvarium is intact. There is 1 cm hypodense focus right internal capsule consistent with lacunar infarct. IMPRESSION: LEFT PARIETAL WHITE MATTER EDEMA. I DO NOT SEE A DEFINITE UNDERLYING MASS. Brain unchanged compared t o last exam. This more likely relates to chronic small vessel ischemia and white matter infarcts. Maxillary sinusitis unchanged.
[2019-05-08] MEDS ORDERED: ALBUTEROL NEBULIZED 2.5 MG/3 ML INHALATION PRN (19:22)
[2019-05-08 20:33] LABS: Glucose,Whole Blood 234 mg/dL (75-99)
--- NOTE | 2019-05-08 22:29 | P.PN ---
Subjective Progress Note Date: 05/08/19 74-year-old male presents to Hospital status post fall, evaluation emergency center on the left arm presented to the large skin tear with some necrosis to the tissue. There is attempt to put it back into place with some Steri-Strips. Emergency room note is evidence of the multiple abrasions to the left arm, as well as the bilateral lower extremities. The patient apparently lives in a senior housing where there is a visiting nurse it appears there is also a to help. The patient is awake and alert and attempts to communicate. However the content of his speech routinely has no meaning, occasionally a short phrase is under that is comprehensible. Upon direct questioning he does not rel ate if he is having any pain or discomfort. He asked if I can get him a woman. 05/08/2019 the patient is certainly improved today. He sitting upright eating his dinner. He was having some difficulty cutting meat but once this was cut he has no difficulty feeding himself. He still has an odd affect but is able to converse about how he is feeling. He is not in severe pain. His shortness of breath is improved. The arms and legs are dressed and he feels better. Objective - Vital Signs Vital signs: Vital Signs Temp 97.6 F 05/08/19 15:30 Pulse 78 05/08/19 19:23 Resp 20 05/08/19 15:30 BP 96/46 05/08/19 15:30 Pulse Ox 95 05/08/19 15:30 Intake & Output 05/08/19 05/08/19 05/09/19 06:59 18:59 06:59 Intake Total 880 Output Total 625 Balance 255 Weight 127.2 kg Intake: Oral 880 Output: Urine 625 Other: Voiding Method Toilet Toilet Urinal Urinal Diaper # Voids 2 2 - Exam 80-year-old male who looks older than his stated age, partly due to his superobesity HEENT: Anicteric conjunctiva are pink and moist nasal mucosa grossly intact without significant lesions, there is no thrush. Has dentures but they are not in place Neck: The neck is supple without significant lymphadenopathy or thyromegaly. Lungs: There is symmetrical entry there is evidence of expiratory wheeze but no ct bronchial sounds no dullness or egophony Heart: Irregularly positive S4 no distinct murmur click or rub Abdomen: Obese, Positive bowel sounds soft and nontender without palpable masses or organomegaly. There was no guarding or rebound. Extremities: The right upper extremity has evidence of a few ecchymosis but the re are no open ulcerations that are seen. The left upper extremity has evidence of the recent fall and trauma. There are some Steri-Strips in place near the elbow with evidence of the skin tear. There is extensive ecchymosis and healing lesions of different stages on to the left arm. On the dorsum of the left hand is an injury that has evidence of some drainage, this is cultured. The bilatera l lower extremities in the pretibial area have evidence of a scattered ulcerations also, minimal erythema not very tender. Neuro: Awake alert and does respond to his name. He is certainly more interactive today. Sitting upright eating his dinner without great difficulty. Speech content is improved but still not normal. - Labs CBC & Chem 7: 05/07/19 05:34 05/08/19 06:52 Labs: Abnormal Lab Results - Last 24 Hours (Table) 05/08/19 05/08/19 05/08/19 Range/Units 02:02 02:16 02:37 Sodium (137-145) mmol/L Chloride (98-107) mmol/L Carbon Dioxide (22-30) mmol/L BUN (9-20) mg/dL Glucose (74-99) mg/dL POC Glucose (mg/dL) 60 L 69 L 127 H (75-99) mg/dL 05/08/19 05/08/19 05/08/19 Range/Units 06:04 06:48 06:52 Sodium 135 L (137-145) mmol/L Chloride 96 L (98-107) mmol/L Carbon Dioxide 33 H (22-30) mmol/L BUN 33 H (9-20) mg/dL Glucose 325 H (74-99) mg/dL POC Glucose (mg/dL) 303 H 323 H (75-99) mg/dL 05/08/19 05/08/19 05/08/19 Range/Units 11:32 16:47 20:26 Sodium (137-145) mmol/L Chloride (98-107) mmol/L Carbon Dioxide (22-30) mmol/L BUN (9-20) mg/dL Glucose (74-99) mg/dL POC Glucose (mg/dL) 435 H 280 H 234 H (75-99) mg/dL Microbiology - Last 24 Hours (Table) 05/07/19 15:41 Gram Stain - Preliminary Hand - Left Wound Culture - Preliminary Gram Neg Bacilli Microbiology Entire Visit 05/07/19 15:41 Hand - Left Gram Stain - Preliminary 05/07/19 15:41 Hand - Left Wound Culture - Preliminary Gram Neg Bacilli Microbiology 05/07/19 15:41 Hand - Left Gram Stain - Preliminary 05/07/19 15:41 Hand - Left Wound Culture - Preliminary Gram Neg Bacilli Assessment and Plan (1) Fall with injury Current Visit: Yes Status: Acute Code(s): W19.XXXA - UNSPECIFIED FALL, INITIAL ENCOUNTER SNOMED Code(s): 289274735 (2) Injury of left lower arm Current Visit: Yes Status: Acute Code(s): S59.912A - UNSPECIFIED INJURY OF LEFT FOREARM, INITIAL ENCOUNTER SNOMED Code(s): 105433843 (3) Injury of left upper extremity Narrative/Plan: 74-year-old male with history of obesity appears that he has having some failing of his health and has been having falls. It this admission apparently there was the fall resulting in injury to his left arm resulted in him coming to the emergency center and being admitted. Local wound care to the arm with nonstick dressings is applied personally, wound care to left arm and bilateral lower extremity facility and has been requested since he can be wrapped and place. Elevation of the limbs well at rest is helpful. Antibiotic therapy with Ancef was started in this is an adequate choice minimal cellulitic changes that are occurring in these regions. Clear information from the attending physician as to the patient's functional status prior to admission will be very helpful in making a discharge plan. Wound cultures obtained which may further direct antibiotic therapy. Patient has uncontrolled diabetes which may be part of his poor healing due to his many injuries. Also seems to have some chronic edema that may respond to diuretic therapy while he is here. Leukocytosis appears record related to the injuries and secondary cellulitis of the limbs. 05/08/2019 the patient has had some improvement of the status the last day especially of his mental status. Silvadene is being applied to his wounds and seems to be tolerating this well. Cultures are now showing some gram-negative bacilli and constantly Ancef is transitioned to cefepime until we have further data Roth concerns as could be a pseudomonal infection. The lower extremity edema and ulcerations seems slightly improved today also. Current Visit: Yes Status: Acute Code(s): S49.92XA - UNSP INJURY OF LEFT SHOULDER AND UPPER ARM, INIT ENCNTR SNOMED Code(s): 403674647 (4) Dementia Current Visit: Yes Status: Acute Code(s): F03.90 - UNSPECIFIED DEMENTIA WITHOUT BEHAVIORAL DISTURBANCE SNOMED Code(s): 64617377
--- NOTE | 2019-05-08 22:34 | PN ---
PROGRESS NOTE DATE OF SERVICE: May 08, 2019. He has been hemodynamically stable. He is less short of breath. He is sitting in a chair. His respiratory rate is 18, pulse rate of 76, temperature 97.6, blood pressure 96/46, O2 saturation on 2 L by nasal cannula is 95%. HEENT is unremarkable except for redundant tissue in the posterior pharynx. Chest reveals decreased breath sounds with prolonged expiration. No wheeze. Cardiovascular system is S1, S2. Abdomen is soft. There is 1+ to 2+ pedal edema. Sodium is 135, potassium 5.1, chloride 96, bicarb 33, BUN 33, creatinine 1.11. IMPRESSION: At this time is: 1. Congestive heart failure. 2. Chronic obstructive pulmonary disease with exacerbation. 3. Obstructive sleep apnea. 4. Obesity. Continue bronchodilators, antibiotics, steroids, and leukotriene receptor antagonists. Increase activity level. MMODL / IJN: [id number] /
[2019-05-08] MEDS: MEMANTINE 5 MG TAB PO SCH (22:39)
[2019-05-08] MEDS: MONTELUKAST 10 MG TAB PO SCH (22:40)
--- NOTE | 2019-05-08 22:53 | PN ---
PROGRESS NOTE SUBJECTIVE: This is a 74-year-old white male admitted with COPD exacerbation and weakness. Today he has had increasing confusion. I am going to start him on Namenda 5 mg b.i.d. for dementia and CT scan of the brain will be ordered to rule out any questionable stroke that is causing his confusion. PT/OT will be continued. CARDIOVASCULAR: S1, S2. LUNGS: Wheezes x4. HEMATOLOGIC: Two plus to three plus edema. ENDOCRINE: Distended obesity. ASSESSMENT: 1. Chronic obstructive pulmonary disease exacerbation. 2. Obstructive sleep apnea. 3. Generalized weakness. 4. Atrial fibrillation. 5. Confusion. CT scan of the brain. PT/OT. Possible rehab placement versus going home in the next 1 to 2 days. MMODL / IJN: [id number] /
[2019-05-09 02:04] LABS: Glucose,Whole Blood 92 mg/dL (75-99)
[2019-05-09 06:57] LABS: Anisocytosis Slight; Basophils % (A) 0 %; Eosinophils % (A) 0 %; HCT 36.1 % (39.0-53.0); HGB 11.2 gm/dL (13.0-17.5); Hypochromasia Marked; Lymphocytes # (A) 0.3 k/uL (1.0-4.8); Lymphocytes % (A) 3 %; MCH 30.6 pg (25.0-35.0); MCHC 31.2 g/dL (31.0-37.0); MCV 98.1 fL (80.0-100.0); Macrocytosis Slight; Mean Platelet Volume 7.4; Monocytes # (A) 0.4 k/uL (0-1.0); Monocytes % (A) 3 %; Neutrophils # (A) 10.9 k/uL (1.3-7.7); Neutrophils % (A) 93 %; Platelet Count 336 k/uL (150-450); RBC 3.68 m/uL (4.30-5.90); RDW 18.3 % (11.5-15.5); WBC 11.7 k/uL (3.8-10.6)
[2019-05-09 07:05] LABS: INR 1.1 (<1.2); Prothrombin Time 11.5 sec (9.0-12.0)
[2019-05-09 07:21] LABS: Albumin 2.9 g/dL (3.5-5.0); Calcium 8.7 mg/dL (8.4-10.2); Potassium 5.2 mmol/L (3.5-5.1); Total Bilirubin 0.4 mg/dL (0.2-1.3); Total Protein 5.8 g/dL (6.3-8.2)
[2019-05-09] MEDS: INSULIN ASPART (NovoLOG) 100 UNIT/ML VIAL SQ SCH ×8 (07:33→20:24)
[2019-05-09] MEDS: FINASTERIDE 5 MG TAB PO SCH (07:34)
[2019-05-09] MEDS: ISOSORBIDE MONONITRATE ER 30 MG TAB.ER.24H PO SCH (07:34)
[2019-05-09] MEDS: FUROSEMIDE 20 MG TAB PO SCH (07:34)
[2019-05-09] MEDS: APIXABAN 5 MG TAB PO SCH ×2 (07:34→20:21)
[2019-05-09] MEDS: GLIMEPIRIDE 4 MG TAB PO SCH ×2 (07:34→21:06)
[2019-05-09] MEDS: INSULIN DETEMIR (LEVEMIR) 100 UNIT/ML SYR SQ SCH (07:34)
[2019-05-09] MEDS: VERAPAMIL 40 MG TAB PO SCH ×2 (07:34→20:24)
[2019-05-09] MEDS: EZETIMIBE 10 MG TAB PO SCH (07:34)
[2019-05-09] MEDS: MEMANTINE 5 MG TAB PO SCH ×2 (07:35→20:24)
[2019-05-09] MEDS: methylPREDNISolone SOD SUCCI 40 MG/ML 1 ML VIAL IV SCH (07:35)
[2019-05-09] MEDS: METOPROLOL TARTRATE 50 MG TAB PO SCH ×2 (07:35→20:24)
[2019-05-09] MEDS: TAMSULOSIN 0.4 MG CAP.ER.24H PO SCH (07:35)
[2019-05-09] MEDS: ASPIRIN 81 MG PO SCH (07:35)
[2019-05-09] MEDS: ATORVASTATIN 80 MG TAB PO SCH (07:35)
[2019-05-09] MEDS: CEFEPIME 2 GM in SODIUM CHLORIDE 0.9% 100 ML IVPB SCH ×2 (07:36→20:21)
[2019-05-09 07:40] LABS: Glucose,Whole Blood 305 mg/dL (75-99)
[2019-05-09] MEDS: ALBUTEROL NEBULIZED 2.5 MG/3 ML INHALATION SCH ×4 (08:21→20:45)
[2019-05-09] MEDS: BUDESONIDE 0.5 MG/2 ML NEBU INHALATION SCH ×2 (08:21→20:46)
[2019-05-09] MEDS: PANTOPRAZOLE 40 MG TABLET PO SCH (09:54)
[2019-05-09] MEDS: metFORMIN 500 MG TAB PO SCH ×2 (09:54→17:57)
[2019-05-09] MEDS: SILVER sulfADIAZINE Cream 400 GM 1 APPLIC APPLIC TOPICAL SCH (09:56)
--- NOTE | 2019-05-09 11:56 | PN ---
PROGRESS NOTE Mr. Meza is a 74-year-old male with known history of atrial fibrillation, history of chronic obstructive lung disease, history of peripheral vascular disease, who presented with symptoms of progressive fatigue. He is feeling better today. He has been scheduled to be transferred to outpatient rehab. His denies any dizziness, palpitation. He denies any nausea. He denies any cough. He continues to be at this time on Eliquis 5 mg twice a day, aspirin 81 mg daily, Lipitor 80 mg daily, Zetia 10 mg daily, Lasix 60 mg twice a day, isosorbide mononitrate 30 mg daily, metformin 1 gram twice a day, metoprolol tartrate 50 mg twice a day, tamsulosin and verapamil 120 mg 3 times a day. PHYSICAL EXAMINATION: Blood pressure 111/50 with a heart rate in 70s. LUNGS: With decreased air exchange, no wheezes. HEART: Regular rate and rhythm, S1, S2. No S3 with a systolic murmur. ABDOMEN: Soft, obese, nontender. EXTREMITIES: Favio wrapping in place. LAB DATA: Potassium 5.2, BUN and creatinine 38 and 1.3, hemoglobin of 11.2. IMPRESSION: 1. Progressive fatigue, improving. 2. Atrial fibrillation remains in sinus mechanism, anticoagulated. 3. History of chronic obstructive lung disease. 4. History of hypertension. 5. Hyperlipidemia. RECOMMENDATION: From the cardiac standpoint, his renal functions are worse. I will cut down his diuretic. Follow his renal function. His potassium is on the higher side. Will continue to follow that. I would expect he should be able to be transferred to rehab soon. MMODL / IJN: [id number] /
--- NOTE | 2019-05-09 12:13 | P.CNNES ---
History of Present Illness Consult date: 05/09/19 Requesting physician: Teresa Burton Reason for Consult: Abnormal CT Head Chief complaint: Abnormal CT Head History of Present Illness: This is a 74 RH male admitted for weakness and COPD exacerbation. He was noted to be confused for which CT Head was obtained and showed left parietal edema, hence this consult. Patient has no focal neuro complaints. He thought he was going home today. Denies any focal numbness/weakness, headache, seizure, diplopia, amaurosis, facial numbness or droop, vertigo, dysarthria, dysphagia, tremors, bowel/bladder incontinence or ataxia. Stroke risk factors include afib (on DOAC), HTN and HL. No h/o DM. Review of Systems I have performed a 14-point organ ROS with patient; pertinents are as per HPI. Past Medical History Past Medical History: Atrial Fibrillation, Asthma, Blood Disorder, COPD, CVA/TIA, Diabetes Mellitus, Deep Vein Thrombosis (DVT), Eye Disorder, GERD/Reflux, Hyperlipidemia, Respiratory Disorder, Sleep Apnea/CPAP/BIPAP, Vascular Disorder Additional Past Medical History / Comment(s): Pt recently admitted to [facility] on 02/05/19 with r lower lobe pneumonia, R pleural effusion, L lung nodule, uncontrolled diabetes, severe COPD acute exacerbation, hyponatremia, Afib with RVR. Other Hx: Chronic hypoxic respiratory failure with home oxygen at 3L/NC ATC, ANUP with Cpap use, IDDM type II, TIA, familial erythrocytosis, PVD, DVT L leg, bilateral lower leg cellulitis, chronic back pain, glaucoma bilaterally, bilateral retinal bleeds with surgery. History of Any Multi-Drug Resistant Organisms: None Reported Past Surgical History: Cardiac Ablation, EPS, Heart Catheterization Additional Past Surgical History / Comment(s): L femoral bypass, L caratid endartectomy, EP study with aflutter ablation, colonoscopy, bilateral eye laser surgery for retinal bleeds. Past Anesthesia/Blood Transfusion Reactions: No Reported Reaction Additional Past Anesthesia/Blood Transfusion Reaction / Comment(s): Pt states he has received blood in past without reaction. Smoking Status: Former smoker - Past Family History Father Additional Family Medical History / Comment(s): DAD AGE 55 OF BRAIN HEMORRAGE. HAD HX TB. Mother Additional Family Medical History / Comment(s): HEART TROUBLE IN HER 70'S Medications and Allergies Home Medications Medication Instructions Recorded Confirmed Type Ezetimibe [Zetia] 10 mg PO DAILY 01/22/14 05/08/19 History Glimepiride [Amaryl] 4 mg PO BID 01/22/14 05/08/19 History Warfarin [Coumadin] 7.5 mg PO DAILY 10/24/18 05/08/19 History Aspirin [Adult Low Dose Aspirin EC] 81 mg PO DAILY 11/29/18 05/06/19 History Insulin Degludec [Tresiba 60 units SQ DAILY 11/29/18 05/08/19 History Flextouch U-200] Metoprolol Tartrate [Lopressor] 50 mg PO BID 11/29/18 05/08/19 History Albuterol Inhaler [Ventolin Hfa 1 - 2 puff INHALATION RT-Q6H PRN 12/15/18 05/08/19 History Inhaler] Atorvastatin [Lipitor] 80 mg PO DAILY 12/15/18 05/08/19 History Dutasteride [Avodart] 0.5 mg PO DAILY 12/15/18 05/08/19 History HYDROcodone/APAP 7.5-325MG [[place] 1 tab PO BID PRN 12/15/18 05/08/19 History 7.5-325] Tamsulosin [Flomax] 0.4 mg PO DAILY 12/15/18 05/08/19 History metFORMIN HCL 1,000 mg PO BID 12/15/18 05/08/19 History INSULIN ASPART (NovoLOG) [NovoLOG 10 unit SQ ACHS vial 12/19/18 05/08/19 Rx (formulary)] INSULIN ASPART (NovoLOG) [NovoLOG See Protocol SQ ACHS 02/07/19 05/08/19 History (formulary)] Ipratropium-Albuterol Nebulize 3 ml INHALATION RT-QID 30 Days 02/10/19 05/08/19 Rx [Duoneb 0.5 mg-3 mg/3 ml Soln] #120 ampul.neb Isosorbide Mononitrate ER [Imdur] 30 mg PO DAILY 30 Days #30 02/10/19 05/08/19 Rx tab.er.24h Verapamil [Isoptin] 120 mg PO TID 30 Days #90 tab 02/10/19 05/08/19 Rx Repaglinide 0.5 mg PO TID 02/27/19 05/08/19 History Furosemide [Lasix] 60 mg PO BID@0900,1600 #180 tab 03/02/19 05/08/19 Rx Allergies Allergy/AdvReac Type Severity Reaction Status Date / Time morphine Allergy Rash/Hives Verified 05/08/19 09:22 Physical Examination - Vital Signs Vital Signs: Vital Signs Temp Pulse Pulse Resp BP Pulse Ox 05/09/19 11:50 76 05/09/19 11:40 72 05/09/19 11:21 97.3 F L 70 20 111/51 95 05/09/19 08:38 76 05/09/19 08:22 68 05/09/19 07:40 98.0 F 85 20 112/55 96 05/09/19 03:30 98.1 F 63 18 129/58 96 05/08/19 23:19 72 18 122/47 95 05/08/19 21:15 98.4 F 87 20 112/66 97 05/08/19 19:23 78 05/08/19 19:10 73 05/08/19 16:08 72 05/08/19 15:57 70 05/08/19 15:30 97.6 F 76 18 96/46 95 Intake and Output 05/08/19 05/09/19 05/09/19 22:59 06:59 14:59 Intake Total 160 240 Balance 160 240 Intake: Oral 160 240 Other: Voiding Method Toilet Toilet Toilet Urinal Urinal Urinal # Voids 2 1 2 Weight 128.6 kg Gen NAD Pleasant and cooperative HEENT NCAT Sclera without icterus O/P clear Neck Supple No carotid bruit Cor RRR no m/r/g Lungs CTAB Abd Soft NTND +BS Ext Warm to touch left forearm wrapped in dressing Neuro MS A+Ox3 Fluent but at times non-sensical speech with copious semantic paraphasia and circumlocution CN PERRL VFF no APD EOMI no nystagmus or ARLENE No facial asymmetry [place]'s symmetric Hearing intact to normal voice bilaterally Speech not dysarthric Equal elevation of palate Tongue midline Sym shrug and SCM bilaterally Motor Normal bulk/tone No pronator drift No tremors Strength 5/5 sym throughout Sens Intact to LT x4 No neglect or extinction Coord No dysmetria on FTN bilaterally DTRs 2+/4 sym throughout Toes downgoing bilaterally No clonus at achilles Gait Deferred NIHSS 1b=19=1 total 2 Results - Laboratory Findings CBC and BMP: 05/09/19 05:56 05/09/19 05:56 Abnormal Lab Findings: Abnormal Labs 05/06/19 05/06/19 05/06/19 00:12 00:12 00:12 WBC 12.6 H RBC Hgb 12.8 L Hct MCHC 30.0 L RDW 18.9 H Neutrophils # 11.3 H Lymphocytes # 0.5 L Sodium Potassium Chloride 94 L Carbon Dioxide BUN 28 H Creatinine Glucose 473 H POC Glucose (mg/dL) Plasma Lactic Acid Arthur Troponin I 0.038 H* Total Protein Albumin Urine Protein Urine Glucose (UA) Urine Blood Hyaline Casts Urine Mucus 05/06/19 05/06/19 05/06/19 00:12 00:13 03:09 WBC RBC Hgb Hct MCHC RDW Neutrophils # Lymphocytes # Sodium Potassium Chloride Carbon Dioxide BUN Creatinine Glucose POC Glucose (mg/dL) 439 H Plasma Lactic Acid Arthur 6.4 H* Troponin I Total Protein Albumin Urine Protein 2+ H Urine Glucose (UA) 4+ H Urine Blood Small H Hyaline Casts 6 H Urine Mucus Rare H 05/06/19 05/06/19 05/06/19 03:32 04:02 06:04 WBC RBC Hgb Hct MCHC RDW Neutrophils # Lymphocytes # Sodium Potassium Chloride Carbon Dioxide BUN Creatinine Glucose POC Glucose (mg/dL) 332 H Plasma Lactic Acid Arthur 4.7 H* Troponin I 0.040 H* Total Protein Albumin Urine Protein Urine Glucose (UA) Urine Blood Hyaline Casts Urine Mucus 05/06/19 05/06/19 05/06/19 06:35 11:50 11:54 WBC RBC Hgb Hct MCHC RDW Neutrophils # Lymphocytes # Sodium Potassium Chloride Carbon Dioxide BUN Creatinine Glucose POC Glucose (mg/dL) 307 H 395 H Plasma Lactic Acid Arthur Troponin I 0.035 H* Total Protein Albumin Urine Protein Urine Glucose (UA) Urine Blood Hyaline Casts Urine Mucus 05/06/19 05/06/19 05/07/19 17:22 20:45 00:49 WBC RBC Hgb Hct MCHC RDW Neutrophils # Lymphocytes # Sodium Potassium Chloride Carbon Dioxide BUN Creatinine Glucose POC Glucose (mg/dL) 397 H 330 H 135 H Plasma Lactic Acid Arthur Troponin I Total Protein Albumin Urine Protein Urine Glucose (UA) Urine Blood Hyaline Casts Urine Mucus 05/07/19 05/07/19 05/07/19 05:34 05:34 06:25 WBC 13.0 H RBC 4.01 L Hgb 11.9 L Hct MCHC 30.4 L RDW 19.4 H Neutrophils # 12.0 H Lymphocytes # 0.4 L Sodium Potassium Chloride Carbon Dioxide 32 H BUN 24 H Creatinine Glucose 208 H POC Glucose (mg/dL) 259 H Plasma Lactic Acid Arthur Troponin I Total Protein Albumin 3.2 L Urine Protein Urine Glucose (UA) Urine Blood Hyaline Casts Urine Mucus 05/07/19 05/07/19 05/07/19 12:08 17:15 20:01 WBC RBC Hgb Hct MCHC RDW Neutrophils # Lymphocytes # Sodium Potassium Chloride Carbon Dioxide BUN Creatinine Glucose POC Glucose (mg/dL) 362 H 324 H 302 H Plasma Lactic Acid Arthur Troponin I Total Protein Albumin Urine Protein Urine Glucose (UA) Urine Blood Hyaline Casts Urine Mucus 05/08/19 05/08/19 05/08/19 02:02 02:16 02:37 WBC RBC Hgb Hct MCHC RDW Neutrophils # Lymphocytes # Sodium Potassium Chloride Carbon Dioxide BUN Creatinine Glucose POC Glucose (mg/dL) 60 L 69 L 127 H Plasma Lactic Acid Arthur Troponin I Total Protein Albumin Urine Protein Urine Glucose (UA) Urine Blood Hyaline Casts Urine Mucus 05/08/19 05/08/19 05/08/19 06:04 06:48 06:52 WBC RBC Hgb Hct MCHC RDW Neutrophils # Lymphocytes # Sodium 135 L Potassium Chloride 96 L Carbon Dioxide 33 H BUN 33 H Creatinine Glucose 325 H POC Glucose (mg/dL) 303 H 323 H Plasma Lactic Acid Arthur Troponin I Total Protein Albumin Urine Protein Urine Glucose (UA) Urine Blood Hyaline Casts Urine Mucus 05/08/19 05/08/19 05/08/19 11:32 16:47 20:26 WBC RBC Hgb Hct MCHC RDW Neutrophils # Lymphocytes # Sodium Potassium Chloride Carbon Dioxide BUN Creatinine Glucose POC Glucose (mg/dL) 435 H 280 H 234 H Plasma Lactic Acid Arthur Troponin I Total Protein Albumin Urine Protein Urine Glucose (UA) Urine Blood Hyaline Casts Urine Mucus 05/09/19 05/09/19 05/09/19 05:56 05:56 07:20 WBC 11.7 H RBC 3.68 L Hgb 11.2 L Hct 36.1 L MCHC RDW 18.3 H Neutrophils # 10.9 H Lymphocytes # 0.3 L Sodium 136 L Potassium 5.2 H Chloride Carbon Dioxide BUN 38 H Creatinine 1.30 H Glucose 241 H POC Glucose (mg/dL) 305 H Plasma Lactic Acid Arthur Troponin I Total Protein 5.8 L Albumin 2.9 L Urine Protein Urine Glucose (UA) Urine Blood Hyaline Casts Urine Mucus - Diagnostic Findings Additional findings: CT Head wo cont 05/08/19. 6.5x3.5cm white matter edema in the left parietal lobe. Right IC lacunar ischemic infarct, looks old. Small vessel disease. No ICH . I have reviewed neuroimages myself. Assessment and Plan Assessment: Fluent aphasia found to have left parietal edema, which is new. Need to r/o underlying mass or CVA Plan: -MRI Brain w wo crystal -May treat BP to normotensive range but avoid hypotension -ASA 81mg/day and Eliquis 5mg po bid -Statin therapy -Will hold on further vascular work-up until MRI results known so we know whether we are dealing with a stroke or mass, as this is not abundantly evident on CT Head -PT/OT/SP per protocol -Cardiology, pulmonology and ID also following patient -DVT prophylaxis: apixaban -d/w patient in detail. All questions answered. Thank you for this consultation. Please call with ?. Time with Patient: Greater than 30 (Time spent in direct patient care, greater than 50% of which was spent in [id number] counseling and coordination of care: 70 minutes)
[2019-05-09 12:50] LABS: Glucose,Whole Blood 308 mg/dL (75-99)
--- NOTE | 2019-05-09 14:09 | PN ---
PROGRESS NOTE He was seen on 05/09/2019. He was lying down in bed, attempting to sit up and was quite weak. He complains of some shortness of breath, but has nonlabored respirations. On physical examination, respiratory rate is 20, pulse is 70, temperature 97.3, blood pressure 111/51, O2 saturation on 3 L by nasal cannula is 95%. HEENT: Reveals no new changes. CHEST: Reveals decreased breath sounds, prolonged expiration, but no wheeze. CARDIOVASCULAR SYSTEM: Reveals S1, S2. ABDOMEN: Soft. EXTREMITIES: There is 2+ pedal edema. BUN is 38, creatinine 1.3, sodium 136, potassium 5.2, chloride 100, bicarb 27, white count 11.7, hemoglobin of 11.2, platelet count of 336, 000. Microbiological cultures from his wound from the left hand showing kay-negative bacilli. IMPRESSION: 1. Congestive heart failure. 2. Chronic obstructive pulmonary disease with exacerbation. 3. Obstructive sleep apnea. 4. Obesity. 5. Infected wounds. Continue bronchodilators, antibiotics, steroids, leukotriene receptor antagonist. Increase activity level. He may require rehab. MMODL / IJN: [id number] /
--- NOTE | 2019-05-09 15:13 | MR ---
EXAMINATION TYPE: MR brain wo/w con DATE OF EXAM: 05/09/2019 COMPARISON: CT brain from yesterday and older CT March 21, 2019. HISTORY: Left parietal edema on CT Head r/o mass/CVA. Recent abnormal CT. Admitted for confusion one day earlier. TECHNIQUE: Multiplanar, multisequence images of the brain and brainstem is performed without and with IV contras t, utilizing 13 mL intravenous Gadavist . FINDINGS: Diffusion weighted images demonstrate foci of increased signal on diffusion-weighted images central right frontal lobe axial image 128 measuring approximately 4 mm with additional 4 to 5 mm fo cus anterolateral aspect right thalamus deep right parietal white matter axial image 136 which dimini shed signal on ADC mapping consistent with areas of evolving acute infarct. There is diffuse ventricular and sulcal prominence redemonstrated. There are focal and confluent area s of T2 hyperintensity throughout the white matter again seen. There is area of old infarct left MCA distribution involving frontal and parietal lobes may be subacute/chronic in nature given minimal pro gression in prominence from March 21 study. No suspicious enhancement or enhancing masses are present. Midline structures demonstrate normal morphology. The craniocervical junction appears within normal limits. Fluid completely fills left maxillary sinus. There is suspicious air fluid level in the right maxillary sinus redemonstrated. Remainder paranasal sinuses are clear. Globes are intact bilaterally . IMPRESSION: 1. There are evolving acute lacunar infarcts right frontal lobe near frontal horn and deep right madan etal lobe near the lateral aspect of the thalamus . 2. There is background [id number] diffuse cerebral atrophy with advanced chronic small vessel i schemic change and subacute on chronic left MCA distribution infarct. No suspicious enhancement or en hancing masses are present. 3. Persistent bilateral maxillary sinusitis.
--- NOTE | 2019-05-09 16:13 | P.PN ---
Progress Note - Text Progress Note Date: 05/09/19 MRI Brain results reviewed with patient and family. He has acute lacunar ischemic infarcts in the right frontal and parietal lobes and subacute on chronic left MCA distribution ischemic infarct as well. There is no abnormal enhancement or underlying mass. We do have an anatomical/structural explanation for his aphasia and cognitive changes given the dominant (language) hemispheric involvement of his CVA. Cardiology is following patient and will defer any cardiac work-up to them. He is already on Eliquis 5mg po bid and aspirin 81mg/day as well as max atorvastatin 80mg/day. Will obtain carotid duplex to r/o [id number] phenomenon.
--- NOTE | 2019-05-09 17:12 | US ---
EXAMINATION TYPE: US carotid duplex BILAT DATE OF EXAM: 05/09/2019 COMPARISON: NONE CLINICAL HISTORY: CVA. EXAM MEASUREMENTS: RIGHT: Peak Systolic Velocity (PSV) cm/sec ----- Right CCA: 49.7 ----- Right ICA: 155.5 ----- Right ECA: 231.8 ICA/CCA ratio: 3.1 RIGHT: End Diastole cm/sec ----- Right CCA: 6.8 ----- Right ICA: 6.2 ----- Right ECA: 0.0 LEFT: Peak Systolic Velocity (PSV) cm/sec ----- Left CCA: 72.2 ----- Left ICA: 93.1 ----- Left ECA: 80.1 ICA/CCA ratio: 1.3 LEFT: End Diastole cm/sec ----- Left CCA: 6.2 ----- Left ICA: 8.4 ----- Left ECA: 0.0 VERTEBRALS (direction of flow): Right Vertebral: Antegrade Left Vertebral: Unable to visualize due to obesity and other limitations NOTES: Large thick neck; patient unable to stay awake; snoring; unable to keep his head in a helpful positio n; technically difficult examination. Stenosis estimation based on the indirect measurements of the internal carotid artery velocities, ICA PSV. IMPRESSION: 1) Findings consistent with hemodynamically-significant VANGIE 50-69% stenosis, which can be further ch aracterized anatomically using CTA/MRA. 2) left vertebral artery not visualized, which can be further characterized using CTA/MRA.
[2019-05-09] MEDS: FUROSEMIDE 40 MG TAB PO SCH (17:57)
[2019-05-09] MEDS ORDERED: INSULIN DETEMIR (LEVEMIR) 100 UNIT/ML SYR SQ ONE (18:00)
[2019-05-09 18:02] LABS: Glucose,Whole Blood 206 mg/dL (75-99)
--- NOTE | 2019-05-09 18:09 | P.PN ---
Subjective Progress Note Date: 05/09/19 This is a 74-year-old gentleman admitted with acute COPD exacerbation, generalized weakness, and multiple other medical issues. Yesterday presented with increasing confusion,Namenda initiated.Over the weekend , staff reports patient had not been compliant wearing his oxygen, desatted with increased confusion. Brain CT ordered yesterday reporting left parietal white matter edema, no definite underlying mass, unchanged from prior exam, chronic small vessel ischemia and white matter infarcts; 1 cm hypodense focus right internal capsule consistent with lack in our infarct. Currently on aspirin 81 mg, Eliquis and statin. Neurology consulted. Yesterday daughter brought in CPAP machine which patient did use last night and rested quite well. Less confusion today. Speech improving. Renal function is worsening, potassium 5.2. Diuretics decreased as per cardiology. Objective - Vital Signs Vital signs: Vital Signs Temp 97.2 F L 05/08/19 07:56 Pulse 68 05/08/19 11:38 Resp 20 05/08/19 07:56 BP 166/76 05/08/19 07:56 Pulse Ox 96 05/08/19 07:56 Intake & Output 05/07/19 05/08/19 05/08/19 18:59 06:59 18:59 Intake Total 480 360 Balance 480 360 Weight 127.2 kg Intake: Oral 480 360 Other: Voiding Method Toilet Toilet Toilet Urinal Urinal Urinal Diaper Diaper # Voids 5 2 - Exam PHYSICAL EXAM: VITAL SIGNS: As above GENERAL: Sitting up in bed, no acute distress, obese HEENT: Conjunctivae normal. eyes normal. Oral mucosa moist NECK: Supple, Unable to assess for JVD. No thyroid enlargement. CARDIOVASCULAR: S1, S2 irregular..No murmur, no rub RESPIRATION: Breath sounds diminished in the bases. No rhonchi or crackles. Positive expiratory wheezing No bronchial breathing. ABDOMEN: Obese, Soft, nontender . No guarding. no masses palpable. Bowel sounds heard. EXTREMITIES: Dressings on the left upper, and bilateral lower extremities clean dry and intact. Bilateral lower extremity edema. Multiple areas of ecchymosis, on all extremities. PSYCHIATRY: Alert and oriented X2, mood and affect normal. NERVOUS SYSTEM: Cranial N 2-12 grossly normal. Moves all 4 limbs. Diffuse weakness No focal deficits. Strength and sensation grossly intact.. Skin: no lesions, no rash Microbiology 05/07/19 15:41 Hand - Left Gram Stain - Preliminary 05/07/19 15:41 Hand - Left Wound Culture - Preliminary Gram Neg Bacilli - Labs CBC & Chem 7: 05/09/19 05:56 05/09/19 05:56 Labs: Abnormal Lab Results - Last 24 Hours (Table) 05/07/19 05/07/19 05/08/19 Range/Units 17:15 20:01 02:02 Sodium (137-145) mmol/L Chloride (98-107) mmol/L Carbon Dioxide (22-30) mmol/L BUN (9-20) mg/dL Glucose (74-99) mg/dL POC Glucose (mg/dL) 324 H 302 H 60 L (75-99) mg/dL 05/08/19 05/08/19 05/08/19 Range/Units 02:16 02:37 06:04 Sodium (137-145) mmol/L Chloride (98-107) mmol/L Carbon Dioxide (22-30) mmol/L BUN (9-20) mg/dL Glucose (74-99) mg/dL POC Glucose (mg/dL) 69 L 127 H 303 H (75-99) mg/dL 05/08/19 05/08/19 05/08/19 Range/Units 06:48 06:52 11:32 Sodium 135 L (137-145) mmol/L Chloride 96 L (98-107) mmol/L Carbon Dioxide 33 H (22-30) mmol/L BUN 33 H (9-20) mg/dL Glucose 325 H (74-99) mg/dL POC Glucose (mg/dL) 323 H 435 H (75-99) mg/dL Microbiology - Last 24 Hours (Table) 05/07/19 15:41 Gram Stain - Preliminary Hand - Left Wound Culture - Preliminary Assessment and Plan Assessment: -Acute COPD exacerbation -Possible acute lacunar infarct, workup in progress -Fall with injury to left lower arm and left upper extremity. Cultures are growing gram-negative bacilli. -Obstructive sleep apnea, on home CPAP -Generalized weakness -Chronic paroximal atrial fibrillation -Confusion, acute metabolic encephalopathy, multifactorial, related to hypoxia, hypercapnia, possible acute stroke -Diabetes mellitus, uncontrolled, aezqtazvfgzyv-gquigdp-ulbeine Plan: Continue on current medication regime , Namenda , anticoagulation, statin ,monitoring and symptomatic treatment. Neuro consulted with workup in progress regarding CT findings of possible lacunar infarct. Steroids converted to oral. Levemir insulin adjusted, increased by 5 units. IV antibiotics adjusted to cefepime/Wound Care as per infectious disease. Diuretics as per cardiology. Close monitoring of renal function, electrolytes with repeat labs ordered for a.m. PT/OT. Discharge planning in progress for subacute rehab pending neurology workup, clearance. The impression and plan of care has been dictated as directed. : I performed a history and examination of this patient, discussed the same with the dictator. I agree with the dictator's note ,documented as a scribe. Any additional findings or plans will be noted.
[2019-05-09 19:56] LABS: Glucose,Whole Blood 188 mg/dL (75-99)
[2019-05-09] MEDS: MONTELUKAST 10 MG TAB PO SCH (20:24)
--- NOTE | 2019-05-10 00:07 | P.PN ---
Subjective Progress Note Date: 05/09/19 74-year-old male presents to Hospital status post fall, evaluation emergency center on the left arm presented to the large skin tear with some necrosis to the tissue. There is attempt to put it back into place with some Steri-Strips. Emergency room note is evidence of the multiple abrasions to the left arm, as well as the bilateral lower extremities. The patient apparently lives in a senior housing where there is a visiting nurse it appears there is also a to help. The patient is awake and alert and attempts to communicate. However the content of his speech routinely has no meaning, occasionally a short phrase is under that is comprehensible. Upon direct questioning he does not rel ate if he is having any pain or discomfort. He asked if I can get him a woman. 05/08/2019 the patient is certainly improved today. He sitting upright eating his dinner. He was having some difficulty cutting meat but once this was cut he has no difficulty feeding himself. He still has an odd affect but is able to converse about how he is feeling. He is not in severe pain. His shortness of breath is improved. The arms and legs are dressed and he feels better. 05/09/2019 patient has further improvement. Sitting upright communicating less discomfort Objective - Vital Signs Vital signs: Vital Signs Temp 96.8 F L 05/09/19 20:08 Pulse 87 05/09/19 21:01 Resp 19 05/09/19 20:08 BP 107/51 05/09/19 20:08 Pulse Ox 96 05/09/19 20:08 Intake & Output 05/09/19 05/09/19 05/10/19 06:59 18:59 06:59 Intake Total 960 Balance 960 Weight 128.6 kg Intake: Oral 960 Other: Voiding Method Toilet Toilet Urinal Diaper Incontinent # Voids 1 1 1 - Exam 80-year-old male who looks older than his stated age, partly due to his superobesity HEENT: Anicteric conjunctiva are pink and moist nasal mucosa grossly intact without significant lesions, there is no thrush. Has dentures but they are not in place Neck: The neck is supple without significant lymphadenopathy or thyromegaly. Lungs: There is symmetrical entry there is evidence of expiratory wheeze but no ct bronchial sounds no dullness or egophony Heart: Irregularly positive S4 no distinct murmur click or rub Abdomen: Obese, Positive bowel sounds soft and nontender without palpable masses or organomegaly. There was no guarding or rebound. Extremities: The right upper extremity has evidence of a few ecchymosis but there are no open ulcerations that are seen. The left upper extremity has evidence of the recent fall and trauma. There are some Steri-Strips in place n ear the elbow with evidence of the skin tear. There is extensive ecchymosis and healing lesions of different stages on to the left arm. On the dorsum of the left hand is an injury that has evidence of some drainage, this is cultured. The bilateral lower extremities in the pretibial area have evidence of a scattered ulcerations also, minimal erythema not very tender. Neuro: Awake alert and does respond to his name. He is certainly more interactive today. Sitting upright eating his dinner with out great difficulty. Speech content is improved but still not normal. - Labs CBC & Chem 7: 05/09/19 05:56 05/09/19 05:56 Labs: Abnormal Lab Results - Last 24 Hours (Table) 05/09/19 05/09/19 05/09/19 Range/Units 05:56 05:56 07:20 WBC 11.7 H (3.8-10.6) k/uL RBC 3.68 L (4.30-5.90) m/uL Hgb 11.2 L (13.0-17.5) gm/dL Hct 36.1 L (39.0-53.0) % RDW 18.3 H (11.5-15.5) % Neutrophils # 10.9 H (1.3-7.7) k/uL Lymphocytes # 0.3 L (1.0-4.8) k/uL Sodium 136 L (137-145) mmol/L Potassium 5.2 H (3.5-5.1) mmol/L BUN 38 H (9-20) mg/dL Creatinine 1.30 H (0.66-1.25) mg/dL Glucose 241 H (74-99) mg/dL POC Glucose (mg/dL) 305 H (75-99) mg/dL Total Protein 5.8 L (6.3-8.2) g/dL Albumin 2.9 L (3.5-5.0) g/dL 05/09/19 05/09/19 05/09/19 Range/Units 12:29 17:42 19:55 WBC (3.8-10.6) k/uL RBC (4.30-5.90) m/uL Hgb (13.0-17.5) gm/dL Hct (39.0-53.0) % RDW (11.5-15.5) % Neutrophils # (1.3-7.7) k/uL Lymphocytes # (1.0-4.8) k/uL Sodium (137-145) mmol/L Potassium (3.5-5.1) mmol/L BUN (9-20) mg/dL Creatinine (0.66-1.25) mg/dL Glucose (74-99) mg/dL POC Glucose (mg/dL) 308 H 206 H 188 H (75-99) mg/dL Total Protein (6.3-8.2) g/dL Albumin (3.5-5.0) g/dL Microbiology - Last 24 Hours (Table) 05/07/19 15:41 Gram Stain - Preliminary Hand - Left Wound Culture - Preliminary Gram Neg Bacilli Laboratory Results WBC 11.7 k/uL (3.8-10.6) H 05/09/19 05:56 RBC 3.68 m/uL (4.30-5.90) L 05/09/19 05:56 Hgb 11.2 gm/dL (13.0-17.5) L 05/09/19 05:56 Hct 36.1 % (39.0-53.0) L 05/09/19 05:56 MCV 98.1 fL (80.0-100.0) 05/09/19 05:56 MCH 30.6 pg (25.0-35.0) 05/09/19 05:56 MCHC 31.2 g/dL (31.0-37.0) 05/09/19 05:56 RDW 18.3 % (11.5-15.5) H 05/09/19 05:56 Plt Count 336 k/uL (150-450) 05/09/19 05:56 Neutrophils % 93 % 05/09/19 05:56 Lymphocytes % 3 % 05/09/19 05:56 Monocytes % 3 % 05/09/19 05:56 Eosinophils % 0 % 05/09/19 05:56 Basophils % 0 % 05/09/19 05:56 Neutrophils # 10.9 k/uL (1.3-7.7) H 05/09/19 05:56 Lymphocytes # 0.3 k/uL (1.0-4.8) L 05/09/19 05:56 Monocytes # 0.4 k/uL (0-1.0) 05/09/19 05:56 Eosinophils # 0.0 k/uL (0-0.7) 05/09/19 05:56 Basophils # 0.0 k/uL (0-0.2) 05/09/19 05:56 Hypochromasia Marked 05/09/19 05:56 Anisocytosis Slight 05/09/19 05:56 Macrocytosis Slight 05/09/19 05:56 PT 11.5 sec (9.0-12.0) 05/09/19 05:56 INR 1.1 (<1.2) 05/09/19 05:56 APTT 23.8 sec (22.0-30.0) 05/06/19 00:12 D-Dimer 0.43 mg/L FEU (<0.60) 05/06/19 14:38 Sodium 136 mmol/L (137-145) L 05/09/19 05:56 Potassium 5.2 mmol/L (3.5-5.1) H 05/09/19 05:56 Chloride 100 mmol/L (98-107) 05/09/19 05:56 Carbon Dioxide 27 mmol/L (22-30) 05/09/19 05:56 Anion Gap 9 mmol/L 05/09/19 05:56 BUN 38 mg/dL (9-20) H 05/09/19 05:56 Creatinine 1.30 mg/dL (0.66-1.25) H 05/09/19 05:56 Est GFR (CKD-EPI)AfAm 63 (>60 ml/min/1.73 sqM) 05/09/19 05:56 Est GFR (CKD-EPI)NonAf 55 (>60 ml/min/1.73 sqM) 05/09/19 05:56 Glucose 241 mg/dL (74-99) H 05/09/19 05:56 POC Glucose (mg/dL) 188 mg/dL (75-99) H 05/09/19 19:55 POC Glu Chief Deputy Sheriff ID Ashlie Haque Candy 05/09/19 19:55 Lactic Ac Sepsis Rflx Y 05/06/19 04:50 Plasma Lactic Acid Arthur 1.1 mmol/L (0.7-2.0) 05/06/19 09:07 Calcium 8.7 mg/dL (8.4-10.2) 05/09/19 05:56 Magnesium 1.6 mg/dL (1.6-2.3) 05/06/19 00:12 Total Bilirubin 0.4 mg/dL (0.2-1.3) 05/09/19 05:56 AST 21 U/L (17-59) 05/09/19 05:56 ALT 39 U/L (21-72) 05/09/19 05:56 Alkaline Phosphatase 72 U/L (38-126) 05/09/19 05:56 Creatine Kinase 131 U/L (55-170) 05/06/19 00:12 Troponin I 0.035 ng/mL (0.000-0.034) H* 05/06/19 11:50 NT-Pro-B Natriuret Pep 2350 pg/mL 05/06/19 14:38 Total Protein 5.8 g/dL (6.3-8.2) L 05/09/19 05:56 Albumin 2.9 g/dL (3.5-5.0) L 05/09/19 05:56 Urine Color Yellow 05/06/19 03:09 Urine Appearance Clear (Clear) 05/06/19 03:09 Urine pH 5.5 (5.0-8.0) 05/06/19 03:09 Ur Specific Home 1.016 (1.001-1.035) 05/06/19 03:09 Urine Protein 2+ (Negative) H 05/06/19 03:09 Urine Glucose (UA) 4+ (Negative) H 05/06/19 03:09 Urine Ketones Negative (Negative) 05/06/19 03:09 Urine Blood Small (Negative) H 05/06/19 03:09 Urine Nitrite Negative (Negative) 05/06/19 03:09 Urine Bilirubin Negative (Negative) 05/06/19 03:09 Urine Urobilinogen <2.0 mg/dL (<2.0) 05/06/19 03:09 Ur Leukocyte Esterase Negative (Negative) 05/06/19 03:09 Urine RBC 1 /hpf (0-5) 05/06/19 03:09 Urine WBC 1 /hpf (0-5) 05/06/19 03:09 Hyaline Casts 6 /lpf (0-2) H 05/06/19 03:09 Urine Mucus Rare /hpf (None) H 05/06/19 03:09 Microbiology 05/07/19 15:41 Hand - Left Gram Stain - Preliminary 05/07/19 15:41 Hand - Left Wound Culture - Preliminary Gram Neg Bacilli Assessment and Plan (1) Fall with injury Current Visit: Yes Status: Acute Code(s): W19.XXXA - UNSPECIFIED FALL, INITIAL ENCOUNTER SNOMED Code(s): 661588693 (2) Injury of left lower arm Current Visit: Yes Status: Acute Code(s): S59.912A - UNSPECIFIED INJURY OF LEFT FOREARM, INITIAL ENCOUNTER SNOMED Code(s): 517814430 (3) Injury of left upper extremity Narrative/Plan: 74-year-old male with history of obesity appears that he has having some failing of his health and has been having falls. It this admission apparently there was the fall resulting in injury to his left arm resulted in him coming to the emergency center and being admitted. Local wound care to the arm with nonstick dressings is applied personally, wound care to left arm and bilateral lower extremity facility and has been requested since he can be wrapped and place. Elevation of the limbs well at rest is helpful. Antibiotic therapy with Ancef was started in this is an adequate choice minimal cellulitic changes that are occurring in these regions. Clear information from the attending physician as to the patient's functional status prior to admission will be very helpful in making a discharge plan. Wound cultures obtained which may further direct antibiotic therapy. Patient has uncontrolled diabetes which may be part of his poor healing due to his many injuries. Also seems to have some chronic edema that may respond to diuretic therapy while he is here. Leukocytosis appears record related to the injuries and secondary cellulitis of the limbs. 05/08/2019 the patient has had some improvement of the status the last day especially of his mental status. Silvadene is being applied to his wounds and seems to be tolerating this well. Cultures are now showing some gram-negative bacilli and constantly Ancef is transitioned to cefepime until we have further data regarding concerns as could be a pseudomonal infection. The lower extremity edema and ulcerations seems slightly improved today also. 05/09/2019 the patient is having some improvement. Less pain to the hand. Feeding himself without difficulties. The current local wound care with Gagnon dene and Zully as far as antibiotics for the isolated gram-negative bacilli were awaiting the final culture Current Visit: Yes Status: Acute Code(s): S49.92XA - UNSP INJURY OF LEFT SHOULDER AND UPPER ARM, INIT ENCNTR SNOMED Code(s): 148188581 (4) Dementia Current Visit: Yes Status: Acute Code(s): F03.90 - UNSPECIFIED DEMENTIA WITHOUT BEHAVIORAL DISTURBANCE SNOMED Code(s): 23515836
[2019-05-10 05:34] LABS: Glucose,Whole Blood 102 mg/dL (75-99)
[2019-05-10 05:34] LABS: Glucose,Whole Blood 51 mg/dL (75-99)
[2019-05-10 05:34] LABS: Glucose,Whole Blood 53 mg/dL (75-99)
[2019-05-10] MEDS: PANTOPRAZOLE 40 MG TABLET PO SCH (06:22)
[2019-05-10 06:26] LABS: Glucose,Whole Blood 230 mg/dL (75-99)
[2019-05-10 07:31] LABS: Anisocytosis Slight; HCT 38.2 % (39.0-53.0); HGB 11.6 gm/dL (13.0-17.5); Hypochromasia Marked; MCH 29.6 pg (25.0-35.0); MCHC 30.4 g/dL (31.0-37.0); MCV 97.6 fL (80.0-100.0); Macrocytosis Slight; Mean Platelet Volume 7.8; Platelet Count 361 k/uL (150-450); RBC 3.92 m/uL (4.30-5.90); RDW 18.9 % (11.5-15.5); WBC 11.3 k/uL (3.8-10.6)
[2019-05-10] MEDS: BUDESONIDE 0.5 MG/2 ML NEBU INHALATION SCH ×2 (07:39→19:47)
[2019-05-10] MEDS: ALBUTEROL NEBULIZED 2.5 MG/3 ML INHALATION SCH ×4 (07:39→19:47)
[2019-05-10 07:44] LABS: Glucose,Whole Blood 266 mg/dL (75-99)
[2019-05-10 07:44] LABS: Calcium 8.7 mg/dL (8.4-10.2); Potassium 4.6 mmol/L (3.5-5.1)
[2019-05-10] MEDS: predniSONE 20 MG TAB PO SCH (08:55)
[2019-05-10] MEDS: FUROSEMIDE 40 MG TAB PO SCH ×2 (08:55→17:01)
[2019-05-10] MEDS: APIXABAN 5 MG TAB PO SCH ×2 (08:55→21:17)
[2019-05-10] MEDS: TAMSULOSIN 0.4 MG CAP.ER.24H PO SCH (08:55)
[2019-05-10] MEDS: FINASTERIDE 5 MG TAB PO SCH (08:55)
[2019-05-10] MEDS: metFORMIN 500 MG TAB PO SCH ×2 (08:55→17:01)
[2019-05-10] MEDS: ISOSORBIDE MONONITRATE ER 30 MG TAB.ER.24H PO SCH (08:55)
[2019-05-10] MEDS: VERAPAMIL 40 MG TAB PO SCH ×2 (08:55→21:18)
[2019-05-10] MEDS: ATORVASTATIN 80 MG TAB PO SCH (08:55)
[2019-05-10] MEDS: ASPIRIN 81 MG PO SCH (08:55)
[2019-05-10] MEDS: MEMANTINE 5 MG TAB PO SCH ×2 (08:55→21:18)
[2019-05-10] MEDS: METOPROLOL TARTRATE 50 MG TAB PO SCH ×2 (08:56→21:18)
[2019-05-10] MEDS: EZETIMIBE 10 MG TAB PO SCH (08:56)
[2019-05-10] MEDS: INSULIN DETEMIR (LEVEMIR) 100 UNIT/ML SYR SQ SCH (08:56)
[2019-05-10] MEDS: INSULIN ASPART (NovoLOG) 100 UNIT/ML VIAL SQ SCH ×8 (09:00→21:36)
[2019-05-10] MEDS: CEFEPIME 2 GM in SODIUM CHLORIDE 0.9% 100 ML IVPB SCH ×2 (09:03→21:18)
[2019-05-10] MEDS: SILVER sulfADIAZINE Cream 400 GM 1 APPLIC APPLIC TOPICAL SCH (09:04)
[2019-05-10] MEDS: GLIMEPIRIDE 4 MG TAB PO SCH ×2 (09:06→21:21)
--- NOTE | 2019-05-10 11:51 | P.PN ---
Subjective Progress Note Date: 05/10/19 Principal diagnosis: Fluent aphasia Bilateral anterior circulation CVAs MRI Brain. Carotid duplex. Patient without new neuro c/o. Objective - Vital Signs Vital signs: Vital Signs Temp 98.5 F 05/10/19 09:14 Pulse 80 05/10/19 11:30 Resp 18 05/10/19 09:14 BP 161/61 05/10/19 09:14 Pulse Ox 94 L 05/10/19 09:14 Intake & Output 05/09/19 05/10/19 05/10/19 18:59 06:59 18:59 Intake Total 960 Balance 960 Weight 127.7 kg Intake: Oral 960 Other: Voiding Method Toilet Toilet Toilet Diaper Diaper Diaper Incontinent Incontinent Incontinent # Voids 1 2 - Exam Gen NAD Pleasant and cooperative MS A+Ox3 Fluent but at times non-sensical speech with copious semantic paraphasia and circumlocution CN II-XII grossly intact no nystagmus Motor Normal bulk/tone No pronator drift No tremors Strength 5/5 sym throughout Sens Intact to LT x4 No neglect or extinction Coord No dysmetria on FTN bilaterally DTRs 2+/4 sym throughout Toes downgoing bilaterally No clonus at achilles Gait Deferred NIHSS 1b=19=1 total 2 - Labs CBC & Chem 7: 05/10/19 07:01 05/10/19 07:01 Labs: Abnormal Lab Results - Last 24 Hours (Table) 05/09/19 05/09/19 05/09/19 Range/Units 12:29 17:42 19:55 WBC (3.8-10.6) k/uL RBC (4.30-5.90) m/uL Hgb (13.0-17.5) gm/dL Hct (39.0-53.0) % MCHC (31.0-37.0) g/dL RDW (11.5-15.5) % BUN (9-20) mg/dL Glucose (74-99) mg/dL POC Glucose (mg/dL) 308 H 206 H 188 H (75-99) mg/dL 05/10/19 05/10/19 05/10/19 Range/Units 03:26 03:52 04:15 WBC (3.8-10.6) k/uL RBC (4.30-5.90) m/uL Hgb (13.0-17.5) gm/dL Hct (39.0-53.0) % MCHC (31.0-37.0) g/dL RDW (11.5-15.5) % BUN (9-20) mg/dL Glucose (74-99) mg/dL POC Glucose (mg/dL) 53 L 51 L 102 H (75-99) mg/dL 05/10/19 05/10/19 05/10/19 Range/Units 06:24 07:01 07:01 WBC 11.3 H (3.8-10.6) k/uL RBC 3.92 L (4.30-5.90) m/uL Hgb 11.6 L (13.0-17.5) gm/dL Hct 38.2 L (39.0-53.0) % MCHC 30.4 L (31.0-37.0) g/dL RDW 18.9 H (11.5-15.5) % BUN 35 H (9-20) mg/dL Glucose 244 H (74-99) mg/dL POC Glucose (mg/dL) 230 H (75-99) mg/dL 05/10/19 Range/Units 07:39 WBC (3.8-10.6) k/uL RBC (4.30-5.90) m/uL Hgb (13.0-17.5) gm/dL Hct (39.0-53.0) % MCHC (31.0-37.0) g/dL RDW (11.5-15.5) % BUN (9-20) mg/dL Glucose (74-99) mg/dL POC Glucose (mg/dL) 266 H (75-99) mg/dL - Imaging and Cardiology MRI - head: report reviewed, image reviewed (Bilateral MCA ischemic infarcts of different stages of acuity.) Carotid duplex 05/09/19. Technically difficult study. VANGIE 50-69% stenosis. I have reviewed neuroimages myself. Assessment and Plan Assessment: Fluent aphasia found to have bilateral anterior circulation CVAs. s/p LCEA. Now with VANGIE 50-69% stenosis on carotid duplex that was a technically challenging study due to thickness of his neck. Plan: -MRI Brain w wo crystal and carotid duplex results d/w patient in detail -CTA Head/Neck to better delineate anterior circulation -May treat BP to normotensive range but avoid hypotension -ASA 81mg/day and Eliquis 5mg po bid -Statin therapy -Further cardiac work-up deferred to cardiology who is following patient as well -PT/OT/SP per protocol -Pulmonology and ID also following patient -DVT prophylaxis: apixaban -d/w patient in detail. All questions answered. Thank you again for this consultation. Please call with ?. Time with Patient: Less than 30 (Time spent in direct patient care, greater than 50% of which was spent in [id number] counseling and coordination of care: 25 minutes)
[2019-05-10 12:00] LABS: Glucose,Whole Blood 285 mg/dL (75-99)
--- NOTE | 2019-05-10 15:21 | P.PN ---
Subjective Progress Note Date: 05/10/19 This is a 74-year-old gentleman with known history of atrial fibrillation, COPD, peripheral vascular disease, who presented with symptoms of progressive fatigue. Overall the patient is feeling significantly better, arrangements are being made for him to transfer to outpatient rehab today. Hemodynamically he is stable. Objective - Vital Signs Vital signs: Vital Signs Temp 98.5 F 05/10/19 12:10 Pulse 71 05/10/19 12:10 Resp 18 05/10/19 12:10 BP 141/60 05/10/19 12:10 Pulse Ox 95 05/10/19 12:10 Intake & Output 05/09/19 05/10/19 05/10/19 18:59 06:59 18:59 Intake Total 960 360 Balance 960 360 Weight 127.7 kg Intake: Oral 960 360 Other: Voiding Method Toilet Toilet Toilet Diaper Diaper Diaper Incontinent Incontinent Incontinent # Voids 1 2 - Exam PHYSICAL EXAMINATION: GENERAL: 74-year-old gentleman in no acute distress at the time of my examination HEENT: Head is atraumatic, normocephalic. Pupils equal, round. Sclera anicteric. Conjunctiva are clear. Mucous membranes of the mouth are moist. Neck is supple. There is no elevated jugular venous pressure. No carotid bruit is heard. HEART EXAMINATION: Heart S1 S2 1 systolic murmur is heard CHEST EXAMINATION: Lungs reveal decreased air exchange throughout. ABDOMEN: Soft, nontender. Bowel sounds are heard. No organomegaly noted. EXTREMITIES:[ 2+ peripheral pulses with bilateral Favio wraps in place NEUROLOGIC patient is awake, alert and oriented X3. . - Labs CBC & Chem 7: 05/10/19 07:01 05/10/19 07:01 Labs: Abnormal Lab Results - Last 24 Hours (Table) 05/09/19 05/09/19 05/10/19 Range/Units 17:42 19:55 03:26 WBC (3.8-10.6) k/uL RBC (4.30-5.90) m/uL Hgb (13.0-17.5) gm/dL Hct (39.0-53.0) % MCHC (31.0-37.0) g/dL RDW (11.5-15.5) % BUN (9-20) mg/dL Glucose (74-99) mg/dL POC Glucose (mg/dL) 206 H 188 H 53 L (75-99) mg/dL 05/10/19 05/10/19 05/10/19 Range/Units 03:52 04:15 06:24 WBC (3.8-10.6) k/uL RBC (4.30-5.90) m/uL Hgb (13.0-17.5) gm/dL Hct (39.0-53.0) % MCHC (31.0-37.0) g/dL RDW (11.5-15.5) % BUN (9-20) mg/dL Glucose (74-99) mg/dL POC Glucose (mg/dL) 51 L 102 H 230 H (75-99) mg/dL 05/10/19 05/10/19 05/10/19 Range/Units 07:01 07:01 07:39 WBC 11.3 H (3.8-10.6) k/uL RBC 3.92 L (4.30-5.90) m/uL Hgb 11.6 L (13.0-17.5) gm/dL Hct 38.2 L (39.0-53.0) % MCHC 30.4 L (31.0-37.0) g/dL RDW 18.9 H (11.5-15.5) % BUN 35 H (9-20) mg/dL Glucose 244 H (74-99) mg/dL POC Glucose (mg/dL) 266 H (75-99) mg/dL 05/10/19 Range/Units 11:47 WBC (3.8-10.6) k/uL RBC (4.30-5.90) m/uL Hgb (13.0-17.5) gm/dL Hct (39.0-53.0) % MCHC (31.0-37.0) g/dL RDW (11.5-15.5) % BUN (9-20) mg/dL Glucose (74-99) mg/dL POC Glucose (mg/dL) 285 H (75-99) mg/dL Assessment and Plan Plan: Assessment and plan #1 progressive fatigue, improving #2 paroxysmal atrial fibrillation, anticoagulated #3 COPD #4 history of hypertension #5 hyperlipidemia Plan From cardiology's perspective, patient may be transferred to rehab, follow-up appointment will be made post discharge. We will follow along with you now on an as-needed basis only, please don't hesitate to call us if you have any questions. DNP note has been reviewed, I agree with a documented findings and plan of care. Patient was seen and examined.
--- NOTE | 2019-05-10 16:10 | CT ---
EXAMINATION TYPE: CT angio head neck DATE OF EXAM: 05/10/2019 COMPARISON: Ultrasound 05/09/2019 HISTORY: 74-year-old male bilateral CVA, right ICA 50-69% stenosis on ultrasound status post left car otid endarterectomy. Carotid stenosis TECHNIQUE: Contiguous axial scanning of the head and neck performed with IV Contrast, patient injecte d with 50 mL of Isovue 370. Coronal/sagittal MIP reconstructions performed. 3-D reconstructions gener ated on a dedicated workstation. CT DLP: 829.1 mGycm Automated exposure control for dose reduction was used. FINDINGS: Neck: Small right pleural effusion. Emphysematous change in the visualized upper lungs. Three-vessel arch branching anatomy. Moderate atherosclerotic calcification at the origin of the right vertebral artery. No appreciable opacification within the V1 segment left vertebral artery. There may be some gradual o pacification within the upper V2 and more distal segments from collateral and retrograde flow. Right common carotid artery is patent. Extensive atherosclerotic calcifications at the right bifurcat ion with approximately 60% narrowing of the proximal ICA relative to the more distal cervical ICA. Re tropharyngeal course of the right ICA. Scattered mild prostatic calcifications within the left common carotid artery. Some irregularity at t he left carotid bulb relating to prior surgery without significant stenosis. BRAIN: Scattered moderate atherosclerotic calcification V4 segment vertebral arteries. Both vertebral and ba silar arteries are patent. P1 segment left posterior cerebral artery is hypoplastic. There is a large left posterior communicati ng artery. Moderate atherosclerotic calcifications narrowing the right internal carotid artery and mild scattere d aphthous chronic narrowing left ICA. No aneurysmal changes seen. IMPRESSION: NECK: 1. MODERATE, APPROXIMATELY 60% STENOSIS OF THE PROXIMAL RIGHT CAROTID BULB SECONDARY TO PROSTATIC COURTNEY CIFICATION. 2. PRIOR SURGERY/ENDARTERECTOMY LEFT ICA WHICH REMAINS PATENT. 3. SUSPECT HIGH-GRADE STENOSIS OR OCCLUSION AT THE LEFT VERTEBRAL ARTERY ORIGIN. FAINT OPACIFICATION BEGINS AT THE MID V2 SEGMENT WITH STRONGER OPACIFICATION DISTALLY PROBABLY FROM RETROGRADE OR COLLATE RAL FLOW. 4. EMPHYSEMA AND SMALL RIGHT PLEURAL EFFUSION. BRAIN: 1. MODERATE ATHEROSCLEROTIC NARROWING WITHIN THE BILATERAL V4 SEGMENT VERTEBRAL ARTERIES. 2. ADDITIONAL MODERATE ATHEROSCLEROTIC NARROWING OF THE RIGHT ICA. 3. PERSISTENT ORIGIN LEFT PC A. 4. NO LARGE VESSEL INTRACRANIAL ARTERIAL OCCLUSION OR ANEURYSMAL CHANGE SEEN.
--- NOTE | 2019-05-10 16:52 | CDI ---
Documentation Clarification Form Date: 05/10/2019 4:11:12 PM From: Karine Messina RN, CCDS Admit Date: 05/07/2019 2:59:00 PM Patient Name: Adam Meza Visit Number: [id number] Discharge Date: ATTENTION: The Clinical Documentation Specialists (CDI) and [facility] Coding Staff appreciate your assistance in clarifying documentation. Please respond to the clarification below the line at the bottom and electronically sign. The CDI & [facility] Coding staff will review the response and follow-up if needed. Please note: Queries are made part of the Legal Health Record. If you have any questions, please contact the author of this message via ITS. Dr. Estiven Maxwell The patient presented with progressive weakness, dyspnea and shortness of breath. 05/06/19 progress note: Mild troponin elevation most likely representing a type 2 event. History/Risk Factors: Atrial Fibrillation, Hypertension, COPD, PND, Diabetes Mellitus, Obstructive sleep apnea Clinical Indicators: 74 -year-old male present with symptoms of progressive weakness, dyspnea, Chronic hypoxic respiratory failure on home) 2 at 3/L NC Lab findings: Troponin 0.038, 0.040, 0.035 BNP 2430 Chest x-ray: Trace bilateral pleural effusion. Bibasilar atelectasis verse aspiration Vital Signs: on admission: 86/54 62 22 98.8 91 % RA EKG ventricular rate 63 bpm Other Clinical Indicators: ECHO (11/01) EF 50-55 % with mild mitral regurgitation Treatment: Eliquis Po Ventolin Nebulized Inhalation per orders Pulmicort Inhlations Lasix Po Imdur Po Lopressor PO Monitor Labs (CBC, Lytes, BUN, CR, PT/INR In your professional opinion, can you please clarify Type 2 event? XXXX Type 2 Myocardial infarction due to (COPD Acute ischemic heart disease Other, please specify Unable to determine (Last Revision: December 2017) MTDD
[2019-05-10 18:06] LABS: Glucose,Whole Blood 154 mg/dL (75-99)
--- NOTE | 2019-05-10 18:46 | P.PN ---
Subjective Progress Note Date: 05/10/19 05/09/2019 This is a 74-year-old gentleman admitted with acute COPD exacerbation, generalized weakness, and multiple other medical issues. Yesterday presented with increasing confusion,Namenda initiated.Over the weekend , staff reports patient had not been compliant wearing his oxygen, desatted with increased confusion. Brain CT ordered yesterday reporting left parietal white matter edema, no definite underlying mass, unchanged from prior exam, chronic small vessel ischemia and white matter infarcts; 1 cm hypodense focus right internal capsule consistent with lack in our infarct. Currently on aspirin 81 mg, Eliquis and statin. Neurology consulted. Yesterday daughter brought in CPAP machine which patient did use last night and rested quite well. Less confusion today. Speech improving. Renal function is worsening, potassium 5.2. Diuretics decreased as per cardiology. 05/10/2019 evaluated by neurology with workup in progress. Brain MRI completed, reporting acute lacunar ischemic infarct in the right frontal and parietal lobes with subacute on chronic left MCA distribution ischemic infarct. No suspicious enhancement or masses present. Carotid Doppler reported significant VANGIE steno sis of 50-69% with left vertebral artery not visualized. CTA performed reporting moderate 60% stenosis of the proximal right carotid bulb, prior surgery/endarterectomy left ICA patent, suspect high-grade stenosis or occlusion at the left vertebral artery origin ( neck), moderate arteriosclerotic narrowing within the bilateral V4 segment vertebral arteries of the brain. Vascular surgery consulted. Aphasia continues to improve. Denies any lightheadedness dizziness or focal deficits. Denies any chest pain, palpitations or increased shortness of breath. Preliminary wound culture reporting gram-negative bacilli. Afebrile, WBC trending down, 11.3. VSS, maintained on 3 L nasal cannula, baseli ne, maintaining O2 sats in the 90s. Diabetic regimen adjusted yesterday with steroids converted to oral with better controlled blood sugars today. Objective - Vital Signs Vital signs: Vital Signs Temp 96.3 F L 05/10/19 16:05 Pulse 77 05/10/19 16:05 Resp 19 05/10/19 16:05 BP 132/61 05/10/19 16:05 Pulse Ox 97 05/10/19 16:05 Intake & Output 05/09/19 05/10/19 05/10/19 18:59 06:59 18:59 Intake Total 960 360 Balance 960 360 Weight 127.7 kg Intake: Oral 960 360 Other: Voiding Method Toilet Toilet Toilet Diaper Diaper Diaper Incontinent Incontinent Incontinent # Voids 1 2 - Exam PHYSICAL EXAM: VITAL SIGNS: As above GENERAL: Sitting up in bed, no acute distress. HEENT: Conjunctivae normal. eyes normal. No nystagmus, no facial asymmetry. Oral mucosa moist. NECK: Supple, Unable to assess for JVD. No thyroid enlargement. CARDIOVASCULAR: S1, S2 irregular..No murmur, no rub RESPIRATION: Breath sounds diminished in the bases. No rhonchi or crackles. Positive expiratory wheezing. ABDOMEN: Obese, Soft, nontender . No guarding. no masses palpable. Bowel sounds heard. EXTREMITIES: Dressings on the left upper, and bilateral lower extremities clean dry and intact. Bilateral lower extremity edema. Multiple areas of ecchymosis, on all extremities. PSYCHIATRY: Alert and oriented X2, mood and affect normal. NERVOUS SYSTEM: Cranial N 2-12 grossly normal. Moves all 4 limbs. Diffuse weakness No focal deficits. Strength and sensation grossly intact. DTRs 2+ and equal. Skin: no lesions, no rash Microbiology 05/07/19 15:41 Hand - Left Gram Stain - Preliminary 05/07/19 15:41 Hand - Left Wound Culture - Preliminary Gram Neg Bacilli - Labs CBC & Chem 7: 05/10/19 07:01 05/10/19 07:01 Labs: Abnormal Lab Results - Last 24 Hours (Table) 05/09/19 05/09/19 05/10/19 Range/Units 17:42 19:55 03:26 WBC (3.8-10.6) k/uL RBC (4.30-5.90) m/uL Hgb (13.0-17.5) gm/dL Hct (39.0-53.0) % MCHC (31.0-37.0) g/dL RDW (11.5-15.5) % BUN (9-20) mg/dL Glucose (74-99) mg/dL POC Glucose (mg/dL) 206 H 188 H 53 L (75-99) mg/dL 05/10/19 05/10/19 05/10/19 Range/Units 03:52 04:15 06:24 WBC (3.8-10.6) k/uL RBC (4.30-5.90) m/uL Hgb (13.0-17.5) gm/dL Hct (39.0-53.0) % MCHC (31.0-37.0) g/dL RDW (11.5-15.5) % BUN (9-20) mg/dL Glucose (74-99) mg/dL POC Glucose (mg/dL) 51 L 102 H 230 H (75-99) mg/dL 05/10/19 05/10/19 05/10/19 Range/Units 07:01 07:01 07:39 WBC 11.3 H (3.8-10.6) k/uL RBC 3.92 L (4.30-5.90) m/uL Hgb 11.6 L (13.0-17.5) gm/dL Hct 38.2 L (39.0-53.0) % MCHC 30.4 L (31.0-37.0) g/dL RDW 18.9 H (11.5-15.5) % BUN 35 H (9-20) mg/dL Glucose 244 H (74-99) mg/dL POC Glucose (mg/dL) 266 H (75-99) mg/dL 05/10/19 Range/Units 11:47 WBC (3.8-10.6) k/uL RBC (4.30-5.90) m/uL Hgb (13.0-17.5) gm/dL Hct (39.0-53.0) % MCHC (31.0-37.0) g/dL RDW (11.5-15.5) % BUN (9-20) mg/dL Glucose (74-99) mg/dL POC Glucose (mg/dL) 285 H (75-99) mg/dL Assessment and Plan Assessment: -Acute COPD exacerbation -Acute lacunar ischemic infarct in the right frontal and parietal lobes with subacute on chronic left MCA distribution ischemic infarct. -Aphasia , left parietal edema, secondary to the above -Carotid Doppler reported significant VANGIE stenosis of 50-69% with left vertebral artery not visualized. CTA performed reporting moderate 60% stenosis of the proximal right carotid bulb, prior surgery/endarterectomy left ICA patent, suspect high-grade stenosis or occlusion at the left vertebral artery origin ( neck), moderate arteriosclerotic narrowing within the bilateral V4 segment vertebral arteries of the brain. -Fall with injury to left lower arm and left upper extremity. Cultures are growing gram-negative bacilli. -Obstructive sleep apnea, on home CPAP -Generalized weakness -Chronic hypoxic respiratory failure, wears 3 L nasal cannula at home -Chronic diastolic CHF, EF 5055% -Chronic paroximal atrial fibrillation -Confusion, acute metabolic encephalopathy, multifactorial, related to hypoxia, hypercapnia, possible acute stroke -Diabetes mellitus, uncontrolled, [id number] -Mild troponin elevation, possibly a type II NH as per cardiology secondary to supply and demand mismatch -Lactic acidosis, present on admission, multifactorial secondary to acute COPD exacerbation, wound infection, resolved Plan: Continue on current medication regime , Namenda , anticoagulation, statin ,monitoring and symptomatic treatment. Vascular surgery consulted. Maintain Levemir dose, close monitoring of Accu-Cheks. IV antibiotics,Wound Care as per infectious disease, final culture results pending. Close monitoring of renal function, electrolytes with repeat labs ordered for a.m. PT/OT. Prognosis guarded given multiple complex medical issues. Discharge planning for subacute rehab pending vascular surgery recommendations and final wound culture results. The impression and plan of care has been dictated as directed. : I performed a history and examination of this patient, discussed the same with the dictator. I agree with the dictator's note ,documented as a scribe. Any additional findings or plans will be noted.
--- NOTE | 2019-05-10 18:46 | PN ---
PROGRESS NOTE DATE OF SERVICE: 05/08/2019 This patient has been hemodynamically stable. He is less short of breath and sitting in a chair. Angiography CT was done. Results were reviewed. On physical examination, his vital signs reveal a respiratory rate of 19, pulse rate of 77, temperature 96.3, blood pressure 132/61. Oxygen saturation on 3 L by nasal cannula is 97%. HEENT is unremarkable. Chest reveals decreased breath sounds. Cardiovascular system reveals an S1, S2. Abdomen is soft. There is 1+ to 2+ pedal edema. White count is 11.3, hemoglobin of 11.6. IMPRESSION AT THIS TIME: 1. Congestive heart failure. 2. Chronic obstructive pulmonary disease with acute exacerbation. 3. Obstructive sleep apnea. 4. Obesity. 5. Infected wound. Continue antibiotics, steroids, bronchodilators, leukotriene receptor antagonists. Local wound care. Depending on how he does, we shall make further changes to his care. MMODL / IJN: [id number] /
[2019-05-10 20:30] LABS: Glucose,Whole Blood 249 mg/dL (75-99)
[2019-05-10 20:57] VITALS: RESP 18
[2019-05-10] MEDS: MONTELUKAST 10 MG TAB PO SCH (21:17)
[2019-05-11 01:54] LABS: Glucose,Whole Blood 290 mg/dL (75-99)
[2019-05-11] MEDS: PANTOPRAZOLE 40 MG TABLET PO SCH (06:11)
[2019-05-11 07:30] LABS: Glucose,Whole Blood 288 mg/dL (75-99)
[2019-05-11] MEDS: FINASTERIDE 5 MG TAB PO SCH (08:37)
[2019-05-11] MEDS: METOPROLOL TARTRATE 50 MG TAB PO SCH (08:37)
[2019-05-11] MEDS: ASPIRIN 81 MG PO SCH (08:37)
[2019-05-11] MEDS: EZETIMIBE 10 MG TAB PO SCH (08:37)
[2019-05-11] MEDS: predniSONE 20 MG TAB PO SCH (08:37)
[2019-05-11] MEDS: ATORVASTATIN 80 MG TAB PO SCH (08:37)
[2019-05-11] MEDS: metFORMIN 500 MG TAB PO SCH (08:37)
[2019-05-11] MEDS: FUROSEMIDE 40 MG TAB PO SCH (08:37)
[2019-05-11] MEDS: MEMANTINE 5 MG TAB PO SCH (08:37)
[2019-05-11] MEDS: VERAPAMIL 40 MG TAB PO SCH (08:37)
[2019-05-11] MEDS: APIXABAN 5 MG TAB PO SCH (08:38)
[2019-05-11] MEDS: INSULIN ASPART (NovoLOG) 100 UNIT/ML VIAL SQ SCH ×4 (08:38→12:35)
[2019-05-11] MEDS: INSULIN DETEMIR (LEVEMIR) 100 UNIT/ML SYR SQ SCH (08:38)
[2019-05-11] MEDS: ISOSORBIDE MONONITRATE ER 30 MG TAB.ER.24H PO SCH (08:38)
[2019-05-11] MEDS: GLIMEPIRIDE 4 MG TAB PO SCH (08:40)
[2019-05-11] MEDS: SILVER sulfADIAZINE Cream 400 GM 1 APPLIC APPLIC TOPICAL SCH (08:40)
[2019-05-11] MEDS: CEFEPIME 2 GM in SODIUM CHLORIDE 0.9% 100 ML IVPB SCH (08:41)
[2019-05-11] MEDS: TAMSULOSIN 0.4 MG CAP.ER.24H PO SCH (08:44)
--- NOTE | 2019-05-11 08:59 | P.GSCN ---
History of Present Illness Consult date: 05/11/19 History of present illness: The patient is a 74-year-old male with a history of atrial fibrillation, asthma, COPD on home O2, history of CVA, diabetes, history of DVT, GERD, hyperlipidemia, sleep apnea, and glaucoma who presented after a fall and was admitted for [facility] with COPD exacerbation. Upon initial evaluation he was confused and had some inability to communicate. Workup and imaging per neurology revealed significant white matter edema in the left parietal lobe as well as right lacunar ischemic infarcts that appeared old with no evidence of intracranial hemorrhage. The patient then underwent an MRI and further imaging revealing acute lacunar infarcts in the right frontal and parietal lobes along with subacute chronic left MCA infarcts. Carotid Doppler reveals a right ICA 50-69% stenosis with a peak systolic velocity of 151 and a ratio of 3.1. A CT angiogram of the neck confirmed this around 60% of the right ICA at the bulb. At this point today the patient has no worsening neurologic findings per nursing. He says he feels better overall since admission. He denies any chest pains or new shortness of breath. Denies any nausea, vomiting or diarrhea. Review of Systems 14 point review systems performed, pertinent positives and negatives per the HPI Past Medical History Past Medical History: Atrial Fibrillation, Asthma, Blood Disorder, COPD, CVA/TIA, Diabetes Mellitus, Deep Vein Thrombosis (DVT), Eye Disorder, GERD/Reflux, Hyperlipidemia, Respiratory Disorder, Sleep Apnea/CPAP/BIPAP, Vascular Disorder Additional Past Medical History / Comment(s): Pt recently admitted to [facility] on 02/05/19 with r lower lobe pneumonia, R pleural effusion, L lung nodule, uncontrolled diabetes, severe COPD acute exacerbation, hyponatremia, Afib with RVR. Other Hx: Chronic hypoxic respiratory failure with home oxygen at 3L/NC ATC, ANUP with Cpap use, IDDM type II, TIA, familial erythrocytosis, PVD, DVT L leg, bilateral lower leg cellulitis, chronic back pain, glaucoma bilaterally, bilateral retinal bleeds with surgery. History of Any Multi-Drug Resistant Organisms: None Reported, MRSA Year Discovered:: 05/07/19 MDRO Source:: HAND Past Surgical History: Cardiac Ablation, EPS, Heart Catheterization Additional Past Surgical History / Comment(s): L femoral bypass, L caratid endartectomy, EP study with aflutter ablation, colonoscopy, bilateral eye laser surgery for retinal bleeds. Past Anesthesia/Blood Transfusion Reactions: No Reported Reaction Additional Past Anesthesia/Blood Transfusion Reaction / Comm: Pt states he has received blood in past without reaction. Smoking Status: Former smoker - Past Family History Father Additional Family Medical History / Comment(s): DAD AGE 55 OF BRAIN HEMORRAGE. HAD HX TB. Mother Additional Family Medical History / Comment(s): HEART TROUBLE IN HER 70'S Medications and Allergies Home Medications Medication Instructions Recorded Confirmed Type Ezetimibe [Zetia] 10 mg PO DAILY 01/22/14 05/08/19 History Glimepiride [Amaryl] 4 mg PO BID 01/22/14 05/08/19 History Aspirin [Adult Low Dose Aspirin EC] 81 mg PO DAILY 11/29/18 05/06/19 History Insulin Degludec [Tresiba 60 units SQ DAILY 11/29/18 05/08/19 History Flextouch U-200] Metoprolol Tartrate [Lopressor] 50 mg PO BID 11/29/18 05/08/19 History Atorvastatin [Lipitor] 80 mg PO DAILY 12/15/18 05/08/19 History Dutasteride [Avodart] 0.5 mg PO DAILY 12/15/18 05/08/19 History Tamsulosin [Flomax] 0.4 mg PO DAILY 12/15/18 05/08/19 History metFORMIN HCL 1,000 mg PO BID 12/15/18 05/08/19 History INSULIN ASPART (NovoLOG) [NovoLOG See Protocol SQ ACHS 02/07/19 05/08/19 History (formulary)] Isosorbide Mononitrate ER [Imdur] 30 mg PO DAILY 30 Days #30 02/10/19 05/08/19 Rx tab.er.24h Verapamil [Isoptin] 120 mg PO TID 30 Days #90 tab 02/10/19 05/08/19 Rx Repaglinide 0.5 mg PO TID 02/27/19 05/08/19 History Apixaban [Eliquis] 5 mg PO BID tab 05/10/19 Rx Budesonide [Pulmicort] 0.5 mg INHALATION RT-BID nebu 05/10/19 Rx Furosemide [Lasix] 40 mg PO BID@0900,1600 tab 05/10/19 Rx HYDROcodone/APAP 7.5-325MG [[place] 1 tab PO BID PRN #6 tab 05/10/19 Rx 7.5-325] INSULIN LISPRO (HumaLOG) [humaLOG] 0 unit SQ ACHS #1 vial 05/10/19 Rx Ipratropium-Albuterol Nebulize 3 ml INHALATION RT-QID 30 Days 05/10/19 05/08/19 Rx [Duoneb 0.5 mg-3 mg/3 ml Soln] #120 ampul.neb Memantine [Namenda] 5 mg PO BID tab 05/10/19 Rx Montelukast [Singulair] 10 mg PO HS tab 05/10/19 Rx Pantoprazole [Protonix] 40 mg PO AC-BRKFST tablet. 05/10/19 Rx SILVER sulfADIAZINE Cream 1 applic TOPICAL DAILY applic 05/10/19 Rx [Silvadene 1% Cream] predniSONE 10 mg PO DIRECTED #30 tab 05/10/19 Rx Allergies Allergy/AdvReac Type Severity Reaction Status Date / Time morphine Allergy Rash/Hives Verified 05/08/19 09:22 Surgical - Exam Vital Signs Temp Pulse Resp BP Pulse Ox 98.8 F 62 22 86/54 91 L 05/05/19 23:41 05/05/19 23:41 05/05/19 23:41 05/05/19 23:41 05/05/19 23:41 Gen. is an obese male in no acute distress, sitting at the bedside eating breakfast Neck is supple with no masses. Trachea is midline. Previous surgical incision in the left neck Heart is irregularly irregular Lungs are clear bilaterally although diminished Abdomen is obese, nontender, nondistended Extremities on his left hand. Is a skin tear with some seropurulent drainage. t he bilateral lower extremities are wrapped Cranial nerves II through XII grossly intact, there is some evidence of aphasia and word finding difficulties. Equal muscle strength bilaterally Results CT head, CT angiogram the neck, carotid Dopplers are all reviewed. There is approximate 60% stenosis of the right internal carotid artery at the bulb - Labs 05/10/19 07:01 05/10/19 07:01 Abnormal Lab Results - Last 24 Hours (Table) 05/10/19 05/10/19 05/10/19 Range/Units 11:47 17:05 20:29 POC Glucose (mg/dL) 285 H 154 H 249 H (75-99) mg/dL 05/11/19 05/11/19 Range/Units 01:53 07:10 POC Glucose (mg/dL) 290 H 288 H (75-99) mg/dL Microbiology - Last 24 Hours (Table) 05/07/19 15:41 Gram Stain - Preliminary Hand - Left Wound Culture - Preliminary Proteus mirabilis Presumptive MRSA Dee albicans Assessment and Plan Assessment: #1 right internal carotid artery stenosis #2 aphasia #3 Bilateral anterior circulation CVA #4 COPD requiring home O2 #5 Hypertension #6 History of CVA #7 Sleep apnea #8 Diabetes Plan: At this point it is appear to be 60% stenosis of the right internal carotid artery. It is not certain of this is the overall cause of the patient's issues given his bilateral areas of CVA. There is a continuation of his aphasia although it is improving. He also significant edema on initial imaging. Given all this will opt for medical management currently and follow up as outpatient for possibility and need for intervention of the right internal carotid artery, possibly T CAR given his significant comorbidities. He is on aspirin, Eliquis and statin therapy currently. Discussed with neurology who agrees with this plan. Okay for discharge from vascular standpoint, follow up in the office in 2 weeks Thank you for allowing me to participate in the care of this patient. Please call with any questions. [phone]
[2019-05-11] MEDS: BUDESONIDE 0.5 MG/2 ML NEBU INHALATION SCH (09:14)
[2019-05-11] MEDS: ALBUTEROL NEBULIZED 2.5 MG/3 ML INHALATION SCH ×2 (09:14→13:00)
--- NOTE | 2019-05-11 11:26 | P.DS ---
Providers Date of admission: 05/07/19 14:59 Expected date of discharge: 05/11/19 Attending physician: Freddy Viveros Consults: 05/06/19 10:46 Consult Physician Routine Consulting Provider: Estiven Maxwell Consult Reason/Comments: afib Do you want consulting provider notified?: Yes 05/06/19 10:47 Consult Physician Routine Consulting Provider: Freddy Charles Consult Reason/Comments: cellulitis Do you want consulting provider notified?: Yes 05/06/19 12:42 Consult Physician Routine Consulting Provider: Yusuf Queen Consult Reason/Comments: copd Do you want consulting provider notified?: Yes 05/09/19 10:18 Consult Physician Urgent Consulting Provider: [place] Brito Consult Reason/Comments: Lacunar infarct Do you want consulting provider notified?: Yes 05/10/19 17:40 Consult Physician Routine Consulting Provider: Pete Ramsey Consult Reason/Comments: carotid stenosis Do you want consulting provider notified?: Yes Primary care physician: Freddy Viveros [place] [facility] Course: Final Diagnoses: -Acute COPD exacerbation -Acute lacunar ischemic infarct in the right frontal and parietal lobes with subacute on chronic left MCA distribution ischemic infarct. -Aphasia , left parietal edema, secondary to the above -Carotid Doppler reported significant VANGIE stenosis of 50-69% with left vertebral artery not visualized. CTA performed reporting moderate 60% stenosis of the proximal right carotid bulb, prior surgery/endarterectomy left ICA patent, suspect high-grade stenosis or occlusion at the left vertebral artery origin ( neck), moderate arteriosclerotic narrowing within the bilateral V4 segment vertebral arteries of the brain. -Fall with injury to left lower arm and left upper extremity. Cultures are growing Proteus mirabilis,Presumptive MRSA,Dee albicansgram -Obstructive sleep apnea, on home CPAP -Generalized weakness -Chronic hypoxic respiratory failure, wears 3 L nasal cannula at home -Chronic diastolic CHF, EF 5055% -Chronic paroximal atrial fibrillation -Confusion, acute metabolic encephalopathy, multifactorial, related to hypoxia, hypercapnia, possible acute stroke -Diabetes mellitus, uncontrolled, [id number] -Mild troponin elevation, possibly a type II VT as per cardiology secondary to supply and demand mismatch -Lactic acidosis, present on admission, multifactorial secondary to acute COPD exacerbation, wound infection, resolved Hospital course:This is a 74-year-old gentleman admitted with acute COPD exacerbation, generalized weakness, and multiple other medical issues. Yesterday presented with increasing confusion,Namenda initiated.Over the weekend , staff reports patient had not been compliant wearing his oxygen, desatted with increased confusion. Brain CT ordered yesterday reporting left parietal white matter edema, no definite underlying mass, unchanged from prior exam, chronic small vessel ischemia and white matter infarcts; 1 cm hypodense focus right internal capsule consistent with lack in our infarct. Currently on aspirin 81 mg, Eliquis and statin. Neurology consulted. Yesterday daughter brought in CPAP machine which patient did use last night and rested quite well. Less confusion today. Speech improving. Renal function is worsening, potassium 5.2. Diuretics decreased as per cardiology. 05/10/2019 evaluated by neurology with workup in progress. Brain MRI completed, reporting acute lacunar ischemic infarct in the right frontal and parietal lobes with subacute on chronic left MCA distribution ischemic infarct. No suspicious enhancement or masses present. Carotid Doppler reported significant VANGIE stenosis of 50-69% with left vertebral artery not visualized. CTA performed reporting moderate 60% stenosis of the proximal right carotid bulb, prior surgery/endarterectomy left ICA patent, suspect high-grade stenosis or occlusion at the left vertebral artery origin ( neck), moderate arteriosclerotic narrowing within the bilateral V4 segment vertebral arteries of the brain. Vascular surgery consulted. Aphasia continues to improve. Denies any lightheadedness dizziness or focal deficits. Denies any chest pain, palpitations or increased shortness of breath. Preliminary wound culture reporting gram-negative bacilli. Afebrile, WBC trending down, 11.3. VSS, maintained on 3 L nasal cannula, baseline, maintaining O2 sats in the 90s. Diabetic regimen adjusted yesterday with steroids converted to oral with better controlled blood sugars today. Evaluated by vascular surgery, currently recommending medical management with follow-up outpatient for possibility/need for intervention of the right internal carotid artery. Maintained on aspirin, Eliquis and statin. Patient is being discharged to subacute rehab in stable condition with guarded prognosis, pending DC antibiotics, potential PICC line, clearance and final DC recommendations from both neurology and vascular surgery. EXAM: GENERAL: Alert and oriented 2,, no acute distress. CARDIOVASCULAR: S1, S2 regular, No murmur, no rub RESPIRATION: Breath sounds diminished in the bases. No rhonchi or crackles. Positive expiratory wheezing. ABDOMEN: Obese, Soft, nontender . No guarding. no masses palpable. Bowel sounds heard. EXTREMITIES: Dressings on the left upper, and bilateral lower extremities clean dry and intact. Bilateral lower extremity edema. Multiple areas of ecchymosis, on all extremities. NERVOUS SYSTEM: Cranial N 2-12 grossly normal. Moves all 4 limbs. Diffuse weakness No focal deficits. Strength and sensation grossly intact. DTRs 2+ and equal. Microbiology 05/07/19 15:41 Hand - Left Gram Stain - Preliminary 05/07/19 15:41 Hand - Left Wound Culture - Preliminary Proteus mirabilis Presumptive MRSA Dee albicans The impression and plan of care has been dictated as directed. : I performed a history and examination of this patient, discussed the same with the dictator. I agree with the dictator's note ,documented as a scribe. Any additional findings or plans will be noted. Time taken: 35 min. Patient Condition at Discharge: Stable Plan - Discharge Summary New Discharge Prescriptions: New Apixaban [Eliquis] 5 mg PO BID tab INSULIN LISPRO (HumaLOG) [humaLOG] 0 unit SQ ACHS #1 vial Furosemide [Lasix] 40 mg PO BID@0900,1600 tab Memantine [Namenda] 5 mg PO BID tab predniSONE 10 mg PO DIRECTED #30 tab Pantoprazole [Protonix] 40 mg PO AC-BRKFST tablet. Budesonide [Pulmicort] 0.5 mg INHALATION RT-BID nebu SILVER sulfADIAZINE Cream [Silvadene 1% Cream] 1 applic TOPICAL DAILY applic Montelukast [Singulair] 10 mg PO HS tab Continue Glimepiride [Amaryl] 4 mg PO BID Ezetimibe [Zetia] 10 mg PO DAILY Metoprolol Tartrate [Lopressor] 50 mg PO BID Aspirin [Adult Low Dose Aspirin EC] 81 mg PO DAILY Insulin Degludec [Tresiba Flextouch U-200] 60 units SQ DAILY Tamsulosin [Flomax] 0.4 mg PO DAILY metFORMIN HCL 1,000 mg PO BID Dutasteride [Avodart] 0.5 mg PO DAILY Atorvastatin [Lipitor] 80 mg PO DAILY INSULIN ASPART (NovoLOG) [NovoLOG (formulary)] See Protocol SQ ACHS Isosorbide Mononitrate ER [Imdur] 30 mg PO DAILY 30 Days #30 tab.er.24h Verapamil [Isoptin] 120 mg PO TID 30 Days #90 tab Repaglinide 0.5 mg PO TID Ipratropium-Albuterol Nebulize [Duoneb 0.5 mg-3 mg/3 ml Soln] 3 ml INHALATION RT-QID 30 Days #120 ampul.neb HYDROcodone/APAP 7.5-325MG [[place] 7.5-325] 1 tab PO BID PRN #6 tab PRN Reason: Pain Discontinued Warfarin [Coumadin] 7.5 mg PO DAILY Albuterol Inhaler [Ventolin Hfa Inhaler] 1 - 2 puff INHALATION RT-Q6H PRN PRN Reason: Shortness Of Breath INSULIN ASPART (NovoLOG) [NovoLOG (formulary)] 10 unit SQ ACHS vial Furosemide [Lasix] 60 mg PO BID@0900,1600 #180 tab Discharge Medication List Ezetimibe [Zetia] 10 mg PO DAILY 01/22/14 [History] Glimepiride [Amaryl] 4 mg PO BID 01/22/14 [History] Aspirin [Adult Low Dose Aspirin EC] 81 mg PO DAILY 11/29/18 [History] Insulin Degludec [Tresiba Flextouch U-200] 60 units SQ DAILY 11/29/18 [History] Metoprolol Tartrate [Lopressor] 50 mg PO BID 11/29/18 [History] Atorvastatin [Lipitor] 80 mg PO DAILY 12/15/18 [History] Dutasteride [Avodart] 0.5 mg PO DAILY 12/15/18 [History] Tamsulosin [Flomax] 0.4 mg PO DAILY 12/15/18 [History] metFORMIN HCL 1,000 mg PO BID 12/15/18 [History] INSULIN ASPART (NovoLOG) [NovoLOG (formulary)] See Protocol SQ ACHS 02/07/19 [History] Isosorbide Mononitrate ER [Imdur] 30 mg PO DAILY 30 Days #30 tab.er.24h 02/10/19 [Rx] Verapamil [Isoptin] 120 mg PO TID 30 Days #90 tab 02/10/19 [Rx] Repaglinide 0.5 mg PO TID 02/27/19 [History] Apixaban [Eliquis] 5 mg PO BID tab 05/10/19 [Rx] Budesonide [Pulmicort] 0.5 mg INHALATION RT-BID nebu 05/10/19 [Rx] Furosemide [Lasix] 40 mg PO BID@0900,1600 tab 05/10/19 [Rx] HYDROcodone/APAP 7.5-325MG [[place] 7.5-325] 1 tab PO BID PRN #6 tab 05/10/19 [Rx] INSULIN LISPRO (HumaLOG) [humaLOG] 0 unit SQ ACHS #1 vial 05/10/19 [Rx] Ipratropium-Albuterol Nebulize [Duoneb 0.5 mg-3 mg/3 ml Soln] 3 ml INHALATION RT-QID 30 Days #120 ampul.neb 05/10/19 [Rx] Memantine [Namenda] 5 mg PO BID tab 05/10/19 [Rx] Montelukast [Singulair] 10 mg PO HS tab 05/10/19 [Rx] Pantoprazole [Protonix] 40 mg PO AC-BRKFST tablet. 05/10/19 [Rx] SILVER sulfADIAZINE Cream [Silvadene 1% Cream] 1 applic TOPICAL DAILY applic 05/10/19 [Rx] predniSONE 10 mg PO DIRECTED #30 tab 05/10/19 [Rx] Follow up Appointment(s)/Referral(s): Estiven Maxwell MD [STAFF PHYSICIAN] - 05/22/19 11:15 am (Wednesday) Jossue Varela MD [STAFF PHYSICIAN] - 2 Weeks Freddy Viveros MD [Primary Care Provider] - 1 Week () Hazel Jansen DO [STAFF PHYSICIAN] - 1 Week [facility], [NON-STAFF] - As Needed Activity/Diet/Wound Care/Special Instructions: [facility] Final CX pending: Antibx as per ID Activity: as tolerated Diet: COnsist. Carb 3lnc O2 CBC,BMP in 3 days Discharge Disposition: TRANSFER TO SNF/ECF
--- NOTE | 2019-05-11 11:26 | PN ---
PROGRESS NOTE DATE OF SERVICE: 05/11/2019 Patient is a 74-year-old male seen sitting up in a chair. He is awake and alert. Denies any worsening shortness of breath. Denies any pain. He is hemodynamically stable, afebrile, in no acute distress. PHYSICAL EXAM: Vital signs, temp 98.2, heart rate 84, respiratory rate 16, blood pressure is 150/66, O2 sats 92% on 3 L O2 via nasal cannula HEENT. Head is normocephalic, atraumatic. Neck is supple. Trachea is midline. LUNGS: With diminished breath sounds and prolonged expiratory phase. HEART: S1, S2 are heard. Not tachycardic. ABDOMEN: Soft, obese. Bowel sounds are heard. EXTREMITIES: With 1 to 2+ edema bilaterally. Patient does have Kerlix wraps to the both lower extremities and a Kerlix wrap to the left arm. NEUROLOGIC: Patient is awake and alert. LABS: No new labs to review the Melissa is CT angio of the head and neck shows moderate approximately 60% stenosis of the proximal right carotid bulb secondary to prostatic calcification. Prior surgery, endarterectomy, left ICA, which remains patent. Suspect high-grade stenosis or occlusion of the left vertebral artery origin. Faint opacification begins at the mid P2 segment with stronger opacification distally probably from retrograde or collateral flow emphysema and small right pleural effusion. Brain shows moderate atherosclerotic narrowing within the bilateral V4 segment vertebral arteries. Additional moderate atherosclerotic narrowing of the right ICA. 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 No large vessel intracranial or arterial occlusion or aneurysmal change seen. IMPRESSION: 1. Congestive heart failure. 2. Chronic obstructive pulmonary disease with acute exacerbation. 3. Obstructive sleep apnea/. 4. Obesity. 5. Infected wound. PLAN: Continue current medications which have been reviewed. Continue bronchodilators, aerosol steroids, oral prednisone, antibiotics, continue GI and DVT prophylaxis and we will follow patient closely with you making further changes as necessary. MMODL / IJN: [id number] /
--- NOTE | 2019-05-11 11:31 | ECHOF ---
Referral Reason:Bilateral CVAs MEASUREMENTS -------- HEIGHT: 172.7 cm WEIGHT: 127.5 kg BP: 150/66 RVIDd: 3.1 cm (< 3.3) IVSd: 1.7 cm (0.6 - 1.1) LVIDd: 3.6 cm (3.9 - 5.3) LVPWd: 1.7 cm (0.6 - 1.1) IVSs: 2.1 cm LVIDs: 3.6 cm LVPWs: 2.1 cm LA Diam: 3.8 cm (2.7 - 3.8) LAESV Index (A-L): 36.68 ml/m Ao Diam: 3.1 cm (2.0 - 3.7) AV Cusp: 2.0 cm (1.5 - 2.6) MV EXCURSION: 20.651 mm (> 18.000) MV EF SLOPE: 41 mm/s (70 - 150) EPSS: 0.9 cm MV E Maykel: 0.90 m/s MV DecT: 242 ms MV A Maykel: 1.03 m/s MV E/A Ratio: 0.87 FINDINGS -------- Sinus rhythm. This was a technically difficult study with suboptimal views. The left ventricular size is normal. There is severe concentric left ventricular hypertrophy. Ove rall left ventricular systolic function is normal with, an EF between 60 - 65 %. The right ventricle is normal in size. LA is moderately dilated 34-39 ml/m2 The right atrium is normal in size. 5 ml of Lumason was utilized for enhancement of images. Interatrial and interventricular septum intact. There is mild aortic valve sclerosis. Mild mitral annular calcification present. The tricuspid valve appears structurally normal. Trace/mild (physiologic) pulmonic regurgitation. The aortic root size is normal. Normal inferior vena cava with normal inspiratory collapse consistent with estimated right atrial pre ssure of 5 mmHg. There is no pericardial effusion. CONCLUSIONS -------- 1. Sinus rhythm. 2. This was a technically difficult study with suboptimal views. 3. The left ventricular size is normal. 4. There is severe concentric left ventricular hypertrophy. 5. Overall left ventricular systolic function is normal with, an EF between 60 - 65 %. 6. The right ventricle is normal in size. 7. LA is moderately dilated 34-39 ml/m2 8. The right atrium is normal in size. 9. 5 ml of Lumason was utilized for enhancement of images. 10. Interatrial and interventricular septum intact. 11. There is mild aortic valve sclerosis. 12. Mild mitral annular calcification present. 13. The tricuspid valve appears structurally normal. 14. Trace/mild (physiologic) pulmonic regurgitation. 15. The aortic root size is normal. 16. Normal inferior vena cava with normal inspiratory collapse consistent with estimated right atrial pressure of 5 mmHg. 17. There is no pericardial effusion. BILINGUAL SALES CONSULTANT: Aysha Talamantes RDCS
--- NOTE | 2019-05-11 11:51 | P.PN ---
Subjective Progress Note Date: 05/11/19 Principal diagnosis: Fluent aphasia Bilateral anterior circulation CVAs VANGIE 60% stenosis Vascular consult. TTE. Patient without new neuro c/o. Wishes to go home. Objective - Vital Signs Vital signs: Vital Signs Temp 98.2 F 05/11/19 08:58 Pulse 84 05/11/19 09:28 Resp 18 05/11/19 08:58 BP 150/66 05/11/19 08:58 Pulse Ox 92 L 05/11/19 08:58 Intake & Output 05/10/19 05/11/19 05/11/19 18:59 06:59 18:59 Intake Total 720 480 240 Balance 720 480 240 Weight 127.9 kg Intake: Oral 720 480 240 Other: Voiding Method Toilet Toilet Toilet Diaper Diaper Diaper Incontinent Incontinent Incontinent # Voids 3 1 - Exam Gen NAD Pleasant and cooperative MS A+Ox3 Fluent but at times non-sensical speech with copious semantic par aphasia and circumlocution CN II-XII grossly intact no nystagmus Motor Normal bulk/tone No pronator drift No tremors Strength 5/5 sym throughout Sens Intact to LT x4 No neglect or extinction Coord No dysmetria on FTN bilaterally DTRs 2+/4 sym throughout Toes downgoing bilaterally No clonus at achilles Gait Deferred NIHSS 1b=19=1 total 2 - Labs CBC & Chem 7: 05/10/19 07:01 05/10/19 07:01 Labs: Abnormal Lab Results - Last 24 Hours (Table) 05/10/19 05/10/19 05/10/19 Range/Units 11:47 17:05 20:29 POC Glucose (mg/dL) 285 H 154 H 249 H (75-99) mg/dL 05/11/19 05/11/19 Range/Units 01:53 07:10 POC Glucose (mg/dL) 290 H 288 H (75-99) mg/dL Microbiology - Last 24 Hours (Table) 05/07/19 15:41 Gram Stain - Preliminary Hand - Left Wound Culture - Preliminary Proteus mirabilis Presumptive MRSA Dee albicans - Imaging and Cardiology TTE 05/11/19. LV size normal. Severe concentric LVH EF 60-65%. Moderate LAE. No valvular vegetations. Interatrial and interventricular septum intact. CTA Head/Neck 05/10/19. Proximal VANGIE 60% stenosis. Occlusion vs high-grade stenosis of left vertebral artery at origin with possible collateral flow starting at V2. Moderate athero in bilateral V4. I have reviewed neuroimages myself. Assessment and Plan Assessment: Fluent aphasia found to have bilateral anterior circulation CVAs. s/p LCEA. Proximal VANGIE 60% stenosis High-grade stenosis vs occlusion of left vertebral artery at origin and moderate atherosclerosis of bilateral V4 segment Plan: -CTA Head/Neck and TTE results d/w patient in detail -May treat BP to normotensive range but avoid hypotension -ASA 81mg/day and Eliquis 5mg po bid -Statin therapy -PT/OT/SP per protocol -Vascular surgery consulted on patient; plan for medical management and outpatient follow-up. Appreciate input -DVT prophylaxis: apixaban -Primary team also started patient on NMDA antagonist. Patient should follow up with outpatient neurology for his CVA and cognitive changes -d/w patient in detail. All questions answered -Stable for discharge from acute neuro standpoint. Will revisit patient prn. Please call with new ?. Thank you again for this consultation. Time with Patient: Less than 30 (Time spent in direct patient care, greater than 50% of which was spent in [id number] counseling and coordination of care: 25 minutes)
[2019-05-11 12:18] LABS: Glucose,Whole Blood 191 mg/dL (75-99)
[2019-05-11] MEDS ORDERED: SULFAMETHOX-TMP 800-160MG 1 EACH TAB PO SCH (12:45)
[2019-05-11 15:04] VITALS: BP 116/56; PULSE 89; TEMP 98.1
--- NOTE | 2019-05-12 00:14 | P.PN ---
Subjective Progress Note Date: 05/11/19 74-year-old male presents to Hospital status post fall, evaluation emergency center on the left arm presented to the large skin tear with some necrosis to the tissue. There is attempt to put it back into place with some Steri-Strips. Emergency room note is evidence of the multiple abrasions to the left arm, as well as the bilateral lower extremities. The patient apparently lives in a senior housing where there is a visiting nurse it appears there is also a to help. The patient is awake and alert and attempts to communicate. However the content of his speech routinely has no meaning, occasionally a short phrase is under that is comprehensible. Upon direct questioning he does not rel ate if he is having any pain or discomfort. He asked if I can get him a woman. 05/08/2019 the patient is certainly improved today. He sitting upright eating his dinner. He was having some difficulty cutting meat but once this was cut he has no difficulty feeding himself. He still has an odd affect but is able to converse about how he is feeling. He is not in severe pain. His shortness of breath is improved. The arms and legs are dressed and he feels better. 05/09/2019 patient has further improvement. Sitting upright communicating less discomfort 05/11/2019 patient has further improvements. Relates left hand is not very painful, wants to keep it open to air significant scabbing healed. We discussed the concept of moist wound healing and how that helps wound heal more quickly and he just wants it open to air so it can scab. Objective - Vital Signs Vital signs: Vital Signs Temp 98.1 F 05/11/19 12:00 Pulse 85 05/11/19 13:15 Resp 18 05/11/19 12:00 BP 116/56 05/11/19 12:00 Pulse Ox 95 05/11/19 12:00 Intake & Output 05/11/19 05/11/19 05/12/19 06:59 18:59 06:59 Intake Total 480 240 Balance 480 240 Weight 127.9 kg Intake: Oral 480 240 Other: Voiding Method Toilet Toilet Diaper Diaper Incontinent Incontinent # Voids 1 - Exam 80-year-old male who looks older than his stated age, partly due to his superobe sity HEENT: Anicteric conjunctiva are pink and moist nasal mucosa grossly intact without significant lesions, there is no thrush. Has dentures but they are not in place Neck: The neck is supple without significant lymphadenopathy or thyromegaly. Lungs: There is symmetrical entry there is evidence of expiratory wheeze but no ct bronchial sounds no dullness or egophony Heart: Irregularly positive S4 no distinct murmur click or rub Abdomen: Obese, Positive bowel sounds soft and nontender without palpable masses or organomegaly. There was no guarding or rebound. Extremities: The right upper extremity has evidence of a few ecchymosis but there are no open ulcerations that are seen. The left upper extremity has evidence of the recent fall and trauma. There are some Steri-Strips in place near the elbow with evidence of the skin tear. There is extensive ecchymosis and healing lesions of different stages on to the left arm. On the dorsum of the left hand is an injury that has evidence of some drainage, this is cultured. The bilateral lower extremities in the pretibial area have evidence of a scattered ulcerations also, minimal erythema not very tender. Neuro: Awake alert and does respond to his name. He is certainly more interactive today. Sitting upright eating his lunch with out great difficulty. Speech content is improved but still not normal. - Labs CBC & Chem 7: 05/10/19 07:01 05/10/19 07:01 Labs: Abnormal Lab Results - Last 24 Hours (Table) 05/11/19 05/11/19 05/11/19 Range/Units 01:53 07:10 12:01 POC Glucose (mg/dL) 290 H 288 H 191 H (75-99) mg/dL Microbiology - Last 24 Hours (Table) 05/07/19 15:41 Gram Stain - Preliminary Hand - Left Wound Culture - Preliminary Proteus mirabilis Presumptive MRSA Dee albicans Laboratory Results WBC 11.3 k/uL (3.8-10.6) H 05/10/19 07:01 RBC 3.92 m/uL (4.30-5.90) L 05/10/19 07:01 Hgb 11.6 gm/dL (13.0-17.5) L 05/10/19 07:01 Hct 38.2 % (39.0-53.0) L 05/10/19 07:01 MCV 97.6 fL (80.0-100.0) 05/10/19 07:01 MCH 29.6 pg (25.0-35.0) 05/10/19 07:01 MCHC 30.4 g/dL (31.0-37.0) L 05/10/19 07:01 RDW 18.9 % (11.5-15.5) H 05/10/19 07:01 Plt Count 361 k/uL (150-450) 05/10/19 07:01 Neutrophils % 93 % 05/09/19 05:56 Lymphocytes % 3 % 05/09/19 05:56 Monocytes % 3 % 05/09/19 05:56 Eosinophils % 0 % 05/09/19 05:56 Basophils % 0 % 05/09/19 05:56 Neutrophils # 10.9 k/uL (1.3-7.7) H 05/09/19 05:56 Lymphocytes # 0.3 k/uL (1.0-4.8) L 05/09/19 05:56 Monocytes # 0.4 k/uL (0-1.0) 05/09/19 05:56 Eosinophils # 0.0 k/uL (0-0.7) 05/09/19 05:56 Basophils # 0.0 k/uL (0-0.2) 05/09/19 05:56 Hypochromasia Marked 05/10/19 07:01 Anisocytosis Slight 05/10/19 07:01 Macrocytosis Slight 05/10/19 07:01 PT 11.5 sec (9.0-12.0) 05/09/19 05:56 INR 1.1 (<1.2) 05/09/19 05:56 APTT 23.8 sec (22.0-30.0) 05/06/19 00:12 D-Dimer 0.43 mg/L FEU (<0.60) 05/06/19 14:38 Sodium 138 mmol/L (137-145) 05/10/19 07:01 Potassium 4.6 mmol/L (3.5-5.1) 05/10/19 07:01 Chloride 100 mmol/L (98-107) 05/10/19 07:01 Carbon Dioxide 30 mmol/L (22-30) 05/10/19 07:01 Anion Gap 8 mmol/L 05/10/19 07:01 BUN 35 mg/dL (9-20) H 05/10/19 07:01 Creatinine 1.19 mg/dL (0.66-1.25) 05/10/19 07:01 Est GFR (CKD-EPI)AfAm 70 (>60 ml/min/1.73 sqM) 05/10/19 07:01 Est GFR (CKD-EPI)NonAf 61 (>60 ml/min/1.73 sqM) 05/10/19 07:01 Glucose 244 mg/dL (74-99) H 05/10/19 07:01 POC Glucose (mg/dL) 191 mg/dL (75-99) H 05/11/19 12:01 POC Glu Music Engineer ID Zara Mora 05/11/19 12:01 Lactic Ac Sepsis Rflx Y 05/06/19 04:50 Plasma Lactic Acid Arthur 1.1 mmol/L (0.7-2.0) 05/06/19 09:07 Calcium 8.7 mg/dL (8.4-10.2) 05/10/19 07:01 Magnesium 1.6 mg/dL (1.6-2.3) 05/06/19 00:12 Total Bilirubin 0.4 mg/dL (0.2-1.3) 05/09/19 05:56 AST 21 U/L (17-59) 05/09/19 05:56 ALT 39 U/L (21-72) 05/09/19 05:56 Alkaline Phosphatase 72 U/L (38-126) 05/09/19 05:56 Creatine Kinase 131 U/L (55-170) 05/06/19 00:12 Troponin I 0.035 ng/mL (0.000-0.034) H* 05/06/19 11:50 NT-Pro-B Natriuret Pep 2350 pg/mL 05/06/19 14:38 Total Protein 5.8 g/dL (6.3-8.2) L 05/09/19 05:56 Albumin 2.9 g/dL (3.5-5.0) L 05/09/19 05:56 Urine Color Yellow 05/06/19 03:09 Urine Appearance Clear (Clear) 05/06/19 03:09 Urine pH 5.5 (5.0-8.0) 05/06/19 03:09 Ur Specific [place] 1.016 (1.001-1.035) 05/06/19 03:09 Urine Protein 2+ (Negative) H 05/06/19 03:09 Urine Glucose (UA) 4+ (Negative) H 05/06/19 03:09 Urine Ketones Negative (Negative) 05/06/19 03:09 Urine Blood Small (Negative) H 05/06/19 03:09 Urine Nitrite Negative (Negative) 05/06/19 03:09 Urine Bilirubin Negative (Negative) 05/06/19 03:09 Urine Urobilinogen <2.0 mg/dL (<2.0) 05/06/19 03:09 Ur Leukocyte Esterase Negative (Negative) 05/06/19 03:09 Urine RBC 1 /hpf (0-5) 05/06/19 03:09 Urine WBC 1 /hpf (0-5) 05/06/19 03:09 Hyaline Casts 6 /lpf (0-2) H 05/06/19 03:09 Urine Mucus Rare /hpf (None) H 05/06/19 03:09 Microbiology 05/07/19 15:41 Hand - Left Gram Stain - Preliminary 05/07/19 15:41 Hand - Left Wound Culture - Preliminary Proteus mirabilis Presumptive MRSA Dee albicans Assessment and Plan (1) Fall with injury Status: Acute Code(s): W19.XXXA - UNSPECIFIED FALL, INITIAL ENCOUNTER SNOMED Code(s): 594335337 (2) Injury of left lower arm Status: Acute Code(s): S59.912A - UNSPECIFIED INJURY OF LEFT FOREARM, INITIAL ENCOUNTER SNOMED Code(s): 309383423 (3) Injury of left upper extremity Narrative/Plan: 74-year-old male with history of obesity appears that he has having some failing of his health and has been having falls. It this admission apparently there was the fall resulting in injury to his left arm resulted in him coming to the emergency center and being admitted. Local wound care to the arm with nonstick dressings is applied personally, wound care to left arm and bilateral lower extremity facility and has been requested since he can be wrapped and place. Elevation of the limbs well at rest is helpful. Antibiotic therapy with Ancef was started in this is an adequate choice minimal cellulitic changes that are occurring in these regions. Clear information from the attending physician as to the patient's functional status prior to admission will be very helpful in making a discharge plan. Wound cultures obtained which may further direct antibiotic therapy. Patient has uncontrolled diabetes which may be part of his poor healing due to his many injuries. Also seems to have some chronic edema that may respond to diuretic therapy while he is here. Leukocytosis appears record related to the injuries and secondary cellulitis of the limbs. 05/08/2019 the patient has had some improvement of the status the last day especially of his mental status. Silvadene is being applied to his wounds and seems to be tolerating this well. Cultures are now showing some gram-negative bacilli and constantly Ancef is transitioned to cefepime until we have further data regarding concerns as could be a pseudomonal infection. The lower extremity edema and ulcerations seems slightly improved today also. 05/09/2019 the patient is having some improvement. Less pain to the hand. F eeding himself without difficulties. The current local wound care with Silvadene and Maxipem as far as antibiotics for the isolated gram-negative bacilli were awaiting the final culture 05/11/2019 patient has improved and is being readied for transfer. Wound culture shows evidence of the Klebsiella and Pseudomonas and constantly antibiotic therapy is transitioned to trimethoprim sulfamethoxazole and cefuroxime. Planning 10 days of therapy with local wound care at the extended care facility. Status: Acute Code(s): S49.92XA - UNSP INJURY OF LEFT SHOULDER AND UPPER ARM, INIT ENCNTR SNOMED Code(s): 491546940 (4) Dementia Status: Acute Code(s): F03.90 - UNSPECIFIED DEMENTIA WITHOUT BEHAVIORAL DISTURBANCE SNOMED Code(s): 30266288
[2019-05-12] MEDS ORDERED: INSULIN DETEMIR (LEVEMIR) 100 UNIT/ML SYR SQ SCH (07:00)
== END 2019-05-11 16:56 | DRG 190 ==
LOC: EC 23:38 → 3SCARD 05-06 00:23 → 3NMEDONC 05-06 00:23 → UNDOADMOB 05-06 00:23 → OBSVTOIN 05-07 14:59
PROVIDERS: ADMIT Family Medicine; ATTEND Family Medicine
DX: J44.1 Chronic obstructive pulmonary disease with (acute) exacerbation (principal); G93.41 Metabolic encephalopathy; I63.81 Other cerebral infarction due to occlusion or stenosis of small artery; I21.A1 Myocardial infarction type 2; Z68.41 Body mass index [BMI] 40.0-44.9, adult; E87.2 Acidosis; I50.32 Chronic diastolic (congestive) heart failure; J96.11 Chronic respiratory failure with hypoxia; J96.12 Chronic respiratory failure with hypercapnia; L03.114 Cellulitis of left upper limb; R47.01 Aphasia; E11.51 Type 2 diabetes mellitus with diabetic peripheral angiopathy without gangrene; E11.65 Type 2 diabetes mellitus with hyperglycemia; I11.0 Hypertensive heart disease with heart failure; I48.0 Paroxysmal atrial fibrillation; I50.82 Biventricular heart failure; I65.21 Occlusion and stenosis of right carotid artery; E66.01 Morbid (severe) obesity due to excess calories; E83.42 Hypomagnesemia; F03.90 Unspecified dementia, unspecified severity, without behavioral disturbance, psychotic disturbance, mood disturbance, and anxiety; I34.0 Nonrheumatic mitral (valve) insufficiency; R29.702 NIHSS score 2; G47.33 Obstructive sleep apnea (adult) (pediatric); S51.812A Laceration without foreign body of left forearm, initial encounter; E78.5 Hyperlipidemia, unspecified; H40.9 Unspecified glaucoma; K21.9 Gastro-esophageal reflux disease without esophagitis; R29.6 Repeated falls; T38.0X5A Adverse effect of glucocorticoids and synthetic analogues, initial encounter; R32 Unspecified urinary incontinence; G89.29 Other chronic pain; H26.9 Unspecified cataract; M54.9 Dorsalgia, unspecified; S80.812A Abrasion, left lower leg, initial encounter; S80.811A Abrasion, right lower leg, initial encounter; R91.1 Solitary pulmonary nodule; M51.36 Other intervertebral disc degeneration, lumbar region; Z91.81 History of falling; Z79.01 Long term (current) use of anticoagulants; Z79.4 Long term (current) use of insulin; Z79.82 Long term (current) use of aspirin; Z79.899 Other long term (current) drug therapy; Z86.718 Personal history of other venous thrombosis and embolism; Z86.73 Personal history of transient ischemic attack (TIA), and cerebral infarction without residual deficits; Z87.891 Personal history of nicotine dependence; Z99.81 Dependence on supplemental oxygen; Z91.19 Patient's noncompliance with other medical treatment and regimen; W19.XXXA Unspecified fall, initial encounter
CPT/HCPCS: 36415; 70450; 70496; 70498; 70553; 71046; 80048; 80053; 81001; 82550; 83605; 83735; 83880; 84484; 85025; 85027; 85379; 85610; 85730; 87070; 87077; 87186; 87205; 93005; 93306; 93880; 94640; 96361; 96374; 99285

== ENCOUNTER 2019-07-09 07:51 | Inpatient (IN) | payer MEDICARE, OTHER ==
[2019-07-09] MEDS ORDERED: IPRATROPIUM-ALBUTEROL 3 ML NEB INHALATION STA (08:04)
--- NOTE | 2019-07-09 08:10 | ED ---
General Adult HPI - General Chief complaint: Altered Mental Status Stated complaint: altered mental status Time Seen by Provider: 07/09/19 07:57 Source: patient, EMS, RN notes reviewed Mode of arrival: EMS Limitations: altered mental status - History of Present Illness Initial comments: Patient is a pleasant 74-year-old male presenting to the emergency department from [facility]. Patient reportedly was eating breakfast when he became less responsive. Patient is a very poor historian and offers little history. Patient reportedly had recent leg amputation a few weeks ago. Patient is on Eliquis for this. Patient states he feels fine and has no complaints. Patient denies dyspnea. Patient denies confusion or weakness. Unclear patient has history of similar symptoms previously. Patient is reportedly a DO NOT RESUSCITATE. Patient does have paperwork showing DO NOT RESUSCITATE. - Related Data Home Medications Medication Instructions Recorded Confirmed Metoprolol Tartrate [Lopressor] 150 mg PO BID@0900,2100 11/29/18 07/09/19 Atorvastatin [Lipitor] 80 mg PO HS@209912/15/18 07/09/19 Tamsulosin [Flomax] 0.4 mg PO DAILY@0900 12/15/18 07/09/19 metFORMIN HCL 1,000 mg PO DAILY@0900 12/15/18 07/09/19 Acetaminophen [Tylenol Arthritis] 650 mg PO Q4H PRN 07/09/19 07/09/19 Amiodarone [Cordarone] 300 mg PO DAILY@0900 07/09/19 07/09/19 Apixaban [Eliquis] 5 mg PO BID@0900,209907/09/19 07/09/19 Dulaglutide [Trulicity] 0.75 mg SQ HS 07/09/19 07/09/19 FLUoxetine HCL [PROzac] 20 mg PO DAILY@0900 07/09/19 07/09/19 Famotidine [Pepcid] 20 mg PO BID@0900,209907/09/19 07/09/19 Finasteride [Proscar] 5 mg PO DAILY@0900 07/09/19 07/09/19 Fluticasone/Vilanterol [Breo 1 puff INHALATION RT-DAILY@0900 07/09/19 07/09/19 Ellipta 100-25 Mcg Inhaler] INSULIN LISPRO (HumaLOG) [humaLOG] 4 unit SQ AC-TID 07/09/19 07/09/19 Insulin Glargine,Hum.rec.anlog 40 unit SQ HS@2100 07/09/19 07/09/19 [Basaglar Roikpen U-100] Isosorbide Mononitrate ER [Imdur] 30 mg PO DAILY@0900 07/09/19 07/09/19 Memantine [Namenda] 5 mg PO BID@0900,2100 07/09/19 07/09/19 Previous Rx's Medication Instructions Recorded Ipratropium-Albuterol Nebulize 3 ml INHALATION RT-QID 30 Days 05/10/19 [Duoneb 0.5 mg-3 mg/3 ml Soln] #120 ampul.neb Allergies Allergy/AdvReac Type Severity Reaction Status Date / Time morphine Allergy Rash/Hives Verified 07/09/19 09:18 Review of Systems ROS Statement: Those systems with pertinent positive or pertinent negative responses have been documented in the HPI. ROS Other: All systems not noted in ROS Statement are negative. Constitutional: Denies: fever Eyes: Denies: eye pain ENT: Denies: ear pain Respiratory: Denies: cough, dyspnea Cardiovascular: Denies: chest pain Endocrine: Reports: fatigue Gastrointestinal: Denies: abdominal pain Genitourinary: Denies: dysuria Musculoskeletal: Denies: back pain Skin: Denies: rash Neurological: Denies: headache, weakness Past Medical History Past Medical History: Atrial Fibrillation, Asthma, Blood Disorder, COPD, CVA/TIA, Diabetes Mellitus, Deep Vein Thrombosis (DVT), Eye Disorder, GERD/Reflux, Hyperlipidemia, Respiratory Disorder, Sleep Apnea/CPAP/BIPAP, Vascu lar Disorder Additional Past Medical History / Comment(s): Pt recently admitted to [facility] on 02/05/19 with r lower lobe pneumonia, R pleural effusion, L lung nodule, uncontrolled diabetes, severe COPD acute exacerbation, hyponatremia, Afib with RVR. Other Hx: Chronic hypoxic respiratory failure with home oxygen at 3L/NC ATC, ANUP with Cpap use, IDDM type II, TIA, familial erythrocytosis, PVD, DVT L leg, bilateral lower leg cellulitis, chronic back pain, glaucoma bilaterally, bilateral retinal bleeds with surgery. History of Any Multi-Drug Resistant Organisms: MRSA Date of last positivie culture/infection: 05/07/19 MDRO Source:: HAND Past Surgical History: Cardiac Ablation, EPS, Heart Catheterization Additional Past Surgical History / Comment(s): L femoral bypass, L caratid endartectomy, EP study with aflutter ablation, colonoscopy, bilateral eye laser surgery for retinal bleeds. Past Anesthesia/Blood Transfusion Reactions: No Reported Reaction Additional Past Anesthesia/Blood Transfusion Reaction / Comment(s): Pt states he has received blood in past without reaction. Past Psychological History: No Psychological Hx Reported Smoking Status: Former smoker Past Alcohol Use History: None Reported Past Drug Use History: None Reported - Past Family History Father Additional Family Medical History / Comment(s): DAD AGE 55 OF BRAIN HEMORRAGE. HAD HX TB. Mother Additional Family Medical History / Comment(s): HEART TROUBLE IN HER 70'S General Exam Limitations: altered mental status General appearance: alert, other (Answers in 1-2 word sentences) Head exam: Present: atraumatic Eye exam: Present: normal appearance, PERRL ENT exam: Present: normal oropharynx Neck exam: Present: normal inspection Respiratory exam: Present: respiratory distress (Mild respiratory distress), decreased breath sounds Cardiovascular Exam: Present: regular rate, normal rhythm GI/Abdominal exam: Present: soft. Absent: tenderness Extremities exam: Present: pedal edema, other (Right AKA) Neurological exam: Present: alert, CN II-XII intact Expanded Patient oriented to: Present: person, place Motor strength exam: RUE: 4, LUE: 4, RLE: 4, LLE: 4 Psychiatric exam: Present: normal affect, normal mood Skin exam: Present: normal color Course Vital Signs 07/09/19 07/09/19 07/09/19 07:59 08:16 09:30 Temperature 98.3 F Pulse Rate 82 79 73 Respiratory 18 18 20 Rate Blood Pressure 133/63 149/69 164/72 O2 Sat by Pulse 94 L 96 98 Oximetry 07/09/19 07/09/19 10:00 10:30 Temperature Pulse Rate 74 73 Respiratory 21 21 Rate Blood Pressure 174/71 106/84 O2 Sat by Pulse 96 98 Oximetry - Reevaluation(s) Reevaluation #1: 07/09/19 10:30 Patient reevaluated and resting comfortably in bed. Patient and family updated on results and plan. Family states leg amputation occurred just over weeks ago and patient was discharged around 1 week ago. They state patient has had declining mental status over past several months associated frequent hospitalizations. They state patient is at a mental status at this point to what he has been recently over the past few weeks. They state following leg amputation they are unclear if patient actually understands that he has had his leg amputated. Dr. Viveros has been paged for admission. 07/09/19 10:35 There is suspicion of sepsis diagnosed at 10:35 AM. Blood culture and lactic acid have been added. IV antibiotics will be added. 07/09/19 10:57 Case was discussed with Dr. Medina who will evaluate patient and admit for Felice. He does request consult with Dr. Al. EKG Findings - EKG Comments: EKG Findings:: Sinus rhythm at 82. [place] 160. QRS 128. QT 426. QTc 496. Normal axis. Right bundle branch block. No acute ST change. Medical Decision Making - Lab Data Result diagrams: 07/09/19 08:11 07/09/19 08:11 Lab Results 07/09/19 07/09/19 07/09/19 Range/Units 08:11 08:11 08:11 WBC 15.0 H (3.8-10.6) k/uL RBC 2.55 L (4.30-5.90) m/uL Hgb 7.5 L D (13.0-17.5) gm/dL Hct 25.3 L (39.0-53.0) % MCV 99.0 (80.0-100.0) fL MCH 29.5 (25.0-35.0) pg MCHC 29.8 L (31.0-37.0) g/dL RDW 16.0 H (11.5-15.5) % Plt Count 680 H (150-450) k/uL Neutrophils % 87 % Lymphocytes % 5 % Monocytes % 6 % Eosinophils % 0 % Basophils % 0 % Neutrophils # 13.1 H (1.3-7.7) k/uL Lymphocytes # 0.8 L (1.0-4.8) k/uL Monocytes # 0.9 (0-1.0) k/uL Eosinophils # 0.0 (0-0.7) k/uL Basophils # 0.1 (0-0.2) k/uL Hypochromasia Marked Macrocytosis Slight PT 11.9 (9.0-12.0) sec INR 1.1 (<1.2) APTT 25.8 (22.0-30.0) sec Sample Site ABG pH (7.35-7.45) ABG pCO2 (35-45) mmHg ABG pO2 (83-108) mmHg ABG HCO3 (21-25) mmol/L ABG Total CO2 (19-24) mmol/L ABG O2 Saturation (94-97) % ABG Base Excess mmol/L Greg Test FiO2 % Sodium 141 (137-145) mmol/L Potassium 4.9 (3.5-5.1) mmol/L Chloride 99 (98-107) mmol/L Carbon Dioxide 32 H (22-30) mmol/L Anion Gap 10 mmol/L BUN 37 H (9-20) mg/dL Creatinine 1.51 H (0.66-1.25) mg/dL Est GFR (CKD-EPI)AfAm 53 (>60 ml/min/1.73 sqM) Est GFR (CKD-EPI)NonAf 46 (>60 ml/min/1.73 sqM) Glucose 457 H (74-99) mg/dL POC Glucose (mg/dL) (75-99) mg/dL POC Glu Bandage Wrapping Machine Operator ID Calcium 8.6 (8.4-10.2) mg/dL Total Bilirubin 0.5 (0.2-1.3) mg/dL AST 50 (17-59) U/L ALT 20 L (21-72) U/L Alkaline Phosphatase 69 (38-126) U/L Creatine Kinase 1303 H* (55-170) U/L Troponin I (0.000-0.034) ng/mL Total Protein 6.4 (6.3-8.2) g/dL Albumin 2.8 L (3.5-5.0) g/dL Urine Color Urine Appearance (Clear) Urine pH (5.0-8.0) Ur Specific [place] (1.001-1.035) Urine Protein (Negative) Urine Glucose (UA) (Negative) Urine Ketones (Negative) Urine Blood (Negative) Urine Nitrite (Negative) Urine Bilirubin (Negative) Urine Urobilinogen (<2.0) mg/dL Ur Leukocyte Esterase (Negative) Urine RBC (0-5) /hpf Urine WBC (0-5) /hpf Ur Squamous Epith Cells (0-4) /hpf Urine Mucus (None) /hpf Stool Occult Blood (Negative) Urine Opiates Screen (NotDetected) Ur Oxycodone Screen (NotDetected) Urine Methadone Screen (NotDetected) Ur Propoxyphene Screen (NotDetected) Ur Barbiturates Screen (NotDetected) U Tricyclic Antidepress (NotDetected) Ur Phencyclidine Scrn (NotDetected) Ur Amphetamines Screen (NotDetected) U Methamphetamines Scrn (NotDetected) U Benzodiazepines Scrn (NotDetected) Urine Cocaine Screen (NotDetected) U Marijuana (THC) Screen (NotDetected) Acetone, Qual (Negative) 07/09/19 07/09/19 07/09/19 Range/Units 08:11 08:11 08:17 WBC (3.8-10.6) k/uL RBC (4.30-5.90) m/uL Hgb (13.0-17.5) gm/dL Hct (39.0-53.0) % MCV (80.0-100.0) fL MCH (25.0-35.0) pg MCHC (31.0-37.0) g/dL RDW (11.5-15.5) % Plt Count (150-450) k/uL Neutrophils % % Lymphocytes % % Monocytes % % Eosinophils % % Basophils % % Neutrophils # (1.3-7.7) k/uL Lymphocytes # (1.0-4.8) k/uL Monocytes # (0-1.0) k/uL Eosinophils # (0-0.7) k/uL Basophils # (0-0.2) k/uL Hypochromasia Macrocytosis PT (9.0-12.0) sec INR (<1.2) APTT (22.0-30.0) sec Sample Site ABG pH (7.35-7.45) ABG pCO2 (35-45) mmHg ABG pO2 (83-108) mmHg ABG HCO3 (21-25) mmol/L ABG Total CO2 (19-24) mmol/L ABG O2 Saturation (94-97) % ABG Base Excess mmol/L Greg Test FiO2 % Sodium (137-145) mmol/L Potassium (3.5-5.1) mmol/L Chloride (98-107) mmol/L Carbon Dioxide (22-30) mmol/L Anion Gap mmol/L BUN (9-20) mg/dL Creatinine (0.66-1.25) mg/dL Est GFR (CKD-EPI)AfAm (>60 ml/min/1.73 sqM) Est GFR (CKD-EPI)NonAf (>60 ml/min/1.73 sqM) Glucose (74-99) mg/dL POC Glucose (mg/dL) 474 H (75-99) mg/dL POC Glu Bandage Wrapping Machine Operator ID Carol Hoffman Calcium (8.4-10.2) mg/dL Total Bilirubin (0.2-1.3) mg/dL AST (17-59) U/L ALT (21-72) U/L Alkaline Phosphatase (38-126) U/L Creatine Kinase (55-170) U/L Troponin I 0.061 H* (0.000-0.034) ng/mL Total Protein (6.3-8.2) g/dL Albumin (3.5-5.0) g/dL Urine Color Urine Appearance (Clear) Urine pH (5.0-8.0) Ur Specific [place] (1.001-1.035) Urine Protein (Negative) Urine Glucose (UA) (Negative) Urine Ketones (Negative) Urine Blood (Negative) Urine Nitrite (Negative) Urine Bilirubin (Negative) Urine Urobilinogen (<2.0) mg/dL Ur Leukocyte Esterase (Negative) Urine RBC (0-5) /hpf Urine WBC (0-5) /hpf Ur Squamous Epith Cells (0-4) /hpf Urine Mucus (None) /hpf Stool Occult Blood (Negative) Urine Opiates Screen (NotDetected) Ur Oxycodone Screen (NotDetected) Urine Methadone Screen (NotDetected) Ur Propoxyphene Screen (NotDetected) Ur Barbiturates Screen (NotDetected) U Tricyclic Antidepress (NotDetected) Ur Phencyclidine Scrn (NotDetected) Ur Amphetamines Screen (NotDetected) U Methamphetamines Scrn (NotDetected) U Benzodiazepines Scrn (NotDetected) Urine Cocaine Screen (NotDetected) U Marijuana (THC) Screen (NotDetected) Acetone, Qual Negative (Negative) 07/09/19 07/09/19 07/09/19 Range/Units 09:02 09:06 10:15 WBC (3.8-10.6) k/uL RBC (4.30-5.90) m/uL Hgb (13.0-17.5) gm/dL Hct (39.0-53.0) % MCV (80.0-100.0) fL MCH (25.0-35.0) pg MCHC (31.0-37.0) g/dL RDW (11.5-15.5) % Plt Count (150-450) k/uL Neutrophils % % Lymphocytes % % Monocytes % % Eosinophils % % Basophils % % Neutrophils # (1.3-7.7) k/uL Lymphocytes # (1.0-4.8) k/uL Monocytes # (0-1.0) k/uL Eosinophils # (0-0.7) k/uL Basophils # (0-0.2) k/uL Hypochromasia Macrocytosis PT (9.0-12.0) sec INR (<1.2) APTT (22.0-30.0) sec Sample Site RBrach ABG pH 7.46 H (7.35-7.45) ABG pCO2 49 H (35-45) mmHg ABG pO2 66 L (83-108) mmHg ABG HCO3 34 H (21-25) mmol/L ABG Total CO2 36 H (19-24) mmol/L ABG O2 Saturation 92.0 L (94-97) % ABG Base Excess 10.5 mmol/L Greg Test Yes FiO2 32 % Sodium (137-145) mmol/L Potassium (3.5-5.1) mmol/L Chloride (98-107) mmol/L Carbon Dioxide (22-30) mmol/L Anion Gap mmol/L BUN (9-20) mg/dL Creatinine (0.66-1.25) mg/dL Est GFR (CKD-EPI)AfAm (>60 ml/min/1.73 sqM) Est GFR (CKD-EPI)NonAf (>60 ml/min/1.73 sqM) Glucose (74-99) mg/dL POC Glucose (mg/dL) (75-99) mg/dL POC Glu Bandage Wrapping Machine Operator ID Calcium (8.4-10.2) mg/dL Total Bilirubin (0.2-1.3) mg/dL AST (17-59) U/L ALT (21-72) U/L Alkaline Phosphatase (38-126) U/L Creatine Kinase (55-170) U/L Troponin I (0.000-0.034) ng/mL Total Protein (6.3-8.2) g/dL Albumin (3.5-5.0) g/dL Urine Color Yellow Urine Appearance Clear (Clear) Urine pH 5.5 (5.0-8.0) Ur Specific [place] 1.015 (1.001-1.035) Urine Protein 1+ H (Negative) Urine Glucose (UA) 3+ H (Negative) Urine Ketones Negative (Negative) Urine Blood Small H (Negative) Urine Nitrite Negative (Negative) Urine Bilirubin Negative (Negative) Urine Urobilinogen <2.0 (<2.0) mg/dL Ur Leukocyte Esterase Negative (Negative) Urine RBC <1 (0-5) /hpf Urine WBC <1 (0-5) /hpf Ur Squamous Epith Cells 1 (0-4) /hpf Urine Mucus Rare H (None) /hpf Stool Occult Blood Positive (Negative) Urine Opiates Screen Not Detected (NotDetected) Ur Oxycodone Screen Not Detected (NotDetected) Urine Methadone Screen Not Detected (NotDetected) Ur Propoxyphene Screen Not Detected (NotDetected) Ur Barbiturates Screen Not Detected (NotDetected) U Tricyclic Antidepress Not Detected (NotDetected) Ur Phencyclidine Scrn Not Detected (NotDetected) Ur Amphetamines Screen Not Detected (NotDetected) U Methamphetamines Scrn Not Detected (NotDetected) U Benzodiazepines Scrn Not Detected (NotDetected) Urine Cocaine Screen Not Detected (NotDetected) U Marijuana (THC) Screen Not Detected (NotDetected) Acetone, Qual (Negative) - Radiology Data Radiology results: report reviewed (Computed tomography scan of the brain shows no acute intercranial abnormality. Chronic white matter ischemia), image reviewed (Chest x-ray shows right basilar airspace disease that could represent pneumonia or atelectasis, small bilateral effusion. Cardiomegaly.) Critical Care Time Critical Care Time: Yes Total Critical Care Time: 32 Disposition Clinical Impression: Pneumonia, Altered mental status, COPD exacerbation, Anemia, Sepsis Disposition: ADMITTED IP TO THIS HOSP Condition: Serious Is patient prescribed a controlled substance at d/c from ED?: No Decision Time: 10:34
[2019-07-09 08:25] LABS: Basophils # (A) 0.1 k/uL (0-0.2); Basophils % (A) 0 %; Eosinophils % (A) 0 %; HCT 25.3 % (39.0-53.0); Hypochromasia Marked; Lymphocytes # (A) 0.8 k/uL (1.0-4.8); Lymphocytes % (A) 5 %; MCH 29.5 pg (25.0-35.0); MCHC 29.8 g/dL (31.0-37.0); Macrocytosis Slight; Mean Platelet Volume 6.5; Monocytes # (A) 0.9 k/uL (0-1.0); Monocytes % (A) 6 %; Neutrophils # (A) 13.1 k/uL (1.3-7.7); Neutrophils % (A) 87 %; Platelet Count 680 k/uL (150-450); RBC 2.55 m/uL (4.30-5.90)
[2019-07-09 08:33] LABS: INR 1.1 (<1.2); Partial Thromboplastin Time 25.8 sec (22.0-30.0); Prothrombin Time 11.9 sec (9.0-12.0)
[2019-07-09 08:34] LABS: Albumin 2.8 g/dL (3.5-5.0); Calcium 8.6 mg/dL (8.4-10.2); Potassium 4.9 mmol/L (3.5-5.1); Total Bilirubin 0.5 mg/dL (0.2-1.3); Total Protein 6.4 g/dL (6.3-8.2)
[2019-07-09 08:38] LABS: Glucose,Whole Blood 474 mg/dL (75-99)
[2019-07-09 08:50] LABS: HGB 7.5 gm/dL (13.0-17.5)
--- NOTE | 2019-07-09 08:52 | CT ---
EXAMINATION TYPE: CT brain wo con DATE OF EXAM: 07/09/2019 COMPARISON: Previous study dated 05/08/2019 HISTORY: Altered mental status CT DLP: 1051.4 mGycm Automated exposure control for dose reduction was used. FINDINGS: There is significant left cerebral white matter lucency. This is greater than on the right. A definit e underlying mass is not seen. A recent CTA of the [place] failed to show an enhancing lesio n. This is likely on the basis of previous ischemic insult. There is no mass effect, midline shift or intracranial blood. There is minimal mucoperiosteal thickening involving the posterior ethmoid air cells on the right. Th e remainder the paranasal sinuses and mastoids are clear. The bony calvarium is intact. IMPRESSION: 1. NO ACUTE INTRACRANIAL ABNORMALITY. 2. CHRONIC WHITE MATTER ISCHEMIC CHANGE, WORSE ON THE LEFT THAN THE RIGHT. 3. CHRONIC RIGHT MAXILLARY SINUS MUCOSAL DISEASE.
--- NOTE | 2019-07-09 08:54 | XR ---
EXAMINATION TYPE: XR chest 2V DATE OF EXAM: 07/09/2019 HISTORY: altered mental status. REFERENCE: Previous study dated 05/06/2019. FINDINGS: There is some right basilar airspace disease which may represent atelectasis or pneumonia. The heart is enlarged. There is blunting of both CP angles and I could not exclude small effusions. T here is underlying COPD. IMPRESSION: 1. RIGHT BASILAR AIRSPACE DISEASE MAY REPRESENT ATELECTASIS OR PNEUMONIA. 2. SMALL, BILATERAL EFFUSIONS. 3. CARDIOMEGALY.
[2019-07-09 09:04] LABS: ABG Base Excess 10.5 mmol/L; ABG HCO3 34 mmol/L (21-25); ABG PCO2 49 mmHg (35-45); ABG PH 7.46 (7.35-7.45); ABG PO2 66 mmHg (83-108); ABG TCO2 36 mmol/L (19-24); Allen Test Performed? Yes
[2019-07-09 09:30] LABS: Amphetamine Screen,Urine Not Detected (NotDetected); Barbiturate Screen,Urine Not Detected (NotDetected); Benzodiazepines Screen,Urine Not Detected (NotDetected); Cocaine Screen,Urine Not Detected (NotDetected); Methadone Screen, Urine Not Detected (NotDetected); Opiate Screen,Urine Not Detected (NotDetected); Oxycodone Screen, Urine Not Detected (NotDetected); Phencyclidine Screen,Urine Not Detected (NotDetected); Tricyclic Antidepressant,Urine Not Detected (NotDetected); Urn Cannabinoid Scrn Not Detected (NotDetected)
[2019-07-09 09:36] LABS: Appearance,Urine Clear (Clear); Bilirubin,Urine Negative (Negative); Blood,Urine Small (Negative); Color,Urine Yellow; Glucose,Urine (UA) 3+ (Negative); Ketones,Urine Negative (Negative); Leukocyte Esterase,Urine Negative (Negative); Mucus,Urine Rare /hpf; Nitrite,Urine Negative (Negative); PH, Urine 5.5 (5.0-8.0); Protein,Urine 1+ (Negative); RBC,Urine <1 /hpf (0-5); Specific Gravity,Urine 1.015 (1.001-1.035); Squamous Epithelial Cell,Urine 1 /hpf (0-4); Urobilinogen,Urine <2.0 mg/dL (<2.0); WBC,Urine <1 /hpf (0-5)
[2019-07-09] MEDS ORDERED: IPRATROPIUM-ALBUTEROL 3 ML NEB INHALATION PRN (10:36)
[2019-07-09] MEDS ORDERED: PNEUMONIA PROTOCOL UTILIZED 1 EACH MISC PO PRN (10:36)
[2019-07-09] MEDS ORDERED: LEVOFLOXACIN 750MG-D5W PMX 750 MG in DEXTROSE/WATER 1 150ML.BAG IVPB STA (10:36)
[2019-07-09] MEDS ORDERED: PIPERACILLIN-TAZOBACTAM 3.375 GM in SODIUM CHLORIDE 0.9% 100 ML IVPB STA (10:36)
[2019-07-09] MEDS ORDERED: NALOXONE 0.4 MG/ML 1 ML VIAL IV PRN (10:55)
[2019-07-09] MEDS ORDERED: PANTOPRAZOLE 40 MG/10 ML VIAL IVP STA (10:55)
[2019-07-09] MEDS ORDERED: METOPROLOL TARTRATE 25 MG TAB PO STA (11:36)
[2019-07-09] MEDS: SODIUM CHLORIDE 0.9% 1,000 ML IV SCH ×2 (11:41→21:58)
[2019-07-09] MEDS ORDERED: INSULIN ASPART (NovoLOG) 100 UNIT/ML VIAL SQ ONE (12:56)
[2019-07-09 13:11] LABS: Glucose,Whole Blood 479 mg/dL (75-99)
[2019-07-09] MEDS: INSULIN ASPART (NovoLOG) 100 UNIT/ML VIAL SQ SCH ×3 (13:44→21:58)
[2019-07-09] MEDS: IPRATROPIUM-ALBUTEROL 3 ML NEB INHALATION SCH ×3 (13:46→19:12)
[2019-07-09 14:20] LABS: Basophils % (A) 0 %; Eosinophils # (A) 0.1 k/uL (0-0.7); Eosinophils % (A) 0 %; HGB 7.1 gm/dL (13.0-17.5); Hypochromasia Marked; Lymphocytes # (A) 0.9 k/uL (1.0-4.8); Lymphocytes % (A) 6 %; MCH 29.9 pg (25.0-35.0); MCHC 29.7 g/dL (31.0-37.0); MCV 100.7 fL (80.0-100.0); Macrocytosis Slight; Mean Platelet Volume 6.4; Monocytes # (A) 0.8 k/uL (0-1.0); Monocytes % (A) 6 %; Neutrophils # (A) 13.3 k/uL (1.3-7.7); Neutrophils % (A) 87 %; Platelet Count 650 k/uL (150-450); RBC 2.38 m/uL (4.30-5.90); RDW 15.8 % (11.5-15.5); WBC 15.3 k/uL (3.8-10.6)
[2019-07-09 17:17] LABS: Glucose,Whole Blood 316 mg/dL (75-99)
[2019-07-09 20:28] LABS: Glucose,Whole Blood 234 mg/dL (75-99)
[2019-07-09] MEDS: PIPERACILLIN-TAZOBACTAM 3.375 GM in SODIUM CHLORIDE 0.9% 100 ML IVPB SCH (21:57)
[2019-07-10] MEDS: PIPERACILLIN-TAZOBACTAM 3.375 GM in SODIUM CHLORIDE 0.9% 100 ML IVPB SCH ×3 (04:18→20:40)
[2019-07-10] MEDS: SODIUM CHLORIDE 0.9% 1,000 ML IV SCH ×2 (06:10→16:46)
[2019-07-10 06:18] LABS: Glucose,Whole Blood 242 mg/dL (75-99)
[2019-07-10] MEDS: INSULIN ASPART (NovoLOG) 100 UNIT/ML VIAL SQ SCH ×4 (06:37→21:09)
[2019-07-10 06:38] LABS: Basophils % (A) 0 %; Eosinophils % (A) 0 %; HCT 22.4 % (39.0-53.0); Hypochromasia Marked; Lymphocytes % (A) 6 %; MCH 29.8 pg (25.0-35.0); MCHC 29.4 g/dL (31.0-37.0); MCV 101.3 fL (80.0-100.0); Macrocytosis Slight; Monocytes % (A) 6 %; Neutrophils # (A) 13.8 k/uL (1.3-7.7); Neutrophils % (A) 86 %; Platelet Count 588 k/uL (150-450); RBC 2.21 m/uL (4.30-5.90); RDW 15.7 % (11.5-15.5); WBC 16.1 k/uL (3.8-10.6)
[2019-07-10 06:46] LABS: HGB 6.6 gm/dL (13.0-17.5)
[2019-07-10 06:48] LABS: Albumin 2.6 g/dL (3.5-5.0); Calcium 8.5 mg/dL (8.4-10.2); Potassium 4.3 mmol/L (3.5-5.1); Total Bilirubin 0.5 mg/dL (0.2-1.3); Total Protein 6.1 g/dL (6.3-8.2)
[2019-07-10] MEDS: IPRATROPIUM-ALBUTEROL 3 ML NEB INHALATION SCH ×4 (08:01→19:28)
[2019-07-10] MEDS: LEVOFLOXACIN 750MG-D5W PMX 750 MG in DEXTROSE/WATER 1 150ML.BAG IVPB SCH (09:01)
[2019-07-10] MEDS: PANTOPRAZOLE 40 MG/10 ML VIAL IV SCH (09:03)
[2019-07-10] MEDS ORDERED: PEG 3350-NA SULF,BICARB,CL/KCL 4,000 ML BOTTLE PO ONE (11:30)
--- NOTE | 2019-07-10 11:33 | XR ---
EXAMINATION TYPE: XR chest 1V portable DATE OF EXAM: 07/10/2019 COMPARISON: Chest x-ray 07/09/2019 HISTORY: Pneumonia TECHNIQUE: Single frontal view of the chest is obtained. FINDINGS: Findings are similar to prior exam. There are overlying cardiac leads. Heart remains enlar ged. No evident pneumothorax. Patchy basilar density is noted. Question some prominence of interstiti um. Patient is rotated. Pulmonary vascularity and lucina not significantly changed. IMPRESSION: Question basilar atelectasis versus pneumonia, correlate, follow-up PA and lateral chest x-ray recommended. Possible interstitial edema. Cardiomegaly.
[2019-07-10 11:58] LABS: Hemoglobin A1C 9.2 % (4.0-6.0)
[2019-07-10 12:01] LABS: Glucose,Whole Blood 281 mg/dL (75-99)
--- NOTE | 2019-07-10 12:45 | P.CNNES ---
History of Present Illness Consult date: 07/10/19 Reason for Consult: AMS Chief complaint: Became less responsive History of Present Illness: HISTORY OF PRESENT ILLNESS: Thank you for allowing me to evaluate Mr. Adam Meza. Mr. Meza is a 75-year-old male with past medical history of atrial fibrillation, asthma, COPD on home oxygen, stroke, diabetes, DVT, GERD, hyperlipidemia, sleep apnea, bilateral glaucoma, chronic back pain, diabetes, presenting to [facility] for becoming less responsive at his halfway. Patient is a poor historian and there is no family at bedside. Per ED note, patient was eating breakfast at the halfway when he became less responsive. Patient had a RLE amputation a few weeks prior to presentation. Patient had no complaints and he currently has no complaints. PAST MEDICAL HISTORY: atrial fibrillation, asthma, COPD on home oxygen, stroke/TIA, diabetes, DVT, GERD, hyperlipidemia, sleep apnea, bilateral glaucoma, chronic back pain PAST SURGICAL HISTORY: Cardiac ablation, EPS for atrial flutter, heart catheterization, left femoral bypass, left carotid endarterectomy, bilateral eye surgery for retinal bleeds HOME MEDICATIONS: Metoprolol, tamsulosin, metformin, atorvastatin, DuoNeb, amiodarone, Eliquis, Trulicity, Pepcid, finasteride, fluoxetine, insulin, Imdur, memantine ALLERGIES: NKDA SOCIAL HISTORY: Former smoker FAMILY HISTORY: Father at age 55 from brain hemorrhage, mother from a heart condition REVIEW OF SYSTEMS: The 14 systems are reviewed and no additional points are identified compared to the review of systems documented history and physical PHYSICAL EXAMINATION: VITAL SIGNS: T 99.5 HR 82 RR 20 BP 134/60 O2 sat 99% on BiPAP GEN.: NAD, grumpy, asking for water HEENT: NCAT, sclera without icterus NECK: Supple SKIN AND EXTREMITIES: Warm to touch, RLE amputation NEURO: MENTAL STATUS: Patient alert and oriented to name and month only. Says he doesn't know where he is and said "[place]" for name of president. Able to name the current president. Speech fluent with mild dysarthria, able to name and repeat, following most commands readily. CRANIAL NERVES II THROUGH XII: II: Pupils are equal and reactive to light symmetrically. Blinks to threat bilaterally. III, IV, : No ptosis. Tracks appropriately V: Facial sensation intact from V1-3. VII. No clear facial asymmetry. XI: Shoulder shrug intact. XII: Tongue midline without fasciculation or atrophy. MOTOR: Normal bulk. Slightly increased tone in his RUE. Resting and action ministerio mor. Strength is at least 4/5 in b/l UE and LLE. SENSORY: Sensation intact to LT in b/l UE and LLE. REFLEXES: 2+ b/l UE. 1+ LLE. Toes are downgoing. COORDINATION: Finger to nose intact with his LUE. GAIT: Deferred DIAGNOSTIC TESTING: LABORATORY: WBC 16.1 hemoglobin 6.6 platelet 588 sodium 143 potassium 4.3 chloride 104 bicarb 31 BUN 24 creatinine 1.35 requested 27 AST 38 ALT 24 alk phos 66 troponin 0.052 IMAGING: CT head without contrast 07/09/2019: No acute abnormality. Chronic white matter ischemic change, worse on the left than the right. Chronic right maxillary sinus mucosal disease. (Most likely history of left stroke Chest x-ray 07/09/2019: Right basilar airspace disease may represent atelectasis or pneumonia. Small bilateral effusions. Cardiomegaly MRI brain with and without contrast 05/09/2019: There are evolving acute lacunar infarcts right frontal lobe near frontal horn and deep right parietal lobe near at the lateral aspect of the thalamus. There is background mild to moderate diffuse cerebral atrophy with advanced chronic small vessel ischemic change and subacute on chronic left MCA distribution infarct. No suspicious enhancement or enhancing masses are present. Persistent bilateral maxillary sinusitis. Carotid Doppler 04/29/2019: Findings consistent with hemodynamically significant right ICA 50-69% stenosis, which can be further characterized anatomically using CTA and MRA. CTA head and neck within without contrast 05/10/2019: Moderate, approximately 60% stenosis of the proximal right carotid bulb. Prior endarterectomy left ICA which remains patent. Suspect high-grade stenosis or occlusion at the left vertebral artery origin. Moderate atherosclerotic narrowing within the bilateral T4 segment of the vertebral arteries. Additional moderate Kael narrowing of the right ICA. No large vessel intracranial arterial occlusion or aneurysm will change seen ASSESSMENT: 75-year-old male with past medical history of atrial fibrillation, asthma, COPD on home oxygen, stroke, diabetes, DVT, GERD, hyperlipidemia, sleep apnea, bilateral glaucoma, chronic back pain, diabetes, presenting to [facility] for becoming less responsive at his halfway. Patient's home medication list shows memantine, so it appears that patient has a history of dementia. Patient's lab showing leukocytosis along with significant anemia, patient currently getting transfusion. Patient most likely had the episode of less responsive in the setting of metabolic derangements. RECOMMENDATIONS: 1. Primary team to continue with medical management of metabolic derangements. 2. Routine EEG 3. Will check Vitamin B12, methylmelanic acid, folate, RPR, TSH. ammonia 4. Neurology will continue to follow Past Medical History Past Medical History: Atrial Fibrillation, Asthma, Blood Disorder, COPD, CVA/TIA, Diabetes Mellitus, Deep Vein Thrombosis (DVT), Eye Disorder, GERD/Reflux, Hyperlipidemia, Respiratory Disorder, Sleep Apnea/CPAP/BIPAP, Vascular Disorder Additional Past Medical History / Comment(s): Pt recently admitted to [facility] on 02/05/19 with r lower lobe pneumonia, R pleural effusion, L lung nodule, uncontrolled diabetes, severe COPD acute exacerbation, hyponatremia, Afib with RVR. Other Hx: Chronic hypoxic respiratory failure with home oxygen at 3L/NC ATC, ANUP with Cpap use, IDDM type II, TIA, familial erythrocytosis, PVD, DVT L leg, bilateral lower leg cellulitis, chronic back pain, glaucoma bilaterally, bilateral retinal bleeds with surgery. History of Any Multi-Drug Resistant Organisms: MRSA Date of last positivie culture/infection: 05/07/19 MDRO Source:: HAND Past Surgical History: Cardiac Ablation, EPS, Heart Catheterization Additional Past Surgical History / Comment(s): L femoral bypass, L caratid endartectomy, EP study with aflutter ablation, colonoscopy, bilateral eye laser surgery for retinal bleeds. Past Anesthesia/Blood Transfusion Reactions: No Reported Reaction Additional Past Anesthesia/Blood Transfusion Reaction / Comment(s): Pt states he has received blood in past without reaction. Past Psychological History: No Psychological Hx Reported Smoking Status: Former smoker Past Alcohol Use History: None Reported Past Drug Use History: None Reported - Past Family History Father Additional Family Medical History / Comment(s): DAD AGE 55 OF BRAIN HEMORRAGE. HAD HX TB. Mother Additional Family Medical History / Comment(s): HEART TROUBLE IN HER 70'S Medications and Allergies Home Medications Medication Instructions Recorded Confirmed Type Metoprolol Tartrate [Lopressor] 150 mg PO BID@0900,2100 11/29/18 10/27/19 History Atorvastatin [Lipitor] 80 mg PO HS@209912/15/18 07/09/19 History Tamsulosin [Flomax] 0.4 mg PO DAILY@0900 12/15/18 07/09/19 History metFORMIN HCL 1,000 mg PO DAILY@0900 12/15/18 07/09/19 History Ipratropium-Albuterol Nebulize 3 ml INHALATION RT-QID 30 Days 05/10/19 07/09/19 Rx [Duoneb 0.5 mg-3 mg/3 ml Soln] #120 ampul.neb Acetaminophen [Tylenol Arthritis] 650 mg PO Q4H PRN 07/09/19 07/09/19 History Amiodarone [Cordarone] 300 mg PO DAILY@0900 07/09/19 07/09/19 History Apixaban [Eliquis] 5 mg PO BID@0900,209907/09/19 07/09/19 History Dulaglutide [Trulicity] 0.75 mg SQ HS 07/09/19 07/09/19 History FLUoxetine HCL [PROzac] 20 mg PO DAILY@0900 07/09/19 07/09/19 History Famotidine [Pepcid] 20 mg PO BID@0900,209907/09/19 07/09/19 History Finasteride [Proscar] 5 mg PO DAILY@0900 07/09/19 07/09/19 History Fluticasone/Vilanterol [Breo 1 puff INHALATION RT-DAILY@0900 07/09/19 07/09/19 History Ellipta 100-25 Mcg Inhaler] INSULIN LISPRO (HumaLOG) [humaLOG] 4 unit SQ AC-TID 07/09/19 07/09/19 History Insulin Glargine,Hum.rec.anlog 40 unit SQ HS@209907/09/19 07/09/19 History [Basaglar Kwikpen U-100] Isosorbide Mononitrate ER [Imdur] 30 mg PO DAILY@0900 07/09/19 07/09/19 History Memantine [Namenda] 5 mg PO BID@0900,2100 07/09/19 07/09/19 History Allergies Allergy/AdvReac Type Severity Reaction Status Date / Time morphine Allergy Rash/Hives Verified 07/09/19 09:18 Physical Examination - Vital Signs Vital Signs: Vital Signs Temp Pulse Pulse Resp BP BP Pulse Ox 07/10/19 08:13 72 07/10/19 08:01 72 07/10/19 08:00 99.5 F 82 20 134/60 99 07/10/19 04:00 98.7 F 89 16 142/67 93 L 07/10/19 00:00 97.7 F 62 15 126/77 93 L 07/09/19 20:00 98.6 F 87 17 117/72 94 L 07/09/19 19:27 72 07/09/19 19:12 71 07/09/19 16:00 75 16 125/55 100 07/09/19 15:30 76 07/09/19 15:13 72 07/09/19 13:35 97.5 F L 70 20 107/56 100 07/09/19 13:10 97.5 F L 71 18 07/09/19 13:09 78 18 160/77 99 07/09/19 11:44 68 18 144/74 100 07/09/19 10:30 73 21 106/84 98 07/09/19 10:00 74 21 174/71 96 Intake and Output 07/09/19 07/10/19 07/10/19 22:59 06:59 14:59 Intake Total 300 900 450 Output Total 1500 375 Balance 300 -600 75 Intake: Intake, IV Titration 300 900 450 Amount Levofloxacin 750Mg-D5w 150 Pmx 750 mg In Dextrose/ Water 1 150ml.bag @ 100 mls/hr IVPB Q24HR TERE Rx# :[id number] Piperacillin-Tazobactam 3 100 .375 gm In Sodium Chloride 0.9% 100 ml @ 25 mls/hr IVPB Q8H TERE Rx#: [id number] Sodium Chloride 0.9% 1, 300 800 300 000 ml @ 100 mls/hr IV . Q10H TERE Rx#:[id number] Output: Urine 1500 375 Other: Voiding Method Indwelling Catheter Indwelling Catheter Indwelling Catheter Weight 119.9 kg Results - Laboratory Findings CBC and BMP: 07/10/19 05:56 07/10/19 05:56 Abnormal Lab Findings: Abnormal Labs 07/09/19 07/09/19 07/09/19 08:11 08:11 08:11 WBC 15.0 H RBC 2.55 L Hgb 7.5 L D Hct 25.3 L MCV MCHC 29.8 L RDW 16.0 H Plt Count 680 H Neutrophils # 13.1 H Lymphocytes # 0.8 L ABG pH ABG pCO2 ABG pO2 ABG HCO3 ABG Total CO2 ABG O2 Saturation Carbon Dioxide 32 H BUN 37 H Creatinine 1.51 H Glucose 457 H POC Glucose (mg/dL) Plasma Lactic Acid Arthur ALT 20 L Creatine Kinase 1303 H* Troponin I 0.061 H* Total Protein Albumin 2.8 L Urine Protein Urine Glucose (UA) Urine Blood Urine Mucus 07/09/19 07/09/19 07/09/19 08:11 08:17 09:02 WBC RBC Hgb Hct MCV MCHC RDW Plt Count Neutrophils # Lymphocytes # ABG pH 7.46 H ABG pCO2 49 H ABG pO2 66 L ABG HCO3 34 H ABG Total CO2 36 H ABG O2 Saturation 92.0 L Carbon Dioxide BUN Creatinine Glucose POC Glucose (mg/dL) 474 H Plasma Lactic Acid Arthur 2.2 H* ALT Creatine Kinase Troponin I Total Protein Albumin Urine Protein Urine Glucose (UA) Urine Blood Urine Mucus 07/09/19 07/09/19 07/09/19 09:06 12:52 14:01 WBC RBC Hgb Hct MCV MCHC RDW Plt Count Neutrophils # Lymphocytes # ABG pH ABG pCO2 ABG pO2 ABG HCO3 ABG Total CO2 ABG O2 Saturation Carbon Dioxide BUN Creatinine Glucose POC Glucose (mg/dL) 479 H Plasma Lactic Acid Arthur ALT Creatine Kinase Troponin I 0.056 H* Total Protein Albumin Urine Protein 1+ H Urine Glucose (UA) 3+ H Urine Blood Small H Urine Mucus Rare H 07/09/19 07/09/19 07/09/19 14:01 16:47 19:57 WBC 15.3 H RBC 2.38 L Hgb 7.1 L Hct 24.0 L MCV 100.7 H MCHC 29.7 L RDW 15.8 H Plt Count 650 H Neutrophils # 13.3 H Lymphocytes # 0.9 L ABG pH ABG pCO2 ABG pO2 ABG HCO3 ABG Total CO2 ABG O2 Saturation Carbon Dioxide BUN Creatinine Glucose POC Glucose (mg/dL) 316 H Plasma Lactic Acid Arthur ALT Creatine Kinase Troponin I 0.052 H* Total Protein Albumin Urine Protein Urine Glucose (UA) Urine Blood Urine Mucus 07/09/19 07/10/19 07/10/19 20:26 05:56 05:56 WBC 16.1 H RBC 2.21 L Hgb 6.6 L* Hct 22.4 L MCV 101.3 H MCHC 29.4 L RDW 15.7 H Plt Count 588 H Neutrophils # 13.8 H Lymphocytes # ABG pH ABG pCO2 ABG pO2 ABG HCO3 ABG Total CO2 ABG O2 Saturation Carbon Dioxide 31 H BUN 24 H Creatinine 1.35 H Glucose 227 H POC Glucose (mg/dL) 234 H Plasma Lactic Acid Arthur ALT Creatine Kinase Troponin I Total Protein 6.1 L Albumin 2.6 L Urine Protein Urine Glucose (UA) Urine Blood Urine Mucus 07/10/19 06:17 WBC RBC Hgb Hct MCV MCHC RDW Plt Count Neutrophils # Lymphocytes # ABG pH ABG pCO2 ABG pO2 ABG HCO3 ABG Total CO2 ABG O2 Saturation Carbon Dioxide BUN Creatinine Glucose POC Glucose (mg/dL) 242 H Plasma Lactic Acid Arthur ALT Creatine Kinase Troponin I Total Protein Albumin Urine Protein Urine Glucose (UA) Urine Blood Urine Mucus
--- NOTE | 2019-07-10 13:44 | P.GSCN ---
<Rachel Wu - Last Filed: 07/10/19 13:44> History of Present Illness Consult date: 07/10/19 Reason for Consult: GI Bleed Requesting physician: Vivek Spangler History of present illness: CHIEF COMPLAINT: GI bleed HISTORY OF PRESENT ILLNESS: 74-year-old male who is a long-term resident at [facility] presented to the emergency room due to altered mental status. Patient underwent recent right [id number] amputation. Patient has a poor historian. There is no family at the bedside. Unknown which facility patient had surgery performed at. Patient also is prescribed Eliquis for parox ysmal atrial fibrillation. General surgery was consulted for evaluation of GI bleed. Patient denies melena, hematemesis, hematochezia. He denies abdominal pain. Spoke with nursing who states the patient has not had a bowel movement since he has been admitted to the hospital and has no signs of active GI bleeding. Hemoglobin on admission 7.5. Repeat hemoglobin is wearing 6.6. Hemoglobin in April 2019 was 11.9. Patient is to receive 1 unit RBCs today. PAST MEDICAL HISTORY: See list. PAST SURGICAL HISTORY: See list. SOCIAL HISTORY: No illicit drug use. REVIEW OF SYSTEMS: CONSTITUTIONAL: Denies fever or chills. HEENT: Denies blurred vision, vision changes, or eye pain. Denies hemoptysis CARDIOVASCULAR: Denies chest pain or pressure. RESPIRATORY: No shortness of breath. GASTROINTESTINAL: Refer to HPI for pertinent findings HEMATOLOGIC: Denies bleeding disorders. GENITOURINARY: Denies any blood in urine. SKIN: Denies pruitis. Denies rash. PHYSICAL EXAM: VITAL SIGNS: Reviewed. GENERAL: Well-developed in no acute distress. Appears pale and slightly diaphoretic.. HEENT: No sclera icterus. Extraocular movements grossly intact. Moist buccal mucosa. Head is atraumatic, normocephalic. ABDOMEN: Soft. Nondistended. Nontender. Positive bowel sounds. NEUROLOGIC: Awake and alert. Oriented x 1. ASSESSMENT: 1. Acute blood loss anemia 2. Recent right above the knee amputation 3. History of afib, on Eliquis PLAN: Continue to hold Eliquis Patient to receive 1 unit RBC today. Monitor hemoglobin. Transfuse for hemoglobin less than 7.0. Clear liquid diet today NPO at midnight GoLYTELY bowel prep today Patient will be scheduled for EGD/colonoscopy tomorrow if medically stable Nurse practitioner note has been reviewed by physician. Signing provider agrees with the documented findings, assessment, and plan of care. Past Medical History Past Medical History: Atrial Fibrillation, Asthma, Blood Disorder, COPD, CV A/TIA, Diabetes Mellitus, Deep Vein Thrombosis (DVT), Eye Disorder, GERD/Reflux, Hyperlipidemia, Respiratory Disorder, Sleep Apnea/CPAP/BIPAP, Vascular Disorder Additional Past Medical History / Comment(s): Pt recently admitted to [facility] on 02/05/19 with r lower lobe pneumonia, R pleural effusion, L lung nodule, uncontrolled diabetes, severe COPD acute exacerbation, hyponatremia, Afib with RVR. Other Hx: Chronic hypoxic respiratory failure with home oxygen at 3L/NC ATC, ANUP with Cpap use, IDDM type II, TIA, familial erythrocytosis, PVD, DVT L leg, bilateral lower leg cellulitis, chronic back pain, glaucoma bilaterally, bilateral retinal bleeds with surgery. History of Any Multi-Drug Resistant Organisms: MRSA Year Discovered:: 05/07/19 MDRO Source:: HAND Past Surgical History: Cardiac Ablation, EPS, Heart Catheterization Additional Past Surgical History / Comment(s): L femoral bypass, L caratid endartectomy, EP study with aflutter ablation, colonoscopy, bilateral eye laser surgery for retinal bleeds. Past Anesthesia/Blood Transfusion Reactions: No Reported Reaction Additional Past Anesthesia/Blood Transfusion Reaction / Comm: Pt states he has received blood in past without reaction. Past Psychological History: No Psychological Hx Reported Smoking Status: Former smoker Past Alcohol Use History: None Reported Past Drug Use History: None Reported - Past Family History Father Additional Family Medical History / Comment(s): DAD AGE 55 OF BRAIN HEMORRAGE. HAD HX TB. Mother Additional Family Medical History / Comment(s): HEART TROUBLE IN HER 70'S Medications and Allergies Home Medications Medication Instructions Recorded Confirmed Type Metoprolol Tartrate [Lopressor] 150 mg PO BID@0900,2100 11/29/18 07/09/19 History Atorvastatin [Lipitor] 80 mg PO HS@2100 12/15/18 07/09/19 History Tamsulosin [Flomax] 0.4 mg PO DAILY@0900 12/15/18 07/09/19 History metFORMIN HCL 1,000 mg PO DAILY@0900 12/15/18 07/09/19 History Ipratropium-Albuterol Nebulize 3 ml INHALATION RT-QID 30 Days 05/10/19 07/09/19 Rx [Duoneb 0.5 mg-3 mg/3 ml Soln] #120 ampul.neb Acetaminophen [Tylenol Arthritis] 650 mg PO Q4H PRN 07/09/19 07/09/19 History Amiodarone [Cordarone] 300 mg PO DAILY@0900 07/09/19 07/09/19 History Apixaban [Eliquis] 5 mg PO BID@0900,209907/09/19 07/09/19 History Dulaglutide [Trulicity] 0.75 mg SQ HS 07/09/19 07/09/19 History FLUoxetine HCL [PROzac] 20 mg PO DAILY@0900 07/09/19 07/09/19 History Famotidine [Pepcid] 20 mg PO BID@0900,2100 07/09/19 07/09/19 History Finasteride [Proscar] 5 mg PO DAILY@0900 07/09/19 07/09/19 History Fluticasone/Vilanterol [Breo 1 puff INHALATION RT-DAILY@0900 07/09/19 07/09/19 History Ellipta 100-25 Mcg Inhaler] INSULIN LISPRO (HumaLOG) [humaLOG] 4 unit SQ AC-TID 07/09/19 07/09/19 History Insulin Glargine,Hum.rec.anlog 40 unit SQ HS@2100 07/09/19 07/09/19 History [Basaglar Kwikpen U-100] Isosorbide Mononitrate ER [Imdur] 30 mg PO DAILY@0900 07/09/19 07/09/19 History Memantine [Namenda] 5 mg PO BID@0900,2100 07/09/19 07/09/19 History Allergies Allergy/AdvReac Type Severity Reaction Status Date / Time morphine Allergy Rash/Hives Verified 07/09/19 09:18 Surgical - Exam Vital Signs Temp Pulse Resp BP Pulse Ox 98.3 F 82 18 133/63 94 L 07/09/19 07:59 07/09/19 07:59 07/09/19 07:59 07/09/19 07:59 07/09/19 07:59 Results - Labs 07/10/19 05:56 07/10/19 05:56 Abnormal Lab Results - Last 24 Hours (Table) 07/09/19 07/09/19 07/09/19 Range/Units 14:01 14:01 16:47 WBC 15.3 H (3.8-10.6) k/uL RBC 2.38 L (4.30-5.90) m/uL Hgb 7.1 L (13.0-17.5) gm/dL Hct 24.0 L (39.0-53.0) % MCV 100.7 H (80.0-100.0) fL MCHC 29.7 L (31.0-37.0) g/dL RDW 15.8 H (11.5-15.5) % Plt Count 650 H (150-450) k/uL Neutrophils # 13.3 H (1.3-7.7) k/uL Lymphocytes # 0.9 L (1.0-4.8) k/uL Carbon Dioxide (22-30) mmol/L BUN (9-20) mg/dL Creatinine (0.66-1.25) mg/dL Glucose (74-99) mg/dL POC Glucose (mg/dL) 316 H (75-99) mg/dL Hemoglobin A1c (4.0-6.0) % Troponin I 0.056 H* (0.000-0.034) ng/mL Total Protein (6.3-8.2) g/dL Albumin (3.5-5.0) g/dL Crossmatch 07/09/19 07/09/19 07/10/19 Range/Units 19:57 20:26 05:56 WBC 16.1 H (3.8-10.6) k/uL RBC 2.21 L (4.30-5.90) m/uL Hgb 6.6 L* (13.0-17.5) gm/dL Hct 22.4 L (39.0-53.0) % MCV 101.3 H (80.0-100.0) fL MCHC 29.4 L (31.0-37.0) g/dL RDW 15.7 H (11.5-15.5) % Plt Count 588 H (150-450) k/uL Neutrophils # 13.8 H (1.3-7.7) k/uL Lymphocytes # (1.0-4.8) k/uL Carbon Dioxide (22-30) mmol/L BUN (9-20) mg/dL Creatinine (0.66-1.25) mg/dL Glucose (74-99) mg/dL POC Glucose (mg/dL) 234 H (75-99) mg/dL Hemoglobin A1c (4.0-6.0) % Troponin I 0.052 H* (0.000-0.034) ng/mL Total Protein (6.3-8.2) g/dL Albumin (3.5-5.0) g/dL Crossmatch 07/10/19 07/10/19 07/10/19 Range/Units 05:56 05:56 06:17 WBC (3.8-10.6) k/uL RBC (4.30-5.90) m/uL Hgb (13.0-17.5) gm/dL Hct (39.0-53.0) % MCV (80.0-100.0) fL MCHC (31.0-37.0) g/dL RDW (11.5-15.5) % Plt Count (150-450) k/uL Neutrophils # (1.3-7.7) k/uL Lymphocytes # (1.0-4.8) k/uL Carbon Dioxide 31 H (22-30) mmol/L BUN 24 H (9-20) mg/dL Creatinine 1.35 H (0.66-1.25) mg/dL Glucose 227 H (74-99) mg/dL POC Glucose (mg/dL) 242 H (75-99) mg/dL Hemoglobin A1c 9.2 H (4.0-6.0) % Troponin I (0.000-0.034) ng/mL Total Protein 6.1 L (6.3-8.2) g/dL Albumin 2.6 L (3.5-5.0) g/dL Crossmatch 07/10/19 07/10/19 Range/Units 07:19 11:37 WBC (3.8-10.6) k/uL RBC (4.30-5.90) m/uL Hgb (13.0-17.5) gm/dL Hct (39.0-53.0) % MCV (80.0-100.0) fL MCHC (31.0-37.0) g/dL RDW (11.5-15.5) % Plt Count (150-450) k/uL Neutrophils # (1.3-7.7) k/uL Lymphocytes # (1.0-4.8) k/uL Carbon Dioxide (22-30) mmol/L BUN (9-20) mg/dL Creatinine (0.66-1.25) mg/dL Glucose (74-99) mg/dL POC Glucose (mg/dL) 281 H (75-99) mg/dL Hemoglobin A1c (4.0-6.0) % Troponin I (0.000-0.034) ng/mL Total Protein (6.3-8.2) g/dL Albumin (3.5-5.0) g/dL Crossmatch See Detail Microbiology - Last 24 Hours (Table) 07/09/19 11:10 Blood Culture - Preliminary Blood No Growth after 24 hours Diabetes panel 07/10/19 07/10/19 Range/Units 05:56 05:56 Sodium 143 (137-145) mmol/L Potassium 4.3 (3.5-5.1) mmol/L Chloride 104 (98-107) mmol/L Carbon Dioxide 31 H (22-30) mmol/L BUN 24 H (9-20) mg/dL Creatinine 1.35 H (0.66-1.25) mg/dL Glucose 227 H (74-99) mg/dL Hemoglobin A1c 9.2 H (4.0-6.0) % Calcium 8.5 (8.4-10.2) mg/dL AST 38 (17-59) U/L ALT 24 (21-72) U/L Alkaline Phosphatase 66 (38-126) U/L Total Protein 6.1 L (6.3-8.2) g/dL Albumin 2.6 L (3.5-5.0) g/dL Calcium panel 07/10/19 Range/Units 05:56 Calcium 8.5 (8.4-10.2) mg/dL Albumin 2.6 L (3.5-5.0) g/dL Pituitary panel 07/10/19 Range/Units 05:56 Sodium 143 (137-145) mmol/L Potassium 4.3 (3.5-5.1) mmol/L Chloride 104 (98-107) mmol/L Carbon Dioxide 31 H (22-30) mmol/L BUN 24 H (9-20) mg/dL Creatinine 1.35 H (0.66-1.25) mg/dL Glucose 227 H (74-99) mg/dL Calcium 8.5 (8.4-10.2) mg/dL Adrenal panel 07/10/19 Range/Units 05:56 Sodium 143 (137-145) mmol/L Potassium 4.3 (3.5-5.1) mmol/L Chloride 104 (98-107) mmol/L Carbon Dioxide 31 H (22-30) mmol/L BUN 24 H (9-20) mg/dL Creatinine 1.35 H (0.66-1.25) mg/dL Glucose 227 H (74-99) mg/dL Calcium 8.5 (8.4-10.2) mg/dL Total Bilirubin 0.5 (0.2-1.3) mg/dL AST 38 (17-59) U/L ALT 24 (21-72) U/L Alkaline Phosphatase 66 (38-126) U/L Total Protein 6.1 L (6.3-8.2) g/dL Albumin 2.6 L (3.5-5.0) g/dL <Bridger Cardenas - Last Filed: 07/10/19 17:35> History of Present Illness History of present illness: As above. Patient admitted with confusion and anemia. Doing better at this time. Denies abdominal pain. Denies rectal bleeding or melena. Was found to have heme positive stools. If medically cleared will proceed with upper and lower endoscopy tomorrow. Continue to hold anticoagulation. Surgical - Exam Vital Signs Temp Pulse Resp BP Pulse Ox 98.3 F 82 18 133/63 94 L 07/09/19 07:59 07/09/19 07:59 07/09/19 07:59 07/09/19 07:59 07/09/19 07:59 Results - Labs 07/10/19 05:56 07/10/19 05:56 Abnormal Lab Results - Last 24 Hours (Table) 07/09/19 07/09/19 07/10/19 Range/Units 19:57 20:26 05:56 WBC 16.1 H (3.8-10.6) k/uL RBC 2.21 L (4.30-5.90) m/uL Hgb 6.6 L* (13.0-17.5) gm/dL Hct 22.4 L (39.0-53.0) % MCV 101.3 H (80.0-100.0) fL MCHC 29.4 L (31.0-37.0) g/dL RDW 15.7 H (11.5-15.5) % Plt Count 588 H (150-450) k/uL Neutrophils # 13.8 H (1.3-7.7) k/uL Carbon Dioxide (22-30) mmol/L BUN (9-20) mg/dL Creatinine (0.66-1.25) mg/dL Glucose (74-99) mg/dL POC Glucose (mg/dL) 234 H (75-99) mg/dL Hemoglobin A1c (4.0-6.0) % Troponin I 0.052 H* (0.000-0.034) ng/mL Total Protein (6.3-8.2) g/dL Albumin (3.5-5.0) g/dL Crossmatch 07/10/19 07/10/19 07/10/19 Range/Units 05:56 05:56 06:17 WBC (3.8-10.6) k/uL RBC (4.30-5.90) m/uL Hgb (13.0-17.5) gm/dL Hct (39.0-53.0) % MCV (80.0-100.0) fL MCHC (31.0-37.0) g/dL RDW (11.5-15.5) % Plt Count (150-450) k/uL Neutrophils # (1.3-7.7) k/uL Carbon Dioxide 31 H (22-30) mmol/L BUN 24 H (9-20) mg/dL Creatinine 1.35 H (0.66-1.25) mg/dL Glucose 227 H (74-99) mg/dL POC Glucose (mg/dL) 242 H (75-99) mg/dL Hemoglobin A1c 9.2 H (4.0-6.0) % Troponin I (0.000-0.034) ng/mL Total Protein 6.1 L (6.3-8.2) g/dL Albumin 2.6 L (3.5-5.0) g/dL Crossmatch 07/10/19 07/10/19 07/10/19 Range/Units 07:19 11:37 16:24 WBC (3.8-10.6) k/uL RBC (4.30-5.90) m/uL Hgb (13.0-17.5) gm/dL Hct (39.0-53.0) % MCV (80.0-100.0) fL MCHC (31.0-37.0) g/dL RDW (11.5-15.5) % Plt Count (150-450) k/uL Neutrophils # (1.3-7.7) k/uL Carbon Dioxide (22-30) mmol/L BUN (9-20) mg/dL Creatinine (0.66-1.25) mg/dL Glucose (74-99) mg/dL POC Glucose (mg/dL) 281 H 266 H (75-99) mg/dL Hemoglobin A1c (4.0-6.0) % Troponin I (0.000-0.034) ng/mL Total Protein (6.3-8.2) g/dL Albumin (3.5-5.0) g/dL Crossmatch See Detail Microbiology - Last 24 Hours (Table) 07/09/19 11:10 Blood Culture - Preliminary Blood No Growth after 24 hours Diabetes panel 07/10/19 07/10/19 Range/Units 05:56 05:56 Sodium 143 (137-145) mmol/L Potassium 4.3 (3.5-5.1) mmol/L Chloride 104 (98-107) mmol/L Carbon Dioxide 31 H (22-30) mmol/L BUN 24 H (9-20) mg/dL Creatinine 1.35 H (0.66-1.25) mg/dL Glucose 227 H (74-99) mg/dL Hemoglobin A1c 9.2 H (4.0-6.0) % Calcium 8.5 (8.4-10.2) mg/dL AST 38 (17-59) U/L ALT 24 (21-72) U/L Alkaline Phosphatase 66 (38-126) U/L Total Protein 6.1 L (6.3-8.2) g/dL Albumin 2.6 L (3.5-5.0) g/dL Calcium panel 07/10/19 Range/Units 05:56 Calcium 8.5 (8.4-10.2) mg/dL Albumin 2.6 L (3.5-5.0) g/dL Pituitary panel 07/10/19 Range/Units 05:56 Sodium 143 (137-145) mmol/L Potassium 4.3 (3.5-5.1) mmol/L Chloride 104 (98-107) mmol/L Carbon Dioxide 31 H (22-30) mmol/L BUN 24 H (9-20) mg/dL Creatinine 1.35 H (0.66-1.25) mg/dL Glucose 227 H (74-99) mg/dL Calcium 8.5 (8.4-10.2) mg/dL Adrenal panel 07/10/19 Range/Units 05:56 Sodium 143 (137-145) mmol/L Potassium 4.3 (3.5-5.1) mmol/L Chloride 104 (98-107) mmol/L Carbon Dioxide 31 H (22-30) mmol/L BUN 24 H (9-20) mg/dL Creatinine 1.35 H (0.66-1.25) mg/dL Glucose 227 H (74-99) mg/dL Calcium 8.5 (8.4-10.2) mg/dL Total Bilirubin 0.5 (0.2-1.3) mg/dL AST 38 (17-59) U/L ALT 24 (21-72) U/L Alkaline Phosphatase 66 (38-126) U/L Total Protein 6.1 L (6.3-8.2) g/dL Albumin 2.6 L (3.5-5.0) g/dL
--- NOTE | 2019-07-10 15:27 | P.CNPUL ---
History of Present Illness Consult date: 07/09/19 Reason for consult: dyspnea, cough Chief complaint: Syncopal episode History of present illness: Mr. Meza is a 74-year-old male he is a jail resident who was brought in by EMS because he was noted to be very weak and passed out patient has been on and requests as well due to severe peripheral vascular disease underwent leg amputation few weeks ago, not much data can obtained from the patient due to poor historian, no seizure-like activity has been noted, review of the data include a chest x-ray which shows a right lower lobe developing pneumonia may very well be aspiration related, in addition he was noted to have a hemoglobin of 7 with heme positive stool, patient is being admitted under Dr. Li with sedation or general surgery for heme positive stool, labs reviewed medications reviewed, we'll continue to hold anticoagulation t for now Ammann patient will be started on broad-spectrum antibiotics Review of Systems ROS unobtainable: due to mental status All systems: negative Past Medical History Past Medical History: Atrial Fibrillation, Asthma, Blood Disorder, COPD, CVA/TIA, Diabetes Mellitus, Deep Vein Thrombosis (DVT), Eye Disorder, GERD/Reflux, Hyperlipidemia, Respiratory Disorder, Sleep Apnea/CPAP/BIPAP, Vascular Disorder Additional Past Medical History / Comment(s): Pt recently admitted to [facility] on 02/05/19 with r lower lobe pneumonia, R pleural effusion, L lung nodule, uncontrolled diabetes, severe COPD acute exacerbation, hyponatremia, Afib with RVR. Other Hx: Chronic hypoxic respiratory failure with home oxygen at 3L/NC ATC, ANUP with Cpap use, IDDM type II, TIA, familial erythrocytosis, PVD, DVT L leg, bilateral lower leg cellulitis, chronic back pain, glaucoma bilaterally, bilateral retinal bleeds with surgery. History of Any Multi-Drug Resistant Organisms: MRSA Date of last positivie culture/infection: 05/07/19 MDRO Source:: HAND Past Surgical History: Cardiac Ablation, EPS, Heart Catheterization Additional Past Surgical History / Comment(s): L femoral bypass, L caratid endartectomy, EP study with aflutter ablation, colonoscopy, bilateral eye laser surgery for retinal bleeds. Past Anesthesia/Blood Transfusion Reactions: No Reported Reaction Additional Past Anesthesia/Blood Transfusion Reaction / Comment(s): Pt states he has received blood in past without reaction. Past Psychological History: No Psychological Hx Reported Smoking Status: Former smoker Past Alcohol Use History: None Reported Past Drug Use History: None Reported - Past Family History Father Additional Family Medical History / Comment(s): DAD AGE 55 OF BRAIN HEMORRAGE. HAD HX TB. Mother Additional Family Medical History / Comment(s): HEART TROUBLE IN HER 70'S Medications and Allergies Home Medications Medication Instructions Recorded Confirmed Type Metoprolol Tartrate [Lopressor] 150 mg PO BID@0900,209911/29/18 07/09/19 History Atorvastatin [Lipitor] 80 mg PO HS@209912/15/18 07/09/19 History Tamsulosin [Flomax] 0.4 mg PO DAILY@0900 12/15/18 07/09/19 History metFORMIN HCL 1,000 mg PO DAILY@0900 12/15/18 07/09/19 History Ipratropium-Albuterol Nebulize 3 ml INHALATION RT-QID 30 Days 05/10/19 07/09/19 Rx [Duoneb 0.5 mg-3 mg/3 ml Soln] #120 ampul.neb Acetaminophen [Tylenol Arthritis] 650 mg PO Q4H PRN 07/09/19 07/09/19 History Amiodarone [Cordarone] 300 mg PO DAILY@0900 07/09/19 07/09/19 History Apixaban [Eliquis] 5 mg PO BID@0900,209907/09/19 07/09/19 History Dulaglutide [Trulicity] 0.75 mg SQ HS 07/09/19 07/09/19 History FLUoxetine HCL [PROzac] 20 mg PO DAILY@0900 07/09/19 07/09/19 History Famotidine [Pepcid] 20 mg PO BID@0900,209907/09/19 07/09/19 History Finasteride [Proscar] 5 mg PO DAILY@0900 07/09/19 07/09/19 History Fluticasone/Vilanterol [Breo 1 puff INHALATION RT-DAILY@0900 07/09/19 07/09/19 History Ellipta 100-25 Mcg Inhaler] INSULIN LISPRO (HumaLOG) [humaLOG] 4 unit SQ AC-TID 07/09/19 07/09/19 History Insulin Glargine,Hum.rec.anlog 40 unit SQ HS@2100 07/09/19 07/09/19 History [Macarena Adorno U-100] Isosorbide Mononitrate ER [Imdur] 30 mg PO DAILY@0900 07/09/19 07/09/19 History Memantine [Namenda] 5 mg PO BID@0900,2100 07/09/19 07/09/19 History Allergies Allergy/AdvReac Type Severity Reaction Status Date / Time morphine Allergy Rash/Hives Verified 07/09/19 09:18 Physical Exam Vitals: Vital Signs Temp Pulse Resp BP Pulse Ox 07/09/19 10:30 73 21 106/84 98 07/09/19 10:00 74 21 174/71 96 07/09/19 09:30 73 20 164/72 98 07/09/19 08:16 79 18 149/69 96 07/09/19 07:59 98.3 F 82 18 133/63 94 L Intake and Output 07/08/19 07/09/19 07/09/19 22:59 06:59 14:59 Other: Weight 121.109 kg - Constitutional General appearance: average body habitus, cooperative, disheveled, no acute distress - EENT Eyes: EOMI, PERRLA, normal appearance Ears: bilateral: normal - Neck Neck: normal ROM Carotids: bilateral: upstroke normal, bruit absent - Respiratory Respiratory: right: rales, bilateral: diminished, negative: CTA, rhonchi, wheezing, prolonged expiration - Cardiovascular Rhythm: regular Heart sounds: normal: S1, S2 - Gastrointestinal General gastrointestinal: normal bowel sounds, soft - Integumentary Integumentary: normal, normal turgor - Neurologic Neurologic: CNII-XII intact - Musculoskeletal Musculoskeletal: gait normal, generalized weakness, strength equal bilaterally - Psychiatric Psychiatric: A&O x's 3, appropriate affect, intact judgment & insight (Status post right BKA) Results - Laboratory Findings CBC and BMP: 07/10/19 05:56 07/10/19 05:56 ABG ABG pH 7.46 (7.35-7.45) H 07/09/19 09:02 ABG pCO2 49 mmHg (35-45) H 07/09/19 09:02 ABG pO2 66 mmHg (83-108) L 07/09/19 09:02 ABG O2 Saturation 92.0 % (94-97) L 07/09/19 09:02 PT/INR, D-dimer PT 11.9 sec (9.0-12.0) 07/09/19 08:11 INR 1.1 (<1.2) 07/09/19 08:11 Abnormal lab findings: Abnormal Labs 07/09/19 07/09/19 07/09/19 08:11 08:11 08:11 WBC 15.0 H RBC 2.55 L Hgb 7.5 L D Hct 25.3 L MCHC 29.8 L RDW 16.0 H Plt Count 680 H Neutrophils # 13.1 H Lymphocytes # 0.8 L ABG pH ABG pCO2 ABG pO2 ABG HCO3 ABG Total CO2 ABG O2 Saturation Carbon Dioxide 32 H BUN 37 H Creatinine 1.51 H Glucose 457 H POC Glucose (mg/dL) ALT 20 L Creatine Kinase 1303 H* Troponin I 0.061 H* Albumin 2.8 L Urine Protein Urine Glucose (UA) Urine Blood Urine Mucus 07/09/19 07/09/19 07/09/19 08:17 09:02 09:06 WBC RBC Hgb Hct MCHC RDW Plt Count Neutrophils # Lymphocytes # ABG pH 7.46 H ABG pCO2 49 H ABG pO2 66 L ABG HCO3 34 H ABG Total CO2 36 H ABG O2 Saturation 92.0 L Carbon Dioxide BUN Creatinine Glucose POC Glucose (mg/dL) 474 H ALT Creatine Kinase Troponin I Albumin Urine Protein 1+ H Urine Glucose (UA) 3+ H Urine Blood Small H Urine Mucus Rare H - Diagnostic Findings Chest x-ray: report reviewed, image reviewed (Finding as noted above) Assessment and Plan Assessment: Right lower lobe aspiration pneumonia Near syncopal episode Acute blood loss anemia probably due to GI bleed Chronic renal failure stage III Severe COPD emphysema GI bleed Plan: Hold anticoagulation Proton pump inhibitors IV Consults surgery Broad-spectrum IV antibiotics for aspiration pneumonia Fall precautions Bronchodilators Further recommendations pending plan of care as per clinical response of the patient
--- NOTE | 2019-07-10 15:30 | P.PN ---
Subjective Progress Note Date: 07/10/19 Principal diagnosis: Right lower lobe aspiration pneumonia Near syncopal episode Acute blood loss anemia probably due to GI bleed Chronic renal failure stage III Severe COPD emphysema GI bleed 07/10/2019, patient seen eval examined during the rounds labs reviewed medications reviewed patient is relatively more awake now he is on nasal cannula daughter is present at bedside, patient is currently nothing by mouth for possible endoscopy, hemoglobin came down to 6.6 patient is being transfused with 1 unit of packed RBC, white cell count is 16,100, sugar is mid to high 200 range Mr. Meza is a 74-year-old male he is a assisted resident who was brought in by EMS because he was noted to be very weak and passed out patient has been on and requests as well due to severe peripheral vascular disease underwent leg amputation few weeks ago, not much data can obtained from the patient due to poor historian, no seizure-like activity has been noted, review of the data include a chest x-ray which shows a right lower lobe developing pneumonia may very well be aspiration related, in addition he was noted to have a hemoglobin of 7 with heme positive stool, patient is being admitted under Dr. Li with sedation or general surgery for heme positive stool, labs reviewed medications reviewed, we'll continue to hold anticoagulation t for now Ammann patient will be started on broad-spectrum antibiotics Objective - Vital Signs Vital signs: Vital Signs Temp 98.2 F 07/10/19 11:00 Pulse 93 07/10/19 13:55 Resp 20 07/10/19 13:55 BP 118/57 07/10/19 13:55 Pulse Ox 92 L 07/10/19 13:55 Intake & Output 07/09/19 07/10/19 07/10/19 18:59 06:59 18:59 Intake Total 300 900 760 Output Total 1500 375 Balance 300 -600 385 Weight 121.109 kg 119.9 kg Intake: Intake, IV Titration 300 900 450 Amount Levofloxacin 750Mg-D5w 150 Pmx 750 mg In Dextrose/ Water 1 150ml.bag @ 100 mls/hr IVPB Q24HR [facility] Rx# :[id number] Piperacillin-Tazobactam 3 100 .375 gm In Sodium Chloride 0.9% 100 ml @ 25 mls/hr IVPB Q8H [facility] Rx#: [id number] Sodium Chloride 0.9% 1, 300 800 300 000 ml @ 100 mls/hr IV . Q10H [facility] Rx#:[id number] Blood Product 310 Rc As-1 Unit 310 [id number] Output: Urine 1500 375 Other: Voiding Method Indwelling Catheter Indwelling Catheter Indwelling Catheter - Exam - Constitutional General appearance: average body habitus, cooperative, disheveled, no acute distress - EENT Eyes: EOMI, PERRLA, normal appearance Ears: bilateral: normal - Neck Neck: normal ROM Carotids: bilateral: upstroke normal, bruit absent - Respiratory Respiratory: right: rales, bilateral: diminished, negative: CTA, rhonchi, whee zing, prolonged expiration - Cardiovascular Rhythm: regular Heart sounds: normal: S1, S2 - Gastrointestinal General gastrointestinal: normal bowel sounds, soft - Integumentary Integumentary: normal, normal turgor - Neurologic Neurologic: CNII-XII intact - Musculoskeletal Musculoskeletal: gait normal, generalized weakness, strength equal bilaterally - Psychiatric Psychiatric: A&O x's 3, appropriate affect, intact judgment & insight (Status post right BKA) - Labs CBC & Chem 7: 07/10/19 05:56 07/10/19 05:56 Labs: Abnormal Lab Results - Last 24 Hours (Table) 07/09/19 07/09/19 07/09/19 Range/Units 16:47 19:57 20:26 WBC (3.8-10.6) k/uL RBC (4.30-5.90) m/uL Hgb (13.0-17.5) gm/dL Hct (39.0-53.0) % MCV (80.0-100.0) fL MCHC (31.0-37.0) g/dL RDW (11.5-15.5) % Plt Count (150-450) k/uL Neutrophils # (1.3-7.7) k/uL Carbon Dioxide (22-30) mmol/L BUN (9-20) mg/dL Creatinine (0.66-1.25) mg/dL Glucose (74-99) mg/dL POC Glucose (mg/dL) 316 H 234 H (75-99) mg/dL Hemoglobin A1c (4.0-6.0) % Troponin I 0.052 H* (0.000-0.034) ng/mL Total Protein (6.3-8.2) g/dL Albumin (3.5-5.0) g/dL Crossmatch 07/10/19 07/10/19 07/10/19 Range/Units 05:56 05:56 05:56 WBC 16.1 H (3.8-10.6) k/uL RBC 2.21 L (4.30-5.90) m/uL Hgb 6.6 L* (13.0-17.5) gm/dL Hct 22.4 L (39.0-53.0) % MCV 101.3 H (80.0-100.0) fL MCHC 29.4 L (31.0-37.0) g/dL RDW 15.7 H (11.5-15.5) % Plt Count 588 H (150-450) k/uL Neutrophils # 13.8 H (1.3-7.7) k/uL Carbon Dioxide 31 H (22-30) mmol/L BUN 24 H (9-20) mg/dL Creatinine 1.35 H (0.66-1.25) mg/dL Glucose 227 H (74-99) mg/dL POC Glucose (mg/dL) (75-99) mg/dL Hemoglobin A1c 9.2 H (4.0-6.0) % Troponin I (0.000-0.034) ng/mL Total Protein 6.1 L (6.3-8.2) g/dL Albumin 2.6 L (3.5-5.0) g/dL Crossmatch 07/10/19 07/10/19 07/10/19 Range/Units 06:17 07:19 11:37 WBC (3.8-10.6) k/uL RBC (4.30-5.90) m/uL Hgb (13.0-17.5) gm/dL Hct (39.0-53.0) % MCV (80.0-100.0) fL MCHC (31.0-37.0) g/dL RDW (11.5-15.5) % Plt Count (150-450) k/uL Neutrophils # (1.3-7.7) k/uL Carbon Dioxide (22-30) mmol/L BUN (9-20) mg/dL Creatinine (0.66-1.25) mg/dL Glucose (74-99) mg/dL POC Glucose (mg/dL) 242 H 281 H (75-99) mg/dL Hemoglobin A1c (4.0-6.0) % Troponin I (0.000-0.034) ng/mL Total Protein (6.3-8.2) g/dL Albumin (3.5-5.0) g/dL Crossmatch See Detail Microbiology - Last 24 Hours (Table) 07/09/19 11:10 Blood Culture - Preliminary Blood No Growth after 24 hours Assessment and Plan Assessment: Right lower lobe aspiration pneumonia Near syncopal episode Acute blood loss anemia probably due to GI bleed Chronic renal failure stage III Severe COPD emphysema GI bleed Plan: Transfuse her 1 unit of packed RBC Hold anticoagulation Proton pump inhibitors IV Consults surgery for endoscopy Broad-spectrum IV antibiotics for aspiration pneumonia Fall precautions Bronchodilators Further recommendations pending plan of care as per clinical response of the patient Time with Patient: Greater than 30
[2019-07-10 16:32] LABS: Glucose,Whole Blood 266 mg/dL (75-99)
[2019-07-10 20:56] LABS: Glucose,Whole Blood 273 mg/dL (75-99)
[2019-07-10 23:38] LABS: Folate, Serum 12.2 ng/mL
[2019-07-11] MEDS: SODIUM CHLORIDE 0.9% 1,000 ML IV SCH ×3 (05:37→23:43)
[2019-07-11] MEDS: PIPERACILLIN-TAZOBACTAM 3.375 GM in SODIUM CHLORIDE 0.9% 100 ML IVPB SCH ×3 (05:38→19:59)
[2019-07-11 06:34] LABS: Glucose,Whole Blood 331 mg/dL (75-99)
[2019-07-11] MEDS: INSULIN ASPART (NovoLOG) 100 UNIT/ML VIAL SQ SCH ×4 (06:50→21:25)
[2019-07-11 07:56] LABS: Anisocytosis Slight; HCT 23.9 % (39.0-53.0); HGB 7.1 gm/dL (13.0-17.5); Hypochromasia Marked; MCH 29.6 pg (25.0-35.0); MCHC 29.8 g/dL (31.0-37.0); MCV 99.6 fL (80.0-100.0); Macrocytosis Slight; Mean Platelet Volume 6.1; Platelet Count 580 k/uL (150-450); Poikilocytosis Slight; RBC 2.41 m/uL (4.30-5.90); RDW 16.2 % (11.5-15.5); WBC 17.9 k/uL (3.8-10.6)
[2019-07-11] MEDS: PANTOPRAZOLE 40 MG/10 ML VIAL IV SCH (07:56)
[2019-07-11] MEDS: LEVOFLOXACIN 750MG-D5W PMX 750 MG in DEXTROSE/WATER 1 150ML.BAG IVPB SCH (07:56)
[2019-07-11 08:01] LABS: Calcium 7.8 mg/dL (8.4-10.2)
[2019-07-11] MEDS: IPRATROPIUM-ALBUTEROL 3 ML NEB INHALATION SCH ×5 (08:51→20:11)
[2019-07-11 11:38] LABS: Glucose,Whole Blood 260 mg/dL (75-99)
[2019-07-11] MEDS ORDERED: IV FLUID CONTINUATION 1,000 ML IV ONE ×2 (12:56→13:00)
--- NOTE | 2019-07-11 14:22 | P.PN ---
Progress Note - Text Progress Note Date: 07/11/19 Patient was taken to the endoscopy suite today for upper and lower endoscopy. Patient was evaluated by anesthesia and felt to be high risk for the procedure and would require general anesthesia given the patient's comorbidities, current respiratory status, and degree of obesity. The patient is no code. He has no desire to be on the ventilator. Concern regarding the risk for prolonged postoperative ventilation was discussed with him. I then spoke to the patient's daughter Emily by phone in the patient's presence. Both the patient and the daughter wished to hold off on endoscopy at this time which given the increased risks is reasonable. Even in the event that a malignancy was encountered to explain his anemia the patient is a poor surgical candidate and nonoperative approach may have been chosen. Patient not interested in upper GI or barium enema as well. Will resume diet at this time. We'll sign off. Please call if needed.
--- NOTE | 2019-07-11 14:43 | CDI ---
Patient with leukocytosis, most likely infection causing metabolic encephalopathy, patient started on broad-spectrum antibiotics Documentation Clarification Form Date: 07/11/2019 1:55:46 PM From: Karine Messina RN, CCDS Admit Date: 07/09/2019 10:36:00 AM Patient Name: Adam Meza Visit Number: [id number] Discharge Date: ATTENTION: The Clinical Documentation Specialists (CDI) and [facility] Coding Staff appreciate your assistance in clarifying documentation. Please respond to the clarification below the line at the bottom and electronically sign. The CDI & [facility] Coding staff will review the response and follow-up if needed. Please note: Queries are made part of the Legal Health Record. If you have any questions, please contact the author of this message via ITS. Dr. Bertha Miller Altered Mental Status was documented in the ED evaluation. In our consult your have documented most likely had the episode of less responsiveness in the setting of metabolic derangements, and further clarification is needed. History/Risk Factors: Atrial Fibrillation, Asthma, COPD on home oxygen, Stroke, Diabetes mellitus, Former smoker Clinical Indicators: 74-year-old male who present from E[facility] after becoming less responsive. Patient alert and oriented to name and month only. Speech is fluent with mild dysarthria, able to name and repeat. Labs: WBC 17.9, HGB 6.6, BUN 24, CR 1.35 CT Brain: No acute abnormality. Chronic white matter ischemic change, worse on the left than right. (most likely history of left stroke) Chest x-ray: Right basilar airspace disease may represent atelectasis or pneumonia. CTA Head/neck: Moderate approximately 60 stenosis of the proximal right carotid bulb. Suspect high-grade stenosis or occlusion at the left vertebral artery origin. MRI Brain; There are evolving acute lacunar infarcts right frontal lobe near frontal horn and deep right parietal lobe near at the lateral aspect of the thalamus. Treatment: Neurological assessment per protocol ( verbal response: confused, garbled, rambling obeys commands, severe weakness) Monitor CBC, Lytes In your professional opinion, please clarify the etiology of the Altered Mental Status, further specify metabolic derangements if known. Metabolic encephalopathy (underlying medical illness Dementia (if know, specify Type and if with/without Behavioral Disturbance) Other condition (please specify) Unable to determine (Last Revision: December 2017) MTDD
[2019-07-11 16:33] LABS: Glucose,Whole Blood 269 mg/dL (75-99)
--- NOTE | 2019-07-11 17:43 | P.PN ---
Progress Note - Text Progress Note Date: 07/11/19 SUBJECTIVE/INTERVAL EVENTS: No acute overnight events. Sitter states that patient just fell asleep around an hour prior to my visit. Patient opens eyes to verbal stimuli. Says "Whats YOUR name" and when painful stimuli applied, says, "you bitch." PHYSICAL EXAMINATION: VITAL SIGNS: T 99.2 HR 98 RR 19 BP 138/69 O2 sat 94% on 5L O2 via NC GEN.: NAD, grumpy, asking for water HEENT: NCAT, sclera without icterus NECK: Supple SKIN AND EXTREMITIES: Warm to touch, RLE amputation NEURO: MENTAL STATUS: Patient alert and oriented to name and month only. Says he doesn't know where he is and said "[place]" for name of president. Able to name the current president. Speech fluent with mild dysarthria, able to name and repeat, following most commands readily. CRANIAL NERVES II THROUGH XII: II: Pupils are equal and reactive to light symmetrically. Blinks to threat bilaterally. III, IV, : No ptosis. Tracks appropriately V: Facial sensation intact from V1-3. VII. No clear facial asymmetry. XI: Shoulder shrug intact. XII: Tongue midline without fasciculation or atrophy. MOTOR: Normal bulk. Slightly increased tone in his RUE. Resting and action tremor. Strength is at least 4/5 in b/l UE and LLE. SENSORY: Sensation intact to LT in b/l UE and LLE. REFLEXES: 2+ b/l UE. 1+ LLE. Toes are downgoing. COORDINATION: Finger to nose intact with his LUE. GAIT: Deferred DIAGNOSTIC TESTING: LABORATORY: 07/10/19: WBC 16.1 hemoglobin 6.6 platelet 588 sodium 143 potassium 4.3 chloride 104 bicarb 31 BUN 24 creatinine 1.35 requested 27 AST 38 ALT 24 alk phos 66 troponin 0.052 07/11/19: WBC 17.9 hemoglobin 7.1 platelet 580 sodium 142 potassium 4.0 chloride 104 bicarb 28 BUN 17 creatinine 1.17 glucose 306 Ammonia <9 vitamin B12 228 folate 12.2 TSH 2.10 nonreactive RPR 07/09/19: Stool Occult blood positive : Blood Culture no growth after 24 hours IMAGING: CT head without contrast 07/09/2019: No acute abnormality. Chronic white matter ischemic change, worse on the left than the right. Chronic right maxillary sinus mucosal disease. (Most likely history of left stroke Chest x-ray 07/09/2019: Right basilar airspace disease may represent atelectasis or pneumonia. Small bilateral effusions. Cardiomegaly MRI brain with and without contrast 05/09/2019: There are evolving acute lacunar infarcts right frontal lobe near frontal horn and deep right parietal lobe near at the lateral aspect of the thalamus. There is background mild to moderate diffuse cerebral atrophy with advanced chronic small vessel ischemic change and subacute on chronic left MCA distribution infarct. No suspicious enhancement or enhancing masses are present. Persistent bilateral maxillary sinusitis. Carotid Doppler 04/29/2019: Findings consistent with hemodynamically significant right ICA 50-69% stenosis, which can be further characterized anatomically using CTA and MRA. CTA head and neck within without contrast 05/10/2019: Moderate, approximately 60% stenosis of the proximal right carotid bulb. Prior endarterectomy left ICA which remains patent. Suspect high-grade stenosis or occlusion at the left vertebral artery origin. Moderate atherosclerotic narrowing within the bilateral T4 segment of the vertebral arteries. Additional moderate Kael narrowing of the right ICA. No large vessel intracranial arterial occlusion or aneurysm will change seen ASSESSMENT: 75-year-old male with past medical history of atrial fibrillation, asthma, COPD on home oxygen, stroke, diabetes, DVT, GERD, hyperlipidemia, sleep apnea, bilateral glaucoma, chronic back pain, diabetes, presenting to [facility] for becoming less responsive at his skilled nursing. Patient's home medication list shows memantine, so it appears that patient has a history of dementia. Patient's lab showing leukocytosis along with significant anemia, patient currently getting transfusion. Patient also started on broad-spectrum antibiotics. Patient most likely had the episode of less responsive in the setting of metabolic derangements. RECOMMENDATIONS: 1. Primary team to continue with medical management of metabolic derangements. 2. Routine EEG obtained today. 3. If EEG unremarkable, Neurology will sign off. Please call with additional questions or concerns.
--- NOTE | 2019-07-11 17:51 | P.PN ---
Subjective Progress Note Date: 07/11/19 Principal diagnosis: Right lower lobe aspiration pneumonia Near syncopal episode Acute blood loss anemia probably due to GI bleed Chronic renal failure stage III Severe COPD emphysema GI bleed 07/11/2019, patient seen eval examined during the rounds labs reviewed medications reviewed care plan discussed with patient and staff at length patient is undergoing colon prep having significant amount of diarrhea the endoscopy have been canceled at this time he remains on supplemental oxygen he is been using BiPAP at nighttime oxygen during the day short of breath and mental status is improved now compared to yesterday exam, labs showed a stable hemoglobin of 7.1 white cell count is 17,900 07/10/2019, patient seen eval examined during the rounds labs reviewed medications reviewed patient is relatively more awake now he is on nasal cannula daughter is present at bedside, patient is currently nothing by mouth for possible endoscopy, hemoglobin came down to 6.6 patient is being transfused with 1 unit of packed RBC, white cell count is 16,100, sugar is mid to high 200 range Mr. Meza is a 74-year-old male he is a detention resident who was brought in by EMS because he was noted to be very weak and passed out patient has been on and requests as well due to severe peripheral vascular disease underwent leg amputation few weeks ago, not much data can obtained from the patient due to poor historian, no seizure-like activity has been noted, review of the data i nclude a chest x-ray which shows a right lower lobe developing pneumonia may very well be aspiration related, in addition he was noted to have a hemoglobin of 7 with heme positive stool, patient is being admitted under Dr. Li with sedation or general surgery for heme positive stool, labs reviewed medications reviewed, we'll continue to hold anticoagulation t for now Ammann patient will be started on broad-spectrum antibiotics Objective - Vital Signs Vital signs: Vital Signs Temp 98.4 F 07/11/19 16:00 Pulse 97 07/11/19 16:00 Resp 18 07/11/19 16:00 BP 175/83 07/11/19 16:00 Pulse Ox 92 L 07/11/19 16:00 Intake & Output 07/10/19 07/11/19 07/11/19 18:59 06:59 18:59 Intake Total 1700 Output Total 825 500 500 Balance 875 -500 -500 Weight 121 kg 121 kg Intake: Intake, IV Titration 1150 Amount Levofloxacin 750Mg-D5w 150 Pmx 750 mg In Dextrose/ Water 1 150ml.bag @ 100 mls/hr IVPB Q24HR [facility] Rx# :[id number] Piperacillin-Tazobactam 3 100 .375 gm In Sodium Chloride 0.9% 100 ml @ 25 mls/hr IVPB Q8H [facility] Rx#: [id number] Sodium Chloride 0.9% 1, 900 000 ml @ 100 mls/hr IV . Q10H [facility] Rx#:[id number] Oral 240 Blood Product 310 Rc As-1 Unit 310 [id number] Output: Urine 825 500 500 Uretheral (Jansen) 500 Other: Voiding Method Indwelling Catheter Indwelling Catheter Indwelling Catheter # Voids 2 # Bowel Movements 1 - Exam - Constitutional General appearance: average body habitus, cooperative, disheveled, no acute distress - EENT Eyes: EOMI, PERRLA, normal appearance Ears: bilateral: normal - Neck Neck: normal ROM Carotids: bilateral: upstroke normal, bruit absent - Respiratory Respiratory: right: rales, bilateral: diminished, negative: CTA, rhonchi, wheezing, prolonged expiration - Cardiovascular Rhythm: regular Heart sounds: normal: S1, S2 - Gastrointestinal General gastrointestinal: normal bowel sounds, soft - Integumentary Integumentary: normal, normal turgor - Neurologic Neurologic: CNII-XII intact - Musculoskeletal Musculoskeletal: gait normal, generalized weakness, strength equal bilaterally - Psychiatric Psychiatric: A&O x's 3, appropriate affect, intact judgment & insight (Status post right BKA) - Labs CBC & Chem 7: 07/11/19 07:30 07/11/19 07:35 Labs: Abnormal Lab Results - Last 24 Hours (Table) 07/10/19 07/11/19 07/11/19 Range/Units 20:55 06:34 07:30 WBC 17.9 H (3.8-10.6) k/uL RBC 2.41 L (4.30-5.90) m/uL Hgb 7.1 L (13.0-17.5) gm/dL Hct 23.9 L (39.0-53.0) % MCHC 29.8 L (31.0-37.0) g/dL RDW 16.2 H (11.5-15.5) % Plt Count 580 H (150-450) k/uL Glucose (74-99) mg/dL POC Glucose (mg/dL) 273 H 331 H (75-99) mg/dL Calcium (8.4-10.2) mg/dL 07/11/19 07/11/19 07/11/19 Range/Units 07:35 11:30 16:28 WBC (3.8-10.6) k/uL RBC (4.30-5.90) m/uL Hgb (13.0-17.5) gm/dL Hct (39.0-53.0) % MCHC (31.0-37.0) g/dL RDW (11.5-15.5) % Plt Count (150-450) k/uL Glucose 306 H (74-99) mg/dL POC Glucose (mg/dL) 260 H 269 H (75-99) mg/dL Calcium 7.8 L (8.4-10.2) mg/dL Microbiology - Last 24 Hours (Table) 07/09/19 11:10 Blood Culture - Preliminary Blood No Growth after 48 hours Assessment and Plan Assessment: Right lower lobe aspiration pneumonia Near syncopal episode Acute blood loss anemia probably due to GI bleed Chronic renal failure stage III Severe COPD emphysema GI bleed Plan: Monitor hemoglobin closely Hold anticoagulation Proton pump inhibitors IV Consults surgery for endoscopy, currently on hold due to general medical health Broad-spectrum IV antibiotics for aspiration pneumonia Fall precautions Bronchodilators Further recommendations pending plan of care as per clinical response of the patient Time with Patient: Greater than 30
[2019-07-11 21:11] LABS: Glucose,Whole Blood 226 mg/dL (75-99)
--- NOTE | 2019-07-11 22:37 | PN ---
PROGRESS NOTE 74-year-old white male with community-acquired healthcare acquired pneumonia, aspiration pneumonia, and near syncope, encephalopathy due to hypoxemia, noncompliant with wearing his oxygen level as well as his BiPAP at night, status post right knee amputation. Cardiovascular S1-S2. Lungs scattered wheeze x4. Hematologic 2+ pedal edema left leg. He has AKA on the right leg. Dr. Cardenas and family discussed severe anemia with an EGD and colonoscopy, but he is not a good candidate due to general anesthesia with his bad COPD and CHF, obstructive sleep apnea, and confusion. He has had dementia from a prior stroke. ASSESSMENT: 1. Severe anemia. 2. Healthcare acquired pneumonia. 3. Near-syncope. 4. Aspiration pneumonia. 5. Possible gastrointestinal bleed. Surgical consult signed off as he is not a good candidate for EGD and colonoscopy. Continue with IV antibiotics, oxygen compliance, BiPAP compliance. MMODL / IJN: [id number] /
--- NOTE | 2019-07-11 22:46 | EEG ---
ELECTROENCEPHALOGRAM REPORT PROCEDURE DATE: 07/11/2019. ELECTROENCEPHALOGRAM (EEG) REPORT: TECHNIQUE: A routine 18 channel EEG was performed with video using the 10/20 international electrode placement system. HISTORY: Pneumonia, decreased responsiveness. CURRENT MEDICATIONS: Piperacillin, Protonix, Levaquin, insulin, albuterol. STUDY DURATION: 20 minutes. FINDINGS: BACKGROUND: The background activity consisted of poorly modulated 3-4 Hz waveforms symmetric through both posterior quadrants. ACTIVATION: Hyperventilation: Not performed. Photic stimulation: Not performed. Sleep: Drowsy. ABNORMALITIES: Diffuse synchronous and asynchronous 3-5 Hz slow wave activity was seen. IMPRESSION: Abnormal EEG. The diffuse synchronous and asynchronous theta delta range slowing mentioned above is not epileptiform in nature. In combination with the slow background, these findings indicate severe diffuse cerebral dysfunction as may be seen in a toxo metabolic encephalopathy. No seizures were recorded. No epileptiform activity was present. MMODL / IJN: [id number] /
[2019-07-12] MEDS: PIPERACILLIN-TAZOBACTAM 3.375 GM in SODIUM CHLORIDE 0.9% 100 ML IVPB SCH ×3 (05:16→20:21)
[2019-07-12 06:12] LABS: HCT 22.4 % (39.0-53.0); Hypochromasia Marked; MCHC 30.1 g/dL (31.0-37.0); MCV 99.7 fL (80.0-100.0); Macrocytosis Slight; Mean Platelet Volume 6.2; Platelet Count 534 k/uL (150-450); Poikilocytosis Slight; RBC 2.25 m/uL (4.30-5.90); RDW 15.8 % (11.5-15.5); WBC 14.7 k/uL (3.8-10.6)
[2019-07-12 06:21] LABS: Glucose,Whole Blood 264 mg/dL (75-99)
[2019-07-12] MEDS: INSULIN ASPART (NovoLOG) 100 UNIT/ML VIAL SQ SCH ×4 (06:50→20:59)
[2019-07-12 07:13] LABS: HGB 6.8 gm/dL (13.0-17.5)
[2019-07-12] MEDS: IPRATROPIUM-ALBUTEROL 3 ML NEB INHALATION SCH ×4 (07:58→20:18)
[2019-07-12] MEDS: SODIUM CHLORIDE 0.9% 1,000 ML IV SCH ×2 (08:23→18:15)
[2019-07-12] MEDS: LEVOFLOXACIN 750MG-D5W PMX 750 MG in DEXTROSE/WATER 1 150ML.BAG IVPB SCH (08:27)
[2019-07-12] MEDS: PANTOPRAZOLE 40 MG/10 ML VIAL IV SCH (08:27)
[2019-07-12 12:05] LABS: Glucose,Whole Blood 370 mg/dL (75-99)
[2019-07-12] MEDS: INSULIN DETEMIR (LEVEMIR) 100 UNIT/ML SYR SQ SCH (12:53)
[2019-07-12] MEDS ORDERED: IPRATROPIUM-ALBUTEROL 3 ML NEB INHALATION PRN (16:21)
[2019-07-12] MEDS ORDERED: traMADol 50 MG TAB PO PRN (16:21)
[2019-07-12 17:04] LABS: Glucose,Whole Blood 159 mg/dL (75-99)
[2019-07-12] MEDS: ATORVASTATIN 80 MG TAB PO SCH (20:21)
[2019-07-12 20:44] LABS: Glucose,Whole Blood 69 mg/dL (75-99)
[2019-07-12 21:14] LABS: Glucose,Whole Blood 75 mg/dL (75-99)
[2019-07-13] MEDS: PIPERACILLIN-TAZOBACTAM 3.375 GM in SODIUM CHLORIDE 0.9% 100 ML IVPB SCH ×3 (03:45→21:50)
[2019-07-13] MEDS: SODIUM CHLORIDE 0.9% 1,000 ML IV SCH ×2 (03:45→21:49)
[2019-07-13 06:12] LABS: Glucose,Whole Blood 118 mg/dL (75-99)
[2019-07-13] MEDS: INSULIN ASPART (NovoLOG) 100 UNIT/ML VIAL SQ SCH ×4 (06:37→22:04)
[2019-07-13] MEDS: INSULIN DETEMIR (LEVEMIR) 100 UNIT/ML SYR SQ SCH (06:40)
[2019-07-13 07:02] LABS: Anisocytosis Slight; Basophils # (A) 0.1 k/uL (0-0.2); Basophils % (A) 1 %; Eosinophils # (A) 0.1 k/uL (0-0.7); Eosinophils % (A) 1 %; HCT 29.2 % (39.0-53.0); Hypochromasia Marked; Lymphocytes % (A) 6 %; MCH 28.7 pg (25.0-35.0); MCHC 30.3 g/dL (31.0-37.0); MCV 94.9 fL (80.0-100.0); Mean Platelet Volume 6.6; Monocytes # (A) 1.1 k/uL (0-1.0); Monocytes % (A) 7 %; Neutrophils # (A) 13.4 k/uL (1.3-7.7); Neutrophils % (A) 85 %; Platelet Count 571 k/uL (150-450); Poikilocytosis Marked; RBC 3.07 m/uL (4.30-5.90); RDW 16.8 % (11.5-15.5); WBC 15.9 k/uL (3.8-10.6)
[2019-07-13 07:08] LABS: HGB 8.8 gm/dL (13.0-17.5)
[2019-07-13 07:17] LABS: Albumin 2.7 g/dL (3.5-5.0); Calcium 8.4 mg/dL (8.4-10.2); Total Bilirubin 0.7 mg/dL (0.2-1.3); Total Protein 6.4 g/dL (6.3-8.2)
[2019-07-13] MEDS: IPRATROPIUM-ALBUTEROL 3 ML NEB INHALATION SCH ×4 (09:12→20:39)
[2019-07-13] MEDS: SYMBICORT 80-4.5 MCG INHALER INHALATION SCH ×2 (09:13→20:38)
[2019-07-13] MEDS: LEVOFLOXACIN 750 MG TAB PO SCH (10:08)
[2019-07-13] MEDS: TAMSULOSIN 0.4 MG CAP.ER.24H PO SCH (10:09)
[2019-07-13] MEDS: metFORMIN 500 MG TAB PO SCH (10:09)
[2019-07-13] MEDS: PANTOPRAZOLE 40 MG TABLET PO SCH (10:10)
[2019-07-13 11:59] LABS: Glucose,Whole Blood 163 mg/dL (75-99)
[2019-07-13 15:10] VITALS: BMI 40.6
--- NOTE | 2019-07-13 15:15 | P.PN ---
Subjective Progress Note Date: 07/12/19 Principal diagnosis: Right lower lobe aspiration pneumonia Near syncopal episode Acute blood loss anemia probably due to GI bleed Chronic renal failure stage III Severe COPD emphysema GI bleed 07/12/2019, patient seen and evaluated examined during the rounds labs reviewed remains on supplemental oxygen ongoing wheezing is present cuff congestion slightly improved, mental status significantly improved 07/11/2019, patient seen eval examined during the rounds labs reviewed medications reviewed care plan discussed with patient and staff at length patient is undergoing colon prep having significant amount of diarrhea the endoscopy have been canceled at this time he remains on supplemental oxygen he is been using BiPAP at nighttime oxygen during the day short of breath and mental status is improved now compared to yesterday exam, labs showed a stable hemoglobin of 7.1 white cell count is 17,900 07/10/2019, patient seen eval examined during the rounds labs reviewed medications reviewed patient is relatively more awake now he is on nasal cannula daughter is present at bedside, patient is currently nothing by mouth for possible endoscopy, hemoglobin came down to 6.6 patient is being transfused with 1 unit of packed RBC, white cell count is 16,100, sugar is mid to high 200 range Mr. Meza is a 74-year-old male he is a halfway resident who was brought in by EMS because he was noted to be very weak and passed out patient has been on and requests as well due to severe peripheral vascular disease underwent leg amputation few weeks ago, not much data can obtained from the patient due to poor historian, no seizure-like activity has been noted, review of the data include a chest x-ray which shows a right lower lobe developing pneumonia may very well be aspiration related, in addition he was noted to have a hemoglobin of 7 with heme positive stool, patient is being admitted under Dr. Li with sedation or general surgery for heme positive stool, labs reviewed medications reviewed, we'll continue to hold anticoagulation t for now Ammann patient will be started on broad-spectrum antibiotics Objective - Vital Signs Vital signs: Vital Signs Temp 98.3 F 07/12/19 07:38 Pulse 96 07/12/19 08:10 Resp 20 07/12/19 07:38 BP 117/60 07/12/19 07:38 Pulse Ox 90 L 07/12/19 07:38 Intake & Output 10/29/19 10/30/19 10/30/19 18:59 06:59 18:59 Intake Total 2510 180 Output Total 500 800 Balance 2009 180 Weight 121 kg 123.5 kg Intake: IV 1650 Levofloxacin 750Mg-D5w 750 Pmx 750 mg In Dextrose/ Water 1 150ml.bag @ 100 mls/hr IVPB Q24HR [facility] Rx# :[id number] Piperacillin-Tazobactam 3 100 .375 gm In Sodium Chloride 0.9% 100 ml @ 25 mls/hr IVPB Q8H [facility] Rx#: [id number] Sodium Chloride 0.9% 1, 800 000 ml @ 100 mls/hr IV . Q10H [facility] Rx#:[id number] Oral 860 180 Blood Product 0 Rc As-1 Unit 0 [id number] Output: Urine 500 800 Uretheral (Jansen) 450 Other: Voiding Method Indwelling Catheter Indwelling Catheter # Voids 2 - Exam - Constitutional General appearance: average body habitus, cooperative, disheveled, no acute distress - EENT Eyes: EOMI, PERRLA, normal appearance Ears: bilateral: normal - Neck Neck: normal ROM Carotids: bilateral: upstroke normal, bruit absent - Respiratory Respiratory: right: rales, bilateral: diminished, negative: CTA, rhonchi, wheezing, prolonged expiration - Cardiovascular Rhythm: regular Heart sounds: normal: S1, S2 - Gastrointestinal General gastrointestinal: normal bowel sounds, soft - Integumentary Integumentary: normal, normal turgor - Neurologic Neurologic: CNII-XII intact - Musculoskeletal Musculoskeletal: gait normal, generalized weakness, strength equal bilaterally - Psychiatric Psychiatric: A&O x's 3, appropriate affect, intact judgment & insight (Status post right BKA) - Labs CBC & Chem 7: 07/13/19 06:16 07/13/19 06:16 Labs: Abnormal Lab Results - Last 24 Hours (Table) 07/10/19 07/11/19 07/11/19 Range/Units 07:19 11:30 16:28 WBC (3.8-10.6) k/uL RBC (4.30-5.90) m/uL Hgb (13.0-17.5) gm/dL Hct (39.0-53.0) % MCHC (31.0-37.0) g/dL RDW (11.5-15.5) % Plt Count (150-450) k/uL POC Glucose (mg/dL) 260 H 269 H (75-99) mg/dL Crossmatch See Detail 07/11/19 07/12/19 07/12/19 Range/Units 21:11 05:53 06:20 WBC 14.7 H (3.8-10.6) k/uL RBC 2.25 L (4.30-5.90) m/uL Hgb 6.8 L* (13.0-17.5) gm/dL Hct 22.4 L (39.0-53.0) % MCHC 30.1 L (31.0-37.0) g/dL RDW 15.8 H (11.5-15.5) % Plt Count 534 H (150-450) k/uL POC Glucose (mg/dL) 226 H 264 H (75-99) mg/dL Crossmatch Microbiology - Last 24 Hours (Table) 07/09/19 11:10 Blood Culture - Preliminary Blood No Growth after 48 hours Assessment and Plan Assessment: Right lower lobe aspiration pneumonia Near syncopal episode Acute blood loss anemia probably due to GI bleed Chronic renal failure stage III Severe COPD emphysema GI bleed Plan: Monitor hemoglobin closely Hold anticoagulation Proton pump inhibitors IV Consults surgery for endoscopy, currently on hold due to general medical health Broad-spectrum IV antibiotics for aspiration pneumonia Fall precautions Bronchodilators Further recommendations pending plan of care as per clinical response of the patient Time with Patient: Greater than 30
--- NOTE | 2019-07-13 15:17 | P.PN ---
Subjective Progress Note Date: 07/13/19 Principal diagnosis: Right lower lobe aspiration pneumonia Near syncopal episode Acute blood loss anemia probably due to GI bleed Chronic renal failure stage III Severe COPD emphysema GI bleed 07/13/2019, patient seen and evaluated and examined during the rounds labs revie wed medications reviewed x-ray done on the July 10 showed resolution of pneumonia patient however remains on 5 L oxygen during the day using BiPAP machine each night mental status remains clear awake and alert is still of ongoing cough congestion and wheezing, blood cultures have been negative so 07/12/2019, patient seen and evaluated examined during the rounds labs reviewed remains on supplemental oxygen ongoing wheezing is present cuff congestion slightly improved, mental status significantly improved 07/11/2019, patient seen eval examined during the rounds labs reviewed medications reviewed care plan discussed with patient and staff at length patient is undergoing colon prep having significant amount of diarrhea the endoscopy have been canceled at this time he remains on supplemental oxygen he is been using BiPAP at nighttime oxygen during the day short of breath and mental status is improved now compared to yesterday exam, labs showed a stable hemoglobin of 7.1 white cell count is 17,900 07/10/2019, patient seen eval examined during the rounds labs reviewed medications reviewed patient is relatively more awake now he is on nasal cannula daughter is present at bedside, patient is currently nothing by mouth for possible endoscopy, hemoglobin came down to 6.6 patient is being transfused with 1 unit of packed RBC, white cell count is 16,100, sugar is mid to high 200 range Mr. Meza is a 74-year-old male he is a half-way resident who was brought in by EMS because he was noted to be very weak and passed out patient has been on and requests as well due to severe peripheral vascular disease underwent leg amputation few weeks ago, not much data can obtained from the patient due to poor historian, no seizure-like activity has been noted, review of the data include a chest x-ray which shows a right lower lobe developing pneumonia may very well be aspiration related, in addition he was noted to have a hemoglobin of 7 with heme positive stool, patient is being admitted under Dr. Li with sedation or general surgery for heme positive stool, labs reviewed medications reviewed, we'll continue to hold anticoagulation t for now Ammann patient will be started on broad-spectrum antibiotics Objective - Vital Signs Vital signs: Vital Signs Temp 98.3 F 07/13/19 12:27 Pulse 94 07/13/19 12:53 Resp 21 07/13/19 12:27 BP 171/79 07/13/19 12:27 Pulse Ox 91 L 07/13/19 12:27 Intake & Output 07/12/19 07/13/19 07/13/19 18:59 06:59 18:59 Intake Total 800 500 980 Output Total 1175 Balance 800 -675 980 Weight 128.5 kg 128.5 kg Intake: IV 500 500 Piperacillin-Tazobactam 3 100 100 .375 gm In Sodium Chloride 0.9% 100 ml @ 25 mls/hr IVPB Q8H [facility] Rx#: [id number] Sodium Chloride 0.9% 1, 400 400 000 ml @ 100 mls/hr IV . Q10H [facility] Rx#:[id number] Oral 180 480 Blood Product 620 Rc As-1 Unit 310 [id number] Rc As-3 Unit 310 [id number] Output: Urine 1175 Other: Voiding Method Indwelling Catheter Indwelling Catheter Indwelling Catheter - Exam - Constitutional General appearance: average body habitus, cooperative, disheveled, no acute distress - EENT Eyes: EOMI, PERRLA, normal appearance Ears: bilateral: normal - Neck Neck: normal ROM Carotids: bilateral: upstroke normal, bruit absent - Respiratory Respiratory: right: rales, bilateral: diminished, negative: CTA, rhonchi, wheezing, prolonged expiration - Cardiovascular Rhythm: regular Heart sounds: normal: S1, S2 - Gastrointestinal General gastrointestinal: normal bowel sounds, soft - Integumentary Integumentary: normal, normal turgor - Neurologic Neurologic: CNII-XII intact - Musculoskeletal Musculoskeletal: gait normal, generalized weakness, strength equal bilaterally - Psychiatric Psychiatric: A&O x's 3, appropriate affect, intact judgment & insight (Status post right BKA) - Labs CBC & Chem 7: 07/13/19 06:16 07/13/19 06:16 Labs: Abnormal Lab Results - Last 24 Hours (Table) 07/10/19 07/12/19 07/12/19 Range/Units 15:45 16:51 20:43 WBC (3.8-10.6) k/uL RBC (4.30-5.90) m/uL Hgb (13.0-17.5) gm/dL Hct (39.0-53.0) % MCHC (31.0-37.0) g/dL RDW (11.5-15.5) % Plt Count (150-450) k/uL Neutrophils # (1.3-7.7) k/uL Monocytes # (0-1.0) k/uL BUN (9-20) mg/dL Glucose (74-99) mg/dL POC Glucose (mg/dL) 159 H 69 L (75-99) mg/dL Albumin (3.5-5.0) g/dL Methylmalonic Acid 0.48 H (<0.40) umol/L 07/13/19 07/13/19 07/13/19 Range/Units 06:10 06:16 06:16 WBC 15.9 H (3.8-10.6) k/uL RBC 3.07 L (4.30-5.90) m/uL Hgb 8.8 L D (13.0-17.5) gm/dL Hct 29.2 L (39.0-53.0) % MCHC 30.3 L (31.0-37.0) g/dL RDW 16.8 H (11.5-15.5) % Plt Count 571 H (150-450) k/uL Neutrophils # 13.4 H (1.3-7.7) k/uL Monocytes # 1.1 H (0-1.0) k/uL BUN 8 L (9-20) mg/dL Glucose 112 H (74-99) mg/dL POC Glucose (mg/dL) 118 H (75-99) mg/dL Albumin 2.7 L (3.5-5.0) g/dL Methylmalonic Acid (<0.40) umol/L 07/13/19 Range/Units 11:51 WBC (3.8-10.6) k/uL RBC (4.30-5.90) m/uL Hgb (13.0-17.5) gm/dL Hct (39.0-53.0) % MCHC (31.0-37.0) g/dL RDW (11.5-15.5) % Plt Count (150-450) k/uL Neutrophils # (1.3-7.7) k/uL Monocytes # (0-1.0) k/uL BUN (9-20) mg/dL Glucose (74-99) mg/dL POC Glucose (mg/dL) 163 H (75-99) mg/dL Albumin (3.5-5.0) g/dL Methylmalonic Acid (<0.40) umol/L Microbiology - Last 24 Hours (Table) 07/09/19 11:10 Blood Culture - Preliminary Blood No Growth after 96 hours 07/11/19 08:56 Blood Culture - Preliminary Blood No Growth after 48 hours Assessment and Plan Assessment: Right lower lobe aspiration pneumonia, clinically and radiographically improving Near syncopal episode, likely respiratory event Acute blood loss anemia probably due to GI bleed Chronic renal failure stage III Severe COPD emphysema GI bleed Plan: Monitor hemoglobin closely Hold anticoagulation Proton pump inhibitors IV Consults surgery for endoscopy, currently on hold due to general medical health Broad-spectrum IV antibiotics for aspiration pneumonia Fall precautions Bronchodilators Further recommendations pending plan of care as per clinical response of the patient Time with Patient: Greater than 30
[2019-07-13 16:36] LABS: Glucose,Whole Blood 161 mg/dL (75-99)
[2019-07-13] MEDS: HEPARIN SOD,PORK IN 0.45% NACL 25,000 UNIT in 0.45% NACL 1 250ML.BAG IV SCH (18:36)
[2019-07-13] MEDS: HEPARIN SODIUM,PORCINE 5,000 UNIT/ML 1 ML VIAL IV PRN (18:37)
[2019-07-13] MEDS: DILTIAZEM 125 MG in SODIUM CHLORIDE 0.9% 100 ML IV SCH (18:44)
[2019-07-13 18:51] LABS: INR 1.2 (<1.2); Partial Thromboplastin Time 25.6 sec (22.0-30.0); Prothrombin Time 12.1 sec (9.0-12.0)
[2019-07-13 19:02] LABS: Anisocytosis Slight; HCT 30.3 % (39.0-53.0); HGB 9.2 gm/dL (13.0-17.5); Hypochromasia Marked; MCH 29.5 pg (25.0-35.0); MCHC 30.4 g/dL (31.0-37.0); MCV 97.1 fL (80.0-100.0); Macrocytosis Slight; Mean Platelet Volume 6.2; Platelet Count 545 k/uL (150-450); Poikilocytosis Moderate; RBC 3.12 m/uL (4.30-5.90); RDW 16.4 % (11.5-15.5); WBC 14.2 k/uL (3.8-10.6)
[2019-07-13 19:33] LABS: Eosinophils # (M) 0.14 k/uL (0-0.7); Large Platelets Present; Lymphocytes # (M) 0.85 k/uL (1.0-4.8); Monocytes # (M) 0.85 k/uL (0-1.0); Neutrophils % (M) 87 %; Nucleated Red Blood Cells 0 /100 WBC (0-0); Total Cells Counted 100
[2019-07-13 19:34] LABS: Ovalocytes Present; Polychromasia Present
[2019-07-13 20:37] LABS: Glucose,Whole Blood 169 mg/dL (75-99)
[2019-07-13] MEDS: ATORVASTATIN 80 MG TAB PO SCH (21:50)
[2019-07-13 22:00] LABS: Glucose,Whole Blood 174 mg/dL (75-99)
[2019-07-14] MEDS: LORazepam 2 MG/ML INJ IV PRN ×2 (02:37→09:03)
[2019-07-14] MEDS: HEPARIN SODIUM,PORCINE 5,000 UNIT/ML 1 ML VIAL IV PRN (02:43)
[2019-07-14] MEDS: SODIUM CHLORIDE 0.9% 1,000 ML IV SCH ×3 (03:49→21:39)
[2019-07-14] MEDS: PIPERACILLIN-TAZOBACTAM 3.375 GM in SODIUM CHLORIDE 0.9% 100 ML IVPB SCH ×3 (05:27→21:37)
[2019-07-14 06:47] LABS: Anisocytosis Slight; Basophils # (A) 0.1 k/uL (0-0.2); Basophils % (A) 0 %; Eosinophils # (A) 0.1 k/uL (0-0.7); Eosinophils % (A) 0 %; HCT 30.3 % (39.0-53.0); HGB 9.1 gm/dL (13.0-17.5); Hypochromasia Marked; Lymphocytes # (A) 0.6 k/uL (1.0-4.8); Lymphocytes % (A) 3 %; MCH 29.1 pg (25.0-35.0); MCV 97.2 fL (80.0-100.0); Macrocytosis Slight; Monocytes # (A) 0.9 k/uL (0-1.0); Monocytes % (A) 4 %; Neutrophils # (A) 19.7 k/uL (1.3-7.7); Neutrophils % (A) 92 %; Platelet Count 559 k/uL (150-450); Poikilocytosis Moderate; RBC 3.12 m/uL (4.30-5.90); RDW 16.4 % (11.5-15.5); WBC 21.5 k/uL (3.8-10.6)
[2019-07-14 07:00] LABS: Albumin 2.7 g/dL (3.5-5.0); Calcium 8.4 mg/dL (8.4-10.2); Potassium 4.2 mmol/L (3.5-5.1); Total Bilirubin 0.6 mg/dL (0.2-1.3); Total Protein 6.3 g/dL (6.3-8.2)
[2019-07-14 07:18] LABS: Glucose,Whole Blood 156 mg/dL (75-99)
[2019-07-14] MEDS: INSULIN DETEMIR (LEVEMIR) 100 UNIT/ML SYR SQ SCH (07:28)
[2019-07-14] MEDS: INSULIN ASPART (NovoLOG) 100 UNIT/ML VIAL SQ SCH ×4 (07:28→21:25)
[2019-07-14] MEDS: IPRATROPIUM-ALBUTEROL 3 ML NEB INHALATION SCH ×5 (08:30→20:27)
[2019-07-14] MEDS: SYMBICORT 80-4.5 MCG INHALER INHALATION SCH ×2 (08:30→20:21)
[2019-07-14] MEDS: metFORMIN 500 MG TAB PO SCH (08:41)
[2019-07-14] MEDS: PANTOPRAZOLE 40 MG TABLET PO SCH (08:41)
[2019-07-14] MEDS: LEVOFLOXACIN 750 MG TAB PO SCH (08:41)
[2019-07-14] MEDS: TAMSULOSIN 0.4 MG CAP.ER.24H PO SCH (08:42)
[2019-07-14 09:17] LABS: Glucose,Whole Blood 172 mg/dL (75-99)
--- NOTE | 2019-07-14 11:06 | CDI ---
Documentation Clarification Form Date: 07/14/2019 10:42:14 AM From: Karine Messina RN, CCDS Admit Date: 07/09/2019 10:36:00 AM Patient Name: Adam Meza Visit Number: [id number] Discharge Date: ATTENTION: The Clinical Documentation Specialists (CDI) and [facility] Coding Staff appreciate your assistance in clarifying documentation. Please respond to the clarification below the line at the bottom and electronically sign. The CDI & [facility] Coding staff will review the response and follow-up if needed. Please note: Queries are made part of the Legal Health Record. If you have any questions, please contact the author of this message via ITS. Dr. Chaz Medina The patient presented with the following respiratory symptoms: Respiratory distress (Mild respiratory distress) decreased breath sounds 07/13 Pulmonary (Dr. Medina) Patient remains on 5 L oxygen during the day using BiPAP machine each night. He still has ongoing cough congestion and wheezing. History/Risk Factors: Chronic hypoxic respiratory failure, Severe COPD, Pneumonia, Right pleural effusion Left lung Nodule, Cpap use Tobacco use: Former smoker Home oxygen: 3/L/NC ATC Clinical Indicators: 74-year-old male present with mental status changes. Chest x-ray shows right lower lobe developing pneumonia may very well be aspiration related. His hemoglobin is 6.6 on admission, with fecal occult blood stool positive. Vital signs: 133/63 82 18 98.3 94 % 6/L NC Pulse oximetry: 94 % 6/L NC, 96 % 5/L NC,94 % on BIPAP FIO2 60; 93 % 4/L NC, 85 % 5/L NC Lung/Breathing assessment: ABG/CBG: pH 7.46 pO2 66 pCO2 49 HCO3 34 ABG O2 Saturation 92.0 Treatment: Breathing tx: Albuterol/Iprotropium Duoneb's per orders Monitor O2 Sat's (titrate) BiPap per orders In your professional opinion, can you please clarify if these findings signify one of the following conditions? Acute Respiratory Failure Acute on Chronic Respiratory Failure Chronic Respiratory Failure Other Diagnosis, please specify Unable to determine Specificity: If known, further specify (if known): With hypercapnia? (pCO2 >50 and pH <7.35) With hypoxia? (pO2 <60 mm Hg or SpO2 <91% on room air) (Last Query Form Revision: May 2019) MTDD
--- NOTE | 2019-07-14 11:11 | P.PN ---
Subjective Progress Note Date: 07/12/19 This is a 74-year-old gentleman with community-acquired, aspiration pneumonia, near syncope, metabolic encephalopathy, severe COPD emphysema, chronic renal failure stage III, and multiple other medical issues in a patient with recent right AKA. Maintained on nebulized bronchodilators, IV antibiotics .Afebrile, WBC trending down, currently 14.7. Unfortunately patient continues to remove oxygen, BiPAP when awake-needs frequent reminders to maintain compliance with therapy. Denies chest pain, palpitations. Denies lightheadedness, dizziness. Complains of chronic back pain. Objective - Vital Signs Vital signs: Vital Signs Temp 98.2 F 07/12/19 15:12 Pulse 100 07/12/19 15:12 Resp 18 07/12/19 15:12 BP 138/56 07/12/19 15:12 Pulse Ox 91 L 07/12/19 11:34 Intake & Output 07/11/19 07/12/19 07/12/19 18:59 06:59 18:59 Intake Total 2510 800 Output Total 500 800 Balance 2009 -800 800 Weight 121 kg 123.5 kg Intake: IV 1650 Levofloxacin 750Mg-D5w 750 Pmx 750 mg In Dextrose/ Water 1 150ml.bag @ 100 mls/hr IVPB Q24HR [facility] Rx# :[id number] Piperacillin-Tazobactam 3 100 .375 gm In Sodium Chloride 0.9% 100 ml @ 25 mls/hr IVPB Q8H [facility] Rx#: [id number] Sodium Chloride 0.9% 1, 800 000 ml @ 100 mls/hr IV . Q10H [facility] Rx#:[id number] Oral 860 180 Blood Product 620 As-1 Unit 310 [id number] As-3 Unit 310 [id number] Output: Urine 500 800 Uretheral (Jansen) 450 Other: Voiding Method Indwelling Catheter Indwelling Catheter Indwelling Catheter # Voids 2 - Exam PHYSICAL EXAM: VITAL SIGNS: As above GENERAL: Sitting up in bed, no acute distress, confused HEENT: Conjunctivae normal. eyes normal. NECK: No JVD. No thyroid enlargement. No LNs CARDIOVASCULAR: S1, S2 irregular.mild tachycardia, No murmur, no rubs, no gallops RESPIRATION: Breath sounds diminished in the bases. No rhonchi, right basilar crackles. ABDOMEN: Soft, nontender . No guarding. no masses palpable. Bowel sounds heard. LEGS: Positive edema of left leg. No cyanosis, no clubbing. Right leg AKA PSYCHIATRY: Alert and oriented X2, mood and affect normal. NERVOUS SYSTEM: Cranial N 2-12 grossly normal. Diffuse weakness No focal deficits. Strength and sensation grossly intact.. - Labs CBC & Chem 7: 07/14/19 06:16 07/14/19 06:16 Labs: Abnormal Lab Results - Last 24 Hours (Table) 07/10/19 07/11/19 07/11/19 Range/Units 07:19 16:28 21:11 WBC (3.8-10.6) k/uL RBC (4.30-5.90) m/uL Hgb (13.0-17.5) gm/dL Hct (39.0-53.0) % MCHC (31.0-37.0) g/dL RDW (11.5-15.5) % Plt Count (150-450) k/uL POC Glucose (mg/dL) 269 H 226 H (75-99) mg/dL Crossmatch See Detail 07/12/19 07/12/19 07/12/19 Range/Units 05:53 06:20 11:52 WBC 14.7 H (3.8-10.6) k/uL RBC 2.25 L (4.30-5.90) m/uL Hgb 6.8 L* (13.0-17.5) gm/dL Hct 22.4 L (39.0-53.0) % MCHC 30.1 L (31.0-37.0) g/dL RDW 15.8 H (11.5-15.5) % Plt Count 534 H (150-450) k/uL POC Glucose (mg/dL) 264 H 370 H (75-99) mg/dL Crossmatch Microbiology - Last 24 Hours (Table) 07/09/19 11:10 Blood Culture - Preliminary Blood No Growth after 72 hours 07/11/19 08:56 Blood Culture - Preliminary Blood No Growth after 24 hours Assessment and Plan Assessment: -Acute severe blood loss anemia, possible GI bleed -Eliquis discontinued ,unable to proceed with EGD/colonoscopy under conscious sedation. Gen. anesthesia recommended as per anesthesia, patient and sister declined. Status post transfusion of RBCs. -Acute aspiration, healthcare acquired right lower lobe pneumonia -Acute on chronic hypoxic respiratory failureIn a patient with severe COPD emphysema -Near syncope, multifactorial, secondary to all the above -Leukocytosis secondary to pneumonia -Sepsis ruled out. -Toxic and metabolic encephalopathy, multifactorial, secondary to all the above. -Recent right knee amputation. -Chronic back pain -Chronic persistent atrial fibrillation Plan: Continue on current medication regime , PPI,monitoring and symptomatic treatment. Received 2 units packed RBCs today. Close monitoring of hemoglobin with repeat labs ordered for a.m. Maintain nighttime CPAP. Ultram added to med regime for chronic back pain. As mentioned above patient and sister declined further workup of anemia at this time given patient is high risk. Patient is also considered poor surgical risk, surgery has signed off. Maintain nebulized bronchodilators, IV antibiotics, BiPAP/02. Patient needs frequent reminders in maintaining BiPAP and oxygen therapy. Strict aspiration precautions. Discharge planning for returning to [facility] subacute rehab in the next 24-48 hours. The impression and plan of care has been dictated as directed. : I performed a history and examination of this patient, discussed the same with the dictator. I agree with the dictator's note ,documented as a scribe. Any additional findings or plans will be noted.
--- NOTE | 2019-07-14 11:37 | P.PN ---
Subjective Progress Note Date: 07/13/19 This is a 74-year-old gentleman with community-acquired, aspiration pneumonia, near syncope, metabolic encephalopathy, severe COPD emphysema, chronic renal failure stage III, and multiple other medical issues in a patient with recent right AKA. Maintained on nebulized bronchodilators, IV antibiotics .Afebrile, WBC trending down, currently 14.7. Unfortunately patient continues to remove oxygen, BiPAP when awake-needs frequent reminders to maintain compliance with therapy. Denies chest pain, palpitations. Denies lightheadedness, dizziness. Complains of chronic back pain. 07/13/2019 Continues on IV antibiotics, nebulized bronchodilators.requiring 5 L nasal cannula O2 to maintain O2 sats in the low 90s. Remains in fairly controlled atrial fibrillation with heart rates up into the 1 teens. Received 2 units of packed RBCs, Hemoglobin 8.8, CO2 27. No active bleeding reported. Denies chest pain, palpitations. Continues requiring frequent reminders to leave oxygen and BiPAP on. Afebrile, continued trending down of WBC to 14.2 , blood cultures negative. Objective - Vital Signs Vital signs: Vital Signs Temp 98.3 F 07/13/19 12:27 Pulse 94 07/13/19 15:48 Resp 18 07/13/19 15:48 BP 171/79 07/13/19 12:27 Pulse Ox 91 L 07/13/19 12:27 Intake & Output 07/12/19 07/13/19 07/13/19 18:59 06:59 18:59 Intake Total 800 500 980 Output Total 1175 350 Balance 800 -675 630 Weight 128.5 kg 128.5 kg Intake: IV 500 500 Piperacillin-Tazobactam 3 100 100 .375 gm In Sodium Chloride 0.9% 100 ml @ 25 mls/hr IVPB Q8H [facility] Rx#: [id number] Sodium Chloride 0.9% 1, 400 400 000 ml @ 100 mls/hr IV . Q10H [facility] Rx#:[id number] Oral 180 480 Blood Product 620 As-1 Unit 310 [id number] Rc As-3 Unit 310 [id number] Output: Urine 1175 350 Other: Voiding Method Indwelling Catheter Indwelling Catheter Indwelling Catheter - Exam PHYSICAL EXAM: VITAL SIGNS: As above GENERAL: Sitting up in bed, no acute distress, confused HEENT: Conjunctivae normal. eyes normal. NECK: No JVD. No thyroid enlargement. No LNs CARDIOVASCULAR: S1, S2 irregular.mild tachycardia, No murmur, no rubs, no gallops RESPIRATION: Breath sounds diminished in the bases. No rhonchi, right basilar crackles. ABDOMEN: Soft, nontender . No guarding. no masses palpable. Bowel sounds heard. LEGS: Positive edema of left leg. No cyanosis, no clubbing. Right leg AKA. PSYCHIATRY: Alert and oriented X1, mood and affect normal. NERVOUS SYSTEM: Cranial N 2-12 grossly normal. Diffuse weakness No focal deficits. Strength and sensation grossly intact.. - Labs CBC & Chem 7: 07/14/19 06:16 07/14/19 06:16 Labs: Abnormal Lab Results - Last 24 Hours (Table) 07/10/19 07/12/19 07/12/19 Range/Units 15:45 16:51 20:43 WBC (3.8-10.6) k/uL RBC (4.30-5.90) m/uL Hgb (13.0-17.5) gm/dL Hct (39.0-53.0) % MCHC (31.0-37.0) g/dL RDW (11.5-15.5) % Plt Count (150-450) k/uL Neutrophils # (1.3-7.7) k/uL Monocytes # (0-1.0) k/uL BUN (9-20) mg/dL Glucose (74-99) mg/dL POC Glucose (mg/dL) 159 H 69 L (75-99) mg/dL Albumin (3.5-5.0) g/dL Methylmalonic Acid 0.48 H (<0.40) umol/L 07/13/19 07/13/19 07/13/19 Range/Units 06:10 06:16 06:16 WBC 15.9 H (3.8-10.6) k/uL RBC 3.07 L (4.30-5.90) m/uL Hgb 8.8 L D (13.0-17.5) gm/dL Hct 29.2 L (39.0-53.0) % MCHC 30.3 L (31.0-37.0) g/dL RDW 16.8 H (11.5-15.5) % Plt Count 571 H (150-450) k/uL Neutrophils # 13.4 H (1.3-7.7) k/uL Monocytes # 1.1 H (0-1.0) k/uL BUN 8 L (9-20) mg/dL Glucose 112 H (74-99) mg/dL POC Glucose (mg/dL) 118 H (75-99) mg/dL Albumin 2.7 L (3.5-5.0) g/dL Methylmalonic Acid (<0.40) umol/L 07/13/19 Range/Units 11:51 WBC (3.8-10.6) k/uL RBC (4.30-5.90) m/uL Hgb (13.0-17.5) gm/dL Hct (39.0-53.0) % MCHC (31.0-37.0) g/dL RDW (11.5-15.5) % Plt Count (150-450) k/uL Neutrophils # (1.3-7.7) k/uL Monocytes # (0-1.0) k/uL BUN (9-20) mg/dL Glucose (74-99) mg/dL POC Glucose (mg/dL) 163 H (75-99) mg/dL Albumin (3.5-5.0) g/dL Methylmalonic Acid (<0.40) umol/L Microbiology - Last 24 Hours (Table) 07/09/19 11:10 Blood Culture - Preliminary Blood No Growth after 96 hours 07/11/19 08:56 Blood Culture - Preliminary Blood No Growth after 48 hours Assessment and Plan Assessment: -Acute severe blood loss anemia, possible GI bleed -Eliquis discontinued ,unable to proceed with EGD/colonoscopy under conscious sedation. Gen. anesthesia recommended as per anesthesia, patient and sister declined. Status post transfusion of RBCs. -Acute aspiration, healthcare acquired right lower lobe pneumonia -Acute on chronic hypoxic respiratory failureIn a patient with severe COPD emphysema -Near syncope, multifactorial, secondary to all the above -Leukocytosis secondary to pneumonia -Sepsis ruled out. -Toxic and metabolic encephalopathy, multifactorial, secondary to all the above. -Recent right knee amputation. -Chronic back pain -Chronic persistent atrial fibrillation Plan: Continue on current medication regime , PPI,monitoring and symptomatic treatment. Close monitoring of hemoglobin for another 24 hours with repeat labs ordered for a.m. strict aspiration precautions. Continue nebulized bronchodilators, IV antibiotics, BiPAP/02. Frequent reminders in maintaining BiPAP and oxygen therapy. Discharge planning for returning to [facility] subacute rehab. tomorrow. The impression and plan of care has been dictated as directed. : I performed a history and examination of this patient, discussed the same with the dictator. I agree with the dictator's note ,documented as a scribe. Any additional findings or plans will be noted.
--- NOTE | 2019-07-14 11:46 | P.PN ---
Subjective Progress Note Date: 07/14/19 This is a 74-year-old gentleman with community-acquired, aspiration pneumonia, near syncope, metabolic encephalopathy, severe COPD emphysema, chronic renal failure stage III, and multiple other medical issues in a patient with recent right AKA. Maintained on nebulized bronchodilators, IV antibiotics .Afebrile, WBC trending down, currently 14.7. Unfortunately patient continues to remove oxygen, BiPAP when awake-needs frequent reminders to maintain compliance with therapy. Denies chest pain, palpitations. Denies lightheadedness, dizziness. Complains of chronic back pain. 07/13/2019 Continues on IV antibiotics, nebulized bronchodilators.requiring 5 L nasal cannula O2 to maintain O2 sats in the low 90s. Remains in fairly controlled atrial fibrillation with heart rates up into the 1 teens. Received 2 units of packed RBCs, Hemoglobin 8.8, CO2 27. No active bleeding reported. Denies chest pain, palpitations. Continues requiring frequent reminders to leave oxygen and BiPAP on. Afebrile, continued trending down of WBC to 14.2 , blood cultures negative. 07/14/2019 rapid atrial fibrillation with heart rates up into the 140s during the night, now on Cardizem and heparin drips. T-max 99.4 with white count elevated to 21.5. Difficulty maintaining O2 and BiPAP secondary to patient's confusion. Currently maintaining O2 sats in the low 90s on 6 L nasal cannula. Hemoglobin continues to improve, up to 9.1. Creatinine 1.14. Objective - Vital Signs Vital signs: Vital Signs Temp 97.8 F 07/14/19 11:19 Pulse 101 H 07/14/19 11:28 Resp 20 07/14/19 11:19 BP 171/80 07/14/19 11:19 Pulse Ox 90 L 07/14/19 11:19 Intake & Output 07/13/19 07/14/19 07/14/19 18:59 06:59 18:59 Intake Total 980 80.642 120 Output Total 350 250 Balance 630 -169.358 120 Weight 128.5 kg 132.5 kg Intake: IV 500 Piperacillin-Tazobactam 3 100 .375 gm In Sodium Chloride 0.9% 100 ml @ 25 mls/hr IVPB Q8H [facility] Rx#: [id number] Sodium Chloride 0.9% 1, 400 000 ml @ 100 mls/hr IV . Q10H [facility] Rx#:[id number] Intake, IV Titration 80.642 Amount Heparin Sod,Pork in 0.45% 80.642 NaCl 25,000 unit In 0.45 % NaCl 1 250ml.bag @ 7.78 UNITS/KG/HR 9.997 mls/hr IV .Q24H [facility] Rx#: [id number] Oral 480 120 Output: Urine 350 250 Other: Voiding Method Indwelling Catheter Indwelling Catheter # Bowel Movements 1 - Exam PHYSICAL EXAM: VITAL SIGNS: As above GENERAL: Sitting up in bed, no acute distress, pleasantly confused HEENT: Conjunctivae normal. eyes normal. NECK: No JVD. No thyroid enlargement. No LNs CARDIOVASCULAR: S1, S2 irregular.tachycardia, No murmur, no rubs, no gallops RESPIRATION: Breath sounds diminished in the bases. No rhonchi, right basilar crackles. ABDOMEN: Soft, nontender . No guarding. no masses palpable. Bowel sounds heard. LEGS: Positive edema of left leg. No cyanosis, no clubbing. Right leg AKA. PSYCHIATRY: Alert and oriented X1, mood and affect normal. NERVOUS SYSTEM: Cranial N 2-12 grossly normal. Diffuse weakness No focal deficits. Strength and sensation grossly intact.. Microbiology 07/11/19 08:56 Blood Blood Culture - Preliminary No Growth after 72 hours 07/09/19 11:10 Blood Blood Culture - Preliminary No Growth after 96 hours - Labs CBC & Chem 7: 07/14/19 06:16 07/14/19 06:16 Labs: Abnormal Lab Results - Last 24 Hours (Table) 07/13/19 07/13/19 07/13/19 Range/Units 11:51 16:25 18:24 WBC 14.2 H (3.8-10.6) k/uL RBC 3.12 L (4.30-5.90) m/uL Hgb 9.2 L (13.0-17.5) gm/dL Hct 30.3 L (39.0-53.0) % MCHC 30.4 L (31.0-37.0) g/dL RDW 16.4 H (11.5-15.5) % Plt Count 545 H (150-450) k/uL Neutrophils # (1.3-7.7) k/uL Neutrophils # (Manual) 12.35 H (1.3-7.7) k/uL Lymphocytes # (1.0-4.8) k/uL Lymphocytes # (Manual) 0.85 L (1.0-4.8) k/uL PT (9.0-12.0) sec INR (<1.2) APTT (22.0-30.0) sec Glucose (74-99) mg/dL POC Glucose (mg/dL) 163 H 161 H (75-99) mg/dL Albumin (3.5-5.0) g/dL 07/13/19 07/13/19 07/13/19 Range/Units 18:24 20:36 21:57 WBC (3.8-10.6) k/uL RBC (4.30-5.90) m/uL Hgb (13.0-17.5) gm/dL Hct (39.0-53.0) % MCHC (31.0-37.0) g/dL RDW (11.5-15.5) % Plt Count (150-450) k/uL Neutrophils # (1.3-7.7) k/uL Neutrophils # (Manual) (1.3-7.7) k/uL Lymphocytes # (1.0-4.8) k/uL Lymphocytes # (Manual) (1.0-4.8) k/uL PT 12.1 H (9.0-12.0) sec INR 1.2 H (<1.2) APTT (22.0-30.0) sec Glucose (74-99) mg/dL POC Glucose (mg/dL) 169 H 174 H (75-99) mg/dL Albumin (3.5-5.0) g/dL 07/14/19 07/14/19 07/14/19 Range/Units 00:46 06:16 06:16 WBC 21.5 H (3.8-10.6) k/uL RBC 3.12 L (4.30-5.90) m/uL Hgb 9.1 L (13.0-17.5) gm/dL Hct 30.3 L (39.0-53.0) % MCHC 30.0 L (31.0-37.0) g/dL RDW 16.4 H (11.5-15.5) % Plt Count 559 H (150-450) k/uL Neutrophils # 19.7 H (1.3-7.7) k/uL Neutrophils # (Manual) (1.3-7.7) k/uL Lymphocytes # 0.6 L (1.0-4.8) k/uL Lymphocytes # (Manual) (1.0-4.8) k/uL PT (9.0-12.0) sec INR (<1.2) APTT 32.1 H (22.0-30.0) sec Glucose 163 H (74-99) mg/dL POC Glucose (mg/dL) (75-99) mg/dL Albumin 2.7 L (3.5-5.0) g/dL 07/14/19 07/14/19 07/14/19 Range/Units 06:16 07:08 09:15 WBC (3.8-10.6) k/uL RBC (4.30-5.90) m/uL Hgb (13.0-17.5) gm/dL Hct (39.0-53.0) % MCHC (31.0-37.0) g/dL RDW (11.5-15.5) % Plt Count (150-450) k/uL Neutrophils # (1.3-7.7) k/uL Neutrophils # (Manual) (1.3-7.7) k/uL Lymphocytes # (1.0-4.8) k/uL Lymphocytes # (Manual) (1.0-4.8) k/uL PT (9.0-12.0) sec INR (<1.2) APTT 62.4 H (22.0-30.0) sec Glucose (74-99) mg/dL POC Glucose (mg/dL) 156 H 172 H (75-99) mg/dL Albumin (3.5-5.0) g/dL Microbiology - Last 24 Hours (Table) 07/11/19 08:56 Blood Culture - Preliminary Blood No Growth after 72 hours 07/09/19 11:10 Blood Culture - Preliminary Blood No Growth after 96 hours Assessment and Plan Assessment: -Acute severe blood loss anemia, possible GI bleed -Eliquis discontinued ,unable to proceed with EGD/colonoscopy under conscious sedation. Gen. anesthesia recommended as per anesthesia, patient and sister declined. Status post transfusion of RBCs. -Acute aspiration, healthcare acquired right lower lobe pneumonia -Acute on chronic hypoxic respiratory failureIn a patient with severe COPD emphysema -Near syncope, multifactorial, secondary to all the above -A. fib with RVR in a patient with chronic persistent atrial fibrillation. -Leukocytosis secondary to pneumonia -Sepsis ruled out. -Toxic and metabolic encephalopathy, multifactorial, secondary to all the above. -Recent right knee amputation. -Chronic back pain Plan: Continue on current medication regime , PPI,monitoring and symptomatic treatment. Cardizem and heparin drips.Strict aspiration precautions. Maintain frequent reminders in maintaining BiPAP and oxygen therapy. The impression and plan of care has been dictated as directed. : I performed a history and examination of this patient, discussed the same with the dictator. I agree with the dictator's note ,documented as a scribe. Any additional findings or plans will be noted.
[2019-07-14 12:05] LABS: Glucose,Whole Blood 145 mg/dL (75-99)
--- NOTE | 2019-07-14 15:50 | P.PN ---
Subjective Progress Note Date: 07/14/19 Principal diagnosis: Right lower lobe aspiration pneumonia Near syncopal episode Acute blood loss anemia probably due to GI bleed Chronic renal failure stage III Severe COPD emphysema GI bleed 07/14/2019, patient seen eval examined during the rounds labs reviewed medications reviewed care plan discussed with the staff at length patient remains on IV heparin as well as the Cardizem drip heart rate is relatively better under control with Cardizem drip hemoglobin has been stable as well patient is currently on BiPAP 08/17 with 50% oxygen rate is status post 12 07/13/2019, patient seen and evaluated and examined during the rounds labs reviewed medications reviewed x-ray done on the July 10 showed resolution of pneumonia patient however remains on 5 L oxygen during the day using BiPAP machine each night mental status remains clear awake and alert is still of ongoing cough congestion and wheezing, blood cultures have been negative so 07/12/2019, patient seen and evaluated examined during the rounds labs reviewed remains on supplemental oxygen ongoing wheezing is present cuff congestion slightly improved, mental status significantly improved 07/11/2019, patient seen eval examined during the rounds labs reviewed medications reviewed care plan discussed with patient and staff at length patient is undergoing colon prep having significant amount of diarrhea the endoscopy have been canceled at this time he remains on supplemental oxygen he is been using BiPAP at nighttime oxygen during the day short of breath and mental status is improved now compared to yesterday exam, labs showed a stable hemoglobin of 7.1 white cell count is 17,900 07/10/2019, patient seen eval examined during the rounds labs reviewed medications reviewed patient is relatively more awake now he is on nasal cannula daughter is present at bedside, patient is currently nothing by mouth for possible endoscopy, hemoglobin came down to 6.6 patient is being transfused with 1 unit of packed RBC, white cell count is 16,100, sugar is mid to high 200 range Mr. Meza is a 74-year-old male he is a group home resident who was brought in by EMS because he was noted to be very weak and passed out patient has been on and requests as well due to severe peripheral vascular disease underwent leg amputation few weeks ago, not much data can obtained from the patient due to poor historian, no seizure-like activity has been noted, review of the data include a chest x-ray which shows a right lower lobe developing pneumonia may very well be aspiration related, in addition he was noted to have a hemoglobin of 7 with heme positive stool, patient is being admitted under Dr. Li with sedation or general surgery for heme positive stool, labs reviewed medications reviewed, we'll continue to hold anticoagulation t for now Ammann patient will be started on broad-spectrum antibiotics Objective - Vital Signs Vital signs: Vital Signs Temp 97.8 F 07/14/19 11:19 Pulse 103 H 07/14/19 11:38 Resp 20 07/14/19 12:00 BP 171/80 07/14/19 11:19 Pulse Ox 90 L 07/14/19 11:19 Intake & Output 07/13/19 07/14/19 07/14/19 18:59 06:59 18:59 Intake Total 980 80.642 420 Output Total 350 250 400 Balance 630 -169.358 20 Weight 128.5 kg 132.5 kg Intake: IV 500 Piperacillin-Tazobactam 3 100 .375 gm In Sodium Chloride 0.9% 100 ml @ 25 mls/hr IVPB Q8H [facility] Rx#: [id number] Sodium Chloride 0.9% 1, 400 000 ml @ 100 mls/hr IV . Q10H [facility] Rx#:[id number] Intake, IV Titration 80.642 Amount Heparin Sod,Pork in 0.45% 80.642 NaCl 25,000 unit In 0.45 % NaCl 1 250ml.bag @ 7.78 UNITS/KG/HR 9.997 mls/hr IV .Q24H [facility] Rx#: [id number] Oral 480 420 Output: Urine 350 250 400 Other: Voiding Method Indwelling Catheter Indwelling Catheter Indwelling Catheter # Bowel Movements 1 - Exam - Constitutional General appearance: average body habitus, cooperative, disheveled, no acute distress - EENT Eyes: EOMI, PERRLA, normal appearance Ears: bilateral: normal - Neck Neck: normal ROM Carotids: bilateral: upstroke normal, bruit absent - Respiratory Respiratory: right: rales, bilateral: diminished, negative: CTA, rhonchi, wheezing, prolonged expiration - Cardiovascular Rhythm: regular Heart sounds: normal: S1, S2 - Gastrointestinal General gastrointestinal: normal bowel sounds, soft - Integumentary Integumentary: normal, normal turgor - Neurologic Neurologic: CNII-XII intact - Musculoskeletal Musculoskeletal: gait normal, generalized weakness, strength equal bilaterally - Psychiatric Psychiatric: A&O x's 3, appropriate affect, intact judgment & insight (Status post right BKA) - Labs CBC & Chem 7: 07/14/19 06:16 07/14/19 06:16 Labs: Abnormal Lab Results - Last 24 Hours (Table) 07/13/19 07/13/19 07/13/19 Range/Units 16:25 18:24 18:24 WBC 14.2 H (3.8-10.6) k/uL RBC 3.12 L (4.30-5.90) m/uL Hgb 9.2 L (13.0-17.5) gm/dL Hct 30.3 L (39.0-53.0) % MCHC 30.4 L (31.0-37.0) g/dL RDW 16.4 H (11.5-15.5) % Plt Count 545 H (150-450) k/uL Neutrophils # (1.3-7.7) k/uL Neutrophils # (Manual) 12.35 H (1.3-7.7) k/uL Lymphocytes # (1.0-4.8) k/uL Lymphocytes # (Manual) 0.85 L (1.0-4.8) k/uL PT 12.1 H (9.0-12.0) sec INR 1.2 H (<1.2) APTT (22.0-30.0) sec Glucose (74-99) mg/dL POC Glucose (mg/dL) 161 H (75-99) mg/dL Albumin (3.5-5.0) g/dL 07/13/19 07/13/19 07/14/19 Range/Units 20:36 21:57 00:46 WBC (3.8-10.6) k/uL RBC (4.30-5.90) m/uL Hgb (13.0-17.5) gm/dL Hct (39.0-53.0) % MCHC (31.0-37.0) g/dL RDW (11.5-15.5) % Plt Count (150-450) k/uL Neutrophils # (1.3-7.7) k/uL Neutrophils # (Manual) (1.3-7.7) k/uL Lymphocytes # (1.0-4.8) k/uL Lymphocytes # (Manual) (1.0-4.8) k/uL PT (9.0-12.0) sec INR (<1.2) APTT 32.1 H (22.0-30.0) sec Glucose (74-99) mg/dL POC Glucose (mg/dL) 169 H 174 H (75-99) mg/dL Albumin (3.5-5.0) g/dL 07/14/19 07/14/19 07/14/19 Range/Units 06:16 06:16 06:16 WBC 21.5 H (3.8-10.6) k/uL RBC 3.12 L (4.30-5.90) m/uL Hgb 9.1 L (13.0-17.5) gm/dL Hct 30.3 L (39.0-53.0) % MCHC 30.0 L (31.0-37.0) g/dL RDW 16.4 H (11.5-15.5) % Plt Count 559 H (150-450) k/uL Neutrophils # 19.7 H (1.3-7.7) k/uL Neutrophils # (Manual) (1.3-7.7) k/uL Lymphocytes # 0.6 L (1.0-4.8) k/uL Lymphocytes # (Manual) (1.0-4.8) k/uL PT (9.0-12.0) sec INR (<1.2) APTT 62.4 H (22.0-30.0) sec Glucose 163 H (74-99) mg/dL POC Glucose (mg/dL) (75-99) mg/dL Albumin 2.7 L (3.5-5.0) g/dL 07/14/19 07/14/19 07/14/19 Range/Units 07:08 09:15 11:59 WBC (3.8-10.6) k/uL RBC (4.30-5.90) m/uL Hgb (13.0-17.5) gm/dL Hct (39.0-53.0) % MCHC (31.0-37.0) g/dL RDW (11.5-15.5) % Plt Count (150-450) k/uL Neutrophils # (1.3-7.7) k/uL Neutrophils # (Manual) (1.3-7.7) k/uL Lymphocytes # (1.0-4.8) k/uL Lymphocytes # (Manual) (1.0-4.8) k/uL PT (9.0-12.0) sec INR (<1.2) APTT (22.0-30.0) sec Glucose (74-99) mg/dL POC Glucose (mg/dL) 156 H 172 H 145 H (75-99) mg/dL Albumin (3.5-5.0) g/dL Microbiology - Last 24 Hours (Table) 07/09/19 11:10 Blood Culture - Preliminary Blood No Growth after 120 hours 07/11/19 08:56 Blood Culture - Preliminary Blood No Growth after 72 hours Assessment and Plan Assessment: Atrial fibrillation with rapid ventricular response Right lower lobe aspiration pneumonia, clinically and radiographically improving Near syncopal episode, likely respiratory event Acute blood loss anemia probably due to GI bleed Chronic renal failure stage III Severe COPD emphysema GI bleed Plan: Monitor hemoglobin closely Continue anticoagulation with heparin drip, monitor hemoglobin closely cardiol ogy following Continue Cardizem drip Proton pump inhibitors IV Consults surgery for endoscopy, currently on hold due to [facility] Broad-spectrum IV antibiotics for aspiration pneumonia Fall precautions Bronchodilators Further recommendations pending plan of care as per clinical response of the patient Time with Patient: Greater than 30
[2019-07-14 17:07] LABS: Glucose,Whole Blood 145 mg/dL (75-99)
[2019-07-14] MEDS: DILTIAZEM 125 MG in SODIUM CHLORIDE 0.9% 100 ML IV SCH (19:05)
[2019-07-14 20:40] LABS: Glucose,Whole Blood 138 mg/dL (75-99)
[2019-07-14] MEDS: HEPARIN SOD,PORK IN 0.45% NACL 25,000 UNIT in 0.45% NACL 1 250ML.BAG IV SCH (21:37)
[2019-07-14] MEDS: ATORVASTATIN 80 MG TAB PO SCH (23:04)
[2019-07-15] MEDS: LORazepam 2 MG/ML INJ IV PRN ×4 (00:21→15:04)
[2019-07-15] MEDS: PIPERACILLIN-TAZOBACTAM 3.375 GM in SODIUM CHLORIDE 0.9% 100 ML IVPB SCH ×2 (04:31→12:43)
[2019-07-15 06:46] LABS: Glucose,Whole Blood 122 mg/dL (75-99)
[2019-07-15 06:51] LABS: Anisocytosis Slight; Basophils % (A) 0 %; Eosinophils # (A) 0.1 k/uL (0-0.7); Eosinophils % (A) 1 %; HCT 28.8 % (39.0-53.0); HGB 8.6 gm/dL (13.0-17.5); Hypochromasia Marked; Lymphocytes # (A) 0.9 k/uL (1.0-4.8); Lymphocytes % (A) 7 %; MCH 29.4 pg (25.0-35.0); MCHC 29.8 g/dL (31.0-37.0); MCV 98.9 fL (80.0-100.0); Macrocytosis Slight; Mean Platelet Volume 6.1; Monocytes # (A) 0.8 k/uL (0-1.0); Monocytes % (A) 6 %; Neutrophils % (A) 85 %; Platelet Count 515 k/uL (150-450); Poikilocytosis Moderate; RBC 2.91 m/uL (4.30-5.90); RDW 16.2 % (11.5-15.5); WBC 14.2 k/uL (3.8-10.6)
[2019-07-15] MEDS: INSULIN ASPART (NovoLOG) 100 UNIT/ML VIAL SQ SCH ×2 (07:03→12:41)
[2019-07-15] MEDS: SODIUM CHLORIDE 0.9% 1,000 ML IV SCH ×2 (07:03→10:23)
[2019-07-15] MEDS: INSULIN DETEMIR (LEVEMIR) 100 UNIT/ML SYR SQ SCH (07:03)
[2019-07-15] MEDS: IPRATROPIUM-ALBUTEROL 3 ML NEB INHALATION SCH ×3 (08:26→15:48)
[2019-07-15] MEDS: SYMBICORT 80-4.5 MCG INHALER INHALATION SCH (08:26)
[2019-07-15] MEDS ORDERED: FUROSEMIDE 10 MG/ML 4 ML VIAL IV STA (11:44)
[2019-07-15 12:11] LABS: Glucose,Whole Blood 94 mg/dL (75-99)
[2019-07-15] MEDS: LEVOFLOXACIN 750 MG TAB PO SCH (12:40)
[2019-07-15] MEDS: PANTOPRAZOLE 40 MG TABLET PO SCH (12:40)
[2019-07-15] MEDS: metFORMIN 500 MG TAB PO SCH (12:40)
[2019-07-15] MEDS: TAMSULOSIN 0.4 MG CAP.ER.24H PO SCH (12:41)
[2019-07-15 12:47] VITALS: TEMP 97.8
[2019-07-15] MEDS ORDERED: VANCOMYCIN IV PER PHARMACY 1 EACH MISC MISCELLANE PRN (13:17)
[2019-07-15] MEDS ORDERED: VANCOMYCIN 2,000 MG in SODIUM CHLORIDE 0.9% 500 ML 500 ML IVPB SCH (14:00)
[2019-07-15] MEDS ORDERED: DRY MOUTH SPRAY 44.3 SPRAY/44.3 ML SPRAY MUCOUS MEM PRN (18:23)
[2019-07-15] MEDS ORDERED: HYDROmorphone 0.5 MG/0.5 ML SYRINGE IVP PRN (18:23)
[2019-07-15] MEDS ORDERED: ACETAMINOPHEN SUPPOSITORY 650 MG SUPP RECTAL PRN (18:23)
[2019-07-15] MEDS ORDERED: ONDANSETRON 4 MG/2 ML VIAL IVP PRN (18:23)
[2019-07-15] MEDS ORDERED: SCOPOLAMINE 1.5MG/72HR PATCH TRANSDERM SCH (18:30)
[2019-07-15] MEDS: HEPARIN SOD,PORK IN 0.45% NACL 25,000 UNIT in 0.45% NACL 1 250ML.BAG IV SCH (21:02)
[2019-07-15 22:14] VITALS: BP 158/71
--- NOTE | 2019-07-15 22:42 | PN ---
PROGRESS NOTE 74-year-old white male with community acquired healthcare acquired pneumonia, confusion, atrial fibrillation, rapid ventricular response, GI bleeding. We are going to add vancomycin to the Zosyn. Has been placed on Cardizem drip, heparin per Cardiology. Family wants him a NO CODE and want him COMFORT CARE as he is not awakening and is worsening. He is on 70% Venti mask and saturating in the mid 80s with or without his BiPAP. Plan is comfort measures are intact. Discussed case with the family and nurse. MMODL / IJN: [id number] /
[2019-07-16 01:30] VITALS: PULSE 84; RESP 32
[2019-07-16] MEDS ORDERED: FUROSEMIDE 10 MG/ML 4 ML VIAL IV SCH (09:00)
--- NOTE | 2019-07-16 09:09 | P.PN ---
Subjective Progress Note Date: 07/15/19 Principal diagnosis: Right lower lobe aspiration pneumonia Near syncopal episode Acute blood loss anemia probably due to GI bleed Chronic renal failure stage III Severe COPD emphysema GI bleed 07/15/2019, patient seen eval examined during the rounds labs reviewed medications reviewed, patient has not been doing very well has been very hypoxic BiPAP and 100% FiO2 has been an effective in increasing the oxygen saturation attempted Lasix 40 mgsignificant improvement has been seen family is considering hospice care, has been initiated 07/14/2019, patient seen eval examined during the rounds labs reviewed medications reviewed care plan discussed with the staff at length patient remains on IV heparin as well as the Cardizem drip heart rate is relatively better under control with Cardizem drip hemoglobin has been stable as well patient is currently on BiPAP 08/17 with 50% oxygen rate is status post 12 07/13/2019, patient seen and evaluated and examined during the rounds labs reviewed medications reviewed x-ray done on the July 10 showed resolution of pneumonia patient however remains on 5 L oxygen during the day using BiPAP machine each night mental status remains clear awake and alert is still of ongoing cough congestion and wheezing, blood cultures have been negative so 07/12/2019, patient seen and evaluated examined during the rounds labs reviewed remains on supplemental oxygen ongoing wheezing is present cuff congestion slightly improved, mental status significantly improved 07/11/2019, patient seen eval examined during the rounds labs reviewed m edications reviewed care plan discussed with patient and staff at length patient is undergoing colon prep having significant amount of diarrhea the endoscopy have been canceled at this time he remains on supplemental oxygen he is been using BiPAP at nighttime oxygen during the day short of breath and mental status is improved now compared to yesterday exam, labs showed a stable hemoglobin of 7.1 white cell count is 17,900 07/10/2019, patient seen eval examined during the rounds labs reviewed me dications reviewed patient is relatively more awake now he is on nasal cannula daughter is present at bedside, patient is currently nothing by mouth for possible endoscopy, hemoglobin came down to 6.6 patient is being transfused with 1 unit of packed RBC, white cell count is 16,100, sugar is mid to high 200 range Mr. Meza is a 74-year-old male he is a [facility] resident who was brought in by EMS because he was noted to be very weak and passed out patient has been on and requests as well due to severe peripheral vascular disease underwent leg amputation few weeks ago, not much data can obtained from the patient due to poor historian, no seizure-like activity has been noted, review of the data include a chest x-ray which shows a right lower lobe developing pneumonia may very well be aspiration related, in addition he was noted to have a hemoglobin of 7 with heme positive stool, patient is being admitted under Dr. Li with sedation or general surgery for heme positive stool, labs reviewed medications reviewed, we'll continue to hold anticoagulation t for now Ammann patient will be started on broad-spectrum antibiotics Objective - Vital Signs Vital signs: Vital Signs Temp 97.8 F 07/15/19 12:00 Pulse 70 07/15/19 20:00 Resp 20 07/15/19 20:00 BP 158/71 07/15/19 20:00 Pulse Ox 90 L 07/15/19 20:00 Intake & Output 07/15/19 07/15/19 07/16/19 06:59 18:59 05:59 Intake Total 151.75 130.209 Output Total 500 1650 600 Balance -348.25 -1519.791 -600 Weight 124 kg Intake: Intake, IV Titration 121.75 130.209 Amount Diltiazem 125 mg In 121.75 Sodium Chloride 0.9% 100 ml @ 5 MG/HR 5 mls/hr IV .Q24H TERE Rx#:[id number] Heparin Sod,Pork in 0.45% 130.209 NaCl 25,000 unit In 0.45 % NaCl 1 250ml.bag @ 7.78 UNITS/KG/HR 9.997 mls/hr IV .Q24H TERE Rx#: [id number] Oral 30 0 Output: Urine 500 1650 600 Other: Voiding Method Indwelling Catheter Indwelling Catheter Indwelling Catheter - Exam - Constitutional General appearance: average body habitus, cooperative, disheveled, no acute distress - EENT Eyes: EOMI, PERRLA, normal appearance Ears: bilateral: normal - Neck Neck: normal ROM Carotids: bilateral: upstroke normal, bruit absent - Respiratory Respiratory: right: rales, bilateral: diminished, negative: CTA, rhonchi, wheezing, prolonged expiration - Cardiovascular Rhythm: regular Heart sounds: normal: S1, S2 - Gastrointestinal General gastrointestinal: normal bowel sounds, soft - Integumentary Integumentary: normal, normal turgor - Neurologic Neurologic: CNII-XII intact - Musculoskeletal Musculoskeletal: Generalized weakness- Psychiatric Psychiatric: Unresponsive - Labs CBC & Chem 7: 07/15/19 06:05 07/14/19 06:16 Labs: Abnormal Lab Results - Last 24 Hours (Table) 07/15/19 07/15/19 07/15/19 Range/Units 06:05 06:05 06:34 WBC 14.2 H (3.8-10.6) k/uL RBC 2.91 L (4.30-5.90) m/uL Hgb 8.6 L (13.0-17.5) gm/dL Hct 28.8 L (39.0-53.0) % MCHC 29.8 L (31.0-37.0) g/dL RDW 16.2 H (11.5-15.5) % Plt Count 515 H (150-450) k/uL Neutrophils # 12.0 H (1.3-7.7) k/uL Lymphocytes # 0.9 L (1.0-4.8) k/uL APTT 48.4 H (22.0-30.0) sec POC Glucose (mg/dL) 122 H (75-99) mg/dL Microbiology - Last 24 Hours (Table) 07/09/19 11:10 Blood Culture - Final Blood No Growth after 144 hours 07/11/19 08:56 Blood Culture - Preliminary Blood No Growth after 96 hours Assessment and Plan Assessment: Atrial fibrillation with rapid ventricular response Right lower lobe aspiration pneumonia, clinically and radiographically improving Near syncopal episode, likely respiratory event Acute blood loss anemia probably due to GI bleed Chronic renal failure stage III Severe COPD emphysema GI bleed Plan: Hospice care has been initiated overall follow as needed basis Time with Patient: Greater than 30
--- NOTE | 2019-07-16 17:07 | HP ---
HISTORY AND PHYSICAL CHIEF COMPLAINT: A 74-year-old white male brought to the EMS for a week. Found to have severe peripheral vascular disease, underwent leg amputation a few weeks ago. He came in with Healthcare acquired pneumonia. Altered mental status after falling twice at the rehab center. He was found to have right lower lobe pneumonia, healthcare acquired and metabolic encephalopathy and hypoxic encephalopathy and dementia and GI bleed with positive blood in the stool and severe anemia at which time, his anticoagulation was stopped. Broad- spectrum antibiotics were started. He has as problem with ripping off all his oxygen, CPAP or home oxygen. PAST MEDICAL HISTORY: Atrial fibrillation, asthma, COPD, CVA, TIA, diabetes mellitus, DVT, GERD, dyslipidemia, sleep apnea, vascular disorder, atrial fibrillation, rapid ventricular response, hyponatremia, hypoxemic respiratory failure, obstructive sleep apnea, insulin- dependent diabetes mellitus, DVT, bilateral lower leg cellulitis, right leg amputation, bilateral retinal bleed surgery, nicotine addiction long-term, history of MRSA, cardiac ablation. FAMILY HISTORY: Father of brain hemorrhage. Mother of heart trouble. HOME MEDICATIONS: 1. Lopressor 150 b.i.d. 2. Lipitor 80 mg daily. 3. Flomax 0.4 mg daily. 4. Metformin 1000 daily. 5. DuoNeb q.i.d. 6. Cordarone 300 daily. 7. Eliquis 5 mg b.i.d. 8. Trulicity 0.75 mg daily. 9. Prozac 20 mg daily. 10.Pepcid 20 b.i.d. 11.Proscar 5 mg daily. 12.Breo 1 puff daily. 13.Humalog 4 units a.c. t.i.d. 14.Basaglar 40 units daily. 15.Imdur 30 mg daily. 16.Namenda 5 mg b.i.d. ALLERGIES: MORPHINE. PHYSICAL EXAMINATION: Vital signs : Temp 98.3, pulse 70s to 80s, respiratory rate 18 to 22, blood pressure is 106 to 170s over 60s to 80s, O2 94 to 98% on room air. Cardiovascular: S1, S2. Lungs scattered rhonchi and wheeze. Hematology: Below-knee amputation on the right, 2 to 3+ pedal edema on the left. GI: Soft, nontender. Psych: Alert and oriented x1. Ophthalmologic: Pupils equal, round, reactive to light and accommodation. Vascular as mentioned above. ASSESSMENT: 1. Healthcare acquired pneumonia. 2. Possible gastrointestinal bleed with anemia, we will have to monitor that. 3. Acute hypoxemic respiratory failure. 4. Chronic renal disease stage III. 5. Dementia. 6. Prior cerebrovascular accidents x3 with altered mental status. 7. Chronic obstructive pulmonary disease/ emphysema. 8. Noncompliance with oxygen due to dementia. 9. Status post below-knee amputation. 10.Right lower lobe aspiration pneumonia. 11.Near-syncope. 12.Atrial fibrillation, rapid ventricular response. Cardiology and pulmonology consults, Infectious Disease. Treated with broad-spectrum antibiotics. Please see further orders. PROGNOSIS: Extremely guarded. MMODL / IJN: [id number] /
== END 2019-07-16 06:45 | disposition expired | DRG 177 ==
LOC: EC 07:51 → 3SCARD 10:36
PROVIDERS: ADMIT Family Medicine; ATTEND Family Medicine
PROC: 30233N1 Transfusion of Nonautologous Red Blood Cells into Peripheral Vein, Percutaneous Approach (ICD-10-PCS; principal; 2019-07-09)
DX: J69.0 Pneumonitis due to inhalation of food and vomit (principal); G92 Toxic encephalopathy; J96.21 Acute and chronic respiratory failure with hypoxia; D62 Acute posthemorrhagic anemia; I48.19 Other persistent atrial fibrillation; G93.1 Anoxic brain damage, not elsewhere classified; K92.2 Gastrointestinal hemorrhage, unspecified; Z66 Do not resuscitate; K21.9 Gastro-esophageal reflux disease without esophagitis; E78.5 Hyperlipidemia, unspecified; E11.22 Type 2 diabetes mellitus with diabetic chronic kidney disease; E11.51 Type 2 diabetes mellitus with diabetic peripheral angiopathy without gangrene; Z51.5 Encounter for palliative care; R29.6 Repeated falls; J43.9 Emphysema, unspecified; G47.33 Obstructive sleep apnea (adult) (pediatric); F02.80 Dementia in other diseases classified elsewhere, unspecified severity, without behavioral disturbance, psychotic disturbance, mood disturbance, and anxiety; N18.3 Chronic kidney disease, stage 3 (moderate); E66.9 Obesity, unspecified; R94.01 Abnormal electroencephalogram [EEG]; Z79.01 Long term (current) use of anticoagulants; Z79.899 Other long term (current) drug therapy; Z79.4 Long term (current) use of insulin; Z88.5 Allergy status to narcotic agent; Z99.89 Dependence on other enabling machines and devices; Z87.01 Personal history of pneumonia (recurrent); Z86.14 Personal history of Methicillin resistant Staphylococcus aureus infection; Z98.890 Other specified postprocedural states; Z87.891 Personal history of nicotine dependence; Z89.611 Acquired absence of right leg above knee; Z99.81 Dependence on supplemental oxygen; I69.898 Other sequelae of other cerebrovascular disease; Z86.39 Personal history of other endocrine, nutritional and metabolic disease; Z83.6 Family history of other diseases of the respiratory system; Z84.89 Family history of other specified conditions; Z86.718 Personal history of other venous thrombosis and embolism; Z82.49 Family history of ischemic heart disease and other diseases of the circulatory system; Z68.39 Body mass index [BMI] 39.0-39.9, adult; Z91.19 Patient's noncompliance with other medical treatment and regimen; Z89.519 Acquired absence of unspecified leg below knee
CPT/HCPCS: 36415; 51702; 70450; 71045; 71046; 80048; 80053; 80306; 81001; 82009; 82140; 82272; 82550; 82607; 82746; 82805; 83036; 83605; 83921; 84443; 84484; 85025; 85027; 85610; 85730; 86780; 86850; 86900; 86901; 86920; 87040; 93005; 94640; 94660; 94760; 95819; 96365; 96367; 96375; 99291